=== PATIENT | male | born 1960 | race Caucasian/White ===

== ENCOUNTER 2018-05-22 07:32 | Day surgery (SDC) | payer OTHER ==
[2018-05-22] MEDS: NS 1,000 ML IV (06:00)
[2018-05-22] MEDS ORDERED: LIDOCAINE 2% INJ 100 MG/5 ML SDV (FOR ANES.) As Ordered (07:42)
[2018-05-22] MEDS ORDERED: PROPOFOL 200 MG/20 ML VIAL As Ordered ×2 (07:42)
== END 2018-05-22 09:22 | disposition home or self-care (01) ==
LOC: M OPP 07:32
DX: Z12.11 Encounter for screening for malignant neoplasm of colon (principal); Z86.010 Personal history of colon polyps; K64.0 First degree hemorrhoids; I48.91 Unspecified atrial fibrillation; I10 Essential (primary) hypertension; E78.5 Hyperlipidemia, unspecified; M10.9 Gout, unspecified; G47.30 Sleep apnea, unspecified; R06.83 Snoring; Z79.01 Long term (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 of anticoagulants; Z79.899 Other long term (current) drug therapy
CPT/HCPCS: 45378

== ENCOUNTER → 2019-03-27 | Outpatient (REF) | payer OTHER ==
[~2019-03-27] MED LIST: ATEN100T PO; DIGO0.25 PO; QUIN1TAB4 PO; ROSU10TA6 PO; WARF-18 PO; WARF-23 PO
[2019-03-28 11:06] LABS: LDL DIRECT 41 mg/dL (0-99)
== END ==
LOC: M LAB REF 12:40
PROVIDERS: ATTEND Internal Medicine
DX: E78.00 Pure hypercholesterolemia, unspecified (principal)

== ENCOUNTER → 2019-06-18 | Outpatient (CLI) | payer OTHER ==
--- NOTE | 2019-06-18 15:56 | REP ---
Two views right hip: 06/18/2019. Indication: Right hip pain. Comparison: None. Findings: There is no acute fracture, subluxation or dislocation. Narrowing of the hip joint is present with mild to moderate osteoarthritic changes. No erosive osseous abnormalities are present. Impression: No acute osseous injury of the right hip. Electronically Signed by Nathan Mccoy DO 06/18/2019 03:48 P
== END ==
LOC: M WUC 14:09
PROVIDERS: ATTEND Registered Nurse
DX: M25.559 Pain in unspecified hip (principal)

== ENCOUNTER → 2019-09-28 | Outpatient (REF) | payer OTHER ==
[~2019-09-28] MED LIST changes: -DIGO0.25 PO; +DIGO0.253 PO
== END ==
LOC: M LAB REF 16:26
PROVIDERS: ATTEND Internal Medicine
DX: I48.20 Chronic atrial fibrillation, unspecified (principal)

== ENCOUNTER → 2020-07-18 | Outpatient (REF) | payer OTHER ==
[2020-07-18 17:36] LABS: HEPATITIS A ANTIBODY IGM NEGATIVE (NEGATIVE); HEPATITIS B CORE ANTIBODY IGM NEGATIVE (NEGATIVE); HEPATITIS B SURFACE ANTIGEN NEGATIVE (NEGATIVE); HEPATITIS C VIRUS ABY INDEX 0.1 INDEX (<0.8)
== END ==
LOC: M LAB REF 16:19
PROVIDERS: ATTEND Internal Medicine
DX: R94.5 Abnormal results of liver function studies (principal)

== ENCOUNTER → 2020-07-24 | Outpatient (REF) | payer OTHER | LOC: M LAB REF 16:22 | PROVIDERS: ATTEND Internal Medicine | DX: C22.8 Malignant neoplasm of liver, primary, unspecified as to type (principal) ==

== ENCOUNTER → 2020-09-22 | Outpatient (REF) | payer OTHER ==
[~2020-09-22] MED LIST changes: +XARE20TA PO
== END ==
LOC: M LAB REF 16:12
PROVIDERS: ATTEND Internal Medicine
DX: I48.20 Chronic atrial fibrillation, unspecified (principal)

== ENCOUNTER 2020-09-23 10:36 | Inpatient (IN) | payer OTHER ==
[~2020-09-23] VITALS: Ht 190.5 cm; Wt 128.0 kg
[~2020-09-23 10:36] MED LIST changes: -XARE20TA PO
--- OUTSIDE RECORDS SUMMARY | 2020-09-23 10:44 | CCD | Continuity of Care Document ---
Author Author Real Koo MD Organization Unknown Address [address] [address] Phone [phone] Care Team Providers Care Therapeutic Recreation Assistant Name Role Phone Jeffy Koo JR, MD AUTM Unavailable Problems Active Problems Provider Date Anticoagulants Homeopathic Doctor (Current) Use O nset: 07/23/1997 Atrial fibrillation Jeffy Koo MD Onset: 07/23/1997 Metabolic syndrome X Jeffy Koo MD Onset: 04/17/2012 Pure hypercholesterolemia Jeffy Koo MD Onset: 04/17 Obstructive sleep apnea syndrome Jeffy Koo MD Onset : 04/17/2012 Pure hyperglyceridemia Jeffy Koo MD Onset: 04/17/20 12 Morbid obesity Jeffy Koo MD Onset: 04/17/2012 Essential hypertension Jeffy Koo MD Onset: 04/17/20 12 Anticoagulant agent Jeffy Koo MD Onset: 03/24/2015 Social History Type Date Description Comments Sex Unknown ETOH Use consumes 1-2 beers per week Tobacco Use Start: Unknown Patient has never smoked Allergies, Adverse Reactions, Alerts Description No Known Drug Allergies Medications Active Medications SIG Qnty Indications Ordering Provide r Date Oseltamivir Phosphate 75mg Capsule s 1 by mouth twice daily for 5 days. 10caps Jeffy Koo MD 09/15/2020 Xarelto 20mg Tablets take one tablet by mouth every day with dinner 90tabs Jason Allison 08/12/2020 Trulicity 1.5mg/0.5ML Solution Pen -Inject 1 injection weekly 6ml Jeffy Koo MD 020 Docusate Sodium 100mg Capsules take one capsule by mouth twice a day as needed hold for diarrhea 90caps K64 .9 Jeffy Koo MD 07/17/2019 Hydrocortisone 2.5% Cream apply to hemorrhoids three times daily as needed 30gm K64.9 Jeffy Koo MD 07/17/2019 Baclofen 10mg Tablets May Take 1 Tablet By Mouth Up To Twice Daily as Needed For Low Back/Hip Pain 45tabs M25. 551 Jeffy Koo MD 06/18/2019 Rosuvastatin Calcium 20mg Tablets Take One Tablet By Mouth Every Day 90tabs Jeffy Koo MD 03/28/2019 Metformin HCL ER 750mg Tablets ER 24HR Take Two Tablets By Mouth Every Day Before Supper 180tabs Jeffy Koo MD 09/02/2017 Aleve 220mg Tablets 2 po qd p rn RAJEEV Viera 03/10/2017 Cyclobenzaprine HCL 10mg Tablets take one tablet by mouth three times a day as needed 45tabs M54.31 RAJEEV Viera 03/10/2017 Digoxin 250mcg Tablets Take One Tablet By Mouth Every Day 90tabs Jeffy Koo MD 10/03/2014 Viagra 100mg Tablets as direc valerie 10tabs Jeffy Koo MD 09/23/2014 No OTC Meds Jeffy Koo MD C-Pap Mask And Supplies use as directed 1units G47.33 Jeffy Koo MD 09/11/2010 Quinapril HCL 40mg Tablets Take One Tablet By Mouth Daily 90tabs Jeffy Koo MD 08/13/2010 Atenolol 100mg Tablets Take One Tablet By Mouth Every Day 90tabs Jeffy Koo MD 11/18/1998 Medications Administered in Office Medication SIG Qnty Indications Ordering Provider Date Immunization Adminstration,1 Vaccine/Tox oid Injection Jeffy Koo MD 2019 Immunization Adminstration,1 Vaccine/Tox oid Injection Jeffy Koo MD 2018 Immunization Adminstration,1 Vaccine/Tox oid Injection Jeffy Koo MD 2017 Administration Of Flu Vaccine Inj ection RAJEEV Calero 06/16/2005 Administration Of Flu Vaccine Inj ection RAJEEV Calero 05/21/2003 Immunizations CPT Code Status Date Vaccine Lot # [id number] Given 05/26/2020 Influenza Vaccin e Quadrivalent Preser/Antibiotic Free Im Use [id number] Given 05/29/2019 Influenza Vaccin e Quadrivalent Preser/Antibiotic Free Im Use 117130 61957 Given 05/16/2018 Influenza Virus Vaccine, Quadrivalent (Cciiv4), Derived From 7 Given 05/30/2017 Influenza Vaccin e Quadrivalent Preser/Antibiotic Free Im Use [id number] Q2037 Given 05/13/2016 Fluvirin Virus Vaccine 18730 01 Q2037 Given 05/14/2014 Fluvirin Virus Vaccine Q2037 Given 06/21/2013 Fluvirin Virus Vaccine Q2037 Given 05/17/2012 Fluvirin Virus Vaccine Q2037 Given 05/26/2011 Fluvirin Virus Vaccine 22630 Given 05/06/2010 Influenza Virus Vaccine 82350 Given 05/07/2009 Influenza Virus Vaccine 34251 Given 05/21/2008 Influenza Virus Vaccine 07528 Given 05/23/2007 Influenza Virus Vaccine 45143 Given 07/26/2006 Influenza Virus Vaccine 66362 Given 06/16/2005 Influenza Virus Vaccine 79134 Given 05/21/2003 Influenza Virus Vaccine 29208 Given 06/12/2002 Influenza Virus Vaccine Vital Signs Date Vital Result Comment 09/22/2020 1:31pm BP Systolic 112 mmHg BP Diastolic 68 mmHg Heart Rate 70 /min Height 75 inches 6'3" Weight 280.00 lb BMI (Body Mass Index) 35.0 kg/m2 07/18/2020 12:57pm BP Systolic 110 mmHg BP Diastolic 74 mmHg Heart Rate 120 /min irregular Height 75 inches 6'3" Weight 325.00 lb BMI (Body Mass Index) 40.6 kg/m2 Results Test Acquired Date Facility Test Result H/L Range Note Pap Stain 08/15/2020 [place] [address] [phone] Specimen Description Received in form <SEE NOTE> 1 Specimen Description cores are four <SEE NOTE> 2 Specimen Description diameter. All pr <SEE NOTE> 3 Clinical History Liver mass. Microscopic Examination Slides reviewed. <SEE NOTE> 4 Preliminary Diagnosis ULTRASOUND GUIDE <SEE NOTE> 5 Preliminary Diagnosis - FEATURES ARE S <SEE NOTE> 6 Preliminary Diagnosis METAMORPHOSIS, F <SEE NOTE> 7 Preliminary Diagnosis - SEE COMMENT Preliminary Diagnosis AB <SEE NOTE> 8 Preliminary Diagnosis AB <SEE NOTE> 9 Preliminary Diagnosis ULTRASOUND GUIDE <SEE NOTE> 10 Preliminary Diagnosis - FEATURES ARE S <SEE NOTE> 11 Preliminary Diagnosis METAMORPHOSIS, F <SEE NOTE> 12 Preliminary Diagnosis - SEE COMMENT Preliminary Diagnosis AB <SEE NOTE> 13 Preliminary Diagnosis AB <SEE NOTE> 14 Preliminary Diagnosis <SEE NOTE> 15 Preliminary Diagnosis COMMENT: This ca <SEE NOTE> 16 Preliminary Diagnosis consultation by <SEE NOTE> 17 -31 REPORT SIGNED: K <SEE NOTE> 18 Pathologic Diagnosis This case was se <SEE NOTE> 19 Pathologic Diagnosis <SEE NOTE> 20 Pathologic Diagnosis LIVER, MASS, BIO <SEE NOTE> 21 Pathologic Diagnosis - MODERATELY-DIF <SEE NOTE> 22 Pathologic Diagnosis <SEE NOTE> 23 Pathologic Diagnosis <SEE NOTE> 24 Specimen Description Received in form <SEE NOTE> 25 Specimen Description cores are four <SEE NOTE> 26 Specimen Description diameter. All pr <SEE NOTE> 27 Clinical History Liver mass. Microscopic Examination Slides reviewed. <SEE NOTE> 28 Preliminary Diagnosis their report, th <SEE NOTE> 29 Preliminary Diagnosis Report faxed to <SEE NOTE> 30 Preliminary Diagnosis ULTRASOUND GUIDE <SEE NOTE> 31 Preliminary Diagnosis - FEATURES ARE S <SEE NOTE> 32 Preliminary Diagnosis METAMORPHOSIS, F <SEE NOTE> 33 Preliminary Diagnosis - SEE COMMENT -40 REPORT SIGNED: K <SEE NOTE> 34 Pathologic Diagnosis Sections show an <SEE NOTE> 35 Pathologic Diagnosis COMMENT: 36 Pathologic Diagnosis Sections show an <SEE NOTE> 37 Pathologic Diagnosis endothelial wrap <SEE NOTE> 38 Pathologic Diagnosis carcinoma. There <SEE NOTE> 39 Pathologic Diagnosis Arginase-1 and G <SEE NOTE> 40 Pathologic Diagnosis attempted to fur <SEE NOTE> 41 Pathologic Diagnosis remaining for ev <SEE NOTE> 42 Pathologic Diagnosis Spa Assistant Manager s <SEE NOTE> 43 Pathologic Diagnosis intradepartmenta <SEE NOTE> 44 Pathologic Diagnosis Amer K Abu Bebeto, <SEE NOTE> 45 Pathologic Diagnosis [address] <SEE NOTE> 46 Pathologic Diagnosis Electronically S <SEE NOTE> 47 Pathologic Diagnosis Patrick Damon, <SEE NOTE> 48 Pathologic Diagnosis [address] <SEE NOTE> 49 Specimen Description Received in form <SEE NOTE> 50 Specimen Description cores are four <SEE NOTE> 51 Specimen Description diameter. All pr <SEE NOTE> 52 Clinical History Liver mass. Microscopic Examination Slides reviewed. <SEE NOTE> 53 Preliminary Diagnosis AB <SEE NOTE> 54 Preliminary Diagnosis AB <SEE NOTE> 55 Preliminary Diagnosis ULTRASOUND GUIDE <SEE NOTE> 56 Preliminary Diagnosis - FEATURES ARE S <SEE NOTE> 57 Preliminary Diagnosis METAMORPHOSIS, F <SEE NOTE> 58 Preliminary Diagnosis - SEE COMMENT 59 Preliminary Diagnosis their report, th <SEE NOTE> 60 Preliminary Diagnosis AB <SEE NOTE> 61 Preliminary Diagnosis AB <SEE NOTE> 62 Preliminary Diagnosis Report faxed to <SEE NOTE> 63 Preliminary Diagnosis COMMENT: This ca <SEE NOTE> 64 Preliminary Diagnosis consultation by <SEE NOTE> 65 Preliminary Diagnosis their report, th <SEE NOTE> 66 Preliminary Diagnosis . -56 REPORT SIGNED: K <SEE NOTE> 67 Pathologic Diagnosis Cynthia, SHAREE 0 <SEE NOTE> 68 Pathologic Diagnosis CODE/S: Pathologic Diagnosis 69435 Pathologic Diagnosis <SEE NOTE> 69 Specimen Description Received in form <SEE NOTE> 70 Specimen Description cores are four <SEE NOTE> 71 Specimen Description diameter. All pr <SEE NOTE> 72 Clinical History Liver mass. Microscopic Examination Slides reviewed. <SEE NOTE> 73 Preliminary Diagnosis Report faxed to <SEE NOTE> 74 Preliminary Diagnosis <SEE NOTE> 75 Preliminary Diagnosis . -63 REPORT SIGNED: K <SEE NOTE> 76 -64 Macy Foster DO <SEE NOTE> 77 Complete Blood Count 08/15/2020 [facility] [place] [address] [phone] WBC 5.23 x10E3/uL Normal 4.0-10.5 RBC 3.59 x10E6/uL Low 4.70-6.00 Hemoglobin 9.7 g/dL Low 14.0-18.0 Hematocrit 30.3 % Low 42.0-52.0 MCV 84.4 fL Normal 81.0-99.0 MCH 27.0 pg Normal 27.0-31.0 MCHC 32.0 g/dL Low 32.7-35.6 RDW 18.0 % High 11.5-14.0 Platelet count 257 x10E3/uL Normal 150-450 MPV 9.9 fl High 6.9-9.5 Neutrophils 72.4 % High 34-64 Lymphocytes 10.9 % Low 25-45 Monocytes 13.2 % High 1.7-10.6 Eosinophils 2.3 % Normal 0.4-7.0 Basophils 0.6 % Normal 0.1-2.0 Imm. Gran. 0.6 % Normal 0.1-2.0 Abs. Neutro. 3.79 x10E3/uL Normal 1.2-7.6 Abs. Lymph. 0.57 x10E3/uL Low 1.0-3.5 Abs. [place]. 0.69 x10E3/uL Normal 0.1-1.0 Abs. Eosin. 0.12 x10E3/uL Normal 0.1-0.7 Abs. Baso. 0.03 x10E3/uL Normal 0.0-0.1 Abs. Imm. Gran. 0.03 x10E3/uL Normal 0.0-0.1 78 Anrbc% 0 % Normal 0 RBC Morphology 2+ ANISOCYTOSIS Normal RBC Morphology 1+ HYPOCHROMIC Normal RBC Morphology OCC STOMATOCYTES Normal 79 RBC Morphology OCC TARGET CELLS Normal 80 Laboratory test finding 08/12/2020 [place] [address] [phone] [id number] Not Detected Normal Not Detected 81 Laboratory test finding 07/28/2020 [facility] 1.3 Laboratory test finding 07/24/[address] [address] [phone] Carcinoembryonic Antigen 0.6 NG/ML Normal <2.5 82 Alpha Fetoprotein Tumor Quant 1000.0 NG/ML High <8.1 83 Laboratory test finding 07/24/2020 [facility] 3.3 Liver Function Profile 07/18/2020 [facility] Patient Liaison: [place] [address] [phone] Alk. Phosphatase 277 mg/dL High 46 - 116 Total Bilirubin 0.8 mg/dL 0.2 - 1.0 Ast (Sgot) 973 U/L High 15 - 37 84 Alt (SGPT) 215 U/L High 12 - 78 Albumin 3.8 g/dL 3.4 - 5.0 Total Protein 7.6 g/dL 6.4 - 8.2 Direct Bilirubin 0.3 mg/dL High 0.0 - 0.2 A/G Ratio 1.00 CALC 1.00 - 1.90 Laboratory test finding 07/18/2020 [facility] Patient Liaison: [place] [address] [phone] PSA 0.68 ng/mL <4.00 85 Hepatitis Profile 07/18/2020 [facility] [address] [place] [address] [phone] Hepatitis C Virus Winsome Index 0.1 INDEX Normal <0.8 86 Hepatitis B Surface Antigen NEGATIVE Normal Negative Hepatitis B Core Antibody Igm NEGATIVE Normal Negative Hepatitis A Antibody Igm NEGATIVE Normal Negative Complete Blood Count 07/10/2020 [facility] Patient Liaison: [place] [address] [phone] WBC 4.2 x10*3/UL 4.1 - 10.9 RBC 4.44 x10*6/UL 4.20 - 6.30 Hemoglobin 12.6 g/dL 12.0 - 18.0 Hematocrit 36.6 % Low 37.0 - 51.0 MCV 82.4 fL 80.0 - 97.0 MCH 28.4 pg 26.0 - 32.0 MCHC 34.5 g/dL 31.0 - 38.0 RDW 14.4 % High 11.6 - 13.7 PLT 233 x10*3/UL 140 - 440 MPV 8.1 FL 7.8 - 11.0 Lymph % 16.5 % 10.0 - 58.5 Mid % 4.9 % 1.7 - 9.3 Neut % 78.6 % 37.0 - 92.0 Lymph # 0.6 x10*3/UL 0.6 - 4.1 Mid # 0.3 x10*3/UL 0.1 - 0.6 Neut # 3.3 x10*3/UL 2.0 - 7.8 A1c 07/10/2020 [facility] , Patient Liaison: [place] [address] [phone] Hba1c 6.0 % High <5.7 87 Est Avg Glucose 125 mg/dL High 60 - 110 Comprehensive Chem Profile 07/10/2020 [facility], Patient Liaison: [place] [address] [phone] Glucose 88 mg/dL 74 - 99 88 BUN 21 mg/dL High 7 - 18 Creatinine 1.3 mg/dL 0.6 - 1.3 Sodium 137 mEq/L 136 - 145 Potassium 4.8 mEq/L 3.5 - 5.1 Chloride 99 mEq/L 98 - 107 Carbon Dioxide 30 mEq/L 21 - 32 Calcium 9.0 mg/dL 8.5 - 10.1 Alk. Phosphatase 181 mg/dL High 46 - 116 Total Bilirubin 0.6 mg/dL 0.2 - 1.0 Ast (Sgot) 712 U/L High 15 - 37 89 Alt (SGPT) 83 U/L High 12 - 78 Albumin 3.7 g/dL 3.4 - 5.0 Total Protein 7.3 g/dL 6.4 - 8.2 A/G Ratio 1.03 CALC 1.00 - 1.90 GFR 57 mL/min Low >60 GFR >= 60 mL/min >60 90 Lipid Profile 07/10/2020 [facility] , Patient Liaison: [place] [address] [phone] Cholesterol 114 mg/dL Low 131 - 200 Triglycerides 149 mg/dL 30 - 150 HDL Cholesterol 21 mg/dL Low 35 - 60 LDL (Calculated) 63 CALC 50 - 159 Laboratory test finding 06/10/2020 [facility] 2.1 Laboratory test finding 06/03/2020 [facility] 1.6 Laboratory test finding 05/26/2020 [facility] 1.5 Laboratory test finding 04/24/2020 [facility] 3.0 Laboratory test finding 03/24/2020 [facility] 2.6 1 Received in formalin, labele d with proper patient identification and liver mass biopsy x2 2 cores are four becker-white ti ssue cores ranging in length from 0.3-1.4 cm and 0.1 cm in 3 diameter. All processed in o ne cassette. 4 Slides reviewed. Diagnosis supported by microscopic examination. 5 ULTRASOUND GUIDED BIOPSY OF LIVER MASS: 6 - FEATURES ARE STRONGLY SUGG ESTIVE OF HEPATOCELLULAR CARCINOMA WITH FATTY 7 METAMORPHOSIS, FIBROSIS AND AREAS OF NECROSIS 8 ABNORMAL FINDI NGS 9 ABNORMAL FINDI NGS 10 ULTRASOUND GUIDED BIOPSY OF LIVER MASS: 11 - FEATURES ARE STRONGLY SUGG ESTIVE OF HEPATOCELLULAR CARCINOMA WITH FATTY 12 METAMORPHOSIS, FIBROSIS AND AREAS OF NECROSIS 13 ABNORMAL FINDI NGS 14 ABNORMAL FINDI NGS 15 16 COMMENT: This case is referr ed to the [facility], Department of Pathology for a 17 consultation by a GI patholo gist to evaluate for hepatocellular carcinoma. Upon receipt of 18 REPORT SIGNED: Macy Foster DO 08/18/20 (preliminary) 19 This case was sent to [facility] for consultation. The report for 20 is as foll ows. 21 LIVER, MASS, BIOPSY: 22 - MODERATELY-DIFFERENTIATED HEPATOCELLULAR CARCINOMA. SEE COMMENT. 23 MALIGNANCY 24 MALIGNANCY 25 Received in formalin, labele d with proper patient identification and liver mass biopsy x2 26 cores are four becker-white ti ssue cores ranging in length from 0.3-1.4 cm and 0.1 cm in 27 diameter. All processed in o ne cassette. 28 Slides reviewed. Diagnosis supported by microscopic examination. 29 their report, the final diag nosis will be posted. [address] Jeffy Koo's office on 08/18/2020. 31 ULTRASOUND GUIDED BIOPSY OF LIVER MASS: 32 - FEATURES ARE STRONGLY SUGG ESTIVE OF HEPATOCELLULAR CARCINOMA WITH FATTY 33 METAMORPHOSIS, FIBROSIS AND AREAS OF NECROSIS 34 REPORT SIGNED: Macy Foster DO 08/18/20 (preliminary) 35 Sections show an atypical he patocellular neoplasm with trabecular architecture, 36 endothelial wrapping, and in tracytoplasmic fat, compatible with hepatocellular 37 Sections show an atypical he patocellular neoplasm with trabecular architecture, 38 endothelial wrapping, and in tracytoplasmic fat, compatible with hepatocellular 39 carcinoma. There is no backg round liver parenchyma present in the biopsy. HepPar1, 40 Arginase-1 and GPC-3 immunoh istochemical stains, as well as a reticulin stain, were 41 attempted to further charact erize the lesion but there was insufficient tissue 42 remaining for evaluation. 43 Spa Assistant Manager slides of thi s case were reviewed at the gastrointestinal/liver 44 intradepartmental consultati on conference. (RW, NF, ) 45 Patrick Damon MD [address] 47 Electronically Signed By: 48 Patrick Damon MD [address] 50 Received in formalin, labele d with proper patient identification and liver mass biopsy x2 51 cores are four becker-white ti ssue cores ranging in length from 0.3-1.4 cm and 0.1 cm in 52 diameter. All processed in o ne cassette. 53 Slides reviewed. Diagnosis supported by microscopic examination. 54 ABNORMAL FINDI NGS 55 ABNORMAL FINDI NGS 56 ULTRASOUND GUIDED BIOPSY OF LIVER MASS: 57 - FEATURES ARE STRONGLY SUGG ESTIVE OF HEPATOCELLULAR CARCINOMA WITH FATTY 58 METAMORPHOSIS, FIBROSIS AND AREAS OF NECROSIS 59 consultation by a GI patholo gist to evaluate for hepatocellular carcinoma. Upon receipt of 60 their report, the final diag nosis will be posted. 61 ABNORMAL FINDI NGS 62 ABNORMAL FINDI NGS [address] Jeffy Koo's office on 08/18/2020. 64 COMMENT: This case is referr ed to the [facility], Department of Pathology for a 65 consultation by a GI patholo gist to evaluate for hepatocellular carcinoma. Upon receipt of 66 their report, the final diag nosis will be posted. 67 REPORT SIGNED: Macy Foster DO 08/18/20 (preliminary) [address] [place] [address] 69 70 Received in formalin, labelernie d with proper patient identification and liver mass biopsy x2 71 cores are four becker-white ti ssue cores ranging in length from 0.3-1.4 cm and 0.1 cm in 72 diameter. All processed in o ne cassette. 73 Slides reviewed. Diagnosis supported by microscopic examination. [address] Jeffy Koo's office on 08/18/2020. 75 76 REPORT SIGNED: Macy Foster DO 08/18/20 (preliminary) 77 Macy Foster DO 1 78 DIFFERENTIAL CONFIRMED BY SL KENNA REVIEW. 79 OCC STOMATOCYTES 80 OCC TARGET CELLS RBC MORPHOLOGY EXPECTED RESULTS: NORMAL = NORMOCHROMIC, NORMOCYTIC CELLS Any findings other than Normal will be reported and are considered Abnormal. The significance of Abnormal findings are to be clinically correlated by the provider. 81 This nucleic acid amplificat ion test was developed and its performance characteristics determined by [employer]. Nucleic acid amplification tests include PCR and TMA. This test has not been FDA cleared or approved. This test has been authorized by FDA under an Emergency Use Authorization (EUA). This test is only authorized for the duration of time the declaration that circumstances exist justifying the authorization of the emergency use of in vitro diagnostic tests for detection of SARS-CoV-2 virus and/or diagnosis of COVID-19 infection under section 564(b)(1) of the Act, 21 U.S.C. 360bbb-3 (b) (1), unless the authorization is terminated or revoked sooner. When diagnostic testing is negative, the possibility of a false negative result should be considered in the context of a patient's recent exposures and the presence of clinical signs and symptoms consistent with COVID-19. An individual without symptoms of COVID-19 and who is not shedding SARS-CoV-2 virus would expect to have a negative (not detected) result in this assay. Methodology: Nucleic Acid Amplification (BETTY) 82 THE CEA ASSAY IS PERFORMED O N THE [facility] BY CHEMILUMINESCENCE AND SHOULD NOT BE COMPARED INTERCHANGEABLY WITH OTHER METHODS. IT SHOULD NOT BE USED ALONE A SCREENING TEST OR DIAGNOSIS FOR THE PRESENCE OR ABSENCE OF MALIGNANT DISEASE. PREDICTIONS OF DISEASE RECURRENCE SHOULD NOT BE BASED SOLELY ON VALUES OBTAINED FROM SERIAL PATIENT SERUM VALUES. 83 THE AFP ASSAY IS PERFORMED O N THE [employer] [facility] BY CHEMILUMINESCENCE AND SHOULD NOT BE COMPARED INTERCHANGEABLY WITH OTHER METHODS. IT SHOULD NOT BE USED ALONE A SCREENING TEST OR DIAGNOSIS FOR THE PRESENCE OR ABSENCE OF MALIGNANT DISEASE. THESE RESULTS ARE NOT INTERPRETABLE IN FEMALES. PREDICTIONS OF DISEASE RECURRENCE SHOULD NOT BE BASED SOLELY ON VALUES OBTAINED FROM SERIAL PATIENT SERUM VALUES. 84 NOTE: RESULT VERIFIED. 85 This assay was performed on the Siemens Dimension EXL using the B- Galactosidase/CPRG methodology and should not be compared interchangeably with other methods. The PSA should not be used alone as a screening test for the presence or absence of malignant disease. 86 Negative Not infected with HCV, unless recent infection is suspected or other evidence exists to indicate HCV infection. 87 Lab Result Notes: Pre-Diabetes 5.7 - 6.4 % Diabetes = or > 6.5% 88 100-125 mg/dL PRE-DIABET ES/FASTING >126 mg/dL DIABETES/FASTING 89 NOTE: RESULT VERIFIED. 90 CHRONIC KIDNEY DISEASE STAGI NG PER NKF STAGE I & II GFR >= 60 NORMAL TO MILDLY DECREASED STAGE III GFR 30-59 MODERATELY DECREASED STAGE IV GFR 15-29 SEVERELY DECREASED STAGE V GFR <15 VERY LITTLE GFR LEFT ESRD GFR <15 ON FLOWER SHOP MANAGER Procedures Date Code Description Status 05/22/2018 [id number] Colonoscopy Completed 12/25/2013 [id number] Colonoscopy Completed Medical Devices Description No Information Available Encounters Type Date Location Provider Dx Diagnosis Office Visit 07/24/2020 10[facility]a [facility] D37.6 Neoplasm of uncertain behavior of liver, GB & bile duct R91.8 Other nonspecific abnormal f inding of lung field I48.20 Chronic atrial fibrillation, unspecified Z79.01 half-way (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 of a nticoagulants C22.8 Malignant neoplasm of liver, primary, unspecified as to type Office Visit 07/18/2020 1[facility] E11.21 Type 2 diabetes mellitus with diabetic n ephropathy E11.42 Type 2 diabetes mellitus wit h diabetic polyneuropathy G47.33 Obstructive sleep apnea (jazmyne lt) (pediatric) E78.00 Pure hypercholesterolemia, u nspecified I48.20 Chronic atrial fibrillation, unspecified Z79.01 termination clerk (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 of a nticoagulants I11.9 [facility] R74.8 Abnormal levels of other ser um enzymes Z12.5 Encounter for screening for malignant neoplasm of prostate E66.01 Morbid (severe) obesity due to excess calories Z68.41 Body mass index [BMI]40.0-44 .9, adult Assessments Date Code Description Provider 07/28/2020 Z51.81 Encounter for therapeutic drug l evel monitoring Melvi Canas, [facility] 07/28/2020 Z51.81 Encounter for therapeutic drug l evel monitoring Protime 07/28/2020 Z79.01 termination clerk (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 oagulants Melvi Canas, [facility] 07/28/2020 Z79.01 half-way (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 oagulants Protime 07/28/2020 I48.20 Chronic atrial fibrillation, uns pecified Melvi Canas, [facility] 07/28/2020 I48.20 Chronic atrial fibrillation, uns pecified Protime 07/24/2020 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, gallbladder and bile ducts Jeffy Koo MD 07/24/2020 R91.8 Other nonspecific abnormal findi ng of lung field Jeffy Koo MD 07/24/2020 I48.20 Chronic atrial fibrillation, uns pecified Jeffy Koo MD 07/24/2020 Z79.01 termination clerk (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 oagulants Jeffy Koo MD 07/24/2020 C22.8 Malignant neoplasm of liver, haylie otilio, unspecified as to type Jeffy Koo MD 07/18/2020 E11.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 Jeffy Koo MD 07/18/2020 E11.42 Type 2 diabetes mellitus with di abetic polyneuropathy Jeffy Koo MD 07/18/2020 G47.33 Obstructive sleep apnea (adult) (pediatric) Jeffy Koo MD 07/18/2020 E78.00 Pure hypercholesterolemia, unspe cified Jeffy Koo MD 07/18/2020 I48.20 Chronic atrial fibrillation, uns pecified Jeffy Koo MD 07/18/2020 Z79.01 half-way (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 oagulants Jeffy Koo MD 07/18/2020 I11.9 Hypertensive heart disease witho ut heart failure Jeffy Koo MD 07/18/2020 R74.8 Abnormal levels of other serum e nzymes Jeffy Koo MD 07/18/2020 Z12.5 Encounter for screening for aliza gnant neoplasm of prostate Jeffy Koo MD 07/18/2020 E66.01 Morbid (severe) obesity due to e xcess calories Jeffy Koo MD 07/18/2020 Z68.41 Body mass index [BMI]40.0-44.9, adult Jeffy Koo MD 07/10/2020 E11.65 Type 2 diabetes mellitus with hy perglycemia Jeffy Koo MD 07/10/2020 E11.65 Type 2 diabetes mellitus with hy perglycemia Lab Schedule 07/10/2020 E78.00 Pure hypercholesterolemia, unspe cified Jeffy Koo MD 07/10/2020 Z51.81 Encounter for therapeutic drug l evel monitoring Melvi Canas, [facility] 07/10/2020 I48.20 Chronic atrial fibrillation, uns pecified Jeffy Koo MD 07/10/2020 E78.00 Pure hypercholesterolemia, unspe cified Lab Schedule 07/10/2020 Z79.01 termination clerk (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 oagulants Jeffy Koo MD 07/10/2020 Z51.81 Encounter for therapeutic drug l evel monitoring Protime 07/10/2020 I48.20 Chronic atrial fibrillation, uns pecified Lab Schedule 07/10/2020 I48.20 Chronic atrial fibrillation, uns pecified Melvi Anne Marie Patel, [facility] 07/10/2020 Z79.01 half-way (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 oagulants Lab Schedule 07/10/2020 I48.20 Chronic atrial fibrillation, uns pecified Protime 07/10/2020 Z79.01 half-way (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 oagulants Melvi Canas, [facility] 07/10/2020 Z79.01 termination clerk (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 oagulants Protime 06/10/2020 Z51.81 Encounter for therapeutic drug l evel monitoring Melvi Le Mcleod, GRADUATE CIVIL ENGINEER 06/10/2020 Z51.81 Encounter for therapeutic drug l evel monitoring Protime 06/10/2020 I48.20 Chronic atrial fibrillation, uns pecified Melvi Anne Marie Patel, [facility] 06/10/2020 I48.20 Chronic atrial fibrillation, uns pecified Protime 06/10/2020 Z79.01 termination clerk (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 oagulants Melvi Anne Marie Patel, GRADUATE CIVIL ENGINEER 06/10/2020 Z79.01 termination clerk (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 oagulants Protime 06/03/2020 Z51.81 Encounter for therapeutic drug l evel monitoring Melvi Le Mcleod, GRADUATE CIVIL ENGINEER 06/03/2020 Z51.81 Encounter for therapeutic drug l evel monitoring Protime 06/03/2020 I48.20 Chronic atrial fibrillation, uns pecified Melvi Le Mcleod, GRADUATE CIVIL ENGINEER 06/03/2020 I48.20 Chronic atrial fibrillation, uns pecified Protime 06/03/2020 Z79.01 termination clerk (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 oagulants Melvi Le Mcleod, GRADUATE CIVIL ENGINEER 06/03/2020 Z79.01 half-way (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 oagulants Protime 05/26/2020 Z51.81 Encounter for therapeutic drug l evel monitoring Melvi Le Mcleod, GRADUATE CIVIL ENGINEER 05/26/2020 Z51.81 Encounter for therapeutic drug l evel monitoring Protime 05/26/2020 I48.20 Chronic atrial fibrillation, uns pecified Melvi Le Mcleod, [facility] 05/26/2020 I48.20 Chronic atrial fibrillation, uns pecified Protime 05/26/2020 Z79.01 termination clerk (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 oagulants Melvi Le Mcleod, [facility] 05/26/2020 Z79.01 termination clerk (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 oagulants Protime 05/26/2020 Z23 Encounter for immunization Colli lacey Koo MD 05/26/2020 Z23 Encounter for immunization Proti me 04/24/2020 Z79.01 half-way (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 oagulants Melvi Le Mcleod, [facility] 04/24/2020 Z79.01 termination clerk (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 oagulants Protime 04/24/2020 I48.20 Chronic atrial fibrillation, uns pecified Melvi Le Mcleod, GRADUATE CIVIL ENGINEER 04/24/2020 I48.20 Chronic atrial fibrillation, uns pecified Protime 04/24/2020 Z51.81 Encounter for therapeutic drug l evel monitoring Melvi Le Mcleod, [facility] 04/24/2020 Z51.81 Encounter for therapeutic drug l evel monitoring Protime 03/24/2020 Z79.01 termination clerk (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 oagulants Melvi Le Mcleod, GRADUATE CIVIL ENGINEER 03/24/2020 Z79.01 termination clerk (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 oagulants Protime 03/24/2020 I48.20 Chronic atrial fibrillation, uns pecified Melvi Le Mcleod, [facility] 03/24/2020 I48.20 Chronic atrial fibrillation, uns pecified Protime 03/24/2020 Z51.81 Encounter for therapeutic drug l evel monitoring RAJEEV Calero Plan of Treatment Future Appointment(s):* 01/20/2021 11:40 am - [facility] 10/01/2019 - Jeffy Koo MD* I48.20 Chronic atrial fibrillation, unspecified * Z79.01 half-way (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oagulants * Z51.81 Encounter for therapeutic drug level monitoring * E11.21 Type 2 diabetes mellitus with diabetic nephropathy* Comments:* ABC's meet goal.Diabetic foot and eye exams up to date. TLC discussed. Glycemic index discussed. * E11.42 Type 2 diabetes mellitus with diabetic polyneuropathy * E11.65 Type 2 diabetes mellitus with hyperglycemia* Comments:* ABC's meet goal.Diabetic foot and eye exams up to date. TLC discussed. Glycemic index discussed. * I11.9 Hypertensive heart disease without heart failure * G47.33 Obstructive sleep apnea (adult) (pediatric) * E78.00 Pure hypercholesterolemia, unspecified * E66.01 Morbid (severe) obesity due to excess calories * Z68.42 Body mass index (BMI) 45.0-49.9, adult Functional Status Description No Information Available Mental Status Description No Information Available Referrals Refer to Reason for Referral Status Appt Date [facility] [place] M[facility]AY CONSULT FOR LIVER CANCER Alyce ent Declined [address] [place] [address] [phone] [facility] STEREOTYPE MOLDER CONSULT FOR METASTATIC LI TIMOTEO CANCER, PT SCHEDULED FOR LIVER BIOPSY ON 08/15/20 Sent 08/28/[address] [address] [phone] [facility] URGENT CONSULT FOR LARGE ALTHEA ER MASSES AND MULTIPLE PULMONARY NODULES. PT SCHEDULED FOR CHEST CT AT [facility] ON 07/29/20 Closed 08/05/2020 [address] [place], [place] [id number] [phone] [facility] STEREOTYPE MOLDER CONSULT FOR LARGE ALTHEA ER MASSES AND MULTIPLE PULMONARY NODULES PT SCHEDULED FOR CHEST CT AT [facility] ON 07/29/20 [place] [address] [phone]
--- OUTSIDE RECORDS SUMMARY | 2020-09-23 10:45 | CCD | Continuity of Care Document ---
Author Author Real Koo MD Organization Unknown Address [address] [address] Phone [phone] Care Team Providers Care Prime Broker Name Role Phone Jeffy Koo JR, MD AUTM Unavailable Problems Active Problems Provider Date Anticoagulants Commercial Accountant (Current) Use O nset: 07/23/1997 Atrial fibrillation [...] three times daily as needed 30gm K64.9 Jfefy Koo MD 07/17/2019 Baclofen 10mg Tablets May [...] CPT Code Status Date Vaccine Lot # [id number] Given 05/26/2020 Influenza Vaccin e Quadrivalent Preser/Antibiotic Free Im Use [id number] 82711 Given 05/29/2019 Influenza Vaccin e Quadrivalent Preser/Antibiotic Free Im Use [id number] 42102 Given 05/16/2018 Influenza Virus Vaccine, Quadrivalent ([id number]), Derived From 5 Given 05/30/2017 Influenza Vaccin e Quadrivalent Preser/Antibiotic Free Im Use [id number] Q2037 Given 05/13/2016 Fluvirin Virus Vaccine [id number] 01 Q2037 Given 05/14/2014 Fluvirin Virus Vaccine Q2037 Given 06/21/2013 Fluvirin Virus Vaccine Q2037 Given 05/17/2012 Fluvirin Virus Vaccine Q2037 Given 05/26/2011 Fluvirin Virus Vaccine 60872 Given 05/06/2010 Influenza Virus Vaccine 01738 Given 05/07/2009 Influenza Virus Vaccine 18928 Given 05/21/2008 Influenza Virus Vaccine 65934 Given 05/23/2007 Influenza Virus Vaccine 89707 Given 07/26/2006 Influenza Virus Vaccine 13394 Given 06/16/2005 Influenza Virus Vaccine 60998 Given 05/21/2003 Influenza Virus Vaccine 68768 Given 06/12/2002 Influenza Virus Vaccine Vital Signs Date Vital Result Comment 07/18/2020 12:57pm BP Systolic 110 mmHg BP Diastolic 74 mmHg Heart Rate 120 /min irregular Height 75 inches 6'3" Weight 325.00 lb BMI (Body Mass Index) 40.6 kg/m2 06/10/2020 8:36am Weight 349.00 lb Results Test Acquired Date Facility Test Result H/L Range Note Pap Stain 08/15/2020 [facility] [place], [place] [id number] [phone] Specimen Description Received in form <SEE NOTE> [...] for ev <SEE NOTE> 42 Pathologic Diagnosis Staple Cutter s <SEE NOTE> 43 Pathologic Diagnosis intradepartmenta <SEE NOTE> 44 Pathologic Diagnosis Amer K Abu Bebeto, <SEE NOTE> 45 Pathologic Diagnosis [address] <SEE NOTE> 46 Pathologic Diagnosis Electronically S <SEE NOTE> 47 Pathologic Diagnosis Amer K Abu Bebeto, <SEE NOTE> 48 Pathologic Diagnosis [address] <SEE NOTE> 49 Specimen Description Received [...] SIGNED: K <SEE NOTE> 67 Pathologic Diagnosis [place], [place] 0 <SEE NOTE> 68 Pathologic Diagnosis CODE/S: Pathologic Diagnosis 08661 Pathologic Diagnosis <SEE NOTE> 69 Specimen Description [...] <SEE NOTE> 77 Complete Blood Count 08/15/2020 [facility] [place] [address] [phone] WBC 5.23 x10E3/uL Normal 4.0-10.5 RBC 3.59 [...] Abs. Lymph. 0.57 x10E3/uL Low 1.0-3.5 Abs. Hardin. 0.69 x10E3/uL Normal 0.1-1.0 Abs. Eosin. 0.12 x10E3/uL Normal 0.1-0.7 Abs. Baso. 0.03 x10E3/uL Normal 0.0-0.1 Abs. Imm. Gran. 0.03 x10E3/uL Normal 0.0-0.1 78 Anrbc% 0 % Normal 0 RBC Morphology 2+ ANISOCYTOSIS Normal RBC Morphology 1+ HYPOCHROMIC Normal RBC Morphology OCC STOMATOCYTES Normal 79 RBC Morphology OCC TARGET CELLS Normal 80 Laboratory test finding 08/12/2020 [place] [address] [phone] [id number] Not Detected Normal Not Detected 81 Laboratory test finding 07/28/2020 [facility] 1.3 Laboratory test finding 07/24/2020 [facility] [address] [place] [address] [phone] Carcinoembryonic Antigen 0.6 NG/ML Normal <2.5 82 Alpha Fetoprotein Tumor Quant 1000.0 NG/ML High <8.1 83 Laboratory test finding 07/24/2020 [facility] 3.3 Liver Function Profile 07/18/2020 [facility] Research Associate Molecular Biology: [place] [address] [phone] Alk. Phosphatase 277 mg/dL High 46 - [...] 1.00 - 1.90 Laboratory test finding 07/18/2020 [facility] [employer] [facility] Research Associate Molecular Biology: [place] [address] [phone] PSA 0.68 ng/mL <4.00 85 Hepatitis Profile 07/18/2020 [facility] [address] [place] [address] [phone] Hepatitis C Virus Winsome Index 0.1 INDEX Normal <0.8 86 Hepatitis B Surface Antigen NEGATIVE Normal Negative Hepatitis B Core Antibody Igm NEGATIVE Normal Negative Hepatitis A Antibody Igm NEGATIVE Normal Negative Complete Blood Count 07/10/2020 [facility] Research Associate Molecular Biology: [place] [address] [phone] WBC 4.2 x10*3/UL 4.1 - 10.9 RBC [...] 3.3 x10*3/UL 2.0 - 7.8 A1c 07/10/2020 [facility] , Research Associate Molecular Biology: [place] [address] [phone] Hba1c 6.0 % High <5.7 87 Est Avg Glucose 125 mg/dL High 60 - 110 Comprehensive Chem Profile 07/10/2020 [facility], Research Associate Molecular Biology: Dr [place] [address] [phone] Glucose 88 mg/dL 74 - 99 88 [...] 60 mL/min >60 90 Lipid Profile 07/10/2020 [facility] Research Associate Molecular Biology: [place] [address] [phone] Cholesterol 114 mg/dL Low 131 - 200 [...] This case is referr ed to the [facility], Department of Pathology for a 17 consultation by a OSMEL baca to evaluate for hepatocellular carcinoma. Upon receipt of 18 REPORT SIGNED: Macy Foster DO 08/18/20 (preliminary) 19 This case was sent to [facility] for consultation. The report for [...] insufficient tissue 42 remaining for evaluation. 43 Staple Cutter slides of thi s case were reviewed at the gastrointestinal/liver 44 intradepartmental consultati on conference. (RW, NF, ) 45 Patrick Damon MD [address] 47 Electronically Signed By: 48 Patrick Damon MD [address] 50 Received in formalin, labele d [...] This case is referr ed to the [facility], Department of Pathology for a 65 consultation by a GI patholo gist to evaluate for hepatocellular carcinoma. Upon receipt of 66 their report, the final diag nosis will be posted. 67 REPORT SIGNED: Macy Foster DO 08/18/20 (preliminary) [address] [place] [address] 69 70 Received in formalin, labele d with proper [...] developed and its performance characteristics determined by [employer]. Nucleic acid amplification tests include PCR and [...] ASSAY IS PERFORMED O N THE [facility] BY CHEMILUMINESCENCE AND SHOULD NOT BE [...] 85 This assay was performed on the [employer] EXL using the B- Galactosidase/CPRG methodology and [...] LITTLE GFR LEFT ESRD GFR <15 ON TACK WELDER Procedures Date Code Description Status 05/22/2018 [id number] Colonoscopy Completed 12/25/2013 [id number] Colonoscopy Completed Medical Devices Description No Information Available Encounters Type Date Location Provider Dx Diagnosis Office Visit 07/24/2020 10:00a [facility] MD D37.6 Neoplasm of uncertain behavior of liver, GB & bile duct R91.8 Other nonspecific abnormal f inding of lung field I48.20 Chronic atrial fibrillation, unspecified Z79.01 bed bug exterminator (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 of a nticoagulants C22.8 Malignant neoplasm of liver, primary, unspecified as to type Office Visit 07/18/2020 1:00p [facility] husain MD E11.21 Type 2 diabetes mellitus with diabetic n ephropathy E11.42 Type 2 diabetes mellitus wit h diabetic polyneuropathy G47.33 Obstructive sleep apnea (jazmyne lt) (pediatric) E78.00 Pure hypercholesterolemia, u nspecified I48.20 Chronic atrial fibrillation, unspecified Z79.01 bed bug exterminator (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 of a nticoagulants I11.9 Hypert[facility] R74.8 Abnormal levels of other ser um enzymes Z12.5 Encounter for screening for malignant neoplasm of prostate E66.01 Morbid (severe) obesity due to excess calories Z68.41 Body mass index [BMI]40.0-44 .9, adult Assessments Date Code Description Provider 07/28/2020 Z51.81 Encounter for therapeutic drug l evel monitoring RAJEEV Calero 07/28/2020 Z51.81 Encounter for therapeutic drug l evel monitoring Protime 07/28/2020 Z79.01 senior living (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 oagulants Melvi Canas, HOSTING ENGINEER 07/28/2020 Z79.01 senior living (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 oagulants Protime 07/28/2020 I48.20 Chronic atrial fibrillation, uns pecified Melvi Canas, HOSTING ENGINEER 07/28/2020 I48.20 Chronic atrial fibrillation, uns pecified Protime 07/24/2020 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, gallbladder and bile ducts Jeffy Koo MD 07/24/2020 R91.8 Other nonspecific abnormal findi ng of lung field Jeffy Koo MD 07/24/2020 I48.20 Chronic atrial fibrillation, uns pecified Jeffy Koo MD 07/24/2020 Z79.01 bed bug exterminator (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 oagulants Jeffy Koo [...] uns pecified Jeffy Koo MD 07/18/2020 Z79.01 senior living (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 oagulants Jeffy Koo [...] for therapeutic drug l evel monitoring Melvi Anne Marie Patel, [facility] 07/10/2020 I48.20 Chronic atrial fibrillation, uns pecified Jeffy Koo MD 07/10/2020 E78.00 Pure hypercholesterolemia, unspe cified Lab Schedule 07/10/2020 Z79.01 bed bug exterminator (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 oagulants Jeffy Koo MD 07/10/2020 Z51.81 Encounter for therapeutic drug l evel monitoring Protime 07/10/2020 I48.20 Chronic atrial fibrillation, uns pecified Lab Schedule 07/10/2020 I48.20 Chronic atrial fibrillation, uns pecified Melvi Anne Marie Patel, [facility] 07/10/2020 Z79.01 bed bug exterminator (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 oagulants Lab Schedule 07/10/2020 I48.20 Chronic atrial fibrillation, uns pecified Protime 07/10/2020 Z79.01 senior living (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 oagulants Melvi Le [place], [facility] 07/10/2020 Z79.01 senior living (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 oagulants Protime 06/10/2020 Z51.81 Encounter for therapeutic drug l evel monitoring Melvi Le [place], [facility] 06/10/2020 Z51.81 Encounter for therapeutic drug l evel monitoring Protime 06/10/2020 I48.20 Chronic atrial fibrillation, uns pecified Melvi Le [place], [facility] 06/10/2020 I48.20 Chronic atrial fibrillation, uns pecified Protime 06/10/2020 Z79.01 bed bug exterminator (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 oagulants Melvi Le [place], [facility] 06/10/2020 Z79.01 senior living (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 oagulants Protime 06/03/2020 Z51.81 Encounter for therapeutic drug l evel monitoring Melvi Le [place], [facility] 06/03/2020 Z51.81 Encounter for therapeutic drug l evel monitoring Protime 06/03/2020 I48.20 Chronic atrial fibrillation, uns pecified Melvi Le [place], HOSTING ENGINEER 06/03/2020 I48.20 Chronic atrial fibrillation, uns pecified Protime 06/03/2020 Z79.01 bed bug exterminator (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 oagulants Melvi Le [place], HOSTING ENGINEER 06/03/2020 Z79.01 senior living (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 oagulants Protime 05/26/2020 Z51.81 Encounter for therapeutic drug l evel monitoring Melvi Le [place], HOSTING ENGINEER 05/26/2020 Z51.81 Encounter for therapeutic drug l evel monitoring Protime 05/26/2020 I48.20 Chronic atrial fibrillation, uns pecified Melvi Le [place], HOSTING ENGINEER 05/26/2020 I48.20 Chronic atrial fibrillation, uns pecified Protime 05/26/2020 Z79.01 bed bug exterminator (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 oagulants Melvi Anne Marie [place], [facility] 05/26/2020 Z79.01 senior living (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 oagulants Protime 05/26/2020 Z23 Encounter for immunization Colli lacey Koo MD 05/26/2020 Z23 Encounter for immunization Proti me 04/24/2020 Z79.01 senior living (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 oagulants Melvi Le [place], [facility] 04/24/2020 Z79.01 senior living (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 oagulants Protime 04/24/2020 I48.20 Chronic atrial fibrillation, uns pecified Melvi Le [place], [facility] 04/24/2020 I48.20 Chronic atrial fibrillation, uns pecified Protime 04/24/2020 Z51.81 Encounter for therapeutic drug l evel monitoring Melvi Le [place], [facility] 04/24/2020 Z51.81 Encounter for therapeutic drug l evel monitoring Protime 03/24/2020 Z79.01 senior living (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 oagulants Melvi Le [place], [facility] 03/24/2020 Z79.01 bed bug exterminator (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 oagulants Protime 03/24/2020 I48.20 Chronic atrial fibrillation, uns pecified Melvi Le [place], HOSTING ENGINEER 03/24/2020 I48.20 Chronic atrial fibrillation, uns pecified Protime 03/24/2020 Z51.81 Encounter for therapeutic drug l evel monitoring Melvi Le [place], HOSTING ENGINEER Plan of Treatment Future Appointment(s):* 01/20/2021 11:40 am - [facility] 10/01/2019 - Jeffy Koo MD* I48.20 Chronic atrial fibrillation, unspecified * Z79.01 senior living (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oagulants * Z51.81 Encounter [...] Description No Information Available Referrals Refer to Dr Reason for Referral Status Appt Date [facility] [place] [facility] CONS[facility] FOR LIVER CANCER Alyce ent Declined [address] [place] [address] [phone] [facility] GENERAL MACHINE OPERATOR CONSULT FOR METASTATIC LI TIMOTEO CANCER, PT SCHEDULED FOR LIVER BIOPSY ON 08/15/20 Sent 08/28/[address] [address] [phone] [facility] URGENT CONSULT FOR LARGE ALTHEA ER MASSES AND MULTIPLE PULMONARY NODULES. PT SCHEDULED FOR CHEST CT AT [facility] ON 07/29/20 Closed 08/05/2020 [address] [place] [address] [phone] [facility] [place] GENERAL MACHINE OPERATOR CONSULT FOR LARGE ALTHEA ER MASSES AND MULTIPLE PULMONARY NODULES PT SCHEDULED FOR CHEST CT AT [facility] ON 07/29/20 Patient Declined [place], [place] [address] [phone]
--- OUTSIDE RECORDS SUMMARY | 2020-09-23 10:45 | CCD | Continuity of Care Document ---
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: 07/23/1997 Atrial fibrillation [...] CPT Code Status Date Vaccine Lot # [id number] Given 05/26/2020 Influenza Vaccin e Quadrivalent Preser/Antibiotic Free Im Use [id number] 55040 Given 05/29/2019 Influenza Vaccin e Quadrivalent Preser/Antibiotic Free Im Use [id number] 04935 Given 05/16/2018 Influenza Virus Vaccine, Quadrivalent ([id number]), Derived From 9 Given 05/30/2017 Influenza Vaccin e Quadrivalent Preser/Antibiotic Free Im Use [id number] Q2037 Given 05/13/2016 Fluvirin Virus Vaccine 24719 01 Q2037 Given 05/14/2014 Fluvirin Virus Vaccine Q2037 Given 06/21/2013 Fluvirin Virus Vaccine Q2037 Given 05/17/2012 Fluvirin Virus Vaccine Q2037 Given 05/26/2011 Fluvirin Virus Vaccine 48510 Given 05/06/2010 Influenza Virus Vaccine 53477 Given 05/07/2009 Influenza Virus Vaccine 67196 Given 05/21/2008 Influenza Virus Vaccine 55142 Given 05/23/2007 Influenza Virus Vaccine 62623 Given 07/26/2006 Influenza Virus Vaccine 67234 Given 06/16/2005 Influenza Virus Vaccine 29878 Given 05/21/2003 Influenza Virus Vaccine 72047 Given 06/12/2002 Influenza Virus Vaccine Vital Signs Date Vital Result Comment 07/18/2020 12:57pm BP Systolic 110 mmHg BP Diastolic 74 mmHg Heart Rate 120 /min irregular Height 75 inches 6'3" Weight 325.00 lb BMI (Body Mass Index) 40.6 kg/m2 06/10/2020 8:36am Weight 349.00 lb Results Test Acquired Date Facility Test Result H/L Range Note Pap Stain 08/15/2020 [facility] [place], [place] [id number] [phone] Specimen Description Received in form <SEE NOTE> [...] for ev <SEE NOTE> 42 Pathologic Diagnosis Breakdown Person s <SEE NOTE> 43 Pathologic Diagnosis intradepartmenta <SEE NOTE> 44 Pathologic Diagnosis Amer K Abu Bebeto, <SEE NOTE> 45 Pathologic Diagnosis [address] <SEE NOTE> 46 Pathologic Diagnosis Electronically S <SEE NOTE> 47 Pathologic Diagnosis Amer K Abu Beebto, <SEE NOTE> 48 Pathologic Diagnosis [address] <SEE NOTE> 49 Specimen Description Received [...] SIGNED: K <SEE NOTE> 67 Pathologic Diagnosis [place], [place] 0 <SEE NOTE> 68 Pathologic Diagnosis CODE/S: Pathologic Diagnosis 53906 Pathologic Diagnosis <SEE NOTE> 69 Specimen Description [...] 77 Complete Blood Count 08/15/2020 [facility] [place] [address] [phone] WBC 5.23 x10E3/uL Normal 4.0-10.5 RBC 3.59 [...] Abs. Lymph. 0.57 x10E3/uL Low 1.0-3.5 Abs. [place]. 0.69 x10E3/uL Normal 0.1-1.0 Abs. Eosin. 0.12 x10E3/uL Normal 0.1-0.7 Abs. Baso. 0.03 x10E3/uL Normal 0.0-0.1 Abs. Imm. Gran. 0.03 x10E3/uL Normal 0.0-0.1 78 Anrbc% 0 % Normal 0 RBC Morphology 2+ ANISOCYTOSIS Normal RBC Morphology 1+ HYPOCHROMIC Normal RBC Morphology OCC STOMATOCYTES Normal 79 RBC Morphology OCC TARGET CELLS Normal 80 Laboratory test finding 08/12/2020 [place] [address] [phone] [id number] Not Detected Normal Not Detected 81 Laboratory test finding 07/28/2020 [facility] 1.3 Laboratory test finding 07/24/2020 [facility] [address] [place] [address] [phone] Carcinoembryonic Antigen 0.6 NG/ML Normal <2.5 82 Alpha Fetoprotein Tumor Quant 1000.0 NG/ML High <8.1 83 Laboratory test finding 07/24/2020 [facility] 3.3 Liver Function Profile 07/18/2020 [facility] Linen Worker: [place] [address] [phone] Alk. Phosphatase 277 mg/dL High 46 - [...] 1.00 - 1.90 Laboratory test finding 07/18/2020 [facility] Linen Worker: [place] [address] [phone] PSA 0.68 ng/mL <4.00 85 Hepatitis Profile 07/18/2020 [facility] [address] [place] [address] [phone] Hepatitis C Virus Winsome Index 0.1 INDEX Normal <0.8 86 Hepatitis B Surface Antigen NEGATIVE Normal Negative Hepatitis B Core Antibody Igm NEGATIVE Normal Negative Hepatitis A Antibody Igm NEGATIVE Normal Negative Complete Blood Count 07/10/2020 [facility] [employer] [facility] Linen Worker: [place] [address] [phone] WBC 4.2 x10*3/UL 4.1 - 10.9 RBC [...] 3.3 x10*3/UL 2.0 - 7.8 A1c 07/10/2020 [facility] Linen Worker: [place] [address] [phone] Hba1c 6.0 % High <5.7 87 Est Avg Glucose 125 mg/dL High 60 - 110 Comprehensive Chem Profile 07/10/2020 [facility] Linen Worker: Dr [place] [address] [phone] Glucose 88 mg/dL 74 - 99 88 [...] 60 mL/min >60 90 Lipid Profile 07/10/2020 [facility]: Dr [place] [address] [phone] Cholesterol 114 mg/dL Low 131 - 200 [...] This case is referr ed to the [facility], Department of Pathology for a 17 consultation by a OSMEL baca to evaluate for hepatocellular carcinoma. Upon receipt of 18 REPORT SIGNED: Macy Foster DO 08/18/20 (preliminary) 19 This case was sent to [facility] for consultation. The report for [...] insufficient tissue 42 remaining for evaluation. 43 Breakdown Person slides of thi s case were reviewed at the gastrointestinal/liver 44 intradepartmental consultati on conference. (RW, NF, ) 45 Patrick Damon MD [address] 47 Electronically Signed By: 48 Patrick Damon MD [address] 50 Received in formalin, labele d [...] This case is referr ed to the [facility], Department of Pathology for a 65 consultation by a GI patholo gist to evaluate for hepatocellular carcinoma. Upon receipt of 66 their report, the final diag nosis will be posted. 67 REPORT SIGNED: Macy Foster DO 08/18/20 (preliminary) [address] [place] [address] 69 70 Received in formalin, labele d [...] developed and its performance characteristics determined by [employer]. Nucleic acid amplification tests include PCR and [...] 85 This assay was performed on the [employer] Pin[employer] EXL using the B- Galactosidase/CPRG methodology and [...] LITTLE GFR LEFT ESRD GFR <15 ON SEO COORDINATOR Procedures Date Code Description Status 05/22/2018 [id number] Colonoscopy Completed 12/25/2013 [id number] Colonoscopy Completed Medical Devices Description No Information Available Encounters Type Date Location Provider Dx Diagnosis Office Visit 07/24/2020 10:00a [facility] D37.6 Neoplasm of uncertain behavior of liver, GB & bile duct R91.8 Other nonspecific abnormal f inding of lung field I48.20 Chronic atrial fibrillation, unspecified 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 R74.8 Abnormal levels of other ser um enzymes Z12.5 Encounter for screening for malignant neoplasm of prostate E66.01 Morbid (severe) obesity due to excess calories Z68.41 Body mass index [BMI]40.0-44 .9, adult Assessments Date Code Description Provider 07/28/2020 Z51.81 Encounter for therapeutic drug l evel monitoring RAJEEV Calero 07/28/2020 Z51.81 Encounter for therapeutic drug l evel monitoring Protime 07/28/2020 Z79.01 assisted (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 oagulants Melvi Canas, HOSIERY LOOPER 07/28/2020 Z79.01 assisted (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 oagulants Protime 07/28/2020 I48.20 Chronic atrial fibrillation, uns pecified Melvi Canas, HOSIERY LOOPER 07/28/2020 I48.20 Chronic atrial fibrillation, uns pecified Protime 07/24/2020 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, gallbladder and bile ducts Jeffy Koo MD 07/24/2020 R91.8 Other nonspecific abnormal findi ng of lung field Jeffy Koo MD 07/24/2020 I48.20 Chronic atrial fibrillation, uns pecified Jeffy Koo MD 07/24/2020 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 Jeffy Koo [...] uns pecified Jeffy Koo MD 07/18/2020 Z79.01 assisted (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 oagulants Jeffy Koo [...] l evel monitoring Melvi Anne Marie Patel, [facility] 07/10/2020 I48.20 Chronic atrial fibrillation, uns pecified Jeffy Koo MD 07/10/2020 E78.00 Pure hypercholesterolemia, unspe cified Lab Schedule 07/10/2020 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 Jeffy Koo MD 07/10/2020 Z51.81 Encounter for therapeutic drug l evel monitoring Protime 07/10/2020 I48.20 Chronic atrial fibrillation, uns pecified Lab Schedule 07/10/2020 I48.20 Chronic atrial fibrillation, uns pecified Melvi Anne Marie Patel, [facility] 07/10/2020 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 Lab Schedule 07/10/2020 I48.20 Chronic atrial fibrillation, uns pecified Protime 07/10/2020 Z79.01 assisted (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 oagulants Melvi Le [place], [facility] 07/10/2020 Z79.01 assisted (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 oagulants Protime 06/10/2020 Z51.81 Encounter for therapeutic drug l evel monitoring Melvi Le [place], [facility] 06/10/2020 Z51.81 Encounter for therapeutic drug l evel monitoring Protime 06/10/2020 I48.20 Chronic atrial fibrillation, uns pecified Melvi Le [place], [facility] 06/10/2020 I48.20 Chronic atrial fibrillation, uns pecified Protime 06/10/2020 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 Melvi Le [place], [facility] 06/10/2020 Z79.01 assisted (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 oagulants Protime 06/03/2020 Z51.81 Encounter for therapeutic drug l evel monitoring Melvi Le [place], [facility] 06/03/2020 Z51.81 Encounter for therapeutic drug l evel monitoring Protime 06/03/2020 I48.20 Chronic atrial fibrillation, uns pecified Melvi Le Andover, HOSIERY LOOPER 06/03/2020 I48.20 Chronic atrial fibrillation, uns pecified Protime 06/03/2020 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 Melvi Le [place], HOSIERY LOOPER 06/03/2020 Z79.01 assisted (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 oagulants Protime 05/26/2020 Z51.81 Encounter for therapeutic drug l evel monitoring Melvi Le [place], HOSIERY LOOPER 05/26/2020 Z51.81 Encounter for therapeutic drug l evel monitoring Protime 05/26/2020 I48.20 Chronic atrial fibrillation, uns pecified Melvi Le [place], HOSIERY LOOPER 05/26/2020 I48.20 Chronic atrial fibrillation, uns pecified Protime 05/26/2020 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 Melvi Anne Marie Andover, [facility] 05/26/2020 Z79.01 assisted (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 oagulants Protime 05/26/2020 Z23 Encounter for immunization Colli lacey Koo MD 05/26/2020 Z23 Encounter for immunization Proti me 04/24/2020 Z79.01 assisted (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 oagulants Melvi Le [place], [facility] 04/24/2020 Z79.01 assisted (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 oagulants Protime 04/24/2020 I48.20 Chronic atrial fibrillation, uns pecified Melvi Le [place], [facility] 04/24/2020 I48.20 Chronic atrial fibrillation, uns pecified Protime 04/24/2020 Z51.81 Encounter for therapeutic drug l evel monitoring Melvi Le [place], [facility] 04/24/2020 Z51.81 Encounter for therapeutic drug l evel monitoring Protime 03/24/2020 Z79.01 assisted (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 oagulants Melvi Le [place], [facility] 03/24/2020 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 PT SCHEDULED FOR CHEST CT AT [facility] ON 07/29/20 Closed 08/05/2020 [address] [place] [address] [phone] [facility] Tony MARINE PIPEFITTER CONSULT FOR LARGE ALTHEA ER MASSES AND MULTIPLE PULMONARY NODULES PT SCHEDULED FOR CHEST CT AT [facility] ON 07/29/20 Patient Declined [place], [place] [id number] [phone]
--- OUTSIDE RECORDS SUMMARY | 2020-09-23 10:46 | CCD | Continuity of Care Document ---
Author Author [facility] Organization Unknown Address [address] [facility] [address] [place] [address] Phone [phone] Care Team Providers Care Medical Insurance Clerk Name Role Phone Jeffy Koo JR, MD AUTM Unavailable Problems Active Problems Provider Date Anticoagulants Manager Social Responsibility (Current) Use O nset: 07/23/1997 Atrial fibrillation [...] SIG Qnty Indications Ordering Provide r Date Trulicity 1.5mg/0.5ML Solution Pen -Inject 1 injection [...] Before Supper 180tabs Jeffy Koo MD 09/02/2017 Warfarin Sodium 10mg Tablets Take One Tablet By Mouth as Directed 90tabs Jason Allison 06/28/2017 Cyclobenzaprine HCL 10mg Tablets take one tablet by mouth three times a day as needed 45tabs M54.31 RAJEEV Viera 03/10/2017 Aleve 220mg Tablets 2 po qd p rn RAJEEV Viera 03/10/2017 Digoxin 250mcg Tablets Take One Tablet By Mouth Every Day 90tabs Jeffy Koo MD 10/03/2014 Viagra 100mg Tablets as direc valerie 10tabs Jeffy Koo MD 09/23/2014 Warfarin Sodium 10mg Tablets take one tablet by mouth as directed 90tabs Jason Allison 03/21/2012 Warfarin Sodium 5mg Tablets Take One Tablet By Mouth Five Times A Week as Directed 65tabs [facility] Koo MD 03/21/2012 No OTC Meds Jeffy Koo MD C-Pap [...] 2017 Administration Of Flu Vaccine Inj ection Melvi [facility], MEDICAL RECORDS SUPERVISOR 06/16/2005 Administration Of Flu Vaccine Inj ection Melvi Canas, MEDICAL RECORDS SUPERVISOR 05/21/2003 Immunizations CPT Code Status Date Vaccine Lot # [id number] Given 05/26/2020 Influenza Vaccin e Quadrivalent Preser/Antibiotic Free Im Use [id number] Given 05/29/2019 Influenza Vaccin e Quadrivalent Preser/Antibiotic Free Im Use [id number] 17577 Given 05/16/2018 Influenza Virus Vaccine, Quadrivalent ([id number]), Derived From 2 Given 05/30/2017 Influenza Vaccin e Quadrivalent Preser/Antibiotic Free Im Use [id number] Q2037 Given 05/13/2016 Fluvirin Virus Vaccine [id number] Q2037 Given 05/14/2014 Fluvirin Virus Vaccine Q2037 Given 06/21/2013 Fluvirin Virus Vaccine Q2037 Given 05/17/2012 Fluvirin Virus Vaccine Q2037 Given 05/26/2011 Fluvirin Virus Vaccine 86474 Given 05/06/2010 Influenza Virus Vaccine 65579 Given 05/07/2009 Influenza Virus Vaccine 21104 Given 05/21/2008 Influenza Virus Vaccine 14029 Given 05/23/2007 Influenza Virus Vaccine 49876 Given 07/26/2006 Influenza Virus Vaccine 00653 Given 06/16/2005 Influenza Virus Vaccine 24808 Given 05/21/2003 Influenza Virus Vaccine 84391 Given 06/12/2002 Influenza Virus Vaccine Vital Signs Date Vital Result Comment 07/18/2020 12:57pm BP Systolic 110 mmHg BP Diastolic 74 mmHg Heart Rate 120 /min irregular Height 75 inches 6'3" Weight 325.00 lb BMI (Body Mass Index) 40.6 kg/m2 06/10/2020 8:36am Weight 349.00 lb Results Test Acquired Date Facility Test Result H/L Range Note Laboratory test finding 07/28/2020 [facility] 1.3 Laboratory test finding 07/24/2020 [facility] [address] [place] [address] [phone] Carcinoembryonic Antigen 0.6 NG/ML Normal <2.5 1 Alpha Fetoprotein Tumor Quant 1000.0 NG/ML High <8.1 2 Laboratory test finding 07/24/2020 [facility] 3.3 Laboratory test finding 07/18/2020 [facility] [employer] Supervisor: [place] [address] [phone] PSA 0.68 ng/mL <4.00 3 Liver Function Profile 07/18/2020 [facility] [employer] Supervisor: Dr Jeffy Koo [place] [id number] [phone] Alk. Phosphatase 277 mg/dL High 46 - 116 Total Bilirubin 0.8 mg/dL 0.2 - 1.0 Ast (Sgot) 973 U/L High 15 - 37 4 Alt (SGPT) 215 U/L High 12 - 78 Albumin 3.8 g/dL 3.4 - 5.0 Total Protein 7.6 g/dL 6.4 - 8.2 Direct Bilirubin 0.3 mg/dL High 0.0 - 0.2 A/G Ratio 1.00 CALC 1.00 - 1.90 Hepatitis Profile 07/18/2020 [facility] nter [address] [place] [address] [phone] Hepatitis C Virus Winsome Index 0.1 INDEX Normal <0.8 5 Hepatitis B Surface Antigen NEGATIVE Normal Negative Hepatitis B Core Antibody Igm NEGATIVE Normal Negative Hepatitis A Antibody Igm NEGATIVE Normal Negative Complete Blood Count 07/10/2020 [facility] [employer] Supervisor: [place] [address] [phone] WBC 4.2 x10*3/UL 4.1 - 10.9 RBC [...] 3.3 x10*3/UL 2.0 - 7.8 A1c 07/10/2020 [facility] , [employer] Supervisor: Dr Jeffy Koo [place], [place] [id number] [phone] Hba1c 6.0 % High <5.7 6 Est Avg Glucose 125 mg/dL High 60 - 110 Comprehensive Chem Profile 07/10/2020 [facility] [employer] Supervisor: Dr Jeffy Koo [place], [place] [id number] [phone] Glucose 88 mg/dL 74 - 99 7 BUN 21 mg/dL High 7 - 18 [...] (Sgot) 712 U/L High 15 - 37 8 Alt (SGPT) 83 U/L High 12 - 78 Albumin 3.7 g/dL 3.4 - 5.0 Total Protein 7.3 g/dL 6.4 - 8.2 A/G Ratio 1.03 CALC 1.00 - 1.90 GFR 57 mL/min Low >60 GFR >= 60 mL/min >60 9 Lipid Profile 07/10/2020 [facility] [employer] Supervisor: Dr Jeffy Koo [place], [place] [id number] [phone] Cholesterol 114 mg/dL Low 131 - 200 Triglycerides 149 mg/dL 30 - 150 HDL Cholesterol 21 mg/dL Low 35 - 60 LDL (Calculated) 63 CALC 50 - 159 Laboratory test finding 06/10/2020 [facility] 2.1 Laboratory test finding 06/03/2020 [facility] 1.6 Laboratory test finding 05/26/2020 [facility] 1.5 Laboratory test finding 04/24/2020 [facility] 3.0 Laboratory test finding 03/24/2020 [facility] 2.6 Laboratory test finding 03/17/2020 [facility] 3.1 Laboratory test finding 02/13/2020 [facility] 2.7 1 THE CEA ASSAY IS PERFORMED O N THE [facility] BY CHEMILUMINESCENCE AND SHOULD NOT BE COMPARED INTERCHANGEABLY WITH OTHER METHODS. IT SHOULD NOT BE USED ALONE A SCREENING TEST OR DIAGNOSIS FOR THE PRESENCE OR ABSENCE OF MALIGNANT DISEASE. PREDICTIONS OF DISEASE RECURRENCE SHOULD NOT BE BASED SOLELY ON VALUES OBTAINED FROM SERIAL PATIENT SERUM VALUES. 2 THE AFP ASSAY IS PERFORMED O N [...] VALUES OBTAINED FROM SERIAL PATIENT SERUM VALUES. 3 This assay was performed on the Learn with Homer EXL using the B- Galactosidase/CPRG methodology and should not be compared interchangeably with other methods. The PSA should not be used alone as a screening test for the presence or absence of malignant disease. 4 NOTE: RESULT VERIFIED. 5 Negative Not infected with HCV, unless recent infection is suspected or other evidence exists to indicate HCV infection. 6 Lab Result Notes: Pre-Diabetes 5.7 - 6.4 % Diabetes = or > 6.5% 7 100-125 mg/dL PRE-DIABET ES/FASTING >126 mg/dL DIABETES/FASTING 8 NOTE: RESULT VERIFIED. 9 CHRONIC KIDNEY DISEASE STAGI NG PER NKF STAGE I & II GFR >= 60 NORMAL TO MILDLY DECREASED STAGE III GFR 30-59 MODERATELY DECREASED STAGE IV GFR 15-29 SEVERELY DECREASED STAGE V GFR <15 VERY LITTLE GFR LEFT ESRD GFR <15 ON MACHINE HOOP MAKER HELPER Procedures Date Code Description Status 05/22/2018 [id number] Colonoscopy Completed 12/25/2013 [id number] Colonoscopy Completed Medical Devices Description No Information Available Encounters Type Date Location Provider Dx Diagnosis [facility]2020 10[facility] D[facility]6 Neoplasm of uncertain behavior of liver, GB & bile duct R91.8 Other nonspecific abnormal f inding of lung field I48.20 Chronic atrial fibrillation, unspecified Z79.01 shelter (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 of a nticoagulants C22.8 Malignant neoplasm of liver, primary, unspecified as to type Office Visit 07/18/2020 1:00p [facility] 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 E11.42 Type 2 diabetes mellitus wit h diabetic polyneuropathy G47.33 Obstructive sleep apnea (jazmyne lt) (pediatric) E78.00 Pure hypercholesterolemia, u nspecified I48.20 Chronic atrial fibrillation, unspecified Z79.01 shelter (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 of a nticoagulants I11.9 Hypertensive heart disease w [facility] heart failure R74.8 Abnormal levels of other ser um enzymes Z12.5 Encounter for screening for malignant neoplasm of prostate E66.01 Morbid (severe) obesity due to excess calories Z68.41 Body mass index [BMI]40.0-44 .9, adult Assessments Date Code Description Provider 07/28/2020 Z51.81 Encounter for therapeutic drug l evel monitoring JULIANA CaleroP 07/28/2020 Z51.81 Encounter for therapeutic drug l evel monitoring Protime 07/28/2020 Z79.01 shelter (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 oagulants RAJEEV Calero 07/28/2020 Z79.01 shelter (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 oagulants Protime 07/28/2020 I48.20 Chronic atrial fibrillation, uns pecified RAJEEV Calero 07/28/2020 I48.20 Chronic atrial fibrillation, uns pecified Protime 07/24/2020 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, gallbladder and bile ducts Jeffy Koo MD 07/24/2020 R91.8 Other nonspecific abnormal findi ng of lung field Jeffy Koo MD 07/24/2020 I48.20 Chronic atrial fibrillation, uns pecified Jeffy Koo MD 07/24/2020 Z79.01 superintendent terminal (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 oagulants Jeffy [...] uns pecified Jeffy Koo MD 07/18/2020 Z79.01 shelter (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 oagulants Jeffy Koo [...] Encounter for therapeutic drug l evel monitoring JULIANA CaleroP 07/10/2020 I48.20 Chronic atrial fibrillation, uns pecdeb Koo MD 07/10/2020 E78.00 Pure hypercholesterolemia, unspe cified Lab Schedule 07/10/2020 Z79.01 superintendent terminal (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 oagulants Jeffy Koo MD 07/10/2020 Z51.81 Encounter for therapeutic drug l evel monitoring Protime 07/10/2020 I48.20 Chronic atrial fibrillation, uns pecified Lab Schedule 07/10/2020 I48.20 Chronic atrial fibrillation, uns pecified Melvi Canas, MEDICAL RECORDS SUPERVISOR 07/10/2020 Z79.01 superintendent terminal (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 oagulants Lab Schedule 07/10/2020 I48.20 Chronic atrial fibrillation, uns pecified Protime 07/10/2020 Z79.01 shelter (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 oagulants Melvi Le Hand, MEDICAL RECORDS SUPERVISOR 07/10/2020 Z79.01 superintendent terminal (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 oagulants Protime 06/10/2020 Z51.81 Encounter for therapeutic drug l evel monitoring Melvi Le Hand, MEDICAL RECORDS SUPERVISOR 06/10/2020 Z51.81 Encounter for therapeutic drug l evel monitoring Protime 06/10/2020 I48.20 Chronic atrial fibrillation, uns pecified Melvi Le Hand, [facility] 06/10/2020 I48.20 Chronic atrial fibrillation, uns pecified Protime 06/10/2020 Z79.01 superintendent terminal (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 oagulants Melvi Le Hand, [facility] 06/10/2020 Z79.01 shelter (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 oagulants Protime 06/03/2020 Z51.81 Encounter for therapeutic drug l evel monitoring Melvi Le Hand, [facility] 06/03/2020 Z51.81 Encounter for therapeutic drug l evel monitoring Protime 06/03/2020 I48.20 Chronic atrial fibrillation, uns pecified Melvi Le Hand, [facility] 06/03/2020 I48.20 Chronic atrial fibrillation, uns pecified Protime 06/03/2020 Z79.01 superintendent terminal (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 oagulants Melvi Le Hand, [facility] 06/03/2020 Z79.01 shelter (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 oagulants Protime 05/26/2020 Z51.81 Encounter for therapeutic drug l evel monitoring Melvi Le Hand, [facility] 05/26/2020 Z51.81 Encounter for therapeutic drug l evel monitoring Protime 05/26/2020 I48.20 Chronic atrial fibrillation, uns pecified Melvi Le Hand, [facility] 05/26/2020 I48.20 Chronic atrial fibrillation, uns pecified Protime 05/26/2020 Z79.01 superintendent terminal (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 oagulants Melvi Le Hand, [facility] 05/26/2020 Z79.01 superintendent terminal (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 oagulants Protime 05/26/2020 Z23 Encounter for immunization Colli lacey Koo MD 05/26/2020 Z23 Encounter for immunization Proti me 04/24/2020 Z79.01 superintendent terminal (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 oagulants Melvi Le Hand, MEDICAL RECORDS SUPERVISOR 04/24/2020 Z79.01 superintendent terminal (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 oagulants Protime 04/24/2020 I48.20 Chronic atrial fibrillation, uns pecified Melvi Le Hand, MEDICAL RECORDS SUPERVISOR 04/24/2020 I48.20 Chronic atrial fibrillation, uns pecified Protime 04/24/2020 Z51.81 Encounter for therapeutic drug l evel monitoring Melvi Le Hand, MEDICAL RECORDS SUPERVISOR 04/24/2020 Z51.81 Encounter for therapeutic drug l evel monitoring Protime 03/24/2020 Z79.01 superintendent terminal (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 oagulants Melvi Le Hand, MEDICAL RECORDS SUPERVISOR 03/24/2020 Z79.01 shelter (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 oagulants Protime 03/24/2020 I48.20 Chronic atrial fibrillation, uns pecified Melvi Le Hand, MEDICAL RECORDS SUPERVISOR 03/24/2020 I48.20 Chronic atrial fibrillation, uns pecified Protime 03/24/2020 Z51.81 Encounter for therapeutic drug l evel monitoring Melvi Kenney Hand, MEDICAL RECORDS SUPERVISOR 03/17/2020 Z79.01 shelter (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 oagulants Melvi Le Hand, MEDICAL RECORDS SUPERVISOR 03/17/2020 Z79.01 superintendent terminal (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 oagulants Protime 03/17/2020 I48.20 Chronic atrial fibrillation, uns pecified Melvi Le Hand, MEDICAL RECORDS SUPERVISOR 03/17/2020 I48.20 Chronic atrial fibrillation, uns pecified Protime 03/17/2020 Z51.81 Encounter for therapeutic drug l evel monitoring Melvi Anne Marie Hand, MEDICAL RECORDS SUPERVISOR 02/13/2020 Z79.01 shelter (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 oagulants Melvi Anne Marie Hand, MEDICAL RECORDS SUPERVISOR 02/13/2020 Z79.01 shelter (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 oagulants Protime 02/13/2020 I48.20 Chronic atrial fibrillation, uns pecified Melvi Le Hand, MEDICAL RECORDS SUPERVISOR 02/13/2020 I48.20 Chronic atrial fibrillation, uns pecified Protime 02/13/2020 Z51.81 Encounter for therapeutic drug l evel monitoring Melvi Canas, MEDICAL RECORDS SUPERVISOR Plan of Treatment Future Appointment(s):* 01/20/2021 11:40 am - Jeffy Koo MD at [facility] * 08/12/2020 8:00 am - Protime at [facility] 10/01/2019 - Jeffy Koo MD* I48.20 Chronic atrial fibrillation, unspecified * Z79.01 shelter (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oagulants * Z51.81 Encounter [...] Refer to Reason for Referral Status Appt [facility] URGENT CONSULT FOR LARGE ALTHEA ER MASSES AND MULTIPLE PULMONARY NODULES. PT SCHEDULED FOR CHEST CT AT [facility] ON 07/29/20 Sent [address] [place] [address] [phone] [facility] COMPUTER LANGUAGE CODER CONSULT FOR LARGE ALTHEA ER MASSES AND MULTIPLE PULMONARY NODULES PT SCHEDULED FOR CHEST CT AT [facility] ON 07/29/20 [place] [address] [phone]
--- OUTSIDE RECORDS SUMMARY | 2020-09-23 10:46 | CCD | Summary of Care ---
Author Author [facility] Organization [facility] Address Unknown Phone Unavailable Care Team Providers Care Bindery Production Manager Name Role Phone Jeffy Koo MD PCP Reason for Visit * Diagnostic Radiology (STAT) Referred By Contact Referred To Contact Status Reason Specialty Diagnoses / Procedures Robb Ervin MD [address] [place] [phone] Email: [email or web address] Authorized Radiology Diagnoses Liver mass P rocedures NM Bone Scan Imaging Whole Body Encounter Details Care Team Description Date Type Department Canceled (Patient/Other) 08/15/2020 [facility] Nuclear Medicine Encounter [address] [place] [address] Allergies No Known Allergiesdocumented as of this encounter (statuses as of 08/22/2020) Medications End Date Status Medication Sig Dispensed Refills Start Date Active metFORMIN HCl 500 MG Oral Take 750 mg 0 Tablet (GLUCOPHAGE) by mouth Two times daily with meals Active Atenolol 50 MG Oral Take 100 mg 0 Tablet (TENORMIN) by mouth daily Active Rosuvastatin Calcium 20 Take by mouth 0 MG Oral Capsule Sprinkle Active Quinapril HCl 20 MG Oral Take 40 mg by 0 Tablet (ACCUPRIL) mouth nightly Active Digoxin 0.05 MG/ML Oral Take 250 0 Solution (LANOXIN) mcg/kg by mouth Four times daily before meals and nightly Active Trulicity 1.5 MG/0.5ML Inject 1.5 mg 0 Subcutaneous Solution into the skin Pen-injector once a week (dulaglutide) Active Rivaroxaban 20 MG Oral Take 20 mg by 0 Tablet (Xarelto) mouth daily with dinner documented as of this encounter (statuses as of 08/22/2020) Active Problems Problem Noted Date Metastatic carcinoma 08/09/2020 documented as of this encounter (statuses as of 08/22/2020) Social History Date Tobacco Use Types Packs/Day Years Used Never Smoker Smokeless Tobacco: Never Used Sex Assigned at Date Recorded Not on file Date Recorded COVID-19 Exposure Response 08/05/2020 8:42 AM EST In the last month, have you been in contact with No / Unsure someone who was confirmed or suspected to have Coronavirus / COVID-19? documented as of this encounter Last Filed Vital Signs Not on filedocumented in this encounter Plan of Treatment Care Team Description Date Type Specialty Levar Samuel MD [address] [place] [id number] 08/23/2020 Clinical Infectious Diseases Support Levar Samuel MD [address] [place] [phone] 08/26/2020 Hospital Radiology Encounter Robb Ervin MD [address] [place] [id number] 09/02/2020 Office Visit Hematology and Onco logy Health Maintenance Due Date Last Done Comments Hepatitis C Screening (B. 1960 [id number]) MMR Vaccines (1 of - 1961 Standard series) Varicella Vaccines (1 of 1961 2 - 2-dose childhood series) Pneumococcal Vaccine: 1966 Pediatrics (0 to 5 Years) and At-Risk Patients (6 to 64 Years) (1 of 3 - PCV13) DTaP,Tdap,and Td Vaccines 1969 (1 - Tdap) HIV Screening 1975 Colon Cancer Screening 10 2012 yrs Influenza Vaccine 05/08/2020 Pneumococcal Vaccine: 65+ 2027 Years (1 of 1 - PPSV23) HIB Vaccines Aged Out No longer eligible based on patient's age to complete this topic Hepatitis A Vaccines Aged Out No longer eligibl e based on patient's age to complete this topic Hepatitis B Vaccines Aged Out No longer eligibl e based on patient's age to complete this topic IPV Vaccines Aged Out No longer eligible based on patient's age to complete this topic documented as of this encounter Results Not on filedocumented in this encounter
--- OUTSIDE RECORDS SUMMARY | 2020-09-23 10:46 | CCD | Summary of Care ---
Author Author [facility] Organization [facility] Address Unknown Phone Unavailable Care Team Providers Care Machining Manager Name Role Phone Jeffy Koo MD PCP Reason for Referral * Diagnostic Radiology (STAT) Referred By Contact Referred To Contact Status Reason Specialty Diagnoses / Procedures Robb Ervin MD [address] [place] [address] Email: [email or web address] Open Diagnoses Liver mass P rocedures IR Imaging Guided Needle, Drain Procedure Reason for Visit * Reason Comments Follow-up Encounter Details Care Team Description Date Type Department Robb Ervin MD [address] [place] [address] Liver mass (Primary Dx) 08/05/2020 Office Visit Hematology Oncology [address] [place] [address] Allergies No Known Allergiesdocumented as of this encounter (statuses as of 08/09/2020) Medications End Date Status Medication Sig Dispensed [...] as of this encounter (statuses as of 08/09/2020) Active Problems Problem Noted Date Metastatic carcinoma 08/09/2020 documented as of this encounter (statuses as of 08/09/2020) Social History Date Tobacco Use Types Packs/Day [...] of this encounter Last Filed Vital Signs Reading Time Taken Comments Vital Sign 122/85 08/05/2020 9:15 AM EST Blood Pressure 97 08/05/2020 9:15 AM EST Pulse 36.8 C (98.3 F) 08/05/2020 9:15 AM EST Temperature 16 08/05/2020 9:15 AM EST Respiratory Rate 97% 08/05/2020 9:15 AM EST ra Oxygen Saturation - - Inhaled Oxygen Concentration 141 kg (310 lb 12.8 oz) 08/05/2020 9:15 AM EST Weight - - Height - - Body Mass Index documented in this encounter Progress Notes * Robb Ervin MD - 08/05/2020 9:00 AM EST Hematology/ Oncology Consult PCP: Jeffy Koo Jr, MD Referring Physician: Dr. Michelle PIERCE Reason for referral: liver mass and lung nodules CC: cancer History of Present Illness: Real Garcia is a 60 y.o. male seen in hematolo gy clinic today in consultation for liver mass and lung nodules. He reports he s aw his PCP for routine f/u .Routine labs showed elevated LFTs. Subsequently blo od test were repeated and CT scan of abdomen and pelvis was done. CT showed mult iple large mass in liver as well as multiple nodules in b/l lung johnson visible in CT abdomen. He was then referred to hematology for further evaluation and miguel atment. In the interim he also had CT chest done at [facility] report of which i s not available to us. He has PMH of A afib takes xarelto, HTN, DM II. VALENTIN, obesity. He reports he is having loose stool once per day over 3-4 weeks, and abdominal bloating . He repo rts low appetite . No fever or chills, mild discomfort ibelly. Wt loss 40 lb Wt loss, No vomiting. Review of Systems - Details of ROS is documented above in HPI. Rest of complete ROS is -ve. Past Medical History: Diagnosis Date Diabetes mellitus Hypertension S.H: Social History Socioeconomic History Marital status: Spouse name: Not on file Number of children: Not on file Years of education: Not on file Highest education level: Not on file Occupational History Not on file Social Needs Financial resource strain: Not on file Food insecurity Worry: Not on file Inability: Not on file Transportation needs Medical: Not on file Non-medical: Not on file Tobacco Use Smoking status: Never Smoker Smokeless tobacco: Never Used Substance and Sexual Activity Alcohol use: Not on file Drug use: Not on file Sexual activity: Not on file Lifestyle Physical activity Days per week: Not on file Minutes per session: Not on file Stress: Not on file Relationships Social connections Talks on phone: Not on file Gets together: Not on file Attends pentecostal service: Not on file Active member of club or organization: Not on file Attends meetings of clubs or organizations: Not on file Relationship status: Not on file Intimate partner violence Fear of current or ex partner: Not on file Emotionally abused: Not on file Physically abused: Not on file Forced sexual activity: Not on file Other Topics Concern Not on file Social History Narrative Not on file Denies smoking or ETOH abuse. 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 F.H family history includes Cancer in his brother, brother, and mother; Diabetes in his father; Heart attack in his brother; Hypertension in his brother; Stroke in his brother. Mother : stomach cancer, brother lung ca. Past Surgical History: Procedure Laterality Date COLONOSCOPY TONSILLECTOMY He had polyps hence he had 3 colonoscopy in the past. Last was 2 yrs ago. Current Outpatient Medications Medication Sig Dispense Refill Atenolol 50 MG Oral Tablet (TENORMIN) Take 100 mg by mouth daily Digoxin 0.05 MG/ML Oral Solution (LANOXIN) Take 250 mcg/kg by mouth Four times daily before meals and nightly metFORMIN HCl 500 MG Oral Tablet (GLUCOPHAGE) Take 750 mg by mouth Two ti mes daily with meals Quinapril HCl 20 MG Oral Tablet (ACCUPRIL) Take 40 mg by mouth nightly Rivaroxaban 20 MG Oral Tablet (Xarelto) Take 20 mg by mouth daily with di nner Rosuvastatin Calcium 20 MG Oral Capsule Sprinkle Take by mouth Trulicity 1.5 MG/0.5ML Subcutaneous Solution Pen-injector (dulaglutide) I nject 1.5 mg into the skin once a week No current facility-administered medications for this visit. Vitals: 08/05/20 0915 BP: 122/85 BP Location: Right arm Patient Position: Sitting Cuff size: Adult Large Pulse: 97 Resp: 16 Temp: 36.8 C (98.3 F) TempSrc: Oral SpO2: 97% Weight: (!) 141 kg (310 lb 12.8 oz) General: awake, alert, oriented, in no acute distress, obese HEENT: no temporal wasting, EOMI, perrl, anicteric sclerae, mmm, no lesions Neck: no tenderness, no thyroid enlargement, no adenopathy CVS: S1, S2, RRR, no m/r/g, no edema Respiratory: clear to auscultation bilaterally, no added breath sounds. Abdomen: soft, mild tenderness at RUQ, hepatomegaly about 10 cm below costal mar gin. Extremities: no spinal tenderness, no bony deformities Neurology: Alert and oriented X3, No focal motor or sensory deficit Skin: no rash Labs: No results found for: WBC, HGB, HCT, MCV, PLT No results found for: ALT, AST, GGT, ALKPHOS, BILITOT, TBILI No results found for: CREATININE, BUN, NA, K, CL No results found for: INR, PROP, PTTP No results found for: IGG, IGA, IGM No results found for: LDH No results found for: PCTRETICAUTO, ABSRETIC, IRF No results found for: [id number], FOLATE, FERRITIN, IRON, TIBC, UIBC, FESA No images are attached to the encounter. Pathology: A/P Real Smith Radha 60 y.o. male seen at [facility] as a new patient. He/ She nuñez s h/o Afib, HTN, DL, VALENTIN, obesity and recently diagnosed multiple liver mass wit h b/l lung nodules. He also has h/l colon polyps for which he had undergone q 3 yrs colonoscopy. Metastatic carcinoma with multiple liver mass and lung nodules. Possibly HCC. We will get CT chest reports, which was just done about a week ago. We also get Ct CAP images and review with radiologist. CT AP was not done with liver protocol. We will discuss with radiologist an discuss biopsy options. We will get labs including CBC, CMP, CEA, CA 199, AFP. # Palliative measures: - pain: minimal - constipation: none - nausea: none - SOB- none - anxiety/ depression: yes - Referral given to psychiatry- not done - nutrition: good - code status and advance directive: Not discussed - nicotine abuse: none - immunization: Not discussed No orders of the defined types were placed in this encounter. Patient is advised to call 24 hr patent litigation associate service and return to clinic if he/she develops any problems or issues prior his/her next scheduled visit. We discussed diagnosis and treatment plan in length.Patient verbalized understanding and is agreeable with plan of care. Time spent > 60 mins in patient Care, > 50% spent face to face. RTC in 2weeks Robb Ervin MD health and human performance professormathematics education professor Division of Hematology-Oncology [address], [address] Pager: 08/05/2020 9:31 AM documented in this encounter Plan of Treatment Care Team Description Date Type Specialty Robb Ervin MD [address] [place] [address] 08/18/2020 Office Visit Hematology and Onco logy Order Schedule Name Type Priority Associated Diag noses 1 Occurrences starting 08/05/2020 until 02/05/2021 AFP tumor marker Lab Routine Liver mass Expected: 08/09/2020, Expires: 2 IR Imaging Guided Needle, Imaging STAT Live r mass Drain Procedure Health Maintenance Due Date Last Done Comments Hepatitis C Screening (B. 1960 [id number]) MMR Vaccines ( of - 1961 Standard series) Varicella Vaccines (1 of 1961 2 - 2-dose childhood series) DTaP,Tdap,and Td Vaccines 1969 (1 - Tdap) [...] on patient's age to complete this topic Pneumococcal Vaccine: Aged Out No longer eligib le based on patient's age to Pediatrics (0 to 5 Years) complete this topic and At-Risk Patients (6 to 64 Years) documented as of this encounter Procedures Comments Procedure Name Priority Date/Time Associated Diag nosis PARTIAL THROMBOPLASTIN STAT 08/05/2020 Liver m ass TIME (PTT) 10:33 AM EST CANCER ANTIGEN 19-9 Routine 08/05/2020 Liver mass 10:33 AM EST AFP TUMOR MARKER Routine 08/05/2020 10:33 AM EST PROTIME INR STAT 08/05/2020 Liver mass 10:33 AM EST CBC AND DIFFERENTIAL STAT 08/05/2020 Liver mas s 10:33 AM EST CEA Routine 08/05/2020 Liver mass 10:33 AM EST COMPREHENSIVE METABOLIC Routine 08/05/2020 Liver mass PANEL 10:33 AM EST documented in this encounter Results * AFP tumor marker (08/05/2020 10:33 AM EST) Alpha 1 34,969 (H)Comment: Confirmed <9 ng/mL S [facility] Fetoprotein CLINICAL PATHOLOGY Specimen Plasma Performing Organization Address City/State/Zipcode Ph one Number [facility] CLINICAL [address] [place], [place] [address] PATHOLOGY * Partial Thromboplastin Time (PTT) (08/05/2020 10:33 AM EST) PTT 35.4 (H) 24.0 - 33.0 s [facility] Clin Pathology Specimen Plasma Performing Organization Address [facility] one Number [facility] CLINICAL [address] [place], [place] [address] [address] Clin Pathology * Protime-INR (08/05/2020 10:33 AM EST) PT Patient 20.0 (H) 12.5 - 14.9 s [facility] Clin Pathology Int'l 1.67Comment: Routine intensity [facility] pstate Normalized oral anticoagulation INR is Med [facility] Clin Ratio typically 2.0-3.0. Target INR Patholo gy must be clinically individualized. Specimen Plasma Performing Organization Address [facility] one Number [facility] [address] [place], [place] [address] [address] Clin Pathology * CEA (08/05/2020 10:33 AM EST) CEA 1.7 <3.4 ng/ml [facility] Comment: CLINICAL Levels of CEA should not be PATHOLOGY interpreted as absoulute evidence of the presence or absence of disease. It should not be used as a screening test for Cancer. CEA values obtained using different methodologies cannot be used interchangeably. This method is manufactured by [employer] and is an electrochemiluminesence immunoassay. Specimen Plasma Performing Organization Address [facility] one Number [facility] CLINICAL [address] [place], [place] [address] PATHOLOGY * Cancer antigen 19-9 (08/05/2020 10:33 AM EST) CA 19-9 Serum <2 <35 U/mL [facility] Comment: CLINICAL This test uses [employer] CA 19-9 PATHOLOGY electrochemiluminescent immunoassay. Results obtained with different test methods or kits cannot be used interchangeably. CA 19-9 is useful in monitoring pancreatic, hepatobiliary, gastric, hepatocelllular, and colorectal cancer. CA 19-9 value regardless of level, should not be interpreted as absolute evidence of the presence or absence of malignant disease. Specimen Plasma Performing Organization Address City/[facility] Ph one Number [facility] CLINICAL [address] [place], [place] [address] PATHOLOGY * Comprehensive Metabolic Panel (08/05/2020 10:33 AM EST) Albumin 3.8 3.5 - 5.2 g/dL [facility] CLINICAL PATHOLOGY Bilirubin, 1.1 <1.2 mg/dL [facility] Total CLINICAL PATHOLOGY Calcium 9.5 8.6 - 10.0 mg/dL [facility] PATHOLOGY Chloride 96 (L) 98 - 107 mmol/L [facility] CLINICAL PATHOLOGY Creatinine 1.13 0.70 - 1.20 mg/dL [facility] CLINICAL PATHOLOGY Glucose 92 70 - 140 mg/dL [facility] PATHOLOGY Alkaline 347 (H) 40 - 129 U/L [facility] Phosphatase CLINICAL PATHOLOGY Potassium 5.0 3.4 - 5.1 mmol/L [facility] PATHOLOGY Total Protein 7.4 6.4 - 8.3 g/dL [facility] PATHOLOGY Sodium 132 (L) 136 - 145 mmol/L [facility] PATHOLOGY AST/SGO 443 (H) <40 U/L [facility] PATHOLOGY Blood Urea 21 (H) 6 - 20 mg/dL [facility] Nitrogen CLINICAL PATHOLOGY Osmolality, Jer 276 275 - 300 mosm/kg [facility] PATHOLOGY BUN/Cre Ratio 19 [facility] CLINICAL PATHOLOGY Bicarbonate 26 22 - 29 mmol/L [facility] PATHOLOGY ALT/SGP 93 (H) <41 U/L [facility] PATHOLOGY Anion Gap 10 8 - 15 mmol/L [facility] PATHOLOGY GFR Non 70 >60 mL/min/1.73m2 [facility] [place] 2009 CLINICAL CDK-EPI PATHOLOGY GFR 81 >60 mL/min/1.73m2 [facility] [place] 2009 CLINICAL CKD-EPI PATHOLOGY Specimen Plasma Performing Organization Address City/[facility] Ph one Number [facility] CLINICAL [address] [place], [place] [address] PATHOLOGY * CBC and Differential (08/05/2020 10:33 AM EST) White Blood 5.2 4 - 10 10*3/uL [facility] Cell Med Univ Clin Pathology Red Blood Cell 3.89 (L) 4.6 - 6.1 10*6/uL [facility] Clin Pathology Hemoglobin 10.6 (L) 13.5 - 18 g/dL [facility] Clin Pathology Hematocrit 32.7 (L) 41 - 53 % [facility] Clin Pathology Mean Cell 84.1 80 - 96 fL [facility] Volume [facility] Univ Clin Pathology Mean Cell 27.3 27 - 33 pg [facility] Hemoglobin [facility] Clin Pathology Mean Cell Hgb 32.4 32.0 - 36.0 g/dL [facility] Clin Pathology Red Cell Dist 17.3 (H) 11.5 - 14.5 % [facility] Width [facility] Clin Pathology Platelet Count 280 150 - 400 10*3/uL [facility] Clin Pathology Differential Automated Diff [facility] Type [facility] Clin Pathology Neutrophil 75 % [facility] Clin Pathology Lymphocyte 10 % [facility] Clin Pathology Monocyte 11 % [facility] Clin Pathology Eosinophil 3 % [facility] Clin Pathology Basophil 1 % [facility] Clin Pathology Abs Neutrophil 3.90 1.8 - 7.0 10*3/uL [facility] Clin Pathology Abs Lymphocyte 0.49 (L) 1.2 - 4.0 10*3/uL [facility] Clin Pathology Abs Monocyte 0.58 0 - 0.8 10*3/uL [facility] Clin Pathology Abs Eosinophil 0.16 0 - 0.5 10*3/uL [facility] Clin Pathology Abs Basophil 0.05 0 - 0.2 10*3/uL [facility] Clin Pathology Nucleated Red 0 0 - 0 /100{WBCs} [facility] Blood Cells [facility] Clin Pathology Specimen EDTA Whole Blood Performing Organization Address City/State/[facility] Ph one Number [facility] CLINICAL [address] [place], [place] [address] PATHOLOGY [facility] [address] [place], [place] [address] Clin Pathology documented in this encounter Visit Diagnoses Diagnosis Liver mass - Primary Unspecified disorder of liver documented in this encounter
--- OUTSIDE RECORDS SUMMARY | 2020-09-23 10:47 | CCD | Continuity of Care Document ---
Author Author Real Calero Organization Unknown Address [address] [facility] [address] [place] [address] Phone [phone] Care Team Providers Care Damper Fitter Name Role Phone Jeffy Koo JR, MD AUTM Unavailable Problems Active Problems Provider Date Anticoagulants Retirement (Current) Use O nset: 07/23/1997 Atrial fibrillation [...] Administration Of Flu Vaccine Inj ection Melvi Anne Marie Florissant, DRAPERY HEAD FORMER 06/16/2005 Administration Of Flu Vaccine Inj ection Melvi Canas, [facility] 05/21/2003 Immunizations CPT Code Status Date Vaccine Lot # [id number] Given 05/26/2020 Influenza Vaccin e Quadrivalent Preser/Antibiotic Free Im Use [id number] 47288 Given 05/29/2019 Influenza Vaccin e Quadrivalent Preser/Antibiotic Free Im Use 296702 83407 Given 05/16/2018 Influenza Virus Vaccine, Quadrivalent (Cciiv4), Derived From 6 Given 05/30/2017 Influenza Vaccin e Quadrivalent Preser/Antibiotic Free Im Use [id number] Q2037 Given 05/13/2016 Fluvirin Virus Vaccine [id number] 01 Q2037 Given 05/14/2014 Fluvirin Virus Vaccine Q2037 Given 06/21/2013 Fluvirin Virus Vaccine Q2037 Given 05/17/2012 Fluvirin Virus Vaccine Q2037 Given 05/26/2011 Fluvirin Virus Vaccine 25226 Given 05/06/2010 Influenza Virus Vaccine 59468 Given 05/07/2009 Influenza Virus Vaccine 43437 Given 05/21/2008 Influenza Virus Vaccine 78738 Given 05/23/2007 Influenza Virus Vaccine 67338 Given 07/26/2006 Influenza Virus Vaccine 73168 Given 06/16/2005 Influenza Virus Vaccine 91467 Given 05/21/2003 Influenza Virus Vaccine 84957 Given 06/12/2002 Influenza Virus Vaccine Vital Signs [...] Wi-Inr Inr 1.3 Laboratory test finding 07/24/2020 [facility] [address] [place] [address] [phone] Carcinoembryonic Antigen 0.6 NG/ML Normal <2.5 1 Alpha Fetoprotein Tumor Quant 1000.0 NG/ML High <8.1 2 Laboratory test finding 07/24/2020 Wi-Inr Inr 3.3 Laboratory test finding 07/18/2020 [facility] Corporate Legal Assistant: [place] [address] [phone] PSA 0.68 ng/mL <4.00 3 Liver Function Profile 07/18/2020 [facility] Corporate Legal Assistant: Dr Jeffy Koo [place] [id number] [phone] Alk. Phosphatase 277 mg/dL High 46 - 116 Total Bilirubin 0.8 mg/dL 0.2 - 1.0 Ast (Sgot) 973 U/L High 15 - 37 4 Alt (SGPT) 215 U/L High 12 - 78 Albumin 3.8 g/dL 3.4 - 5.0 Total Protein 7.6 g/dL 6.4 - 8.2 Direct Bilirubin 0.3 mg/dL High 0.0 - 0.2 A/G Ratio 1.00 CALC 1.00 - 1.90 Hepatitis Profile 07/18/2020 [facility] [address] [place] [address] [phone] Hepatitis C Virus Winsome Index 0.1 INDEX Normal <0.8 5 Hepatitis B Surface Antigen NEGATIVE Normal Negative Hepatitis B Core Antibody Igm NEGATIVE Normal Negative Hepatitis A Antibody Igm NEGATIVE Normal Negative Complete Blood Count 07/10/2020 [facility] Corporate Legal Assistant: [place] [address] [phone] WBC 4.2 x10*3/UL 4.1 - 10.9 RBC [...] 3.3 x10*3/UL 2.0 - 7.8 A1c 07/10/2020 [facility] , Corporate Legal Assistant: Dr Jeffy Koo [place], [place] [id number] [phone] Hba1c 6.0 % High <5.7 6 Est Avg Glucose 125 mg/dL High 60 - 110 Comprehensive Chem Profile 07/10/2020 [facility], Corporate Legal Assistant: [place] [address] [phone] Glucose 88 mg/dL 74 - 99 7 [...] 60 mL/min >60 9 Lipid Profile 07/10/2020 [facility] Corporate Legal Assistant: Dr Jeffy Koo [place], [place] [id number] [phone] Cholesterol 114 mg/dL Low 131 - 200 [...] 3 This assay was performed on the Siemens [...] LITTLE GFR LEFT ESRD GFR <15 ON DIDACTIC PROGRAM IN DIETETICS DIRECTOR Procedures Date Code Description Status 05/22/2018 [id number] Colonoscopy Completed 12/25/2013 [id number] Colonoscopy Completed Medical Devices Description No Information Available Encounters Type Date Location Provider Dx Diagnosis Office Visit 07/24/2020 10[facility] D37.6 Neoplasm of uncertain behavior of liver, GB & bile duct R91.8 Other nonspecific abnormal f inding of lung field I48.20 Chronic atrial fibrillation, unspecified 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 E11.42 Type 2 diabetes mellitus wit h diabetic polyneuropathy G47.33 Obstructive sleep apnea (jazmyne lt) (pediatric) E78.00 Pure hypercholesterolemia, u nspecified I48.20 Chronic atrial fibrillation, unspecified Z79.01 residential (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 of a nticoagulants I11.9 Hypertensive heart disease w [facility] heart failure R74.8 Abnormal levels of other ser um enzymes Z12.5 Encounter for screening for malignant neoplasm of prostate E66.01 Morbid (severe) obesity due to excess calories Z68.41 Body mass index [BMI]40.0-44 .9, adult Assessments Date Code Description Provider 07/28/2020 I48.20 Chronic atrial fibrillation, uns pecified Protime 07/28/2020 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 Protime 07/24/2020 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, gallbladder and bile ducts Jeffy Koo MD 07/24/2020 R91.8 Other nonspecific abnormal findi ng of lung field Jeffy Koo MD 07/24/2020 I48.20 Chronic atrial fibrillation, uns pecified Jeffy Koo MD 07/24/2020 Z79.01 residential (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 oagulants Jeffy Koo [...] uns pecified Jeffy Koo MD 07/18/2020 Z79.01 residential (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 oagulants Jeffy Koo [...] therapeutic drug l evel monitoring RAJEEV Calero 07/10/2020 I48.20 Chronic atrial fibrillation, uns pecified Jeffy Koo MD 07/10/2020 E78.00 Pure hypercholesterolemia, unspe cified Lab Schedule 07/10/2020 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 Jeffy Koo MD 07/10/2020 Z51.81 Encounter for therapeutic drug l evel monitoring Protime 07/10/2020 I48.20 Chronic atrial fibrillation, uns pecified Lab Schedule 07/10/2020 I48.20 Chronic atrial fibrillation, uns pecified JULIANA CaleroP 07/10/2020 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 Lab Schedule 07/10/2020 I48.20 Chronic atrial fibrillation, uns pecified Protime 07/10/2020 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 RAJEEV Calero 07/10/2020 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 Protime 06/10/2020 Z51.81 Encounter for therapeutic drug l evel monitoring RAJEEV Calero 06/10/2020 Z51.81 Encounter for therapeutic drug l evel monitoring Protime 06/10/2020 I48.20 Chronic atrial fibrillation, uns pecified Melvi Le Florissant, [employer]AP[employer] HEAD FORMER 06/10/2020 I48.20 Chronic atrial fibrillation, uns pecified Protime 06/10/2020 Z79.01 residential (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 oagulants Melvi Le Florissant, [employer]APERY HEAD FORMER 06/10/2020 Z79.01 residential (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 oagulants Protime 06/03/2020 Z51.81 Encounter for therapeutic drug l evel monitoring Melvi Le Florissant, [employer]AP[employer] HEAD FORMER 06/03/2020 Z51.81 Encounter for therapeutic drug l evel monitoring Protime 06/03/2020 I48.20 Chronic atrial fibrillation, uns pecified Melvi Le Florissant, [facility] 06/03/2020 I48.20 Chronic atrial fibrillation, uns pecified Protime 06/03/2020 Z79.01 residential (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 oagulants Melvi Le Florissant, [facility] 06/03/2020 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 Protime 05/26/2020 Z51.81 Encounter for therapeutic drug l evel monitoring Melvi Le Florissant, [facility] 05/26/2020 Z51.81 Encounter for therapeutic drug l evel monitoring Protime 05/26/2020 I48.20 Chronic atrial fibrillation, uns pecified Melvi Le Florissant, [facility] 05/26/2020 I48.20 Chronic atrial fibrillation, uns pecified Protime 05/26/2020 Z79.01 residential (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 oagulants Melvi Le Florissant, [facility] 05/26/2020 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 Protime 05/26/2020 Z23 Encounter for immunization Colli lacey Koo MD 05/26/2020 Z23 Encounter for immunization Proti me 04/24/2020 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 Melvi Le Florissant, [facility] 04/24/2020 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 Protime 04/24/2020 I48.20 Chronic atrial fibrillation, uns pecified Melvi Anne Marie Florissant, [facility] 04/24/2020 I48.20 Chronic atrial fibrillation, uns pecified Protime 04/24/2020 Z51.81 Encounter for therapeutic drug l evel monitoring Mlevi Le Florissant, [facility] 04/24/2020 Z51.81 Encounter for therapeutic drug l evel monitoring Protime 03/24/2020 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 Melvi Canas, [employer] FORMER 03/24/2020 Z79.01 residential (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 oagulants Protime 03/24/2020 I48.20 Chronic atrial fibrillation, uns pecified Melvi Kenney Florissant, [employer]APERY HEAD FORMER 03/24/2020 I48.20 Chronic atrial fibrillation, uns pecified Protime 03/24/2020 Z51.81 Encounter for therapeutic drug l evel monitoring Melvi Canas, [employer] FORMER 03/17/2020 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 Melvi Canas, [employer] FORMER 03/17/2020 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 Protime 03/17/2020 I48.20 Chronic atrial fibrillation, uns pecified Melvi Canas, [employer] FORMER 03/17/2020 I48.20 Chronic atrial fibrillation, uns pecified Protime 03/17/2020 Z51.81 Encounter for therapeutic drug l evel monitoring Melvi Canas, [employer] FORMER 02/13/2020 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 * 08/12/2020 8:00 am - Lefty at [facility] 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 PT SCHEDULED FOR CHEST CT AT [facility] ON 07/29/20 Sent [address] [place] [address] [phone] [facility] HOT MAN CONSULT FOR LARGE ALTHEA ER MASSES AND MULTIPLE PULMONARY NODULES PT SCHEDULED FOR CHEST CT AT [facility] ON 07/29/20 Patient Declined [place], [place] [id number] [phone]
--- OUTSIDE RECORDS SUMMARY | 2020-09-23 10:47 | CCD | Continuity of Care Document ---
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 Atrial fibrillation [...] Administration Of Flu Vaccine Inj ection Melvi [facility], COURIER DELIVERY DRIVER 06/16/2005 Administration Of Flu Vaccine Inj ection Melvi Canas, COURIER DELIVERY DRIVER 05/21/2003 Immunizations CPT Code Status Date Vaccine Lot # [id number] Given 05/26/2020 Influenza Vaccin e Quadrivalent Preser/Antibiotic Free Im Use [id number] 49982 Given 05/29/2019 Influenza Vaccin e Quadrivalent Preser/Antibiotic Free Im Use [id number] 32439 Given 05/16/2018 Influenza Virus Vaccine, Quadrivalent (Cciiv4), Derived From 4 Given 05/30/2017 Influenza Vaccin e Quadrivalent Preser/Antibiotic Free Im Use [id number] Q2037 Given 05/13/2016 Fluvirin Virus Vaccine 71361 01 Q2037 Given 05/14/2014 Fluvirin Virus Vaccine Q2037 Given 06/21/2013 Fluvirin Virus Vaccine Q2037 Given 05/17/2012 Fluvirin Virus Vaccine Q2037 Given 05/26/2011 Fluvirin Virus Vaccine 58808 Given 05/06/2010 Influenza Virus Vaccine 73184 Given 05/07/2009 Influenza Virus Vaccine 01620 Given 05/21/2008 Influenza Virus Vaccine 09459 Given 05/23/2007 Influenza Virus Vaccine 22335 Given 07/26/2006 Influenza Virus Vaccine 63241 Given 06/16/2005 Influenza Virus Vaccine 05409 Given 05/21/2003 Influenza Virus Vaccine 77806 Given 06/12/2002 Influenza Virus Vaccine Vital Signs [...] Wi-Inr Inr 1.3 Laboratory test finding 07/24/2020 [facility] [address] [place] [address] [phone] Carcinoembryonic Antigen 0.6 NG/ML Normal <2.5 1 Alpha Fetoprotein Tumor Quant 1000.0 NG/ML High <8.1 2 Laboratory test finding 07/24/2020 Wi-Inr Inr 3.3 Laboratory test finding 07/18/2020 [facility] Integrity Consultant: [place] [address] [phone] PSA 0.68 ng/mL <4.00 3 Liver Function Profile 07/18/2020 [facility] Integrity Consultant: Dr Jeffy Koo [place] [id number] [phone] Alk. Phosphatase 277 mg/dL High 46 - 116 Total Bilirubin 0.8 mg/dL 0.2 - 1.0 Ast (Sgot) 973 U/L High 15 - 37 4 Alt (SGPT) 215 U/L High 12 - 78 Albumin 3.8 g/dL 3.4 - 5.0 Total Protein 7.6 g/dL 6.4 - 8.2 Direct Bilirubin 0.3 mg/dL High 0.0 - 0.2 A/G Ratio 1.00 CALC 1.00 - 1.90 Hepatitis Profile 07/18/2020 [facility] n[facility] [address] [place] [address] [phone] Hepatitis C Virus Winsome Index 0.1 INDEX Normal <0.8 5 Hepatitis B Surface Antigen NEGATIVE Normal Negative Hepatitis B Core Antibody Igm NEGATIVE Normal Negative Hepatitis A Antibody Igm NEGATIVE Normal Negative Complete Blood Count 07/10/2020 [facility] Integrity Consultant: [place] [address] [phone] WBC 4.2 x10*3/UL 4.1 - 10.9 RBC [...] 3.3 x10*3/UL 2.0 - 7.8 A1c 07/10/2020 [facility] , Integrity Consultant: Dr Jeffy Koo [place], [place] [id number] [phone] Hba1c 6.0 % High <5.7 6 Est Avg Glucose 125 mg/dL High 60 - 110 Comprehensive Chem Profile 07/10/2020 [facility], Integrity Consultant: Dr Jeffy Koo [place], [place] [id number] [phone] Glucose 88 mg/dL 74 - 99 7 [...] 60 mL/min >60 9 Lipid Profile 07/10/2020 [facility] Integrity Consultant: Dr Jeffy Koo [place], [place] [id number] [phone] Cholesterol 114 mg/dL Low 131 - 200 [...] 3 This assay was performed on the [employer] EXL using the B- Galactosidase/CPRG methodology and [...] LITTLE GFR LEFT ESRD GFR <15 ON CLERK TELEGRAPH SERVICE Procedures Date Code Description Status 05/22/2018 [id number] Colonoscopy Completed 12/25/2013 [id number] Colonoscopy Completed Medical Devices Description No Information Available Encounters Type Date Location Provider Dx Diagnosis Office Visit 07/24/2020 10[facility]a [facility] D37.6 Neoplasm of uncertain behavior of liver, GB & bile duct R91.8 Other nonspecific abnormal f inding of lung field I48.20 Chronic atrial fibrillation, unspecified Z79.01 care home (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 of a nticoagulants C22.8 Malignant neoplasm of liver, primary, unspecified as to type Office Visit 07/18/2020 1:00p [facility] 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 E11.42 Type 2 diabetes mellitus wit h diabetic polyneuropathy G47.33 Obstructive sleep apnea (jazmyne lt) (pediatric) E78.00 Pure hypercholesterolemia, u nspecified I48.20 Chronic atrial fibrillation, unspecified Z79.01 care home (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 of a nticoagulants I11.9 Hypertensive heart disease w [facility] heart failure R74.8 Abnormal levels of other ser um enzymes Z12.5 Encounter for screening for malignant neoplasm of prostate E66.01 Morbid (severe) obesity due to excess calories Z68.41 Body mass index [BMI]40.0-44 .9, adult Assessments Date Code Description Provider 07/24/2020 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, gallbladder and bile ducts Jeffy Koo MD 07/24/2020 R91.8 Other nonspecific abnormal findi ng of lung field Jeffy Koo MD 07/24/2020 I48.20 Chronic atrial fibrillation, uns pecified Jeffy Koo MD 07/24/2020 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 Jeffy Koo [...] uns pecified Jeffy Koo MD 07/18/2020 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 Jeffy Koo MD 07/18/2020 I11.9 Hypertensive heart disease witho id heart failure Jeffy Koo MD 07/18/2020 R74.8 [...] therapeutic drug l evel monitoring Melvi Canas, [facility] 07/10/2020 I48.20 Chronic atrial fibrillation, uns pecified Jeffy Koo MD 07/10/2020 E78.00 Pure hypercholesterolemia, unspe cified Lab Schedule 07/10/2020 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 Jeffy Koo MD 07/10/2020 Z51.81 Encounter for therapeutic drug l evel monitoring Protime 07/10/2020 I48.20 Chronic atrial fibrillation, uns pecified Lab Schedule 07/10/2020 I48.20 Chronic atrial fibrillation, uns pecified Melvi Canas, [facility] 07/10/2020 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 Lab Schedule 07/10/2020 I48.20 Chronic atrial fibrillation, uns pecified Protime 07/10/2020 Z79.01 care home (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 oagulants Melvi Canas, [facility] 07/10/2020 Z79.01 care home (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 oagulants Protime 06/10/2020 Z51.81 Encounter for therapeutic drug l evel monitoring Melvi Canas, [facility] 06/10/2020 Z51.81 Encounter for therapeutic drug l evel monitoring Protime 06/10/2020 I48.20 Chronic atrial fibrillation, uns pecified Melvi Canas [facility] 06/10/2020 I48.20 Chronic atrial fibrillation, uns pecified Protime 06/10/2020 Z79.01 care home (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 oagulants Melvi Le Callahan, COURIER DELIVERY DRIVER 06/10/2020 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 Protime 06/03/2020 Z51.81 Encounter for therapeutic drug l evel monitoring Melvi Le Callahan, COURIER DELIVERY DRIVER 06/03/2020 Z51.81 Encounter for therapeutic drug l evel monitoring Protime 06/03/2020 I48.20 Chronic atrial fibrillation, uns pecified Melvi Le Callahan, COURIER DELIVERY DRIVER 06/03/2020 I48.20 Chronic atrial fibrillation, uns pecified Protime 06/03/2020 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 Melvi Le Callahan, COURIER DELIVERY DRIVER 06/03/2020 Z79.01 care home (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 oagulants Protime 05/26/2020 Z51.81 Encounter for therapeutic drug l evel monitoring Melvi Le Callahan, COURIER DELIVERY DRIVER 05/26/2020 Z51.81 Encounter for therapeutic drug l evel monitoring Protime 05/26/2020 I48.20 Chronic atrial fibrillation, uns pecified Melvi Le Callahan, [facility] 05/26/2020 I48.20 Chronic atrial fibrillation, uns pecified Protime 05/26/2020 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 Melvi Le Callahan, [facility] 05/26/2020 Z79.01 care home (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 oagulants Protime 05/26/2020 Z23 Encounter for immunization Colli lacey Koo MD 05/26/2020 Z23 Encounter for immunization Proti me 04/24/2020 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 Melvi Le Callahan, COURIER DELIVERY DRIVER 04/24/2020 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 Protime 04/24/2020 I48.20 Chronic atrial fibrillation, uns pecified Melvi Le Callahan, COURIER DELIVERY DRIVER 04/24/2020 I48.20 Chronic atrial fibrillation, uns pecified Protime 04/24/2020 Z51.81 Encounter for therapeutic drug l evel monitoring Melvi Le Callahan, COURIER DELIVERY DRIVER 04/24/2020 Z51.81 Encounter for therapeutic drug l evel monitoring Protime 03/24/2020 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 Melvi Le Callahan, COURIER DELIVERY DRIVER 03/24/2020 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 Protime 03/24/2020 I48.20 Chronic atrial fibrillation, uns pecified Melvi Anne Marie Callahan, COURIER DELIVERY DRIVER 03/24/2020 I48.20 Chronic atrial fibrillation, uns pecified Protime 03/24/2020 Z51.81 Encounter for therapeutic drug l evel monitoring Melvi Canas, COURIER DELIVERY DRIVER 03/17/2020 Z79.01 care home (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 oagulants Melvi Anne Marie Callahan, COURIER DELIVERY DRIVER 03/17/2020 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 Protime 03/17/2020 I48.20 Chronic atrial fibrillation, uns pecified Melvi Anne Marie Callahan, COURIER DELIVERY DRIVER 03/17/2020 I48.20 Chronic atrial fibrillation, uns pecified Protime 03/17/2020 Z51.81 Encounter for therapeutic drug l evel monitoring Melvi Anne Marie Patel, COURIER DELIVERY DRIVER 02/13/2020 Z79.01 care home (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 oagulants Melvi Anne Marie Patel, COURIER DELIVERY DRIVER 02/13/2020 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 * 08/12/2020 8:00 am - Protime at [facility] 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
--- OUTSIDE RECORDS SUMMARY | 2020-09-23 10:48 | CCD | Continuity of Care Document ---
Author Author Real Koo MD Organization Unknown Address [address] [address] Phone [phone] Care Team Providers Care Maintenance Job Titles Name Role Phone Jeffy Koo JR, MD AUTM Unavailable Problems Active Problems Provider Date Anticoagulants [place] Upholsterer (Current) Use O nset: 07/23/1997 Atrial fibrillation [...] Administration Of Flu Vaccine Inj ection Melvi Le [place], SOURCING ASSISTANT 06/16/2005 Administration Of Flu Vaccine Inj ection Melvi Canas, SOURCING ASSISTANT 05/21/2003 Immunizations CPT Code Status Date Vaccine Lot # 13227 Given 05/26/2020 Influenza Vaccin e Quadrivalent Preser/Antibiotic Free Im Use [id number] 26320 Given 05/29/2019 Influenza Vaccin e Quadrivalent Preser/Antibiotic Free Im Use [id number] 75799 Given 05/16/2018 Influenza Virus Vaccine, Quadrivalent (Cciiv4), Derived From 3 Given 05/30/2017 Influenza Vaccin e Quadrivalent Preser/Antibiotic Free Im Use 495192 Q2037 Given 05/13/2016 Fluvirin Virus Vaccine 75064 01 Q2037 Given 05/14/2014 Fluvirin Virus Vaccine Q2037 Given 06/21/2013 Fluvirin Virus Vaccine Q2037 Given 05/17/2012 Fluvirin Virus Vaccine Q2037 Given 05/26/2011 Fluvirin Virus Vaccine 41958 Given 05/06/2010 Influenza Virus Vaccine 14371 Given 05/07/2009 Influenza Virus Vaccine 00820 Given 05/21/2008 Influenza Virus Vaccine 15233 Given 05/23/2007 Influenza Virus Vaccine 55200 Given 07/26/2006 Influenza Virus Vaccine 51641 Given 06/16/2005 Influenza Virus Vaccine 19239 Given 05/21/2003 Influenza Virus Vaccine 25598 Given 06/12/2002 Influenza Virus Vaccine Vital Signs Date Vital Result Comment 07/18/2020 12:57pm BP Systolic 110 mmHg BP Diastolic 74 mmHg Heart Rate 120 /min irregular Height 75 inches 6'3" Weight 325.00 lb BMI (Body Mass Index) 40.6 kg/m2 06/10/2020 8:36am Weight 349.00 lb Results Test Acquired Date Facility Test Result H/L Range Note Laboratory test finding 07/24/2020 [facility] [address] [place] [address] [phone] Carcinoembryonic Antigen 0.6 NG/ML Normal <2.5 1 Alpha Fetoprotein Tumor Quant 1000.0 NG/ML High <8.1 2 Laboratory test finding 07/24/2020 [facility] 3.3 Laboratory test finding 07/18/2020 [facility] bogdan husain Field Support Engineer: [place] [address] [phone] PSA 0.68 ng/mL <4.00 3 Liver Function Profile 07/18/2020 [facility] Field Support Engineer: Dr Jeffy Koo [place] [id number] [phone] Alk. Phosphatase 277 mg/dL High 46 - 116 Total Bilirubin 0.8 mg/dL 0.2 - 1.0 Ast (Sgot) 973 U/L High 15 - 37 4 Alt (SGPT) 215 U/L High 12 - 78 Albumin 3.8 g/dL 3.4 - 5.0 Total Protein 7.6 g/dL 6.4 - 8.2 Direct Bilirubin 0.3 mg/dL High 0.0 - 0.2 A/G Ratio 1.00 CALC 1.00 - 1.90 Hepatitis Profile 07/18/2020 [facility] nter [address] [place] [address] [phone] Hepatitis C Virus Winsome Index 0.1 INDEX Normal <0.8 5 Hepatitis B Surface Antigen NEGATIVE Normal Negative Hepatitis B Core Antibody Igm NEGATIVE Normal Negative Hepatitis A Antibody Igm NEGATIVE Normal Negative Complete Blood Count 07/10/2020 [facility] Field Support Engineer: [place] [address] [phone] WBC 4.2 x10*3/UL 4.1 - 10.9 RBC [...] 3.3 x10*3/UL 2.0 - 7.8 A1c 07/10/2020 [facility] , Field Support Engineer: [place] [address] [phone] Hba1c 6.0 % High <5.7 6 Est Avg Glucose 125 mg/dL High 60 - 110 Comprehensive Chem Profile 07/10/2020 [facility], Field Support Engineer: [place] [address] [phone] Glucose 88 mg/dL 74 - 99 7 [...] 60 mL/min >60 9 Lipid Profile 07/10/2020 [facility] Field Support Engineer: Dr Jeffy [place]oo [place] [id number] [phone] Cholesterol 114 mg/dL Low 131 - 200 [...] This assay was performed on the Siemens Fundamo (Proprietary) EXL using the B- Galactosidase/CPRG methodology and [...] LITTLE GFR LEFT ESRD GFR <15 ON [employer] Procedures Date Code Description Status 05/22/2018 [id number] Colonoscopy Completed 12/25/2013 [id number] Colonoscopy Completed Medical Devices Description No Information Available Encounters Type Date Location Provider Dx Diagnosis Office Visit 07/24/2020 10:00a Candace Estrada MD D37.6 Neoplasm of uncertain behavior of liver, GB & bile duct R91.8 Other nonspecific abnormal f inding of lung field I48.20 Chronic atrial fibrillation, unspecified 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 E11.42 Type 2 diabetes mellitus wit h diabetic polyneuropathy G47.33 Obstructive sleep apnea (jazmyne lt) (pediatric) E78.00 Pure hypercholesterolemia, u nspecified I48.20 Chronic atrial fibrillation, unspecified Z79.01 prison (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 of a nticoagulants I11.9 [facility] R74.8 Abnormal levels of [...] uns pecified Jeffy Koo MD 07/24/2020 Z79.01 prison (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 oagulants Jeffy Koo [...] uns pecified Jeffy Koo MD 07/18/2020 Z79.01 prison (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 oagulants Jeffy Koo [...] therapeutic drug l evel monitoring Melvi Canas, [facility] 07/10/2020 I48.20 Chronic atrial fibrillation, uns pecified Jeffy Koo MD 07/10/2020 E78.00 Pure hypercholesterolemia, unspe cified Lab Schedule 07/10/2020 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 Jeffy Koo MD 07/10/2020 Z51.81 Encounter for therapeutic drug l evel monitoring Protime 07/10/2020 I48.20 Chronic atrial fibrillation, uns pecified Lab Schedule 07/10/2020 I48.20 Chronic atrial fibrillation, uns pecified Melvi Canas, [facility] 07/10/2020 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 Lab Schedule 07/10/2020 I48.20 Chronic atrial fibrillation, uns pecified Protime 07/10/2020 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 Melvi Canas, [facility] 07/10/2020 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 Protime 06/10/2020 Z51.81 Encounter for therapeutic drug l evel monitoring Melvi Canas, [facility] 06/10/2020 Z51.81 Encounter for therapeutic drug l evel monitoring Protime 06/10/2020 I48.20 Chronic atrial fibrillation, uns pecified Melvi Canas, [facility] 06/10/2020 I48.20 Chronic atrial fibrillation, uns pecified Protime 06/10/2020 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 Melvi [place], SOURCING ASSISTANT 06/10/2020 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 Protime 06/03/2020 Z51.81 Encounter for therapeutic drug l evel monitoring Melvi [place], SOURCING ASSISTANT 06/03/2020 Z51.81 Encounter for therapeutic drug l evel monitoring Protime 06/03/2020 I48.20 Chronic atrial fibrillation, uns pecified Melvi [place], [facility] 06/03/2020 I48.20 Chronic atrial fibrillation, uns pecified Protime 06/03/2020 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 Melvi [place], [facility] 06/03/2020 Z79.01 prison (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 oagulants Protime 05/26/2020 Z51.81 Encounter for therapeutic drug l evel monitoring Melvi [place], [facility] 05/26/2020 Z51.81 Encounter for therapeutic drug l evel monitoring Protime 05/26/2020 I48.20 Chronic atrial fibrillation, uns pecified Melvi [place], [facility] 05/26/2020 I48.20 Chronic atrial fibrillation, uns pecified Protime 05/26/2020 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 Melvi [place], [facility] 05/26/2020 Z79.01 prison (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 oagulants Protime 05/26/2020 Z23 Encounter for immunization Colli lacey Koo MD 05/26/2020 Z23 Encounter for immunization Proti me 04/24/2020 Z79.01 prison (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 oagulants Melvi [place], [facility] 04/24/2020 Z79.01 prison (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 oagulants Protime 04/24/2020 I48.20 Chronic atrial fibrillation, uns pecified Melvi [place], [facility] 04/24/2020 I48.20 Chronic atrial fibrillation, uns pecified Protime 04/24/2020 Z51.81 Encounter for therapeutic drug l evel monitoring Melvi [place], [facility] 04/24/2020 Z51.81 Encounter for therapeutic drug l evel monitoring Protime 03/24/2020 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 Melvi [place], [facility] 03/24/2020 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 Protime 03/24/2020 I48.20 Chronic atrial fibrillation, uns pecified Melvi Canas, SOURCING ASSISTANT 03/24/2020 I48.20 Chronic atrial fibrillation, uns pecified Protime 03/24/2020 Z51.81 Encounter for therapeutic drug l evel monitoring Melvi Canas, SOURCING ASSISTANT 03/17/2020 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 Melvi Canas, SOURCING ASSISTANT 03/17/2020 Z79.01 prison (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 oagulants Protime 03/17/2020 I48.20 Chronic atrial fibrillation, uns pecified Melvi Canas, SOURCING ASSISTANT 03/17/2020 I48.20 Chronic atrial fibrillation, uns pecified Protime 03/17/2020 Z51.81 Encounter for therapeutic drug l evel monitoring Melvi Canas, SOURCING ASSISTANT 02/13/2020 Z79.01 prison (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 oagulants Melvi Anne Marie Patel, SOURCING ASSISTANT 02/13/2020 Z79.01 prison (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 oagulants Protime 02/13/2020 I48.20 Chronic atrial fibrillation, uns pecified Melvi Canas, SOURCING ASSISTANT 02/13/2020 I48.20 Chronic atrial fibrillation, uns pecified Protime 02/13/2020 Z51.81 Encounter for therapeutic drug l evel monitoring RAJEEV Calero Plan of Treatment Future Appointment(s):* 07/28/2020 8:00 am - Protime at [facility] * 01/20/2021 11:40 am - Jeffy Koo MD at [facility] * 08/12/2020 8:00 am - [facility]time at [facility] 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
--- OUTSIDE RECORDS SUMMARY | 2020-09-23 10:49 | CCD | Continuity of Care Document ---
Author Author Real Calero Organization Unknown Address [address] [facility] [address] [place] [address] Phone [phone] Care Team Providers Care Housekeeping Director Name Role Phone Jeffy Koo JR, MD AUTM Unavailable Problems Active Problems Provider Date Anticoagulants [facility] (Current) Use O nset: 07/23/1997 Atrial fibrillation [...] Flu Vaccine Inj ection Melvi Anne Marie [place], PRODUCTION SUPPORT MANAGER 06/16/2005 Administration Of Flu Vaccine Inj ection Melvi Canas, PRODUCTION SUPPORT MANAGER 05/21/2003 Immunizations CPT Code Status Date Vaccine Lot # 92117 Given 05/26/2020 Influenza Vaccin e Quadrivalent Preser/Antibiotic Free Im Use [id number] 05617 Given 05/29/2019 Influenza Vaccin e Quadrivalent Preser/Antibiotic Free Im Use 114728 54733 Given 05/16/2018 Influenza Virus Vaccine, Quadrivalent (Cciiv4), Derived From 9 Given 05/30/2017 Influenza Vaccin e Quadrivalent Preser/Antibiotic Free Im Use [id number] Q2037 Given 05/13/2016 Fluvirin Virus Vaccine 26112 01 Q2037 Given 05/14/2014 Fluvirin Virus Vaccine Q2037 Given 06/21/2013 Fluvirin Virus Vaccine Q2037 Given 05/17/2012 Fluvirin Virus Vaccine Q2037 Given 05/26/2011 Fluvirin Virus Vaccine 73017 Given 05/06/2010 Influenza Virus Vaccine 17362 Given 05/07/2009 Influenza Virus Vaccine 33792 Given 05/21/2008 Influenza Virus Vaccine 33380 Given 05/23/2007 Influenza Virus Vaccine 98344 Given 07/26/2006 Influenza Virus Vaccine 75704 Given 06/16/2005 Influenza Virus Vaccine 51872 Given 05/21/2003 Influenza Virus Vaccine 10748 Given 06/12/2002 Influenza Virus Vaccine Vital Signs Date Vital Result Comment 07/18/2020 12:57pm BP Systolic 110 mmHg BP Diastolic 74 mmHg Heart Rate 120 /min irregular Height 75 inches 6'3" Weight 325.00 lb BMI (Body Mass Index) 40.6 kg/m2 06/10/2020 8:36am Weight 349.00 lb Results Test Acquired Date Facility Test Result H/L Range Note Laboratory test finding 07/24/2020 [facility] [address] [place] [address] [phone] Carcinoembryonic Antigen <pending> Alpha Fetoprotein Tumor Quant <pending> Laboratory test finding 07/24/2020 [facility] In[facility] 3.3 Laboratory test finding 07/18/2020 [facility] bogdan husain Direct Mail Coordinator: Dr Jeffy Koo [place], [place] [id number] [phone] PSA 0.68 ng/mL <4.00 1 Liver Function Profile 07/18/2020 [facility] Direct Mail Coordinator: Dr Jeffy Koo [place], [place] [address] [phone] Alk. Phosphatase 277 mg/dL High 46 - 116 Total Bilirubin 0.8 mg/dL 0.2 - 1.0 Ast (Sgot) 973 U/L High 15 - 37 2 Alt (SGPT) 215 U/L High 12 - 78 Albumin 3.8 g/dL 3.4 - 5.0 Total Protein 7.6 g/dL 6.4 - 8.2 Direct Bilirubin 0.3 mg/dL High 0.0 - 0.2 A/G Ratio 1.00 CALC 1.00 - 1.90 Hepatitis Profile 07/18/2020 [facility] nter [address] [place], [place] [address] [phone] Hepatitis C Virus Winsome Index 0.1 INDEX Normal <0.8 3 Hepatitis B Surface Antigen NEGATIVE Normal Negative Hepatitis B Core Antibody Igm NEGATIVE Normal Negative Hepatitis A Antibody Igm NEGATIVE Normal Negative Complete Blood Count 07/10/2020 [facility] Direct Mail Coordinator: [place] [address] [phone] WBC 4.2 x10*3/UL 4.1 - 10.9 RBC [...] 3.3 x10*3/UL 2.0 - 7.8 A1c 07/10/2020 [facility] , Direct Mail Coordinator: Dr Jeffy Koo [place], [place] [id number] [phone] Hba1c 6.0 % High <5.7 4 Est Avg Glucose 125 mg/dL High 60 - 110 Comprehensive Chem Profile 07/10/2020 [facility], Direct Mail Coordinator: Dr Jeffy Koo [place], [place] [address] [phone] Glucose 88 mg/dL 74 - 99 5 BUN 21 mg/dL High 7 - 18 [...] (Sgot) 712 U/L High 15 - 37 6 Alt (SGPT) 83 U/L High 12 - 78 Albumin 3.7 g/dL 3.4 - 5.0 Total Protein 7.3 g/dL 6.4 - 8.2 A/G Ratio 1.03 CALC 1.00 - 1.90 GFR 57 mL/min Low >60 GFR >= 60 mL/min >60 7 Lipid Profile 07/10/2020 [facility] , Direct Mail Coordinator: [place] [address] [phone] Cholesterol 114 mg/dL Low 131 - 200 [...] test finding 02/13/2020 [facility] Inr 2.7 1 This assay was performed on the Siemens Dimension EXL using the B- Galactosidase/CPRG methodology and should not be compared interchangeably with other methods. The PSA should not be used alone as a screening test for the presence or absence of malignant disease. 2 NOTE: RESULT VERIFIED. 3 Negative Not infected with HCV, unless recent infection is suspected or other evidence exists to indicate HCV infection. 4 Lab Result Notes: Pre-Diabetes 5.7 - 6.4 % Diabetes = or > 6.5% 5 100-125 mg/dL PRE-DIABET ES/FASTING >126 mg/dL DIABETES/FASTING 6 NOTE: RESULT VERIFIED. 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 I11.9 [facility] R74.8 Abnormal levels of other [...] uns pecified Jeffy Koo MD 07/24/2020 Z79.01 group home (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 oagulants Jeffy Koo MD 07/24/2020 C22.8 Malignant neoplasm of liver, haylie yañez, unspecified as to type Jeffy Koo MD [...] uns pecified Jeffy Koo MD 07/18/2020 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 jackigulantate Koo MD 07/18/2020 I11.9 Hypertensive heart disease [...] MD 07/10/2020 Z51.81 Encounter for therapeutic drug RAJEEV Peña 07/10/2020 I48.20 Chronic atrial fibrillation, uns pecdeb Koo MD 07/10/2020 E78.00 Pure hypercholesterolemia, unspe cified Lab Schedule 07/10/2020 Z79.01 group home (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 jackigulantate Koo MD 07/10/2020 Z51.81 Encounter for therapeutic drug l evel monitoring Protime 07/10/2020 I48.20 Chronic atrial fibrillation, uns pecified Lab Schedule 07/10/2020 I48.20 Chronic atrial fibrillation, uns pecified Melvi Le [place], [facility] 07/10/2020 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 Lab Schedule 07/10/2020 I48.20 Chronic atrial fibrillation, uns pecified Protime 07/10/2020 Z79.01 group home (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 oagulants Melvi [place], [facility] 07/10/2020 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 Protime 06/10/2020 Z51.81 Encounter for therapeutic drug l evel monitoring Melvi Le [place], [facility] 06/10/2020 Z51.81 Encounter for therapeutic drug l evel monitoring Protime 06/10/2020 I48.20 Chronic atrial fibrillation, uns pecified Melvi [place], [facility] 06/10/2020 I48.20 Chronic atrial fibrillation, uns pecified Protime 06/10/2020 Z79.01 group home (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 oagulants Melvi [place], [facility] 06/10/2020 Z79.01 group home (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 oagulants Protime 06/03/2020 Z51.81 Encounter for therapeutic drug l evel monitoring Melvi Le [place], [facility] 06/03/2020 Z51.81 Encounter for therapeutic drug l evel monitoring Protime 06/03/2020 I48.20 Chronic atrial fibrillation, uns pecified Melvi Le [place], [facility] 06/03/2020 I48.20 Chronic atrial fibrillation, uns pecified Protime 06/03/2020 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 Melvi Le [place], [facility] 06/03/2020 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 Protime 05/26/2020 Z51.81 Encounter for therapeutic drug l evel monitoring Melvi Le [place], [facility] 05/26/2020 Z51.81 Encounter for therapeutic drug l evel monitoring Protime 05/26/2020 I48.20 Chronic atrial fibrillation, uns pecified Melvi Le [place], [facility] 05/26/2020 I48.20 Chronic atrial fibrillation, uns pecified Protime 05/26/2020 Z79.01 group home (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 oagulants Melvi Le [place], PRODUCTION SUPPORT MANAGER 05/26/2020 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 Protime 05/26/2020 Z23 Encounter for immunization Colli lacey Koo MD 05/26/2020 Z23 Encounter for immunization Proti me 04/24/2020 Z79.01 group home (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 oagulants Melvi Le [place], PRODUCTION SUPPORT MANAGER 04/24/2020 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 Protime 04/24/2020 I48.20 Chronic atrial fibrillation, uns pecified Melvi Le [place], PRODUCTION SUPPORT MANAGER 04/24/2020 I48.20 Chronic atrial fibrillation, uns pecified Protime 04/24/2020 Z51.81 Encounter for therapeutic drug l evel monitoring Melvi Le [place], PRODUCTION SUPPORT MANAGER 04/24/2020 Z51.81 Encounter for therapeutic drug l evel monitoring Protime 03/24/2020 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 Melvi Le [place], PRODUCTION SUPPORT MANAGER 03/24/2020 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 Protime 03/24/2020 I48.20 Chronic atrial fibrillation, uns pecified Melvi Le [place], PRODUCTION SUPPORT MANAGER 03/24/2020 I48.20 Chronic atrial fibrillation, uns pecified Protime 03/24/2020 Z51.81 Encounter for therapeutic drug l evel monitoring Melvi [place], PRODUCTION SUPPORT MANAGER 03/17/2020 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 Melvi Le [place], PRODUCTION SUPPORT MANAGER 03/17/2020 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 Protime 03/17/2020 I48.20 Chronic atrial fibrillation, uns pecified Melvi Le [place], PRODUCTION SUPPORT MANAGER 03/17/2020 I48.20 Chronic atrial fibrillation, uns pecified Protime 03/17/2020 Z51.81 Encounter for therapeutic drug l evel monitoring Melvi Le [place], PRODUCTION SUPPORT MANAGER 02/13/2020 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 * 01/20/2021 11:40 am - Jeffy Koo MD at [facility] * 08/12/2020 8:00 am - [facility]time at [facility] 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
--- OUTSIDE RECORDS SUMMARY | 2020-09-23 10:50 | CCD | Continuity of Care Document ---
Author Author Real Koo MD Organization Unknown Address [address] [address] Phone [phone] Care Team Providers Care Gas Welder Name Role Phone Jeffy Koo JR, MD AUTM Unavailable Problems Active Problems Provider Date Anticoagulants Communications Officer (Current) Use O nset: 07/23/1997 Atrial fibrillation [...] Of Flu Vaccine Inj ection Melvi [place], EXPLOSIVE OPERATOR SUPERVISOR 06/16/2005 Administration Of Flu Vaccine Inj ection Melvi Canas, EXPLOSIVE OPERATOR SUPERVISOR 05/21/2003 Immunizations CPT Code Status Date Vaccine Lot # [id number] Given 05/26/2020 Influenza Vaccin e Quadrivalent Preser/Antibiotic Free Im Use [id number] 39865 Given 05/29/2019 Influenza Vaccin e Quadrivalent Preser/Antibiotic Free Im Use [id number] 29402 Given 05/16/2018 Influenza Virus Vaccine, Quadrivalent ([id number]), Derived From 1 Given 05/30/2017 Influenza Vaccin e Quadrivalent Preser/Antibiotic Free Im Use [id number] Q2037 Given 05/13/2016 Fluvirin Virus Vaccine [id number] 01 Q2037 Given 05/14/2014 Fluvirin Virus Vaccine Q2037 Given 06/21/2013 Fluvirin Virus Vaccine Q2037 Given 05/17/2012 Fluvirin Virus Vaccine Q2037 Given 05/26/2011 Fluvirin Virus Vaccine 22298 Given 05/06/2010 Influenza Virus Vaccine 85622 Given 05/07/2009 Influenza Virus Vaccine 55775 Given 05/21/2008 Influenza Virus Vaccine 88025 Given 05/23/2007 Influenza Virus Vaccine 39575 Given 07/26/2006 Influenza Virus Vaccine 88610 Given 06/16/2005 Influenza Virus Vaccine 44678 Given 05/21/2003 Influenza Virus Vaccine 70642 Given 06/12/2002 Influenza Virus Vaccine Vital Signs Date Vital Result Comment 07/18/2020 12:57pm BP Systolic 110 mmHg BP Diastolic 74 mmHg Heart Rate 120 /min irregular Height 75 inches 6'3" Weight 325.00 lb BMI (Body Mass Index) 40.6 kg/m2 06/10/2020 8:36am Weight 349.00 lb Results Test Acquired Date Facility Test Result H/L Range Note Hepatitis Profile 07/18/2020 [facility] [address] [place] [address] [phone] Hepatitis C Virus Winsome Index 0.1 INDEX Normal <0.8 1 Hepatitis B Surface Antigen NEGATIVE Normal Negative Hepatitis B Core Antibody Igm NEGATIVE Normal Negative Hepatitis A Antibody Igm NEGATIVE Normal Negative Laboratory test finding 07/18/2020 [facility] [employer] Consultant: [place] [address] [phone] PSA 0.68 ng/mL <4.00 2 Liver Function Profile 07/18/2020 [facility] [employer] Consultant: Dr Jeffy Koo [place] [id number] [phone] Alk. Phosphatase 277 mg/dL High 46 - 116 Total Bilirubin 0.8 mg/dL 0.2 - 1.0 Ast (Sgot) 973 U/L High 15 - 37 3 Alt (SGPT) 215 U/L High 12 - 78 Albumin 3.8 g/dL 3.4 - 5.0 Total Protein 7.6 g/dL 6.4 - 8.2 Direct Bilirubin 0.3 mg/dL High 0.0 - 0.2 A/G Ratio 1.00 CALC 1.00 - 1.90 Complete Blood Count 07/10/2020 [facility] [employer] Consultant: [place] [address] [phone] WBC 4.2 x10*3/UL 4.1 - 10.9 RBC [...] 3.3 x10*3/UL 2.0 - 7.8 A1c 07/10/2020 [facility] [employer] Consultant: [place] [address] [phone] Hba1c 6.0 % High <5.7 4 Est Avg Glucose 125 mg/dL High 60 - 110 Comprehensive Chem Profile 07/10/2020 [facility] [employer] Consultant: Dr Jeffy [place] [id number] [phone] Glucose 88 mg/dL 74 - 99 5 [...] 60 mL/min >60 7 Lipid Profile 07/10/2020 [facility] [employer] Consultant: [place] [address] [phone] Cholesterol 114 mg/dL Low 131 - 200 [...] test finding 02/13/2020 [facility] 2.7 1 Negative Not infected with HCV, unless recent infection is suspected or other evidence exists to indicate HCV infection. 2 This assay was performed on the Siemens Dimension EXL using the B- Galactosidase/CPRG methodology and should not be compared interchangeably with other methods. The PSA should not be used alone as a screening test for the presence or absence of malignant disease. 3 NOTE: RESULT VERIFIED. 4 Lab Result Notes: Pre-Diabetes 5.7 - [...] LITTLE GFR LEFT ESRD GFR <15 ON LIGHT ADJUSTER Procedures Date Code Description Status 05/22/2018 [id number] Colonoscopy Completed 12/25/2013 [id number] Colonoscopy Completed Medical Devices Description No Information Available Encounters Type Date Location Provider Dx Diagnosis Office Visit 07/18/2020 1:00p [facility] 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 E11.42 Type 2 diabetes mellitus wit h diabetic polyneuropathy G47.33 Obstructive sleep apnea (jazmyne lt) (pediatric) E78.00 Pure hypercholesterolemia, u nspecified I48.20 Chronic atrial fibrillation, unspecified Z79.01 FPC (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 of a nticoagulants I11.9 Hypertensive heart disease w [facility] heart failure R74.8 Abnormal levels of other ser um enzymes Z12.5 Encounter for screening for malignant neoplasm of prostate E66.01 Morbid (severe) obesity due to excess calories Z68.41 Body mass index [BMI]40.0-44 .9, adult Assessments Date Code Description Provider 07/18/2020 E11.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 Jeffy Koo MD 07/18/2020 E11.42 Type 2 diabetes mellitus with di abetic polyneuropathy Jeffy Koo MD 07/18/2020 G47.33 Obstructive sleep apnea (adult) (pediatric) Jeffy Koo MD 07/18/2020 E78.00 Pure hypercholesterolemia, unspe cified Jeffy Koo MD 07/18/2020 I48.20 Chronic atrial fibrillation, uns pecified Jeffy Koo MD 07/18/2020 Z79.01 rn long term care (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 oagulants Jeffy Koo [...] hypercholesterolemia, unspe cified Lab Schedule 07/10/2020 Z79.01 rn long term care (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 oagulants Jeffy Koo MD 07/10/2020 Z51.81 Encounter for therapeutic drug l evel monitoring Protime 07/10/2020 I48.20 Chronic atrial fibrillation, uns pecified Lab Schedule 07/10/2020 I48.20 Chronic atrial fibrillation, uns pecified RAJEEV Calero 07/10/2020 Z79.01 rn long term care (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 oagulants Lab Schedule 07/10/2020 I48.20 Chronic atrial fibrillation, uns pecified Protime 07/10/2020 Z79.01 FPC (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 oagulants RAJEEV Calero 07/10/2020 Z79.01 rn long term care (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 oagulants Protime 06/10/2020 Z51.81 Encounter for therapeutic drug l evel monitoring RAJEEV Calero 06/10/2020 Z51.81 Encounter for therapeutic drug l evel monitoring Protime 06/10/2020 I48.20 Chronic atrial fibrillation, uns pecified RAJEEV Calero 06/10/2020 I48.20 Chronic atrial fibrillation, uns pecified Protime 06/10/2020 Z79.01 rn long term care (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 oagulants Melvi [place], EXPLOSIVE OPERATOR SUPERVISOR 06/10/2020 Z79.01 FPC (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 oagulants Protime 06/03/2020 Z51.81 Encounter for therapeutic drug l evel monitoring Melvi [place], EXPLOSIVE OPERATOR SUPERVISOR 06/03/2020 Z51.81 Encounter for therapeutic drug l evel monitoring Protime 06/03/2020 I48.20 Chronic atrial fibrillation, uns pecified Melvi [place], [facility] 06/03/2020 I48.20 Chronic atrial fibrillation, uns pecified Protime 06/03/2020 Z79.01 FPC (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 oagulants Melvi [place], [facility] 06/03/2020 Z79.01 rn long term care (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 oagulants Protime 05/26/2020 Z51.81 Encounter for therapeutic drug l evel monitoring Melvi [place], [facility] 05/26/2020 Z51.81 Encounter for therapeutic drug l evel monitoring Protime 05/26/2020 I48.20 Chronic atrial fibrillation, uns pecified Melvi [place], [facility] 05/26/2020 I48.20 Chronic atrial fibrillation, uns pecified Protime 05/26/2020 Z79.01 FPC (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 oagulants Melvi [place], [facility] 05/26/2020 Z79.01 FPC (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 oagulants Protime 05/26/2020 Z23 Encounter for immunization Colli lacey Koo MD 05/26/2020 Z23 Encounter for immunization Proti me 04/24/2020 Z79.01 rn long term care (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 oagulants Melvi [place], [facility] 04/24/2020 Z79.01 FPC (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 oagulants Protime 04/24/2020 I48.20 Chronic atrial fibrillation, uns pecified Melvi [place], [facility] 04/24/2020 I48.20 Chronic atrial fibrillation, uns pecified Protime 04/24/2020 Z51.81 Encounter for therapeutic drug l evel monitoring Melvi [place], EXPLOSIVE OPERATOR SUPERVISOR 04/24/2020 Z51.81 Encounter for therapeutic drug l evel monitoring Protime 03/24/2020 Z79.01 rn long term care (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 oagulants Melvi Anne Marie [place], EXPLOSIVE OPERATOR SUPERVISOR 03/24/2020 Z79.01 rn long term care (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 oagulants Protime 03/24/2020 I48.20 Chronic atrial fibrillation, uns pecified Melvi Anne [place], EXPLOSIVE OPERATOR SUPERVISOR 03/24/2020 I48.20 Chronic atrial fibrillation, uns pecified Protime 03/24/2020 Z51.81 Encounter for therapeutic drug l evel monitoring Melvi Kenney [place], EXPLOSIVE OPERATOR SUPERVISOR 03/17/2020 Z79.01 rn long term care (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 oagulants Melvi [place], EXPLOSIVE OPERATOR SUPERVISOR 03/17/2020 Z79.01 rn long term care (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 oagulants Protime 03/17/2020 I48.20 Chronic atrial fibrillation, uns pecified Melvi Anne Marie [place], EXPLOSIVE OPERATOR SUPERVISOR 03/17/2020 I48.20 Chronic atrial fibrillation, uns pecified Protime 03/17/2020 Z51.81 Encounter for therapeutic drug l evel monitoring Melvi Canas, EXPLOSIVE OPERATOR SUPERVISOR 02/13/2020 Z79.01 FPC (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 oagulants Melvi Anne Marie [place], EXPLOSIVE OPERATOR SUPERVISOR 02/13/2020 Z79.01 FPC (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 oagulants Protime 02/13/2020 I48.20 Chronic atrial fibrillation, uns pecified Melvi Anne [place], EXPLOSIVE OPERATOR SUPERVISOR 02/13/2020 I48.20 Chronic atrial fibrillation, uns pecified Protime 02/13/2020 Z51.81 Encounter for therapeutic drug l evel monitoring RAJEEV Calero Plan of Treatment Future Appointment(s):* 01/20/2021 11:40 am - Jeffy Koo MD at [facility] * 08/12/2020 8:00 am - Protime at [facility] 07/18/2020 - Jeffy Koo MD* E11.21 Type 2 diabetes mellitus with diabetic nephropathy* Comments:* ABC's meet goal.Diabetic foot and eye exams up to date. TLC discussed. Glycemic index discussed. * E11.42 Type 2 diabetes mellitus with diabetic polyneuropathy * G47.33 Obstructive sleep apnea (adult) (pediatric) * E78.00 Pure hypercholesterolemia, unspecified * I48.20 Chronic atrial fibrillation, unspecified * Z79.01 rn long term care (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oagulants * I11.9 Hypertensive heart disease without heart failure * R74.8 Abnormal levels of other serum enzymes * Z12.5 Encounter for screening for malignant neoplasm of prostate * E66.01 Morbid (severe) obesity due to excess calories * Z68.41 Body mass index [BMI]40.0-44.9, adult Functional Status Description No Information Available Mental Status Description No Information Available Referrals Description No Information Available
--- OUTSIDE RECORDS SUMMARY | 2020-09-23 10:50 | CCD | Continuity of Care Document ---
Author Author Real Koo MD Organization Unknown Address [address] [address] Phone [phone] Care Team Providers Care Supervisor Webbing Name Role Phone Jeffy Koo JR, MD AUTM Unavailable Problems Active Problems Provider Date Anticoagulants Travelift Operator (Current) Use O nset: 07/23/1997 Atrial fibrillation Jeffy Koo MD Onset: 07/23/1997 Metabolic syndrome X Jeffy Koo MD Onset: 04/17/2012 Pure hypercholesterolemia Jeffy Koo MD Onset: 04/17 Obstructive sleep apnea syndrome Jefyf Koo MD Onset : 04/17/2012 Pure hyperglyceridemia [...] By Mouth Every Day Before Supper 180tabs Jefyf Koo MD 09/02/2017 Warfarin Sodium 10mg Tablets [...] Of Flu Vaccine Inj ection Melvi Le [place], CONFIDENTIAL SECRETARY 06/16/2005 Administration Of Flu Vaccine Inj ection Melvi Canas, CONFIDENTIAL SECRETARY 05/21/2003 Immunizations CPT Code Status Date Vaccine Lot # [id number] Given 05/26/2020 Influenza Vaccin e Quadrivalent Preser/Antibiotic Free Im Use [id number] 17890 Given 05/29/2019 Influenza Vaccin e Quadrivalent Preser/Antibiotic Free Im Use [id number] 34670 Given 05/16/2018 Influenza Virus Vaccine, Quadrivalent (Cciiv4), Derived From 2 Given 05/30/2017 Influenza Vaccin e Quadrivalent Preser/Antibiotic Free Im Use [id number] Q2037 Given 05/13/2016 Fluvirin Virus Vaccine [id number] 01 Q2037 Given 05/14/2014 Fluvirin Virus Vaccine Q2037 Given 06/21/2013 Fluvirin Virus Vaccine Q2037 Given 05/17/2012 Fluvirin Virus Vaccine Q2037 Given 05/26/2011 Fluvirin Virus Vaccine 46417 Given 05/06/2010 Influenza Virus Vaccine 52653 Given 05/07/2009 Influenza Virus Vaccine 86043 Given 05/21/2008 Influenza Virus Vaccine 97554 Given 05/23/2007 Influenza Virus Vaccine 40474 Given 07/26/2006 Influenza Virus Vaccine 31015 Given 06/16/2005 Influenza Virus Vaccine 01264 Given 05/21/2003 Influenza Virus Vaccine 78793 Given 06/12/2002 Influenza Virus Vaccine Vital Signs Date Vital Result Comment 07/18/2020 12:57pm BP Systolic 110 mmHg BP Diastolic 74 mmHg Heart Rate 120 /min irregular Height 75 inches 6'3" Weight 325.00 lb BMI (Body Mass Index) 40.6 kg/m2 06/10/2020 8:36am Weight 349.00 lb Results Test Acquired Date Facility Test Result H/L Range Note Hepatitis Profile 07/18/2020 [facility] nter [address] [place] [address] [phone] Hepatitis C Virus Winsome Index 0.1 INDEX Normal <0.8 1 Hepatitis B Surface Antigen NEGATIVE Normal Negative Hepatitis B Core Antibody Igm NEGATIVE Normal Negative Hepatitis A Antibody Igm NEGATIVE Normal Negative Laboratory test finding 07/18/2020 [facility] Edge Blacker: [place] [address] [phone] PSA 0.68 ng/mL <4.00 2 Liver Function Profile 07/18/2020 [facility] Edge Blacker: Dr Jeffy Koo [place] [id number] [phone] Alk. Phosphatase 277 mg/dL High 46 - [...] 1.00 - 1.90 Complete Blood Count 07/10/2020 [facility] Edge Blacker: [place] [address] [phone] WBC 4.2 x10*3/UL 4.1 - 10.9 RBC [...] 3.3 x10*3/UL 2.0 - 7.8 A1c 07/10/2020 [facility] Edge Blacker: [place] [address] [phone] Hba1c 6.0 % High <5.7 4 Est Avg Glucose 125 mg/dL High 60 - 110 Comprehensive Chem Profile 07/10/2020 [facility] Edge Blacker: Dr Jeffy Koo [place], [place] [id number] [phone] Glucose 88 mg/dL 74 - 99 5 [...] 60 mL/min >60 7 Lipid Profile 07/10/2020 [facility] Edge Blacker: [place] [address] [phone] Cholesterol 114 mg/dL Low 131 - 200 [...] LITTLE GFR LEFT ESRD GFR <15 ON RACE AND SPORTS BOOK WRITER Procedures Date Code Description Status 05/22/2018 [id number] Colonoscopy Completed 12/25/2013 [id number] Colonoscopy Completed Medical Devices Description No Information Available Encounters Type Date Location Provider Dx Diagnosis Office Visit 07/18/2020 1:00p [facility] 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 E11.42 Type 2 diabetes mellitus wit h diabetic polyneuropathy G47.33 Obstructive sleep apnea (jazmyne lt) (pediatric) E78.00 Pure hypercholesterolemia, u nspecified I48.20 Chronic atrial fibrillation, unspecified Z79.01 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 (current) use of a nticoagulants I11.9 Hypertensive heart disease w [facility] heart failure R74.8 Abnormal levels of [...] diabetes mellitus with di abetic polyneuropathy Jeffy oKo MD 07/18/2020 G47.33 Obstructive sleep apnea (adult) (pediatric) Jeffy Koo MD 07/18/2020 E78.00 Pure hypercholesterolemia, unspe cified Jeffy Koo MD 07/18/2020 I48.20 Chronic atrial fibrillation, uns pecified Jeffy Koo MD 07/18/2020 Z79.01 bed bug exterminator (current) use of [...] fibrillation, uns pecified RAJEEV Calero 07/10/2020 Z79.01 bed bug exterminator (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 oagulants Lab Schedule 07/10/2020 I48.20 Chronic atrial fibrillation, uns pecified Protime 07/10/2020 Z79.01 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 (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 oagulants RAJEEV Calero 07/10/2020 Z79.01 bed bug exterminator (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 oagulants Protime 06/10/2020 Z51.81 Encounter for therapeutic drug l evel monitoring RAJEEV Calero 06/10/2020 Z51.81 Encounter for therapeutic drug l evel monitoring Protime 06/10/2020 I48.20 Chronic atrial fibrillation, uns pecified RAJEEV Calero 06/10/2020 I48.20 Chronic atrial fibrillation, uns pecified Protime 06/10/2020 Z79.01 bed bug exterminator (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 oagulants Melvi Le Duval, CONFIDENTIAL SECRETARY 06/10/2020 Z79.01 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 (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 oagulants Protime 06/03/2020 Z51.81 Encounter for therapeutic drug l evel monitoring Melvi Le [place], CONFIDENTIAL SECRETARY 06/03/2020 Z51.81 Encounter for therapeutic drug l evel monitoring Protime 06/03/2020 I48.20 Chronic atrial fibrillation, uns pecified Melvi Le Duval, [facility] 06/03/2020 I48.20 Chronic atrial fibrillation, uns pecified Protime 06/03/2020 Z79.01 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 (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 oagulants Melvi Le Duval, [facility] 06/03/2020 Z79.01 bed bug exterminator (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 oagulants Protime 05/26/2020 Z51.81 Encounter for therapeutic drug l evel monitoring Melvi Le Duval, [facility] 05/26/2020 Z51.81 Encounter for therapeutic drug l evel monitoring Protime 05/26/2020 I48.20 Chronic atrial fibrillation, uns pecified Melvi Le Duval, [facility] 05/26/2020 I48.20 Chronic atrial fibrillation, uns pecified Protime 05/26/2020 Z79.01 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 (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 oagulants Melvi Le Duval, [facility] 05/26/2020 Z79.01 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 (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 oagulants Protime 05/26/2020 Z23 Encounter for immunization Colli lacey Koo MD 05/26/2020 Z23 Encounter for immunization Proti me 04/24/2020 Z79.01 bed bug exterminator (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 oagulants Melvi Le Duval, [facility] 04/24/2020 Z79.01 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 (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 oagulants Protime 04/24/2020 I48.20 Chronic atrial fibrillation, uns pecified Melvi Le Duval, [facility] 04/24/2020 I48.20 Chronic atrial fibrillation, uns pecified Protime 04/24/2020 Z51.81 Encounter for therapeutic drug l evel monitoring Melvi Le Duval, CONFIDENTIAL SECRETARY 04/24/2020 Z51.81 Encounter for therapeutic drug l evel monitoring Protime 03/24/2020 Z79.01 bed bug exterminator (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 oagulants Melvi Anne Marie Duval, CONFIDENTIAL SECRETARY 03/24/2020 Z79.01 bed bug exterminator (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 oagulants Protime 03/24/2020 I48.20 Chronic atrial fibrillation, uns pecified Melvi Anne Marie Duval, CONFIDENTIAL SECRETARY 03/24/2020 I48.20 Chronic atrial fibrillation, uns pecified Protime 03/24/2020 Z51.81 Encounter for therapeutic drug l evel monitoring Melvi Kenney Duval, CONFIDENTIAL SECRETARY 03/17/2020 Z79.01 bed bug exterminator (current) use of antic oagulants Melvi Le Duval, CONFIDENTIAL SECRETARY 03/17/2020 Z79.01 bed bug exterminator (current) use of antic oagulants Protime 03/17/2020 I48.20 Chronic atrial fibrillation, uns pecified Melvi Anne Marie Duval, CONFIDENTIAL SECRETARY 03/17/2020 I48.20 Chronic atrial fibrillation, uns pecified Protime 03/17/2020 Z51.81 Encounter for therapeutic drug l evel monitoring Melvi Canas, CONFIDENTIAL SECRETARY 02/13/2020 Z79.01 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 (current) use of antic oagulants Melvi Anne Marie Duval, CONFIDENTIAL SECRETARY 02/13/2020 Z79.01 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 (current) use of antic oagulants Protime 02/13/2020 I48.20 Chronic atrial fibrillation, uns pecified Melvi Anne Marie Duval, CONFIDENTIAL SECRETARY 02/13/2020 I48.20 Chronic atrial fibrillation, uns pecified Protime 02/13/2020 Z51.81 Encounter for therapeutic drug l evel monitoring RAJEEV Calero Plan of Treatment Future Appointment(s):* 01/20/2021 11:40 am - Jeffy Koo MD at [facility] * 08/12/2020 8:00 am - Protime at [facility] 07/18/2020 - Jeffy Koo MD* E11.21 Type 2 diabetes mellitus with diabetic nephropathy* Comments:* ABC's meet goal.Diabetic foot and eye exams up to date. TLC discussed. Glycemic index discussed. 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
--- OUTSIDE RECORDS SUMMARY | 2020-09-23 10:51 | CCD | Continuity of Care Document ---
Author Author Real Koo MD Organization Unknown Address [address] [address] Phone [phone] Care Team Providers Care Telesales Specialist Name Role Phone Jeffy Koo JR, MD AUTM Unavailable Problems Active Problems Provider Date Anticoagulants Office Coordinator (Current) Use O nset: 07/23/1997 Atrial fibrillation [...] Of Flu Vaccine Inj ection Melvi Le Perquimans, [employer] 06/16/2005 Administration Of Flu Vaccine Inj ection Melvi Canas, [employer] 05/21/2003 Immunizations CPT Code Status Date Vaccine Lot # [id number] Given 05/26/2020 Influenza Vaccin e Quadrivalent Preser/Antibiotic Free Im Use [id number] 57838 Given 05/29/2019 Influenza Vaccin e Quadrivalent Preser/Antibiotic Free Im Use [id number] 06236 Given 05/16/2018 Influenza Virus Vaccine, Quadrivalent (Cciiv4), Derived From 1 Given 05/30/2017 Influenza Vaccin e Quadrivalent Preser/Antibiotic Free Im Use [id number] Q2037 Given 05/13/2016 Fluvirin Virus Vaccine [id number] 01 Q2037 Given 05/14/2014 Fluvirin Virus Vaccine Q2037 Given 06/21/2013 Fluvirin Virus Vaccine Q2037 Given 05/17/2012 Fluvirin Virus Vaccine Q2037 Given 05/26/2011 Fluvirin Virus Vaccine 27252 Given 05/06/2010 Influenza Virus Vaccine 50020 Given 05/07/2009 Influenza Virus Vaccine 21937 Given 05/21/2008 Influenza Virus Vaccine 33987 Given 05/23/2007 Influenza Virus Vaccine 94089 Given 07/26/2006 Influenza Virus Vaccine 92876 Given 06/16/2005 Influenza Virus Vaccine 04363 Given 05/21/2003 Influenza Virus Vaccine 38895 Given 06/12/2002 Influenza Virus Vaccine Vital Signs Date Vital Result Comment 07/18/2020 12:57pm BP Systolic 110 mmHg BP Diastolic 74 mmHg Heart Rate 120 /min irregular Height 75 inches 6'3" Weight 325.00 lb BMI (Body Mass Index) 40.6 kg/m2 06/10/2020 8:36am Weight 349.00 lb Results Test Acquired Date Facility Test Result H/L Range Note Hepatitis Profile 07/18/2020 [facility] [address] [place] [address] [phone] Hepatitis C Virus Winsome Index 0.1 INDEX Normal <0.8 1 Hepatitis B Surface Antigen NEGATIVE Normal Negative Hepatitis B Core Antibody Igm NEGATIVE Normal Negative Hepatitis A Antibody Igm NEGATIVE Normal Negative Laboratory test finding 07/18/2020 [facility] Washer Engineer: [place] [address] [phone] PSA 0.68 ng/mL <4.00 2 Liver Function Profile 07/18/2020 [facility] Washer Engineer: Dr Jeffy Koo [place] [id number] [phone] Alk. Phosphatase 277 mg/dL High 46 - [...] 1.00 - 1.90 Complete Blood Count 07/10/2020 [facility] Washer Engineer: [place] [address] [phone] WBC 4.2 x10*3/UL 4.1 - 10.9 RBC [...] 3.3 x10*3/UL 2.0 - 7.8 A1c 07/10/2020 [facility] Washer Engineer: [place] [address] [phone] Hba1c 6.0 % High <5.7 4 Est Avg Glucose 125 mg/dL High 60 - 110 Comprehensive Chem Profile 07/10/2020 [facility] Washer Engineer: [place] [id number] [phone] Glucose 88 mg/dL 74 - 99 5 [...] 60 mL/min >60 7 Lipid Profile 07/10/2020 [facility] Washer Engineer: [place] [address] [phone] Cholesterol 114 mg/dL Low 131 - 200 [...] LITTLE GFR LEFT ESRD GFR <15 ON PARTNERSHIP MANAGER Procedures Date Code Description Status 05/22/2018 [id number] Colonoscopy Completed 12/25/2013 [id number] Colonoscopy Completed Medical Devices Description No Information Available Encounters Type Date Location Provider Dx Diagnosis Office Visit 07/18/2020 1:00p [facility] 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 E11.42 Type 2 diabetes mellitus wit h diabetic polyneuropathy G47.33 Obstructive sleep apnea (jazmyne lt) (pediatric) E78.00 Pure hypercholesterolemia, u nspecified I48.20 Chronic atrial fibrillation, unspecified Z79.01 correction (current) use of a nticoagulants I11.9 Hypertensive heart disease w [facility] heart failure R74.8 Abnormal levels of [...] uns pecified Jeffy Koo MD 07/18/2020 Z79.01 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 designer (current) use of antic oagulants Jeffy Koo [...] hypercholesterolemia, unspe cified Lab Schedule 07/10/2020 Z79.01 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 designer (current) use of antic oagulants Jeffy Koo MD 07/10/2020 Z51.81 Encounter for therapeutic drug l evel monitoring Protime 07/10/2020 I48.20 Chronic atrial fibrillation, uns pecified Lab Schedule 07/10/2020 I48.20 Chronic atrial fibrillation, uns pecified RAJEEV Calero 07/10/2020 Z79.01 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 designer (current) use of antic oagulants Lab Schedule 07/10/2020 I48.20 Chronic atrial fibrillation, uns pecified [facility]time 07/10/2020 Z79.01 correction (current) use of antic oagulants RAJEEV Calero 07/10/2020 Z79.01 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 designer (current) use of antic oagulants [facility] 06/10/2020 Z51.81 Encounter for therapeutic drug l evel monitoring RAJEEV Calero 06/10/2020 Z51.81 Encounter for therapeutic drug l evel monitoring Protime 06/10/2020 I48.20 Chronic atrial fibrillation, uns pecified RAJEEV Calero 06/10/2020 I48.20 Chronic atrial fibrillation, uns pecified [facility] 06/10/2020 Z79.01 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 designer (current) use of antic oagulants Melvi Le Perquimans, [employer] 06/10/2020 Z79.01 correction (current) use of antic oagulants [facility] 06/03/2020 Z51.81 Encounter for therapeutic drug l evel monitoring Melvi Le [place], [employer] 06/03/2020 Z51.81 Encounter for therapeutic drug l evel monitoring Protime 06/03/2020 I48.20 Chronic atrial fibrillation, uns pecified Melvi Le Per[place], [facility] 06/03/2020 I48.20 Chronic atrial fibrillation, uns pecified [facility] 06/03/2020 Z79.01 correction (current) use of antic oagulants Melvi Le Per[place], [facility] 06/03/2020 Z79.01 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 designer (current) use of antic oagulants Pro[facility] 05/26/2020 Z51.81 Encounter for therapeutic drug l evel monitoring Melvi Le [place], [facility] 05/26/2020 Z51.81 Encounter for therapeutic drug l evel monitoring Protime 05/26/2020 I48.20 Chronic atrial fibrillation, uns pecified Melvi Le Per[place], [facility] 05/26/2020 I48.20 Chronic atrial fibrillation, uns pecified Protime 05/26/2020 Z79.01 correction (current) use of antic oagulants Melvi Le Per[place], [facility] 05/26/2020 Z79.01 correction (current) use of antic oagulants Protime 05/26/2020 Z23 Encounter for immunization Colli lacey Koo MD 05/26/2020 Z23 Encounter for immunization Proti me 04/24/2020 Z79.01 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 designer (current) use of antic oagulants Melvi Le [place], [facility] 04/24/2020 Z79.01 correction (current) use of antic oagulants Protime 04/24/2020 I48.20 Chronic atrial fibrillation, uns pecified Melvi Le Per[place], [facility] 04/24/2020 I48.20 Chronic atrial fibrillation, uns pecified Protime 04/24/2020 Z51.81 Encounter for therapeutic drug l evel monitoring Melvi Le [place], [employer] 04/24/2020 Z51.81 Encounter for therapeutic drug l evel monitoring Protime 03/24/2020 Z79.01 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 designer (current) use of antic oagulants Melvi Anne Marie [place]qu[place], [employer] [place] 03/24/2020 Z79.01 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 designer (current) use of antic oagulants Protime 03/24/2020 I48.20 Chronic atrial fibrillation, uns pecified Melvi Anne Marie [place], [employer] [place] 03/24/2020 I48.20 Chronic atrial fibrillation, uns pecified [facility] 03/24/2020 Z51.81 Encounter for therapeutic drug l evel monitoring Melvi Kenney Perqu[place], [employer] 03/17/2020 Z79.01 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 designer (current) use of antic oagulants Melvi Le Per[place], [employer] [place] 03/17/2020 Z79.01 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 designer (current) use of antic oagulants Protime 03/17/2020 I48.20 Chronic atrial fibrillation, uns pecified Melvi Anne Marie Perqu[place], [employer] 03/17/2020 I48.20 Chronic atrial fibrillation, uns pecified [facility]time 03/17/2020 Z51.81 Encounter for therapeutic drug l evel monitoring Melvi Canas, [employer] 02/13/2020 Z79.01 correction (current) use of antic oagulants Melvi Anne Marie [place], [employer] [place] 02/13/2020 Z79.01 correction (current) use of antic oagulants Protime 02/13/2020 I48.20 Chronic atrial fibrillation, uns pecified Melvi Anne Marie [place], [employer] 02/13/2020 I48.20 Chronic atrial fibrillation, uns pecified [facility]time 02/13/2020 Z51.81 Encounter for therapeutic drug l evel monitoring RAJEEV Calero Plan of Treatment Future Appointment(s):* 01/20/2021 11:40 am - Jeffy Koo MD at [facility] * 08/12/2020 8:00 am - [facility] at [facility] 07/18/2020 - Jeffy Koo MD* E11.21 Type 2 diabetes mellitus with diabetic nephropathy* Comments:* ABC's meet goal.Diabetic foot and eye exams up to date. TLC discussed. Glycemic index discussed. * E11.42 Type 2 diabetes mellitus with diabetic polyneuropathy * G47.33 Obstructive sleep apnea (adult) (pediatric) * E78.00 Pure hypercholesterolemia, unspecified * I48.20 Chronic atrial fibrillation, unspecified * Z79.01 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 designer (current) use of anticoagulants * I11.9 Hypertensive [...]
--- OUTSIDE RECORDS SUMMARY | 2020-09-23 10:52 | CCD | Continuity of Care Document ---
Author Author Lab Schedule, Real Smith Organization Unknown Address [address] [place] [phone] Phone Unavailable Care Team Providers Care Pharmacy Care Coordinator Name Role Phone Jeffy Koo JR, MD AUTM Unavailable Problems Active Problems Provider Date Anticoagulants Rn Social Services (Current) Use O nset: 07/23/1997 Atrial fibrillation [...] MD 2017 Administration Of Flu Vaccine Inj irasema Canas [employer] 06/16/2005 Administration Of Flu Vaccine Inj irasema Canas, [employer] 05/21/2003 Immunizations CPT Code Status Date Vaccine Lot # [id number] Given 05/26/2020 Influenza Vaccin e Quadrivalent Preser/Antibiotic Free Im Use 396389 06924 Given 05/29/2019 Influenza Vaccin e Quadrivalent Preser/Antibiotic Free Im Use [id number] 90807 Given 05/16/2018 Influenza Virus Vaccine, Quadrivalent (Cciiv4), Derived From 9 Given 05/30/2017 Influenza Vaccin e Quadrivalent Preser/Antibiotic Free Im Use [id number] Q2037 Given 05/13/2016 Fluvirin Virus Vaccine 33416 01 Q2037 Given 05/14/2014 Fluvirin Virus Vaccine Q2037 Given 06/21/2013 Fluvirin Virus Vaccine Q2037 Given 05/17/2012 Fluvirin Virus Vaccine Q2037 Given 05/26/2011 Fluvirin Virus Vaccine 23105 Given 05/06/2010 Influenza Virus Vaccine 28845 Given 05/07/2009 Influenza Virus Vaccine 96453 Given 05/21/2008 Influenza Virus Vaccine 30613 Given 05/23/2007 Influenza Virus Vaccine 33840 Given 07/26/2006 Influenza Virus Vaccine 17770 Given 06/16/2005 Influenza Virus Vaccine 66901 Given 05/21/2003 Influenza Virus Vaccine 11247 Given 06/12/2002 Influenza Virus Vaccine Vital Signs Date Vital Result Comment 07/18/2020 12:57pm BP Systolic 110 mmHg BP Diastolic 74 mmHg Heart Rate 120 /min irregular Height 75 inches 6'3" Weight 325.00 lb BMI (Body Mass Index) 40.6 kg/m2 06/10/2020 8:36am Weight 349.00 lb Results Test Acquired Date Facility Test Result H/L Range Note Complete Blood Count 07/10/2020 [facility] Yeast Stacker: [place] [address] [phone] WBC 4.2 x10*3/UL 4.1 - 10.9 RBC [...] 3.3 x10*3/UL 2.0 - 7.8 A1c 07/10/2020 [facility] Yeast Stacker: [place] [address] [phone] Hba1c 6.0 % High <5.7 1 Est Avg Glucose 125 mg/dL High 60 - 110 Comprehensive Chem Profile 07/10/2020 [facility], Yeast Stacker: [place] [address] [phone] Glucose 88 mg/dL 74 - 99 2 BUN 21 mg/dL High 7 - 18 [...] (Sgot) 712 U/L High 15 - 37 3 Alt (SGPT) 83 U/L High 12 - 78 Albumin 3.7 g/dL 3.4 - 5.0 Total Protein 7.3 g/dL 6.4 - 8.2 A/G Ratio 1.03 CALC 1.00 - 1.90 GFR 57 mL/min Low >60 GFR >= 60 mL/min >60 4 Lipid Profile 07/10/2020 [facility] , Yeast Stacker: [place] [address] [phone] Cholesterol 114 mg/dL Low 131 - 200 [...] test finding 02/13/2020 Wi-Inr Inr 2.7 1 Lab Result Notes: Pre-Diabetes 5.7 - 6.4 % Diabetes = or > 6.5% 2 100-125 mg/dL PRE-DIABET ES/FASTING >126 mg/dL DIABETES/FASTING 3 NOTE: RESULT VERIFIED. 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 Procedures Date Code Description Status 05/22/2018 [id number] Colonoscopy Completed 12/25/2013 [id number] Colonoscopy Completed Medical Devices Description No Information Available Encounters Description No Information Available Assessments Date Code Description Provider 07/10/2020 E11.65 Type 2 diabetes mellitus with hy perglycemia Jeffy Koo MD 07/10/2020 E11.65 Type 2 diabetes mellitus with hy perglycemia Lab Schedule 07/10/2020 E78.00 Pure hypercholesterolemia, unspe cified Jeffy Koo MD 07/10/2020 Z51.81 Encounter for therapeutic drug l evel monitoring RAJEEV Calero 07/10/2020 I48.20 Chronic atrial fibrillation, uns pecified Jeffy Koo MD 07/10/2020 E78.00 Pure hypercholesterolemia, unspe cified Lab Schedule 07/10/2020 Z79.01 snf (current) use of antic oagulants Jeffy Koo MD 07/10/2020 Z51.81 Encounter for therapeutic drug l evel monitoring Protime 07/10/2020 I48.20 Chronic atrial fibrillation, uns pecified Lab Schedule 07/10/2020 I48.20 Chronic atrial fibrillation, uns pecified JULIANA CaleroP 07/10/2020 Z79.01 snf (current) use of antic oagulants Lab Schedule 07/10/2020 I48.20 Chronic atrial fibrillation, uns pecified Protime 07/10/2020 Z79.01 oil heaterman (current) use of antic oagulants Melvi Anne Marie [place], [facility] 07/10/2020 Z79.01 oil heaterman (current) use of antic oagulants Protime 06/10/2020 Z51.81 Encounter for therapeutic drug l evel monitoring Melvi Le [place], [facility] 06/10/2020 Z51.81 Encounter for therapeutic drug l evel monitoring Protime 06/10/2020 I48.20 Chronic atrial fibrillation, uns pecified Melvi Le [place], [facility] 06/10/2020 I48.20 Chronic atrial fibrillation, uns pecified Protime 06/10/2020 Z79.01 snf (current) use of antic oagulants Melvi Le [place], [facility] 06/10/2020 Z79.01 snf (current) use of antic oagulants Protime 06/03/2020 Z51.81 Encounter for therapeutic drug l evel monitoring Melvi Le [place], [facility] 06/03/2020 Z51.81 Encounter for therapeutic drug l evel monitoring Protime 06/03/2020 I48.20 Chronic atrial fibrillation, uns pecified Melvi Le [place], [facility] 06/03/2020 I48.20 Chronic atrial fibrillation, uns pecified Protime 06/03/2020 Z79.01 oil heaterman (current) use of antic oagulants Melvi Le [place], [facility] 06/03/2020 Z79.01 oil heaterman (current) use of antic oagulants Protime 05/26/2020 Z51.81 Encounter for therapeutic drug l evel monitoring Melvi Le [place], [facility] 05/26/2020 Z51.81 Encounter for therapeutic drug l evel monitoring Protime 05/26/2020 I48.20 Chronic atrial fibrillation, uns pecified Melvi Le [place], [facility] 05/26/2020 I48.20 Chronic atrial fibrillation, uns pecified Protime 05/26/2020 Z79.01 snf (current) use of antic oagulants Melvi Le [place], [facility] 05/26/2020 Z79.01 oil heaterman (current) use of antic oagulants Protime 05/26/2020 Z23 Encounter for immunization Colli lacey Koo MD 05/26/2020 Z23 Encounter for immunization Proti me 04/24/2020 Z79.01 oil heaterman (current) use of antic oagulants Melvi Le [place], [employer] 04/24/2020 Z79.01 oil heaterman (current) use of antic oagulants Protime 04/24/2020 I48.20 Chronic atrial fibrillation, uns pecified Melvi Le [place], [employer] 04/24/2020 I48.20 Chronic atrial fibrillation, uns pecified Protime 04/24/2020 Z51.81 Encounter for therapeutic drug l evel monitoring Melvi Le [place], [employer] 04/24/2020 Z51.81 Encounter for therapeutic drug l evel monitoring Protime 03/24/2020 Z79.01 oil heaterman (current) use of antic oagulants Melvi Le [place], [employer] 03/24/2020 Z79.01 snf (current) use of antic oagulants Protime 03/24/2020 I48.20 Chronic atrial fibrillation, uns pecified Melvi Le [place], [employer] 03/24/2020 I48.20 Chronic atrial fibrillation, uns pecified Protime 03/24/2020 Z51.81 Encounter for therapeutic drug l evel monitoring Melvi Anne Marie [place], [employer] 03/17/2020 Z79.01 oil heaterman (current) use of antic oagulants Melvi Le [place], [employer] 03/17/2020 Z79.01 oil heaterman (current) use of antic oagulants Protime 03/17/2020 I48.20 Chronic atrial fibrillation, uns pecified Melvi Le [place], [employer] 03/17/2020 I48.20 Chronic atrial fibrillation, uns pecified Protime 03/17/2020 Z51.81 Encounter for therapeutic drug l evel monitoring Melvi Anne Marie [place], [employer] 02/13/2020 Z79.01 oil heaterman (current) use of antic oagulants Melvi Le [place], [employer] 02/13/2020 Z79.01 oil heaterman (current) use of antic oagulants Protime 02/13/2020 I48.20 Chronic atrial fibrillation, uns pecified Melvi Anne Marie [place], [employer] 02/13/2020 I48.20 Chronic atrial fibrillation, uns pecified Protime 02/13/2020 Z51.81 Encounter for therapeutic drug l evel monitoring Melvi Le [place], [employer] Plan of Treatment Future Appointment(s):* 08/12/2020 8:00 am - [facility] at [facility] Functional Status Description No Information Available Mental Status Description No Information Available Referrals Description No Information Available
--- OUTSIDE RECORDS SUMMARY | 2020-09-23 10:53 | CCD | Continuity of Care Document ---
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 nset: 07/23/1997 Atrial fibrillation [...] Administration Of Flu Vaccine Inj irasema Canas DJANGO DEVELOPER 06/16/2005 Administration Of Flu Vaccine Inj irasema Canas, DJANGO DEVELOPER 05/21/2003 Immunizations CPT Code Status Date Vaccine Lot # [id number] Given 05/26/2020 Influenza Vaccin e Quadrivalent Preser/Antibiotic Free Im Use [id number] 24291 Given 05/29/2019 Influenza Vaccin e Quadrivalent Preser/Antibiotic Free Im Use 279441 83117 Given 05/16/2018 Influenza Virus Vaccine, Quadrivalent (Cciiv4), Derived From 1 Given 05/30/2017 Influenza Vaccin e Quadrivalent Preser/Antibiotic Free Im Use [id number] Q2037 Given 05/13/2016 Fluvirin Virus Vaccine 39060 01 Q2037 Given 05/14/2014 Fluvirin Virus Vaccine Q2037 Given 06/21/2013 Fluvirin Virus Vaccine Q2037 Given 05/17/2012 Fluvirin Virus Vaccine Q2037 Given 05/26/2011 Fluvirin Virus Vaccine 93788 Given 05/06/2010 Influenza Virus Vaccine 44297 Given 05/07/2009 Influenza Virus Vaccine 01137 Given 05/21/2008 Influenza Virus Vaccine 18512 Given 05/23/2007 Influenza Virus Vaccine 62055 Given 07/26/2006 Influenza Virus Vaccine 01952 Given 06/16/2005 Influenza Virus Vaccine 81431 Given 05/21/2003 Influenza Virus Vaccine 86401 Given 06/12/2002 Influenza Virus Vaccine Vital Signs Date Vital Result Comment 06/10/2020 8:36am Weight 349.00 lb 06/03/2020 8:12am Weight 351.00 lb Results Test Acquired Date Facility Test Result H/L Range Note Complete Blood Count 07/10/2020 [facility] Salesperson Furs: Dr Jeffy Koo [place] [id number] [phone] WBC 4.2 x10*3/UL 4.1 - 10.9 RBC [...] 3.3 x10*3/UL 2.0 - 7.8 A1c 07/10/2020 [facility] , Salesperson Furs: [place] [address] [phone] Hba1c 6.0 % High <5.7 1 Est Avg Glucose 125 mg/dL High 60 - 110 Comprehensive Chem Profile 07/10/2020 [facility], Salesperson Furs: [place] [address] [phone] Glucose 88 mg/dL 74 - 99 2 [...] 60 mL/min >60 4 Lipid Profile 07/10/2020 [facility] , Salesperson Furs: [place] [address] [phone] Cholesterol 114 mg/dL Low 131 - 200 [...] LITTLE GFR LEFT ESRD GFR <15 ON LINE SERVICE PERSON Procedures Date Code Description Status 05/22/2018 [id number] Colonoscopy Completed 12/25/2013 [id number] Colonoscopy Completed Medical Devices Description No Information [...] hypercholesterolemia, unspe cified Lab Schedule 07/10/2020 Z79.01 care home (current) use of antic oagulants Jeffy Koo MD 07/10/2020 Z51.81 Encounter for therapeutic drug l evel monitoring Protime 07/10/2020 I48.20 Chronic atrial fibrillation, uns pecified Lab Schedule 07/10/2020 I48.20 Chronic atrial fibrillation, uns pecified RAJEEV Calero 07/10/2020 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.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 of antic oagulants Lab Schedule 07/10/2020 I48.20 Chronic atrial fibrillation, uns pecified Protime 07/10/2020 Z79.01 care home (current) use of antic oagulants Melvi Le [place], DJANGO DEVELOPER 07/10/2020 Z79.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 of antic oagulants Protime 06/10/2020 Z51.81 Encounter for therapeutic drug l evel monitoring Melvi Le [place], DJANGO DEVELOPER 06/10/2020 Z51.81 Encounter for therapeutic drug l evel monitoring Protime 06/10/2020 I48.20 Chronic atrial fibrillation, uns pecified Melvi Le [place], [facility] 06/10/2020 I48.20 Chronic atrial fibrillation, uns pecified Protime 06/10/2020 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.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 of antic oagulants Melvi Le [place], [facility] 06/10/2020 Z79.01 care home (current) use of antic oagulants Protime 06/03/2020 Z51.81 Encounter for therapeutic drug l evel monitoring Melvi Le [place], DJANGO DEVELOPER 06/03/2020 Z51.81 Encounter for therapeutic drug l evel monitoring Protime 06/03/2020 I48.20 Chronic atrial fibrillation, uns pecified Melvi Le [place], [facility] 06/03/2020 I48.20 Chronic atrial fibrillation, uns pecified Protime 06/03/2020 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.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 of antic oagulants Melvi Le [place], [facility] 06/03/2020 Z79.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 of antic oagulants Protime 05/26/2020 Z51.81 Encounter for therapeutic drug l evel monitoring Melvi Le [place], DJANGO DEVELOPER 05/26/2020 Z51.81 Encounter for therapeutic drug l evel monitoring Protime 05/26/2020 I48.20 Chronic atrial fibrillation, uns pecified Melvi Le [place], [facility] 05/26/2020 I48.20 Chronic atrial fibrillation, uns pecified Protime 05/26/2020 Z79.01 care home (current) use of antic oagulants Melvi Le [place], [facility] 05/26/2020 Z79.01 care home (current) use of antic oagulants Protime 05/26/2020 Z23 Encounter for immunization Colli lacey Koo MD 05/26/2020 Z23 Encounter for immunization Proti me 04/24/2020 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.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 of antic oagulants Melvi Le [place], DJANGO DEVELOPER 04/24/2020 Z79.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 of antic oagulants Protime 04/24/2020 I48.20 Chronic atrial fibrillation, uns pecified Melvi Le [place], DJANGO DEVELOPER 04/24/2020 I48.20 Chronic atrial fibrillation, uns pecified Protime 04/24/2020 Z51.81 Encounter for therapeutic drug l evel monitoring Melvi Le [place], DJANGO DEVELOPER 04/24/2020 Z51.81 Encounter for therapeutic drug l evel monitoring Protime 03/24/2020 Z79.01 care home (current) use of antic oagulants Melvi Le [place], DJANGO DEVELOPER 03/24/2020 Z79.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 of antic oagulants Protime 03/24/2020 I48.20 Chronic atrial fibrillation, uns pecified Melvi Le [place], DJANGO DEVELOPER 03/24/2020 I48.20 Chronic atrial fibrillation, uns pecified Protime 03/24/2020 Z51.81 Encounter for therapeutic drug l evel monitoring Melvi Anne Marie [place], DJANGO DEVELOPER 03/17/2020 Z79.01 care home (current) use of antic oagulants Melvi Le [place], DJANGO DEVELOPER 03/17/2020 Z79.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 of antic oagulants Protime 03/17/2020 I48.20 Chronic atrial fibrillation, uns pecified Melvi Le [place], DJANGO DEVELOPER 03/17/2020 I48.20 Chronic atrial fibrillation, uns pecified Protime 03/17/2020 Z51.81 Encounter for therapeutic drug l evel monitoring Melvi Anne Marie [place], DJANGO DEVELOPER 02/13/2020 Z79.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 of antic oagulants Melvi Le [place], DJANGO DEVELOPER 02/13/2020 Z79.01 care home (current) use of antic oagulants Protime 02/13/2020 I48.20 Chronic atrial fibrillation, uns pecified Melvi Le [place], DJANGO DEVELOPER 02/13/2020 I48.20 Chronic atrial fibrillation, uns pecified Protime 02/13/2020 Z51.81 Encounter for therapeutic drug l evel monitoring Melvi Canas, DJANGO DEVELOPER Plan of Treatment Future Appointment(s):* 07/18/2020 1:00 pm - Jeffy Koo MD at [facility] * 08/12/2020 8:00 am - Protime at [facility] 10/01/2019 - Jeffy Koo MD* I48.20 Chronic atrial fibrillation, unspecified * Z79.01 care home (current) use of anticoagulants * Z51.81 Encounter [...]
--- OUTSIDE RECORDS SUMMARY | 2020-09-23 10:53 | CCD | Continuity of Care Document ---
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) Use O nset: 07/23/1997 Atrial fibrillation [...] Of Flu Vaccine Inj ection Melvi Le [place], MEMBERSHIP COORDINATOR 06/16/2005 Administration Of Flu Vaccine Inj ection Melvi Canas, MEMBERSHIP COORDINATOR 05/21/2003 Immunizations CPT Code Status Date Vaccine Lot # [id number] Given 05/26/2020 Influenza Vaccin e Quadrivalent Preser/Antibiotic Free Im Use [id number] 17622 Given 05/29/2019 Influenza Vaccin e Quadrivalent Preser/Antibiotic Free Im Use 119373 08576 Given 05/16/2018 Influenza Virus Vaccine, Quadrivalent (Cciiv4), Derived From 2 Given 05/30/2017 Influenza Vaccin e Quadrivalent Preser/Antibiotic Free Im Use 168408 Q2037 Given 05/13/2016 Fluvirin Virus Vaccine 64496 01 Q2037 Given 05/14/2014 Fluvirin Virus Vaccine Q2037 Given 06/21/2013 Fluvirin Virus Vaccine Q2037 Given 05/17/2012 Fluvirin Virus Vaccine Q2037 Given 05/26/2011 Fluvirin Virus Vaccine 34154 Given 05/06/2010 Influenza Virus Vaccine 68738 Given 05/07/2009 Influenza Virus Vaccine 69326 Given 05/21/2008 Influenza Virus Vaccine 88827 Given 05/23/2007 Influenza Virus Vaccine 23519 Given 07/26/2006 Influenza Virus Vaccine 80113 Given 06/16/2005 Influenza Virus Vaccine 87345 Given 05/21/2003 Influenza Virus Vaccine 39163 Given 06/12/2002 Influenza Virus Vaccine Vital Signs Date Vital Result Comment 07/18/2020 12:57pm BP Systolic 110 mmHg BP Diastolic 74 mmHg Heart Rate 120 /min irregular Height 75 inches 6'3" Weight 325.00 lb BMI (Body Mass Index) 40.6 kg/m2 06/10/2020 8:36am Weight 349.00 lb Results Test Acquired Date Facility Test Result H/L Range Note Complete Blood Count 07/10/2020 [facility] Bridal Gown Fitter: [place] [address] [phone] WBC 4.2 x10*3/UL 4.1 - 10.9 RBC [...] 3.3 x10*3/UL 2.0 - 7.8 A1c 07/10/2020 [facility] , Bridal Gown Fitter: Dr Jeffy Koo [place], [place] [address] [phone] Hba1c 6.0 % High <5.7 1 Est Avg Glucose 125 mg/dL High 60 - 110 Comprehensive Chem Profile 07/10/2020 [facility] Bridal Gown Fitter: Dr Jeffy Koo [place], [place] [id number] [phone] Glucose 88 mg/dL 74 - 99 2 [...] 60 mL/min >60 4 Lipid Profile 07/10/2020 [facility] Bridal Gown Fitter: [place] [address] [phone] Cholesterol 114 mg/dL Low 131 - 200 [...] LITTLE GFR LEFT ESRD GFR <15 ON RELATIONS MGR Procedures Date Code Description Status 05/22/2018 [id number] Colonoscopy Completed 12/25/2013 [id number] Colonoscopy Completed Medical Devices Description No Information Available Encounters Description No Information Available Assessments Date Code Description Provider 07/10/2020 E11.65 Type 2 diabetes mellitus with hy perglycemia Jeffy Koo MD 07/10/2020 E11.65 Type 2 diabetes mellitus with hy perglycemia Lab Schedule 07/10/2020 E78.00 Pure hypercholesterolemia, unspe cified Jeffy Koo MD 07/10/2020 Z51.81 Encounter for therapeutic drug l evel monitoring Melvi Canas, RAJEEV 07/10/2020 I48.20 Chronic atrial fibrillation, uns pecified Jeffy Koo MD 07/10/2020 E78.00 Pure hypercholesterolemia, unspe cified Lab Schedule 07/10/2020 Z79.01 half-way (current) use of antic oagulants Jeffy Koo MD 07/10/2020 Z51.81 Encounter for therapeutic drug l evel monitoring Protime 07/10/2020 I48.20 Chronic atrial fibrillation, uns pecified Lab Schedule 07/10/2020 I48.20 Chronic atrial fibrillation, uns pecified Melvi Le [place], [facility] 07/10/2020 Z79.01 half-way (current) use of antic oagulants Lab Schedule 07/10/2020 I48.20 Chronic atrial fibrillation, uns pecified Protime 07/10/2020 Z79.01 half-way (current) use of antic oagulants Melvi Le [place], [facility] 07/10/2020 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.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 of antic oagulants Protime 06/10/2020 Z51.81 Encounter for therapeutic drug l evel monitoring Melvi Le [place], [facility] 06/10/2020 Z51.81 Encounter for therapeutic drug l evel monitoring Protime 06/10/2020 I48.20 Chronic atrial fibrillation, uns pecified Melvi Le [place], [facility] 06/10/2020 I48.20 Chronic atrial fibrillation, uns pecified Protime 06/10/2020 Z79.01 half-way (current) use of antic oagulants Melvi Le [place], [facility] 06/10/2020 Z79.01 half-way (current) use of antic oagulants Protime 06/03/2020 Z51.81 Encounter for therapeutic drug l evel monitoring Melvi Le [place], [facility] 06/03/2020 Z51.81 Encounter for therapeutic drug l evel monitoring Protime 06/03/2020 I48.20 Chronic atrial fibrillation, uns pecified Melvi Le [place], [facility] 06/03/2020 I48.20 Chronic atrial fibrillation, uns pecified Protime 06/03/2020 Z79.01 half-way (current) use of antic oagulants Melvi Le [place], [facility] 06/03/2020 Z79.01 half-way (current) use of antic oagulants Protime 05/26/2020 Z51.81 Encounter for therapeutic drug l evel monitoring Melvi Le [place], [facility] 05/26/2020 Z51.81 Encounter for therapeutic drug l evel monitoring Protime 05/26/2020 I48.20 Chronic atrial fibrillation, uns pecified Melvi Le [place], [facility] 05/26/2020 I48.20 Chronic atrial fibrillation, uns pecified Protime 05/26/2020 Z79.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 of antic oagulants Melvi Le [place], [facility] 05/26/2020 Z79.01 half-way (current) use of antic oagulants Protime 05/26/2020 Z23 Encounter for immunization Colli lacey oKo MD 05/26/2020 Z23 Encounter for immunization Proti me 04/24/2020 Z79.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 of antic oagulants Melvi Le [place], MEMBERSHIP COORDINATOR 04/24/2020 Z79.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 of antic oagulants Protime 04/24/2020 I48.20 Chronic atrial fibrillation, uns pecified Melvi [place], MEMBERSHIP COORDINATOR 04/24/2020 I48.20 Chronic atrial fibrillation, uns pecified Protime 04/24/2020 Z51.81 Encounter for therapeutic drug l evel monitoring Melvi [place], MEMBERSHIP COORDINATOR 04/24/2020 Z51.81 Encounter for therapeutic drug l evel monitoring Protime 03/24/2020 Z79.01 half-way (current) use of antic oagulants Melvi Le [place], MEMBERSHIP COORDINATOR 03/24/2020 Z79.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 of antic oagulants Protime 03/24/2020 I48.20 Chronic atrial fibrillation, uns pecified Melvi [place], MEMBERSHIP COORDINATOR 03/24/2020 I48.20 Chronic atrial fibrillation, uns pecified Protime 03/24/2020 Z51.81 Encounter for therapeutic drug l evel monitoring Melvi [place], MEMBERSHIP COORDINATOR 03/17/2020 Z79.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 of antic oagulants Melvi [place], MEMBERSHIP COORDINATOR 03/17/2020 Z79.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 of antic oagulants Protime 03/17/2020 I48.20 Chronic atrial fibrillation, uns pecified Melvi [place], MEMBERSHIP COORDINATOR 03/17/2020 I48.20 Chronic atrial fibrillation, uns pecified Protime 03/17/2020 Z51.81 Encounter for therapeutic drug l evel monitoring Melvi [place], MEMBERSHIP COORDINATOR 02/13/2020 Z79.01 half-way (current) use of antic oagulants Melvi [place], MEMBERSHIP COORDINATOR 02/13/2020 Z79.01 half-way (current) use of antic oagulants Protime 02/13/2020 I48.20 Chronic atrial fibrillation, uns pecified Melvi [place], MEMBERSHIP COORDINATOR 02/13/2020 I48.20 Chronic atrial fibrillation, uns pecified Protime 02/13/2020 Z51.81 Encounter for therapeutic drug l evel monitoring RAJEEV Calero Plan of Treatment Future Appointment(s):* 08/12/2020 8:00 am - Protime at [facility] Functional Status Description No Information Available Mental Status Description No Information Available Referrals Description No Information Available
--- OUTSIDE RECORDS SUMMARY | 2020-09-23 10:54 | CCD | Continuity of Care Document ---
Author Author Real Olea Organization Unknown Address [address] [facility] [address] [place] [address] Phone [phone] Care Team Providers Care Tafe Teacher Name Role Phone Jeffy Koo JR, MD AUTM Unavailable Problems Active Problems Provider Date Anticoagulants Plasticator (Current) Use O nset: 07/23/1997 Atrial fibrillation [...] Administration Of Flu Vaccine Inj ection Melvi [facility], ASSOCIATE MERCHANT 06/16/2005 Administration Of Flu Vaccine Inj ection Melvi Canas, ASSOCIATE MERCHANT 05/21/2003 Immunizations CPT Code Status Date Vaccine Lot # 78782 Given 05/26/2020 Influenza Vaccin e Quadrivalent Preser/Antibiotic Free Im Use [id number] 08062 Given 05/29/2019 Influenza Vaccin e Quadrivalent Preser/Antibiotic Free Im Use [id number] 88858 Given 05/16/2018 Influenza Virus Vaccine, Quadrivalent (Cciiv4), Derived From 6 Given 05/30/2017 Influenza Vaccin e Quadrivalent Preser/Antibiotic Free Im Use [id number] Q2037 Given 05/13/2016 Fluvirin Virus Vaccine 12767 01 Q2037 Given 05/14/2014 Fluvirin Virus Vaccine Q2037 Given 06/21/2013 Fluvirin Virus Vaccine Q2037 Given 05/17/2012 Fluvirin Virus Vaccine Q2037 Given 05/26/2011 Fluvirin Virus Vaccine 11421 Given 05/06/2010 Influenza Virus Vaccine 90576 Given 05/07/2009 Influenza Virus Vaccine 12623 Given 05/21/2008 Influenza Virus Vaccine 83114 Given 05/23/2007 Influenza Virus Vaccine 73830 Given 07/26/2006 Influenza Virus Vaccine 92105 Given 06/16/2005 Influenza Virus Vaccine 96723 Given 05/21/2003 Influenza Virus Vaccine 23084 Given 06/12/2002 Influenza Virus Vaccine Vital Signs Date Vital Result Comment 06/10/2020 8:36am Weight 349.00 lb 06/03/2020 8:12am Weight 351.00 lb Results Test Acquired Date Facility Test Result H/L Range Note Complete Blood Count 07/10/2020 [facility] Hospital Wellness Coordinator: [place] [address] [phone] WBC 4.2 x10*3/UL 4.1 - 10.9 RBC [...] 3.3 x10*3/UL 2.0 - 7.8 A1c 07/10/2020 [facility] , Hospital Wellness Coordinator: [place] [address] [phone] Hba1c 6.0 % High <5.7 1 Est Avg Glucose 125 mg/dL High 60 - 110 Comprehensive Chem Profile 07/10/2020 [facility], Hospital Wellness Coordinator: [place] [address] [phone] Glucose 88 mg/dL 74 - 99 2 [...] 60 mL/min >60 4 Lipid Profile 07/10/2020 [facility] , Hospital Wellness Coordinator: [place] [address] [phone] Cholesterol 114 mg/dL Low 131 - 200 [...] LITTLE GFR LEFT ESRD GFR <15 ON RETAIL PRODUCT DEMO SPECIALIST Procedures Date Code Description Status 05/22/2018 [id number] Colonoscopy Completed 12/25/2013 [id number] Colonoscopy Completed Medical Devices Description No Information Available Encounters Description No Information Available Assessments Date Code Description Provider 07/10/2020 Z51.81 Encounter for therapeutic drug l evel monitoring Melvi Canas [facility] 07/10/2020 Z51.81 Encounter for therapeutic drug l evel monitoring Protime 07/10/2020 I48.20 Chronic atrial fibrillation, uns pecified Melvi Canas [facility] 07/10/2020 I48.20 Chronic atrial fibrillation, uns pecified Protime 07/10/2020 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01 [facility] (current) use of antic oagulants Protime 06/03/2020 Z51.81 Encounter for therapeutic drug l evel monitoring Melvi Le [place], [facility] 06/03/2020 Z51.81 Encounter for therapeutic drug l evel monitoring Protime 06/03/2020 I48.20 Chronic atrial fibrillation, uns pecified Melvi Le [place], [facility] 06/03/2020 I48.20 Chronic atrial fibrillation, uns pecified Protime 06/03/2020 Z79.01 [facility] (current) use of antic oagulants Melvi Le [place], [facility] 06/03/2020 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 Protime 05/26/2020 Z51.81 Encounter for therapeutic drug l evel monitoring Melvi Anne Marie [place], [facility] 05/26/2020 Z51.81 Encounter for therapeutic drug l evel monitoring Protime 05/26/2020 I48.20 Chronic atrial fibrillation, uns pecified Melvi Anne Marie Coffee, [facility] 05/26/2020 I48.20 Chronic atrial fibrillation, uns pecified Protime 05/26/2020 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 Melvi Anne Marie Coffee, [facility] 05/26/2020 Z79.01 [facility] (current) use of antic oagulants Protime 05/26/2020 Z23 Encounter for immunization Colli lacey Koo MD 05/26/2020 Z23 Encounter for immunization Proti me 04/24/2020 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 Melvi Anne Marie [place], [facility] 04/24/2020 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 Protime 04/24/2020 I48.20 Chronic atrial fibrillation, uns pecified Melvi Anne Marie Coffee, [facility] 04/24/2020 I48.20 Chronic atrial fibrillation, uns pecified Protime 04/24/2020 Z51.81 Encounter for therapeutic drug l evel monitoring Melvi Le [place], [facility] 04/24/2020 Z51.81 Encounter for therapeutic drug l evel monitoring Protime 03/24/2020 Z79.01 [facility] (current) use of antic oagulants Melvi Anne Marie Coffee, [facility] 03/24/2020 Z79.01 [facility] (current) use of antic oagulants Protime 03/24/2020 I48.20 Chronic atrial fibrillation, uns pecified Melvi Anne Marie Coffee, ASSOCIATE MERCHANT 03/24/2020 I48.20 Chronic atrial fibrillation, uns pecified Protime 03/24/2020 Z51.81 Encounter for therapeutic drug l evel monitoring Melvi Canas, ASSOCIATE MERCHANT 03/17/2020 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 Melvi Canas, ASSOCIATE MERCHANT 03/17/2020 Z79.01 [facility] (current) use of antic oagulants Protime 03/17/2020 I48.20 Chronic atrial fibrillation, uns pecified Melvi Canas, ASSOCIATE MERCHANT 03/17/2020 I48.20 Chronic atrial fibrillation, uns pecified Protime 03/17/2020 Z51.81 Encounter for therapeutic drug l evel monitoring Melvi Canas, ASSOCIATE MERCHANT 02/13/2020 Z79.01 [facility] (current) use of antic oagulants Melvi Canas, ASSOCIATE MERCHANT 02/13/2020 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 * 08/12/2020 8:00 am - [place] at [facility] 10/01/2019 - Jeffy Koo MD* [...]
--- OUTSIDE RECORDS SUMMARY | 2020-09-23 10:55 | CCD | Continuity of Care Document ---
Author Author Lab Schedule, Real Smith Organization Unknown Address [address] [place] [phone] Phone Unavailable Care Team Providers Care Human Resources Clerk Name Role Phone Jeffy Koo JR, MD AUTM Unavailable Problems Active Problems Provider Date Anticoagulants Bottle Gauger (Current) Use O nset: 07/23/1997 Atrial fibrillation [...] Administration Of Flu Vaccine Inj irasema Canas [employer]EDE CLE[employer]ER 06/16/2005 Administration Of Flu Vaccine Inj irasema Canas, [employer]EDE CLE[employer]ER 05/21/2003 Immunizations CPT Code Status Date Vaccine Lot # 13848 Given 05/26/2020 Influenza Vaccin e Quadrivalent Preser/Antibiotic Free Im Use [id number] Given 05/29/2019 Influenza Vaccin e Quadrivalent Preser/Antibiotic Free Im Use [id number] 32781 Given 05/16/2018 Influenza Virus Vaccine, Quadrivalent (Cciiv4), Derived From 3 Given 05/30/2017 Influenza Vaccin e Quadrivalent Preser/Antibiotic Free Im Use [id number] Q2037 Given 05/13/2016 Fluvirin Virus Vaccine 33310 01 Q2037 Given 05/14/2014 Fluvirin Virus Vaccine Q2037 Given 06/21/2013 Fluvirin Virus Vaccine Q2037 Given 05/17/2012 Fluvirin Virus Vaccine Q2037 Given 05/26/2011 Fluvirin Virus Vaccine 42742 Given 05/06/2010 Influenza Virus Vaccine 55555 Given 05/07/2009 Influenza Virus Vaccine 21203 Given 05/21/2008 Influenza Virus Vaccine 33322 Given 05/23/2007 Influenza Virus Vaccine 29068 Given 07/26/2006 Influenza Virus Vaccine 14166 Given 06/16/2005 Influenza Virus Vaccine 10747 Given 05/21/2003 Influenza Virus Vaccine 95132 Given 06/12/2002 Influenza Virus Vaccine Vital Signs Date Vital Result Comment 06/10/2020 8:36am Weight 349.00 lb 06/03/2020 8:12am Weight 351.00 lb Results Test Acquired Date Facility Test Result H/L Range Note Laboratory test finding 06/10/2020 [facility] 2.1 Laboratory test finding 06/03/2020 [facility] 1.6 Laboratory test finding 05/26/2020 [facility] 1.5 Laboratory test finding 04/24/2020 [facility] 3.0 Laboratory test finding 03/24/2020 [facility] 2.6 Laboratory test finding 03/17/2020 [facility] 3.1 Laboratory test finding 02/13/2020 [facility] 2.7 Laboratory test finding 01/14/2020 [facility] 2.7 Procedures Date Code Description Status 05/22/2018 [id number] Colonoscopy Completed 12/25/2013 [id number] Colonoscopy Completed Medical Devices Description No Information Available Encounters Description No Information Available Assessments Date Code Description Provider 06/10/2020 Z51.81 Encounter for therapeutic drug l evel monitoring Melvi Le Gaston, [employer] 06/10/2020 Z51.81 Encounter for therapeutic drug l evel monitoring Protime 06/10/2020 I48.20 Chronic atrial fibrillation, uns pecified Melvi Le Gaston, [facility] 06/10/2020 I48.20 Chronic atrial fibrillation, uns pecified Protime 06/10/2020 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 Melvi Le Gaston, [facility] 06/10/2020 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81 Encounter for therapeutic drug l evel monitoring Melvi Le Gaston, [facility] 05/26/2020 Z51.81 Encounter for therapeutic drug l evel monitoring Protime 05/26/2020 I48.20 Chronic atrial fibrillation, uns pecified Melvi Le Gaston, [facility] 05/26/2020 I48.20 Chronic atrial fibrillation, uns pecified Protime 05/26/2020 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 Melvi Le Gaston, [facility] 05/26/2020 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 Protime 05/26/2020 Z23 Encounter for immunization Colli lacey Koo MD 05/26/2020 Z23 Encounter for immunization Proti me 04/24/2020 Z79.01 USP (current) use of antic oagulants Melvi Le Gaston, [facility] 04/24/2020 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 Protime 04/24/2020 I48.20 Chronic atrial fibrillation, uns pecified Melvi Le Gaston, [facility] 04/24/2020 I48.20 Chronic atrial fibrillation, uns pecified Protime 04/24/2020 Z51.81 Encounter for therapeutic drug l evel monitoring Melvi Le Gaston, [employer] 04/24/2020 Z51.81 Encounter for therapeutic drug l evel monitoring Protime 03/24/2020 Z79.01 USP (current) use of antic oagulants Melvi Le Gaston, [employer] 03/24/2020 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 Protime 03/24/2020 I48.20 Chronic atrial fibrillation, uns pecified Melvi Le Gaston, [employer] 03/24/2020 I48.20 Chronic atrial fibrillation, uns pecified Protime 03/24/2020 Z51.81 Encounter for therapeutic drug l evel monitoring Melvi Le Gaston, [employer] 03/17/2020 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 Melvi Le Gaston, [employer] 03/17/2020 Z79.01 USP (current) use of antic oagulants Protime 03/17/2020 I48.20 Chronic atrial fibrillation, uns pecified Melvi Le Gaston, [employer] 03/17/2020 I48.20 Chronic atrial fibrillation, uns pecified Protime 03/17/2020 Z51.81 Encounter for therapeutic drug l evel monitoring Melvi Le Gaston, [employer] 02/13/2020 Z79.01 USP (current) use of antic oagulants Melvi Le Gaston, [employer] 02/13/2020 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 Protime 02/13/2020 I48.20 Chronic atrial fibrillation, uns pecified Melvi Le Gaston, [employer] 02/13/2020 I48.20 Chronic atrial fibrillation, uns pecified Protime 02/13/2020 Z51.81 Encounter for therapeutic drug l evel monitoring Melvi Le Gaston, [employer] 01/14/2020 I48.20 Chronic atrial fibrillation, uns pecified Melvi Le Gaston, [employer] 01/14/2020 I48.20 Chronic atrial fibrillation, uns pecified Protime 01/14/2020 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 10/01/2019 - Jeffy Koo MD* I48.20 Chronic atrial fibrillation, unspecified * Z79.01 USP (current) use of anticoagulants * Z51.81 Encounter [...]
--- OUTSIDE RECORDS SUMMARY | 2020-09-23 10:55 | CCD | Continuity of Care Document ---
Author Author Real Olea Organization Unknown Address [address] 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 O nset: 07/23/1997 Atrial fibrillation [...] Administration Of Flu Vaccine Inj ection Melvi [facility], CONTRACT TECHNICAL WRITER 06/16/2005 Administration Of Flu Vaccine Inj ection Melvi Canas, CONTRACT TECHNICAL WRITER 05/21/2003 Immunizations CPT Code Status Date Vaccine Lot # [id number] Given 05/26/2020 Influenza Vaccin e Quadrivalent Preser/Antibiotic Free Im Use [id number] 09511 Given 05/29/2019 Influenza Vaccin e Quadrivalent Preser/Antibiotic Free Im Use [id number] 13678 Given 05/16/2018 Influenza Virus Vaccine, Quadrivalent (Cciiv4), Derived From 2 Given 05/30/2017 Influenza Vaccin e Quadrivalent Preser/Antibiotic Free Im Use [id number] Q2037 Given 05/13/2016 Fluvirin Virus Vaccine 00378 01 Q2037 Given 05/14/2014 Fluvirin Virus Vaccine Q2037 Given 06/21/2013 Fluvirin Virus Vaccine Q2037 Given 05/17/2012 Fluvirin Virus Vaccine Q2037 Given 05/26/2011 Fluvirin Virus Vaccine 38602 Given 05/06/2010 Influenza Virus Vaccine 25085 Given 05/07/2009 Influenza Virus Vaccine 76881 Given 05/21/2008 Influenza Virus Vaccine 63653 Given 05/23/2007 Influenza Virus Vaccine 14490 Given 07/26/2006 Influenza Virus Vaccine 03165 Given 06/16/2005 Influenza Virus Vaccine 62947 Given 05/21/2003 Influenza Virus Vaccine 45351 Given 06/12/2002 Influenza Virus Vaccine Vital Signs Date Vital Result Comment 06/10/2020 8:36am Weight 349.00 lb 06/03/2020 8:12am Weight 351.00 lb Results Test Acquired Date Facility Test Result H/L Range Note Laboratory test finding 07/10/2020 [facility] Supervisor: Dr Jeffy Koo [place] [id number] [phone] A1c <pending> Laboratory test finding 06/10/2020 [facility] In[facility] 2.1 Laboratory test finding 06/03/2020 [facility] In[facility] 1.6 Laboratory test finding 05/26/2020 [facility] Inr 1.5 Laboratory test finding 04/24/2020 [facility] In[facility] 3.0 Laboratory test finding 03/24/2020 [facility] In[facility] 2.6 Laboratory test finding 03/17/2020 [facility] Inr 3.1 Laboratory test finding 02/13/2020 [facility] Inr 2.7 Laboratory test finding 01/14/2020 [facility] Inr 2.7 Procedures Date Code Description Status 05/22/2018 [id number] Colonoscopy Completed 12/25/2013 [id number] Colonoscopy Completed Medical Devices Description No Information Available Encounters Description No Information Available Assessments Date Code Description Provider 07/10/2020 Z51.81 Encounter for therapeutic drug l evel monitoring Protime 07/10/2020 I48.20 Chronic atrial fibrillation, uns pecified Protime 06/10/2020 Z51.81 Encounter for therapeutic drug l evel monitoring Melvi Anne Marie Andrews, [facility] 06/10/2020 Z51.81 Encounter for therapeutic drug l evel monitoring Protime 06/10/2020 I48.20 Chronic atrial fibrillation, uns pecified Melvi Le Andrews, [facility] 06/10/2020 I48.20 Chronic atrial fibrillation, uns pecified Protime 06/10/2020 Z79.01 meterman (current) use of antic oagulants Melvi Anne Marie Patel, [facility] 06/10/2020 Z79.01 skilled nursing (current) use of antic oagulants Protime 06/03/2020 Z51.81 Encounter for therapeutic drug l evel monitoring Melvi Le Andrews, [facility] 06/03/2020 Z51.81 Encounter for therapeutic drug l evel monitoring Protime 06/03/2020 I48.20 Chronic atrial fibrillation, uns pecified Melvi Le Andrews, [facility] 06/03/2020 I48.20 Chronic atrial fibrillation, uns pecified Protime 06/03/2020 Z79.01 skilled nursing (current) use of antic oagulants Melvi Anne Marie Andrews, [facility] 06/03/2020 Z79.01 meterman (current) use of antic oagulants Protime 05/26/2020 Z51.81 Encounter for therapeutic drug l evel monitoring Melvi Le Andrews, [facility] 05/26/2020 Z51.81 Encounter for therapeutic drug l evel monitoring Protime 05/26/2020 I48.20 Chronic atrial fibrillation, uns pecified Melvi Le Andrews, [facility] 05/26/2020 I48.20 Chronic atrial fibrillation, uns pecified Protime 05/26/2020 Z79.01 skilled nursing (current) use of antic oagulants Melvi Anne Marie Patel, [facility] 05/26/2020 Z79.01 skilled nursing (current) use of antic oagulants Protime 05/26/2020 Z23 Encounter for immunization Colli lacey Koo MD 05/26/2020 Z23 Encounter for immunization Proti me 04/24/2020 Z79.01 meterman (current) use of antic oagulants Melvi Le Andrews, CONTRACT TECHNICAL WRITER 04/24/2020 Z79.01 skilled nursing (current) use of antic oagulants Protime 04/24/2020 I48.20 Chronic atrial fibrillation, uns pecified Emlvi Le Andrews, CONTRACT TECHNICAL WRITER 04/24/2020 I48.20 Chronic atrial fibrillation, uns pecified Protime 04/24/2020 Z51.81 Encounter for therapeutic drug l evel monitoring Melvi Le Andrews, CONTRACT TECHNICAL WRITER 04/24/2020 Z51.81 Encounter for therapeutic drug l evel monitoring Protime 03/24/2020 Z79.01 meterman (current) use of antic oagulants Melvi Le Andrews, CONTRACT TECHNICAL WRITER 03/24/2020 Z79.01 meterman (current) use of antic oagulants Protime 03/24/2020 I48.20 Chronic atrial fibrillation, uns pecified Melvi Le Andrews, CONTRACT TECHNICAL WRITER 03/24/2020 I48.20 Chronic atrial fibrillation, uns pecified Protime 03/24/2020 Z51.81 Encounter for therapeutic drug l evel monitoring Melvi Le Andrews, CONTRACT TECHNICAL WRITER 03/17/2020 Z79.01 meterman (current) use of antic oagulants Melvi Le Andrews, CONTRACT TECHNICAL WRITER 03/17/2020 Z79.01 meterman (current) use of antic oagulants Protime 03/17/2020 I48.20 Chronic atrial fibrillation, uns pecified Melvi Le Andrews, CONTRACT TECHNICAL WRITER 03/17/2020 I48.20 Chronic atrial fibrillation, uns pecified Protime 03/17/2020 Z51.81 Encounter for therapeutic drug l evel monitoring Melvi Le Andrews, CONTRACT TECHNICAL WRITER 02/13/2020 Z79.01 skilled nursing (current) use of antic oagulants Melvi Le Andrews, CONTRACT TECHNICAL WRITER 02/13/2020 Z79.01 meterman (current) use of antic oagulants Protime 02/13/2020 I48.20 Chronic atrial fibrillation, uns pecified Melvi Le Andrews, CONTRACT TECHNICAL WRITER 02/13/2020 I48.20 Chronic atrial fibrillation, uns pecified Protime 02/13/2020 Z51.81 Encounter for therapeutic drug l evel monitoring Melvi Le Andrews, CONTRACT TECHNICAL WRITER 01/14/2020 I48.20 Chronic atrial fibrillation, uns pecified Melvi Kenney Jorge [facility] 01/14/2020 I48.20 Chronic atrial fibrillation, uns pecified Protime 01/14/2020 Z79.01 meterman (current) use of antic oagulants Melvi Kenney Jorge [facility] 01/14/2020 Z79.01 skilled nursing (current) use of antic oagulants Protime 01/14/2020 Z51.81 Encounter for therapeutic drug l evel monitoring RAJEEV Calero Plan of Treatment Future Appointment(s):* 08/12/2020 8:00 am - [facility] at [facility] * 07/11/2020 1:00 pm - Jeffy Koo MD at [facility] 10/01/2019 - Jeffy Koo MD* I48.20 Chronic atrial fibrillation, unspecified * Z79.01 meterman (current) use of anticoagulants * Z51.81 Encounter [...]
[2020-09-23] MEDS ORDERED: XARE20TA PO (10:56)
--- OUTSIDE RECORDS SUMMARY | 2020-09-23 10:57 | CCD ---
Author Author [facility] Organization [facility] Address Unknown Phone Unavailable Care Team Providers Care Mold Polisher Name Role Phone JENSEN BENAVIDES MD Unavailable Unavailable JENSEN BENAVIDES MD Unavailable Unavailable JENSEN BENAVIDES MD Unavailable Unavailable JENSEN BENAVIDES MD Unavailable Unavailable JENSEN BENAVIDES MD Unavailable Unavailable JENSEN BENAVIDES MD Unavailable Unavailable Bob Koo MD Unavailable Unavailable Bob Koo MD Unavailable Unavailable Bob Koo MD Unavailable Unavailable Bob Koo MD Unavailable Unavailable Bob Koo MD Unavailable Unavailable Bob Koo MD Unavailable Unavailable Bob Koo MD Unavailable Unavailable Bob Koo MD Unavailable Unavailable Bob Koo MD Unavailable Unavailable Bob Koo MD Unavailable Unavailable Bob Koo MD Unavailable Unavailable Bob Koo MD Unavailable Unavailable Bob Koo MD Unavailable Unavailable Bob Koo MD Unavailable Unavailable Bob Koo MD Unavailable Unavailable Bob Koo MD Unavailable Unavailable Bob Koo MD Unavailable Unavailable Bob Koo MD Unavailable Unavailable Bob Koo MD Unavailable Unavailable Bob Koo MD Unavailable Unavailable Bob Koo MD Unavailable Unavailable Bob Koo MD Unavailable Unavailable Bob Koo MD Unavailable Unavailable Bob Koo MD Unavailable Unavailable HananeBob MD Unavailable Unavailable MadisonBob MD Unavailable Unavailable MadisonBob MD Unavailable Unavailable HananeBob MD Unavailable Unavailable HananeBob MD Unavailable Unavailable HananeBob MD Unavailable Unavailable MadisonBob MD Unavailable Unavailable MadisonBob MD Unavailable Unavailable HananeBob MD Unavailable Unavailable MadisonBob MD Unavailable Unavailable MadisonBob MD Unavailable Unavailable MadisonBob MD Unavailable Unavailable MadisonBob MD Unavailable Unavailable MadisonBob MD Unavailable Unavailable MadisonBob MD Unavailable Unavailable MadisonBob MD Unavailable Unavailable MadisonBob MD Unavailable Unavailable MadisonBob MD Unavailable Unavailable MadisonBob MD Unavailable Unavailable HananeBob MD Unavailable Unavailable MadisonBob MD Unavailable Unavailable MadisonBob MD Unavailable Unavailable HananeBob MD Unavailable Unavailable HananeBob MD Unavailable Unavailable MadisonBob MD Unavailable Unavailable MadisonBob MD Unavailable Unavailable HananeBob MD Unavailable Unavailable MadisonBob MD Unavailable Unavailable MadisonBob MD Unavailable Unavailable HananeBob MD Unavailable Unavailable HananeBob MD Unavailable Unavailable HananeBob MD Unavailable Unavailable HananeBob MD Unavailable Unavailable HananeBob MD Unavailable Unavailable MadisonBob MD Unavailable Unavailable HananeBob bateman MD Unavailable Unavailable MadisonBob MD Unavailable Unavailable HananeBob MD Unavailable Unavailable HananeBob MD Unavailable Unavailable HananeBob MD Unavailable Unavailable MadisonBob MD Unavailable Unavailable HananeBob MD Unavailable Unavailable HananeBob MD Unavailable Unavailable HananeBob MD Unavailable Unavailable MadisonBob MD Unavailable Unavailable HananeBob MD Unavailable Unavailable MadisonBob MD Unavailable Unavailable HananeBob MD Unavailable Unavailable HananeBob MD Unavailable Unavailable HananeBob MD Unavailable Unavailable HananeBob MD Unavailable Unavailable MadisonBob MD Unavailable Unavailable HananeBob MD Unavailable Unavailable HananeBob MD Unavailable Unavailable HananeBob MD Unavailable Unavailable MadisonBob MD Unavailable Unavailable MadisonBob MD Unavailable Unavailable Madison, Bob Bardales MD Unavailable Unavailable Hanane, Bob Bardales MD Unavailable Unavailable Madison, Bob Bardales MD Unavailable Unavailable Madison, Bob Bardales MD Unavailable Unavailable Hanane, Bob Bardales MD Unavailable Unavailable Jason GUEVARAEST Unavailable Unavailable Arcadio, B Robb MD Unavailable Unavailable Arcadio, B Robb MD Unavailable Unavailable Arcadio, B Robb MD Unavailable Unavailable Arcadio, B Robb MD Unavailable Unavailable Arcadio, B Robb MD Unavailable Unavailable Arcadio, B Robb MD Unavailable Unavailable Arcadio, B Robb MD Unavailable Unavailable Arcadio, B Robb MD Unavailable Unavailable Arcadio, B Robb MD Unavailable Unavailable Arcadio, B Robb MD Unavailable Unavailable Arcadio, B Robb MD Unavailable Unavailable Arcadio, B Robb MD Unavailable Unavailable Arcadio, B Robb MD Unavailable Unavailable Arcadio, B Robb MD Unavailable Unavailable Arcadio, B Robb MD Unavailable Unavailable Arcadio, B Robb MD Unavailable Unavailable Arcadio, B Robb MD Unavailable Unavailable Arcadio, B Robb MD Unavailable Unavailable Arcadio, B Robb MD Unavailable Unavailable Arcadio, B Robb MD Unavailable Unavailable Arcadio, B Robb MD Unavailable Unavailable Arcadio, B Robb MD Unavailable Unavailable Arcadio, B Robb MD Unavailable Unavailable Arcadio, B Robb MD Unavailable Unavailable Arcadio, B Robb MD Unavailable Unavailable Arcadio, B Robb MD Unavailable Unavailable Arcadio, B Robb MD Unavailable Unavailable Arcadio, B Robb MD Unavailable Unavailable BRYDEN, A ODIN DO Unavailable Unavailable BRYDEN, A ODIN DO Unavailable Unavailable BRYDEN, A ODIN DO Unavailable Unavailable BRYDEN, A ODIN DO Unavailable Unavailable BRYDEN, A ODIN DO Unavailable Unavailable BRYDEN, A ODIN DO Unavailable Unavailable BRYDEN, A ODIN DO Unavailable Unavailable BRYDEN, A ODIN DO Unavailable Unavailable BRYDEN, A ODIN DO Unavailable Unavailable BRYDEN, A ODIN DO Unavailable Unavailable BRYDEN, A ODIN DO Unavailable Unavailable BRYDEN, A ODIN DO Unavailable Unavailable BRYDEN, A ODIN DO Unavailable Unavailable BRYDEN, A ODIN DO Unavailable Unavailable BRYDEN, A ODIN DO Unavailable Unavailable BRYDEN, A ODIN DO Unavailable Unavailable BRYDEN, A ODIN DO Unavailable Unavailable BRYDEN, A DOIN DO Unavailable Unavailable BRYDEN, A ODIN DO Unavailable Unavailable BRYDEN, A ODIN DO Unavailable Unavailable BRYDEN, A ODIN DO Unavailable Unavailable BRYDEN, A ODIN DO Unavailable Unavailable BRYDEN, A ODIN DO Unavailable Unavailable BRYDEN, A ODIN DO Unavailable Unavailable BRYDEN, A ODIN DO Unavailable Unavailable BRYDEN, A ODIN DO Unavailable Unavailable BRYDEN, A ODIN DO Unavailable Unavailable BRYDEN, A ODIN DO Unavailable Unavailable Iglesia, Mady FIBER DESIGNER Unavailable Unavailable Iglesia, Mady FIBER DESIGNER Unavailable Unavailable Iglesia, Mady FIBER DESIGNER Unavailable Unavailable Iglesia, Mady FIBER DESIGNER Unavailable Unavailable Iglesia, Mady FIBER DESIGNER Unavailable Unavailable Iglesia, Mady FIBER DESIGNER Unavailable Unavailable Iglesia, Mady FIBER DESIGNER Unavailable Unavailable Iglesia, Mady FIBER DESIGNER Unavailable Unavailable Iglesia, Mady FIBER DESIGNER Unavailable Unavailable Iglesia, Mady FIBER DESIGNER Unavailable Unavailable Iglesia, Mady FIBER DESIGNER Unavailable Unavailable Iglesia, Mady FIBER DESIGNER Unavailable Unavailable Iglesia, Mady FIBER DESIGNER Unavailable Unavailable Iglesia, Mady FIBER DESIGNER Unavailable Unavailable Iglesia, Mady FIBER DESIGNER Unavailable Unavailable Iglesia, Mady FIBER DESIGNER Unavailable Unavailable Iglesia, Mady FIBER DESIGNER Unavailable Unavailable Iglesia, Mady FIBER DESIGNER Unavailable Unavailable Iglesia, Mady FIBER DESIGNER Unavailable Unavailable Iglesia, Mady FIBER DESIGNER Unavailable Unavailable Iglesia, Mady FIBER DESIGNER Unavailable Unavailable Iglesia, Mady FIBER DESIGNER Unavailable Unavailable Iglesia, Mady FIBER DESIGNER Unavailable Unavailable Iglesia, Mady FIBER DESIGNER Unavailable Unavailable Iglesia, Mady FIBER DESIGNER Unavailable Unavailable Iglesia, Mady FIBER DESIGNER Unavailable Unavailable Iglesai, Mady FIBER DESIGNER Unavailable Unavailable Iglesia, Mady FIBER DESIGNER Unavailable Unavailable Iglesia, Mady FIBER DESIGNER Unavailable Unavailable Iglesia, Mady FIBER DESIGNER Unavailable Unavailable Iglesia, Mady FIBER DESIGNER Unavailable Unavailable Iglesia, Mady FIBER DESIGNER Unavailable Unavailable Iglesia, Mady FIBER DESIGNER Unavailable Unavailable Iglesia, Mady FIBER DESIGNER Unavailable Unavailable Iglesia, Mady FIBER DESIGNER Unavailable Unavailable Iglesia, Mady FIBER DESIGNER Unavailable Unavailable Iglesia, Mady FIBER DESIGNER Unavailable Unavailable Iglesia, Mady FIBER DESIGNER Unavailable Unavailable Iglesia, Mady FIBER DESIGNER Unavailable Unavailable Iglesia, Mady FIBER DESIGNER Unavailable Unavailable Iglesia, Mady FIBER DESIGNER Unavailable Unavailable Iglesia, Mady FIBER DESIGNER Unavailable Unavailable Iglesia, Mady FIBER DESIGNER Unavailable Unavailable Iglesia, Mady FIBER DESIGNER Unavailable Unavailable Iglesia, Mady FIBER DESIGNER Unavailable Unavailable Iglesia, Mady FIBER DESIGNER Unavailable Unavailable Iglesia, Mady FIBER DESIGNER Unavailable Unavailable Iglesia, Mady FIBER DESIGNER Unavailable Unavailable Iglesia, Mady FIBER DESIGNER Unavailable Unavailable Iglesia, Mady FIBER DESIGNER Unavailable Unavailable Iglesia, Mady FIBER DESIGNER Unavailable Unavailable Iglesia, Mady FIBER DESIGNER Unavailable Unavailable Iglesia, Mady FIBER DESIGNER Unavailable Unavailable Re-disclosure Warning The records that you are about to access may contain information from federally-assisted alcohol or drug abuse programs. If such information is present, then the following federally mandated warning applies: This information has been disclosed to you from records protected by federal confidentiality rules (42 CFR part 2). The federal rules prohibit you from making any further disclosure of this information unless further disclosure is expressly permitted by the written consent of the person to whom it pertains or as otherwise permitted by 42 CFR part 2. A general authorization for the release of medical or other information is NOT sufficient for this purpose. The Federal rules restrict any use of the information to criminally investigate or prosecute any alcohol or drug abuse patient.The records that you are about to access may contain highly sensitive health information, the redisclosure of which is protected by Article 27-F of the [facility] Public Health law. If you continue you may have access to information: Regarding HIV / AIDS; Provided by facilities licensed or operated by the [facility] Office of Mental Health; or Provided by the [facility] Office for People With Developmental Disabilities. If such information is present, then the following [facility] mandated warning applies: This information has been disclosed to you from confidential records which are protected by state law. State law prohibits you from making any further disclosure of this information without the specific written consent of the person to whom it pertains, or as otherwise permitted by law. Any unauthorized further disclosure in violation of state law may result in a fine or fdc sentence or both. A general authorization for the release of medical or other information is NOT sufficient authorization for further disc losure. Allergies and Adverse Reactions Type Description Substance Reaction Status Data Source(s ) Drug Class NO KNOWN ALLERGIES NO KNOWN ALLERGIES [facility] Drug allergy No Known Drug Allergies No Known Drug Allergies [facility] Drug allergy No Known Allergies No Known Allergies [facility] Family History Family Member Name Family Member Gender Family Member Status Date o f Status Description Data Source(s) Unknown Male Problem [facility] ([facility]) Encounters Encounter Providers Location Date Indications Data Source(s ) Outpatient Attender: Robb Ervin MD 09/02/2020 12:00:0 0 AM [facility] Outpatient Attender: ADEEL Nievesferrer: Robb zepeda MD 08/26/2020 12:00:00 AM [facility] Outpatient 08/23/2020 12:00:00 AM [facility] Outpatient Attender: JENSEN BENAVIDES MDAttender: JENSEN CORRIGAN MD ER-ASUR 08/18/2020 09:00:00 AM [facility] Admission cancelled. Disregard status an d admitted date. Outpatient Attender: Robb Ervin MD 08/18/2020 12:00:0 0 AM [facility] Outpatient Referrer: Robb Ervin MD 08/15/2020 12:00:0 0 AM [facility] Outpatient Referrer: Robb Ervin MD 08/15/2020 12:00:0 0 AM [facility] Outpatient Attender: JENSEN BENAVIDES MDAttender: JENSEN CORRIGAN MD ER-LAB 08/12/2020 06:20:00 AM [facility] Outpatient Attender: Robb Ervin MD [id number] 12:00:00 AM EST - 08/05/2020 10:26:14 AM EST Hepatomegaly, not elsewhere classified [facility] Hepatomegaly, not elsewhere classified Office Visit Attender: Jeffy Eubanks 1 09/24/2019 09:00:00 AM EST [facility] ([facility] ) Office Visit Attender: Jeffy Eubanks 1 09/18/2019 12:00:00 PM EST [facility] ([facility] ) Outpatient Attender: Jeffy Eubanks 0 01/07/2020 01:30:00 PM EDT [facility] ([facility] ) Outpatient Attender: Mady Eubanks 0 12/18/2019 02:00:00 PM EDT [facility] ([facility] ) Outpatient Admitter: ODIN Gómezerrer: ODIN Lewis DO 10/03/2019 12:00:00 AM EST - 10/03/2019 11:59:00 PM EST Malignant neoplasm of retroperitoneum [facility] Malignant neoplasm of retroperitoneum Outpatient Attender: Jeffy Eubanks 0 10/01/2019 08:00:00 AM EST [facility] ([facility] ) [facility] 08/07/2019 12:00:00 AM EST eCW1 ([facility] ) Immunizations Vaccine Date Status Description Data Source(s) Influenza, injectable, MDCK, preservative free, nara valent 05/26/2020 08:23:00 AM EDT completed [facility]) Medications Medication Brand Name Start Date Product Form Dose Route Admi nistrative Instructions Pharmacy Instructions Status Indications Reaction Description Data Source(s) Oseltamivir 75 MG Oral Capsule Oseltamivir Phosphate 09/15/2020 12:00:00 AM EST ORAL completed [facility] ([facility]) rivaroxaban 20 MG Oral Tablet [Xarelto] Xarelto 08/12/2020 12:00:0 0 AM EST ORAL active [facility] ([facility]) Immunization Adminstration,1 Vaccine/Toxoid 05/26/2020 12:00 :00 AM EDT completed [facility] ([facility]) Medication administered onsite 0.5 ML dulaglutide 3 MG/ML Auto-Injector [Trulicity] Trulici ty 01/07/2020 12:00:00 AM EDT active M EDENT ([facility]) 0.5 ML dulaglutide 1.5 MG/ML Auto-Injector [Trulicity] [facility] 12/18/2019 12:00:00 AM EDT completed [facility] ([facility]) Insurance Providers Payer name Policy type / Coverage type Policy ID Covered alliance party ID Covered alliance party's relationship to juares Policy Juares Plan Information UMR [facility] [id number] WI2 [id number] UMR [id number] WIF [id number] UMR O [id number] P [id number] UMR U [id number] Spouse [id number] UMR F [id number] SPOUSE [id number] UMR F [id number] SPOUSE [id number] [place] (Old) Medigap Part B [id number] Family Dependent [id number] Umr (New [place]) Medigap Part B [id number] Family Dependent [id number] [facility] [id number] Family Dependent [id number] [employer] (Old) Medigap Part B [id number] Family Dependent [id number] POM[employer] [id number] WI2 [id number] Umr Commercial [id number] Self [id number] [employer] (Old) Medigap Part B [id number] Family Dependent [id number] [place] Ppo Medigap Part B [id number] Family Dependent [id number] [place] Ppo Medigap Part B [id number] Family Dependent [id number] [place] Ppo Medigap Part B 335 Family Dependent 335 [employer] Ppo Family Dependent Ppo POMCO [id number] WIF [id number] I FEDERAL [id number] SP [id number] 0 [id number] Problems, Conditions, and Diagnoses Code Display Name Description Problem Type Effective Dates Data Source(s) L60.0 [id number] Ingrown toenail Problem 08/07/2019 12:00:00 AM EST eCW1 ([facility]) Z79.899 Other fci (current) drug therapy O THER LEVELMAN (CURRENT) DRUG THERAPY Diagnosis 08/15/2020 09:00:00 AM EST [facility] Z79.84 LEVELMAN (CURRENT) USE OF ORAL HYPOGLYC EMIC DRUGS ALF (CURRENT) USE OF ORAL HYPOGLYCEMIC DRUGS Diagnosis 08/15/2020 09:00:00 AM EST [facility] Z79.01 terminal manager (current) use of anticoagulant s LEVELMAN (CURRENT) USE OF ANTICOAGULANTS Diagnosis 08/15/2020 09:00:00 AM [facility] tisha G47.33 Obstructive sleep apnea (adult) (pediatr ic) OBSTRUCTIVE SLEEP APNEA (ADULT) (PEDIATRIC) Diagnosis 08/15/2020 09:00:00 AM [facility] tisha I48.20 CHRONIC ATRIAL FIBRILLATION, UNSPECIFIED CHRONIC ATRIAL FIBRILLATION, UNSPECIFIED Diagnosis 08/15/2020 09:00:00 AM EST [facility] tisha E78.00 PURE HYPERCHOLESTEROLEMIA, UNSPECIFIED P URE HYPERCHOLESTEROLEMIA, UNSPECIFIED Diagnosis 08/15/2020 09:00:00 AM [facility] tisha E11.9 Type 2 diabetes mellitus without complic ations TYPE 2 DIABETES MELLITUS WITHOUT COMPLICATIONS Diagnosis 08/15/2020 09:00:00 AM [facility] pital I10 Essential (primary) hypertension ESSENTIAL (PRIMARY) H YPERTENSION Diagnosis 08/15/2020 09:00:00 AM [facility] C22.0 Liver cell carcinoma LIVER CELL CARCINOMA Diagnosis 08/15/2020 09:00:00 AM [facility] Z20.822 CONTACT WITH AND SUSPECTED EXPOSURE TO C OVID-19 CONTACT WITH AND SUSPECTED EXPOSURE TO COVID-19 Diagnosis 08/12/2020 06:20:00 AM [facility] Z01.812 Encounter for preprocedural laboratory e xamination ENCOUNTER FOR PREPROCEDURAL LABORATORY EXAMINATION Diagnosis 08/12/2020 06:20:00 AM [facility] R16.0 Hepatomegaly, not elsewhere classified H epatomegaly, not elsewhere classified Diagnosis 08/05/2020 08:48:54 AM [facility] 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 Ma lignant neoplasm of retroperitoneum Diagnosis 10/03/2019 09:10:00 AM [facility] Surgeries/Procedures Procedure Description Date Indications Data Source(s) THROMBOPLASTIN TIME PARTIAL PLASMA/WHOLE BLOOD PARTIA L THROMBOPLASTIN TIME (PTT) STAT 08/05/2020 10:33 AM EST Liver mass 08/05/2020 10:33:00 AM EST Liver mass [facility] Liver mass IMMUNOASSAY TUMOR ANTIGEN QUANTITATIVE CA 19-9 CANCER ANTIGEN 1 9-9 Routine 08/05/2020 10:33 AM EST Liver mass 08/05/2020 10:33:00 AM EST Liver mass [facility] Liver mass ALPHA-FETOPROTEIN SERUM AFP TUMOR MARKER Routine 08/05/2020 10:33 A M EST 08/05/2020 10:33:00 AM EST [facility] PROTHROMBIN TIME PROTIME INR STAT 08/05/2020 10:33 AM EST Liver mass 08/05/2020 10:33:00 AM EST Liver mass [facility] Liver mass BLOOD COUNT COMPLETE AUTO&AUTO DIFRNTL WBC COUNT CBC AND DIFFER ENTIAL STAT 08/05/2020 10:33 AM EST Liver mass 08/05/2020 10:33:00 AM EST Liver mass [facility] Liver mass CARCINOEMBRYONIC ANTIGEN CEA CEA Routine 08/05/2020 10:33 AM EST Liver mass 08/05/2020 10:33:00 AM EST Liver mass [facility] Liver mass COMPREHENSIVE METABOLIC PANEL COMPREHENSIVE METABOLIC PANEL Rou lito 08/05/2020 10:33 AM EST Liver mass 08/05/2020 10:33:00 AM EST Liver mass [facility] Liver mass SURGICAL PATHOLOGY CONSULT SURGICAL PATHOLOGY CONSULT Routine 10/03/2019 12:00 AM EST 10/03/2019 05:00:00 AM EST [facility] AVULSION NAIL PLATE PARTIAL/COMPLETE SIMPLE 1 08/07/20 19 12:00:00 AM EST eCW1 ([facility]) Results ID Date Data Source [id number] 09/22/2020 02:02:00 PM EST [facility] ([facility]) Name Value Range Interpretation Code Description Data Maisha rce(s) Supporting Document(s) Digoxin [Mass/volume] in Serum or Plasma 2.1 ng/mL 0.5-2.0 [facility] ([facility]) ID Date Data Source [id number] 09/22/2020 02:01:00 PM EST [facility] ([facility]) Name Value Range Interpretation Code Description Data Maisha rce(s) Supporting Document(s) Glucose [Mass/volume] in Serum or Plasma 72 mg/dL 74-99 [facility] ([facility]) 100-125 mg/dL PRE-DIABETES/FASTING >126 mg/dL DIABETES/FASTING Urea nitrogen [Mass/volume] in Serum or Plasma 71 mg/dL 7-18 [facility] ([facility]) Creatinine 2.8 mg/dL 0.6-1.3 [facility] Sodium [Moles/volume] in Serum or Plasma 130 meq/L 136-145 [facility] ([facility]) Potassium [Moles/volume] in Serum or Plasma 5.9 meq/L 3.5-5.1 [facility] ([facility]) NOTE: RESULT VERIFIED. NO VISIBLE HEMOLYSIS. Chloride [Moles/volume] in Serum or Plasma 95 meq/L 98-107 [facility] ([facility]) Calcium [Mass/volume] in Serum or Plasma 8.5 mg/dL 8.5-10.1 [facility] ([facility]) Carbon dioxide, total [Moles/volume] in Serum or Plasma 26 meq/L 21 -32 [facility] ([facility]) Total Bilirubin 3.8 mg/dL 0.2-1.0 [facility] ([facility]) NOTE: RESULT VERIFIED. Alkaline phosphatase isoenzyme [Units/volume] in Serum or Pl asma 1249 mg/dL 46-116 [facility] ([facility]) Alanine aminotransferase [Enzymatic activity/volume] in Seru m or Plasma 749 U/L 12-78 [facility] ([facility]) NOTE: RESULT VERIFIED. Aspartate aminotransferase [Enzymatic activity/volume] in Serum or Plasma 4651 U/L 15-37 [facility] ([facility] ) NOTE: RESULT VERIFIED. Albumin [Mass/volume] in Serum or Plasma 2.5 g/dL 3.4-5.0 [facility] ([facility]) Proteinase 3 Ab [Units/volume] in Serum 6.5 g/dL 6.4-8.2 [facility] ([facility]) A/G Ratio 0.63 CALC 1.00-1.90 [facility]) Glomerular filtration rate/1.73 sq M pre dicted among blacks [Volume Rate/Area] in Serum or Plasma by Creatinine-based formula (MDRD) 28 mL/min [facility] <content>CHRONIC KIDNEY DISEASE STAGING PER NKF</content>
<content></content>
<content>STAGE I & II GFR >= 60 NORMAL TO MILDLY DECREASED</content>
<content>STAGE III GFR 30-59 MODERATELY DECREASED</content>
<content>STAGE IV GFR 15-29 SEVERELY DECREASED</content>
<content>STAGE V GFR <15 VERY LITTLE GFR LEFT</content>
<content>ESRD GFR <15 ON METAL BED ASSEMBLER</content>
<content></content> Glomerular filtration rate/1.73 sq M pre dicted among non-blacks [Volume Rate/Area] in Serum or Plasma by Creatinine-based formula (MDRD) 23 mL/min [facility] ID Date Data Source [id number] 09/22/2020 02:01:00 PM EST [facility] ([facility]) Name Value Range Interpretation Code Description Data Maisha rce(s) Supporting Document(s) Leukocytes [#/volume] in Blood by Automated count 4.7 x10*3/UL 4.1-10 .9 [facility] ([facility]) Erythrocytes [#/volume] in Blood by Automated count 3.15 x10*6/UL 4.2 0-6.30 [facility] Hemoglobin [Mass/volume] in Blood 8.8 g/dL 12.0-18.0 [facility] ([facility]) NOTE: RESULT VERIFIED. Hematocrit [Volume Fraction] of Blood by Automated count 25.8 % 3 7.0-51.0 [facility] MCV 81.9 fL 80.0-97.0 [facility] ([facility]) MCH 28.1 pg 26.0-32.0 [facility] ([facility]) MCHC 34.3 g/dL 31.0-38.0 [facility] ([facility]) Erythrocyte distribution width [Ratio] by Automated count 15.5 % 11.6-13.7 [facility] MPV 9.0 FL 7.8-11.0 [facility] ([facility]) Platelets [#/volume] in Blood by Automated count 424 x10*3/UL 140-440 [facility] ([facility]) Mid % 4.6 % 1.7-9.3 [facility] Lymph % 14.8 % 10.0-58.5 [facility] Neut % 80.6 % 37.0-92.0 [facility] Lymph # 0.7 x10*3/UL 0.6-4.1 [facility] ([facility]) Mid # 0.2 x10*3/UL 0.1-0.6 [facility] ([facility]) Neut # 3.8 x10*3/UL 2.0-7.8 [facility] ([facility]) ID Date Data Source [id number] 08/15/2020 12:27:00 PM EST Hanna giles Exam Number: [id number] OF EXAMINATIO N: 08/15/2020 9:49 ESTU/S GUIDED LIVER BIOPSYHISTORY: Liver massReal-time ultrasound imaging was performed utilizing B- mode/beyer scaleand color Doppler imaging where applicable.Preliminary ultrasound reveals liver mass, we therefore proceeded withthe procedure.Under local anesthesia, aseptic technique and sonographic guidance, 2core biopsies were taken throughout the bare area of the liver. Thepatient tolerated the procedure well and no complications developed.IMPRESSION:Successful ultrasound-guided liver biopsy.Electronically signed in PS360 by: Jensen Benavides M.D. 110:09 EST Reported By: Erik BENAVIDES M.D. Signed By: Milagros BENAVIDES M.D. Name Value Range Interpretation Code Description Data Maisha rce(s) Supporting Document(s) ID Date Data Source [id number] 08/15/2020 10:04:00 AM EST [facility] ([facility]) Name Value Range Interpretation Code Description Data Maisha rce(s) Supporting Document(s) Laboratory test finding (navigational concept) Laboratory test result [facility] ([facility]) Received in formalin, labeled with prope r patient identification and liver mass biopsy x2 Laboratory test finding (navigational concept) Laboratory test result [facility] ([facility]) diameter. All processed in one cassette. Laboratory test finding (navigational concept) Laboratory test result [facility] ([facility]) cores are four becker-white tissue cores r anging in length from 0.3-1.4 cm and 0.1 cm in Microscopic Examination Laboratory test result [facility] ([facility]) Slides reviewed. Diagnosis supported by microscopic examination. Laboratory test finding (navigational concept) Laboratory test result [facility] ([facility]) ULTRASOUND GUIDED BIOPSY OF LIVER MASS: Laboratory test finding (navigational concept) Laboratory test result [facility] Laboratory test finding (navigational concept) Laboratory test result [facility] ([facility]) METAMORPHOSIS, FIBROSIS AND AREAS OF NEC ROSIS Laboratory test finding (navigational concept) Laboratory test result [facility] ([facility]) - FEATURES ARE STRONGLY SUGGESTIVE OF HE PATOCELLULAR CARCINOMA WITH FATTY Laboratory test finding (navigational concept) Laboratory test result [facility] ([facility]) Laboratory test finding (navigational concept) Laboratory test result [facility] ([facility]) ABNORMAL FINDINGS Laboratory test finding (navigational concept) Laboratory test result [facility] ([facility]) ABNORMAL FINDINGS Laboratory test finding (navigational concept) Laboratory test result [facility] ([facility]) METAMORPHOSIS, FIBROSIS AND AREAS OF NEC ROSIS Laboratory test finding (navigational concept) Laboratory test result [facility] ([facility]) - FEATURES ARE STRONGLY SUGGESTIVE OF HE PATOCELLULAR CARCINOMA WITH FATTY Laboratory test finding (navigational concept) Laboratory test result [facility] ([facility]) ULTRASOUND GUIDED BIOPSY OF LIVER MASS: Laboratory test finding (navigational concept) Laboratory test result [facility] ([facility]) Laboratory test finding (navigational concept) Laboratory test result [facility] ([facility]) ABNORMAL FINDINGS Laboratory test finding (navigational concept) Laboratory test result [facility] ([facility]) ABNORMAL FINDINGS Laboratory test finding (navigational concept) Laboratory test result [facility] ([facility]) COMMENT: This case is referred to the [facility], Department of Pathology for a Laboratory test finding (navigational concept) Laboratory test result [facility] ([facility]) Laboratory test finding (navigational concept) Laboratory test result [facility] ([facility]) REPORT SIGNED: Macy Foster DO 08/08 08/28 (preliminary) Laboratory test finding (navigational concept) Laboratory test result [facility] ([facility]) consultation by a GI pathologist to [facility] for hepatocellular carcinoma. Upon receipt of Laboratory test finding (navigational concept) Laboratory test result [facility] ([facility]) This case was sent to [facility] for consultation. The report for Laboratory test finding (navigational concept) Laboratory test result [facility] ([facility]) is as follows. Laboratory test finding (navigational concept) Laboratory test result [facility] ([facility]) LIVER, MASS, BIOPSY: Laboratory test finding (navigational concept) Laboratory test result [facility] ([facility]) MALIGNANCY Laboratory test finding (navigational concept) Laboratory test result [facility] ([facility]) - MODERATELY-DIFFERENTIATED HEPATOCELLUL AR CARCINOMA. SEE COMMENT. Laboratory test finding (navigational concept) Laboratory test result [facility] ([facility]) MALIGNANCY Laboratory test finding (navigational concept) Laboratory test result [facility] ([facility]) cores are four becker-white tissue cores r anging in length from 0.3-1.4 cm and 0.1 cm in Laboratory test finding (navigational concept) Laboratory test result [facility] Received in formalin, labeled with prope r patient identification and liver mass biopsy x2 Laboratory test finding (navigational concept) Laboratory test result [facility] Microscopic Examination Laboratory test result [facility] ([facility]) Slides reviewed. Diagnosis supported by microscopic examination. Laboratory test finding (navigational concept) Laboratory test result [facility] diameter. All processed in one cassette. Laboratory test finding (navigational concept) Laboratory test result [facility] Report faxed to Dr. Jeffy Koo's [facility] on 08/18/2020. Laboratory test finding (navigational concept) Laboratory test result [facility] their report, the final diagnosis will b e posted. Laboratory test finding (navigational concept) Laboratory test result [facility] ULTRASOUND GUIDED BIOPSY OF LIVER MASS: Laboratory test finding (navigational concept) Laboratory test result [facility] METAMORPHOSIS, FIBROSIS AND AREAS OF NEC ROSIS Laboratory test finding (navigational concept) Laboratory test result [facility] - FEATURES ARE STRONGLY SUGGESTIVE OF HE PATOCELLULAR CARCINOMA WITH FATTY Laboratory test finding (navigational concept) Laboratory test result [facility] 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, Laboratory test finding (navigational concept) [facility] Laboratory test finding (navigational concept) Laboratory test result [facility] REPORT SIGNED: Macy Foster DO 08/08 08/28 (preliminary) Laboratory test finding (navigational concept) Laboratory test result [facility] 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, Laboratory test finding (navigational concept) Laboratory test result [facility] endothelial wrapping, and intracytoplasm ic fat, compatible with hepatocellular Laboratory test finding (navigational concept) Laboratory test result [facility] endothelial wrapping, and intracytoplasm ic fat, compatible with hepatocellular Laboratory test finding (navigational concept) Laboratory test result [facility] carcinoma. There is no background liver parenchyma present in the biopsy. HepPar1, Laboratory test finding (navigational concept) Laboratory test result [facility] Arginase-1 and GPC-3 immunohistochemical stains, as well as a reticulin stain, were Laboratory test finding (navigational concept) Laboratory test result [facility] ([facility]) remaining for evaluation. Laboratory test finding (navigational concept) Laboratory test result [facility] ([facility]) attempted to further characterize the le bismark but there was insufficient tissue Laboratory test finding (navigational concept) Laboratory test result [facility] ([facility]) intradepartmental consultation conferenc e. (RW, NF, ) Laboratory test finding (navigational concept) Laboratory test result [facility] [employer] slides of this case were reviewed at the gastrointestinal/liver Laboratory test finding (navigational concept) Laboratory test result [facility] Patrick Damon MD Laboratory test finding (navigational concept) Laboratory test result [facility] ([facility]) [address] Laboratory test finding (navigational concept) Laboratory test result [facility] Electronically Signed By: Laboratory test finding (navigational concept) Laboratory test result [facility] ([facility]) Patrick Damon MD Laboratory test finding (navigational concept) Laboratory test result [facility] Received in formalin, labeled with prope r patient identification and liver mass biopsy x2 Laboratory test finding (navigational concept) Laboratory test result [facility] ([facility]) [address] Laboratory test finding (navigational concept) Laboratory test result [facility] cores are four becker-white tissue cores r anging in length from 0.3-1.4 cm and 0.1 cm in Laboratory test finding (navigational concept) Laboratory test result [facility] diameter. All processed in one cassette. Laboratory test finding (navigational concept) Laboratory test result [facility] ([facility]) Microscopic Examination Laboratory test result [facility] Slides reviewed. Diagnosis supported by microscopic examination. Laboratory test finding (navigational concept) Laboratory test result [facility] ([facility]) ABNORMAL FINDINGS Laboratory test finding (navigational concept) Laboratory test result [facility] ([facility]) ULTRASOUND GUIDED BIOPSY OF LIVER MASS: Laboratory test finding (navigational concept) Laboratory test result [facility] ([facility]) ABNORMAL FINDINGS Laboratory test finding (navigational concept) Laboratory test result [facility] ([facility]) - FEATURES ARE STRONGLY SUGGESTIVE OF HE PATOCELLULAR CARCINOMA WITH FATTY Laboratory test finding (navigational concept) Laboratory test result [facility] ([facility]) METAMORPHOSIS, FIBROSIS AND AREAS OF NEC ROSIS Laboratory test finding (navigational concept) Laboratory test result [facility] ([facility]) consultation by a GI pathologist to eval uate for hepatocellular carcinoma. Upon receipt of Laboratory test finding (navigational concept) Laboratory test result [facility] ([facility]) ABNORMAL FINDINGS Laboratory test finding (navigational concept) Laboratory test result [facility] ([facility]) their report, the final diagnosis will b e posted. Laboratory test finding (navigational concept) Laboratory test result [facility] ([facility]) Report faxed to Dr. Jeffy Koo[facility] on 08/18/2020. Laboratory test finding (navigational concept) Laboratory test result [facility] ([facility]) ABNORMAL FINDINGS Laboratory test finding (navigational concept) Laboratory test result [facility] ([facility]) COMMENT: This case is referred to the [facility], Department of Pathology for a Laboratory test finding (navigational concept) Laboratory test result [facility] ([facility]) consultation by a GI pathologist to eval uate for hepatocellular carcinoma. Upon receipt of Laboratory test finding (navigational concept) Laboratory test result [facility] ([facility]) REPORT SIGNED: Macy Foster DO 08/08 08/28 (preliminary) Laboratory test finding (navigational concept) Laboratory test result [facility] ([facility]) Laboratory test finding (navigational concept) Laboratory test result [facility] ([facility]) their report, the final diagnosis will b e posted. Laboratory test finding (navigational concept) Laboratory test result [facility] ([facility]) Laboratory test finding (navigational concept) Laboratory test result [facility] ([facility]) [place] [address] Laboratory test finding (navigational concept) [id number] [facility] ([facility]) Laboratory test finding (navigational concept) Laboratory test result [facility] ([facility]) Received in formalin, labeled with prope r patient identification and liver mass biopsy x2 Laboratory test finding (navigational concept) Laboratory test result [facility] ([facility]) Laboratory test finding (navigational concept) Laboratory test result [facility] ([facility]) Laboratory test finding (navigational concept) Laboratory test result [facility] ([facility]) diameter. All processed in one cassette. Laboratory test finding (navigational concept) Laboratory test result [facility] ([facility]) cores are four becker-white tissue cores r anging in length from 0.3-1.4 cm and 0.1 cm in Laboratory test finding (navigational concept) Laboratory test result [facility] ([facility]) Laboratory test finding (navigational concept) Laboratory test result [facility] ([facility]) Report faxed to Dr. Jeffy Koo[facility] on 08/18/2020. Microscopic Examination Laboratory test result [facility] ([facility]) Slides reviewed. Diagnosis supported by microscopic examination. Laboratory test finding (navigational concept) Laboratory test result [facility] ([facility]) REPORT SIGNED: Macy Foster DO 08/08 08/28 (preliminary) Laboratory test finding (navigational concept) Laboratory test result [facility] ([facility]) Macy Foster DO 08/26/20 Laboratory test finding (navigational concept) Laboratory test result [facility] ([facility]) ID Date Data Source [id number] 08/26/2020 02:16:00 PM EST Hanna Cornejoi tisha No cc. written on requisition form. ( AB) This case was sent to [facility] for consultation. The report forAccession #[id number] is as follows. LIVER, MASS, BIOPSY:- MODERATELY-DIFFERENTIATED HEPATOCELLULAR CARCINOMA. SEE COMMENT. MALIGNANCY MALIGNANCY COMMENT: 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,endothelial wrapping, and intracytoplasmic fat, compatible with hepatocellularcarcinoma. There is no background liver parenchyma present in the biopsy. HepPar1,Arginase-1 and GPC-3 immunohistochemical stains, as well as a reticulin stain, wereattempted to further characterize the lesion but there was insufficient tissueremaining for evaluation. [employer] slides of this case were reviewed at the gastrointestinal/liverintradepartmental consultation conference. (RW, NF, ) Electronically Signed By: Patrick Damon MD[address] [place] [id number] CODE/[id number] Received in formalin, labeled with proper patient identification and "liver mass biopsy [id number]" are four becker-white tissue cores ranging in length from 0.3-1.4 cm and 0.1 cm indiameter. All processed in one cassette. Liver mass. Slides reviewed. Diagnosis supported by microscopic examination. ULTRASOUND GUIDED BIOPSY OF LI TIMOTEO MASS: - FEATURES ARE STRONGLY SUGGESTIVE OF HEPATOCELLULAR CARCINOMA WITH FATTYMETAMORPHOSIS, FIBROSIS AND AREAS OF NECROSIS - SEE COMMENT ABNORMAL FINDINGS ABNORMAL FINDINGS COMMENT: This case is referred to the [facility], Department of Pathology for aconsultation by a GI pathologist to evaluate for hepatocellular carcinoma. Upon receipt oftheir report, the final diagnosis will be posted. Report faxed to Dr. Jeffy Koo's office on 08/18/2020. . REPORT SIGNED: Macy Foster DO 08/18/20 (preliminary) Macy Foster DO 08/26/20 Name Value Range Interpretation Code Description Data Maisha rce(s) Supporting Document(s) ID Date Data Source [id number] 08/15/2020 08:58:00 AM EST [facility] ([facility]) Name Value Range Interpretation Code Description Data Maisha rce(s) Supporting Document(s) Erythrocytes [#/volume] in Blood by Automated count 3.59 x10E6/uL 4.7 0-6.00 [facility] ([facility]) Leukocytes [#/volume] in Blood by Automated count 5.23 x10E3/uL 4.0-1 0.5 [facility] ([facility]) Hemoglobin [Mass/volume] in Blood 9.7 g/dL 14.0-18.0 [facility] ([facility]) MCV 84.4 fL 81.0-99.0 [facility] Hematocrit [Volume Fraction] of Blood by Automated count 30.3 % 4 2.0-52.0 [facility] ([facility]) MCH 27.0 pg 27.0-31.0 [facility] RDW 18.0 % 11.5-14.0 [facility] MCHC 32.0 g/dL 32.7-35.6 [facility] Platelets [#/volume] in Blood by Automated count 257 x10E3/uL 150-450 [facility] ([facility]) MPV 9.9 fl 6.9-9.5 [facility] Monocytes 13.2 % 1.7-10.6 [facility] Neutrophils 72.4 % 34-64 [facility] ([facility]) Lymphocytes 10.9 % 25-45 [facility] ([facility]) Eosinophils 2.3 % 0.4-7.0 [facility] ([facility]) Imm. Gran. 0.6 % 0.1-2.0 [facility] Basophils 0.6 % 0.1-2.0 [facility] Abs. Richardson. 0.69 x10E3/uL 0.1-1.0 [facility] ([facility]) Abs. Lymph. 0.57 x10E3/uL 1.0-3.5 [facility] ([facility]) Abs. Neutro. 3.79 x10E3/uL 1.2-7.6 [facility] ([facility]) Abs. Baso. 0.03 x10E3/uL 0.0-0.1 [facility] ([facility]) Abs. Imm. Gran. 0.03 x10E3/uL 0.0-0.1 [facility] ([facility]) DIFFERENTIAL CONFIRMED BY SLIDE REVIEW. Abs. Eosin. 0.12 x10E3/uL 0.1-0.7 [facility] ([facility]) Laboratory test finding (navigational concept) 0 % [facility] ([facility]) RBC Morphology Laboratory test result [facility] ([facility]) RBC Morphology Laboratory test result [facility] ([facility]) RBC Morphology Laboratory test result [facility] ([facility]) OCC STOMATOCYTES RBC Morphology Laboratory test result [facility] ([facility]) OCC TARGET CELLS RBC MORPHOLOGY EXPECTED RESULTS: NORMAL = NORMOCHROMIC, NORMOCYTIC CELLS Any findings other than Normal will be reported and are considered Abnormal. The significance of Abnormal findings are to be clinically correlated by the provider. ID Date Data Source [id number] 08/15/2020 10:08:00 AM EST [facility] Name Value Range Interpretation Code Description Data Maisha rce(s) Supporting Document(s) WBC 5.23 x10E3/uL 4.0-10.5 [facility] RBC 3.59 x10E6/uL 4.70-6.00 L [facility] Hemoglobin 9.7 g/dL 14.0-18.0 L [facility] Hematocrit 30.3 % 42.0-52.0 L [facility] MCV 84.4 fL 81.0-99.0 [facility] MCH 27.0 pg 27.0-31.0 [facility] MCHC 32.0 g/dL 32.7-35.6 L [facility] RDW 18.0 % 11.5-14.0 H [facility] Platelet count 257 x10E3/uL 150-450 N [facility] ital MPV 9.9 fl 6.9-9.5 H [facility] Neutrophils 72.4 % 34-64 H [facility] Lymphocytes 10.9 % 25-45 L [facility] Monocytes 13.2 % 1.7-10.6 H [facility] Eosinophils 2.3 % 0.4-7.0 [facility] Basophils 0.6 % 0.1-2.0 N [facility] Imm. Gran. 0.6 % 0.1-2.0 N [facility] Abs. Neutro. 3.79 x10E3/uL 1.2-7.6 [facility] Abs. Lymph. 0.57 x10E3/uL 1.0-3.5 [facility] Abs. Richardson. 0.69 x10E3/uL 0.1-1.0 [facility] Abs. Eosin. 0.12 x10E3/uL 0.1-0.7 [facility] Abs. Baso. 0.03 x10E3/uL 0.0-0.1 [facility] Abs. Imm. Gran. 0.03 x10E3/uL 0.0-0.1 [facility] DIFFERENTIAL CONFIRMED BY SLIDE REVIEW. ANRBC% 0 % 0 N [facility] 2+ ANISOCYTOSIS1+ HYPOCHROMICOCC STOMATO CYTESOCC TARGET CELLSRBC MORPHOLOGY EXPECTED RESULTS: NORMAL = NORMOCHROMIC, NORMOCYTIC CELLSAny findings other than Normal will be reported and areconsidered Abnormal. The significance of Abnormalfindings are to be clinically correlated by the provider. ID Date Data Source [id number] 08/12/2020 07:00:00 AM EST [facility] ([facility]) Name Value Range Interpretation Code Description Data Maisha rce(s) Supporting Document(s) [id number] Laboratory test result [facility] ([facility]) This nucleic acid amplification test was developed and its performance characteristics determined by [employer]. Nucleic acid amplification tests include PCR and [...] this assay. Methodology: Nucleic Acid Amplification (BETTY) ID Date Data Source [id number] 08/12/2020 07:00:00 AM EST [facility] Name Value Range Interpretation Code Description Data Maisha rce(s) Supporting Document(s) SARS coronavirus 2 RNA Not Detected [facility] [place] This lab was ordered by [facility] and reported by [facility]. ID Date Data Source [id number] 08/13/2020 03:09:00 PM EST [facility] tisha Performed at: [id number], [place], [place] [id number] Director: Amaya Ray PhD, Phone: [phone] Name Value Range Interpretation Code Description Data Maisha rce(s) Supporting Document(s) SARS-CoV-2, BETTY Not Detected Not Detected [facility] This nucleic acid amplification test was developed and itsperformance characteristics determined by [facility]. Nucleic acid amplification tests include PCRand TMA. This test has not been FDA cleared or approved.This test has been authorized by FDA under an Emergency UseAuthorization (EUA). This test is only authorized forthe duration of time the declaration that circumstancesexist justifying the authorization of the emergency use ofin vitro diagnostic tests for detection of SARS-CoV-2 virusand/or diagnosis of COVID-19 infection under njipnta496(b)(1) of the Act, 21 U.S.C. 360bbb-3(b) (1), unless theauthorization is terminated or revoked sooner.When diagnostic testing is negative, the possibility of afalse negative result should be considered in the contextof a patient's recent exposures and the presence ofclinical signs and symptoms consistent with COVID-19. Anindividual without symptoms of COVID-19 and who is notshedding SARS-CoV-2 virus would expect to have a negative(not detected) result in this assay.Methodology: Nucleic Acid Amplification (BETTY) ID Date Data Source [id number] 08/09/2020 06:16:25 PM [facility] [facility] Name Value Range Interpretation Code Description Data Miasha rce(s) Supporting Document(s) Progress Note [facility] [id number] lbm [file] [id number] ID Date Data Source [id number] 08/05/2020 10:58:[address] [facility] Name Value Range Interpretation Code Description Data Maisha rce(s) Supporting Document(s) Leukocytes [#/volume] in Blood by Automated count 5.2 10*3/uL 4-10 [facility] Erythrocytes [#/volume] in Blood by Automated count 3.89 10*6/uL 4.6- 6.1 L [facility] Hemoglobin [Mass/volume] in Blood 10.6 g/dL 13.5-18 L [facility] Hematocrit [Volume Fraction] of Blood by Automated count 32.7 % 4 1-53 L [facility] Erythrocyte mean corpuscular volume [Entitic volume] by Auto mated count 84.1 fL 80-96 [facility] Erythrocyte mean corpuscular hemoglobin [Entitic mass] by Automated count 27.3 pg 27-33 [facility] Erythrocyte mean corpuscular hemoglobin concentration [Mass/volume] by Automated count 32.4 g/dL 32.0-36.[facility] distribution width [Ratio] by Automated count 17.3 % 11.5-14.5 H [facility] Platelets [#/volume] in Blood by Automated count 280 10*3/uL 150-400 [facility] Differential cell count method - Blood [facility] Neutrophils/100 leukocytes in Blood by Automated count 75 % [facility] Lymphocytes/100 leukocytes in Blood by Automated count 10 % [facility] Monocytes/100 leukocytes in Blood by Automated count 11 % [facility] Eosinophils/100 leukocytes in Blood by Automated count 3 % [facility] Basophils/100 leukocytes in Blood by Automated count 1 % [facility] Neutrophils [#/volume] in Blood by Automated count 3.90 10*3/uL 1.8-7 .0 [facility] Lymphocytes [#/volume] in Blood by Automated count 0.49 10*3/uL 1.2-4 .0 L [facility] Monocytes [#/volume] in Blood by Automated count 0.58 10*3/uL 0-0.8 [facility] Eosinophils [#/volume] in Blood by Automated count 0.16 10*3/uL 0-0.5 [facility] Basophils [#/volume] in Blood by Automated count 0.05 10*3/uL 0-0.2 [facility] Nucleated erythrocytes/100 leukocytes [Ratio] in Blood by Automated count 0 /100{WBCs} 0-0 [facility] ID Date Data Source [id number] 08/05/2020 11:28:32 AM [facility] Name Value Range Interpretation Code Description Data Maisha rce(s) Supporting Document(s) Prothrombin time (PT) 20.0 s 12.5-14.9 H [facility] INR in Platelet poor plasma by Coagulation assay 1.67 [facility] Routine intensity oral anticoagulation I NR is typically 2.0-3.0. Target INR must be clinically individualized. ID Date Data Source [id number] 08/05/2020 11:28:32 AM [facility] Value Range Interpretation Code Description Data Maisha rce(s) Supporting Document(s) aPTT in Platelet poor plasma by Coagulation assay 35.4 s 24.0-33. 0 H [facility] ID Date Data Source [id number] 08/05/2020 11:34:03 AM [facility] Value Range Interpretation Code Description Data Maisha rce(s) Supporting Document(s) Cancer Ag 19-9 [Units/volume] in Serum or Plasma <35 [facility] This test uses [employer] CA 19-9 electrochem iluminescent immunoassay. Results obtained with different test methods or kits cannot be used interchangeably. CA 19-9 is useful in monitoring pancreatic, hepatobiliary, gastric, hepatocelllular, and colorectal cancer. CA 19-9 value regardless of level, should not be interpreted as absolute evidence of the presence or absence of malignant disease. ID Date Data Source [id number] 08/05/2020 11:34:03 AM [facility] Value Range Interpretation Code Description Data Maisha rce(s) Supporting Document(s) Carcinoembryonic Ag [Mass/volume] in Serum or Plasma 1.7 ng/ml <3.4 [facility] Levels of CEA should not be interpreted as absoulute evidence of the presence or absence of disease. It should not be used as a screening test for Cancer. CEA values obtained using different methodologies cannot be used interchangeably. This method is manufactured by [employer] and is an electrochemiluminesence immunoassay. ID Date Data Source [id number] 08/05/2020 11:34:03 AM [facility] Value Range Interpretation Code Description Data Maisha rce(s) Supporting Document(s) Albumin [Mass/volume] in Serum or Plasma by Bromocresol green (BCG) dye binding method 3.8 g/dL 3.5-5.2 [facility] Bilirubin.total [Mass/volume] in Serum or Plasma 1.1 mg/dL <1.2 [facility] Calcium [Mass/volume] in Serum or Plasma 9.5 mg/dL 8.6-10.0 [facility] Chloride [Moles/volume] in Serum or Plasma 96 mmol/L 98-107 L [facility] Creatinine [Mass/volume] in Serum or Plasma 1.13 mg/dL 0.70-1.20 [facility] Glucose [Mass/volume] in Serum or Plasma 92 mg/dL 70-140 [facility] Alkaline phosphatase [Enzymatic activity/volume] in Serum or Plasma 347 U/L 40-129 H [facility] Potassium [Moles/volume] in Serum or Plasma 5.0 mmol/L 3.4-5.1 [facility] Protein [Mass/volume] in Serum or Plasma 7.4 g/dL 6.4-8.3 [facility] Sodium [Moles/volume] in Serum or Plasma 132 mmol/L 136-145 L [facility] Aspartate aminotransferase [Enzymatic activity/volume] in Serum or Plasma 443 U/L <40 H [facility] Urea nitrogen [Mass/volume] in Serum or Plasma 21 mg/dL 6-20 H [facility] Osmolality of Serum or Plasma by calculation 276 mosm/kg 275-300 [facility] Creatinine/Urea nitrogen [Mass Ratio] in Serum or Plasma 19 [facility] Bicarbonate [Moles/volume] in Serum 26 mmol/L 22-29 [facility] Alanine aminotransferase [Enzymatic activity/volume] in Seru m or Plasma 93 U/L <41 H [facility] Anion gap 3 in Serum or Plasma 10 mmol/L 8-15 [facility] Glomerular filtration rate/1.73 sq M pre dicted among non-blacks [Volume Rate/Area] in Serum or Plasma by Creatinine-based formula (MDRD) 70 mL/min/1.73m2 >60 [facility] Glomerular filtration rate/1.73 sq M pre dicted among blacks [Volume Rate/Area] in Serum or Plasma by Creatinine-based formula (MDRD) 81 mL/min/1.73m2 >60 [facility] ID Date Data Source [id number] 08/05/2020 03:57:[address] [facility] Name Value Range Interpretation Code Description Data Maisha rce(s) Supporting Document(s) [id number] [Mass/volume] in Serum or Plasma 62587 ng/mL <9 H [facility] Confirmed ID Date Data Source [id number] 07/29/2020 12:00:00 AM EST [facility] o[facility]y Imaging Jeffy Koo Jr, MD Patient Name: KELLY SCOTT[age] [facility] Date of : 1960[place] [address] Date of Exam: 07/29/2020#: Fax: [phone] EXAM: CT THORAX WITHOUT&WITH CONTRASTCLINICAL INFORMATION: Followup lung base nodules seen prior abdominal andpelvic CT of 07/22/2020.Low dose [address] scanning of the chest was obtained using 3 mmincrements before and after the administration of intravenous contrast andreconstructed in both coronal and sagittal scan planes. 75 cc of Tjbapgs174 was administered intravenously.The mediastinum and pulmonary harriet are within normal limits. There are nopleural or pericardial effusions. The imaged upper abdomen is unchangedagain showing extensive hepatic masses. Please see abdominal and pelvic CTreport 07/22/2020 for further description. The imaged osseous structuresare within normal limits for the patient's age.Evaluation of the lung johnson shows numerable pulmonary nodules scatteredthroughout all segments of both lungs. These are too numerous to count orindividually assess. These nodules vary in size from subcentimeter to justover a centimeter. Some of these larger nodules show definitive contrastenhancement.IMPRESSION:Numerable pulmonary nodules as described above suspicious for metastaticdisease. According to the revised Fleischner Society criteria, CT PETwith image guided sampling is in order.Other findings as described above.Accredited by the [employer] in [place].ANA MARÍA Lino/Juanis you for referring KELLY SCOTT to our office. Electronically Signed - KAHLIL GARCIA DO 08/04/20 16:40 Name Value Range Interpretation Code Description Data Maisha rce(s) Supporting Document(s) ID Date Data Source [id number] 07/28/2020 08:23:00 AM EST [facility] ([facility]) Name Value Range Interpretation Code Description Data Maisha rce(s) Supporting Document(s) INR in Platelet poor plasma by Coagulation assay 1.3 [facility] ID Date Data Source [id number] 07/24/2020 11:21:00 AM EST [facility] ([facility]) Name Value Range Interpretation Code Description Data Maisha rce(s) Supporting Document(s) [id number] [Mass/volume] in Serum or Plasma 1000.0 ng/mL [facility] ([facility]) THE AFP ASSAY IS PERFORMED ON THE [employer] BY CHEMILUMINESCENCE AND SHOULD NOT BE COMPARED INTERCHANGEABLY WITH OTHER METHODS. IT SHOULD NOT BE USED ALONE A SCREENING TEST OR DIAGNOSIS FOR THE PRESENCE OR ABSENCE OF MALIGNANT DISEASE. THESE RESULTS ARE NOT INTERPRETABLE IN FEMALES. PREDICTIONS OF DISEASE RECURRENCE SHOULD NOT BE BASED SOLELY ON VALUES OBTAINED FROM SERIAL PATIENT SERUM VALUES. Carcinoembryonic Ag [Mass/volume] in Serum or Plasma 0.6 ng/mL [facility] ([facility]) THE CEA ASSAY IS PERFORMED ON THE [employer] BY CHEMILUMINESCENCE AND SHOULD NOT BE COMPARED INTERCHANGEABLY WITH OTHER METHODS. IT SHOULD NOT BE USED ALONE A SCREENING TEST OR DIAGNOSIS FOR THE PRESENCE OR ABSENCE OF MALIGNANT DISEASE. PREDICTIONS OF DISEASE RECURRENCE SHOULD NOT BE BASED SOLELY ON VALUES OBTAINED FROM SERIAL PATIENT SERUM VALUES. ID Date Data Source [id number] 07/24/2020 11:15:00 AM EST [facility] ([facility]) Name Value Range Interpretation Code Description Data Maisha rce(s) Supporting Document(s) INR in Platelet poor plasma by Coagulation assay 3.3 [facility] ([facility]) ID Date Data Source [id number] 07/22/2020 12:00:00 AM [facility] Imaging Jeffy Koo Jr, MD Patient Name: KELLY SCOTT[age] [facility] Date [facility] : 1960[facility] [address] Date of Exam: 07/22/2020#: Fax: [phone] EXAM: CT ABDOMEN & PELVIS WITHOUT&WITH CONTRASTCLINICAL INFORMATION: Elevated LFT's. Bloating and abdominal discomfort.No comparison studies.Low dose [address] scanning of the abdomen and pelvis wasobtained with oral contrast and before and after the administration ofintravenous contrast using 3 mm increments and reconstructed in bothsagittal and coronal scan planes. Immediate and delayed post contrastenhanced imaging was obtained through the abdomen. 100 cc of Optiray 350was administered intravenously.There are multiple innumerable nodules in the visualized lung basesbilaterally. They are all subcentimeter in size except for one in theposterior right lower lobe which measures 1 cm in maximum diameter.In the anterior right lobe of the liver, a dominant heterogeneous mass isvisualized measuring approximately 11.7 x 10.1 cm. Margins are ill-definedposteriorly and inferiorly as well as laterally. It abuts the fissure forthe ligamentum teres. Posteromedial to this mass, there is another mass inthe right lobe measuring approximately 8.3 x 8.9 cm. Just posterior tothat, there are two adjacent ill-defined masses approximately 7.4 cm indiameter and 5.8 cm in diameter. Heterogeneous density in the inferiorright lobe of the liver diffusely is likely due to perfusion abnormalitiescaused by the extensive tumor infiltration. In the inferior left lobe ofthe liver, there appears to be a small mass measuring 2 cm in diameter. Isuspect a subcapsular mass at the dome of the liver anteriorlyapproximately 3.6 cm in diameter. The middle hepatic vein appears to bethrombosed in its mid-aspect just above the confluent tumors. The liver isenlarged by the extensive tumor involvement with a length of gwsfztfwgayhv89 cm. The spleen is mildly enlarged with a length of 14 cm. No mass isseen in the spleen. The adrenal glands are normal. No pancreatic mass isseen. I see no renal stone or mass. There is no hydronephrosis. Nosignificantly enlarged lymph nodes are seen. There is moderateatherosclerotic calcification of the abdominal aorta without aneurysm ordissection. No bowel well thickening is seen. Scattered diverticulosis ofthe colon is noted without evidence of acute diverticulitis. The appendixis nay l. No pelvic mass is seen. Urinary bladder is mildly distendedand appears unremarkable. There is no free air or free fluid. There aredegenerative changes of the spine and hips. No vertebral compressionfracture is seen. There is mild anterior listhesis of L5 on S1.IMPRESSION:Multiple innumerable subcentimeter nodules throughout the visualized lungfields. Findings are compatible with metastatic disease. Recommend CT ofthe chest to evaluate the upper chest for lung nodules and adenopathy.Extensive tumors are seen in the liver. These predominately are in theright lobe and are somewhat ill-defined and confluent, adjacent to oneanother. At the superior margin of the bulk of the tumor, there isthrombosis of a portion of the mid-aspect of the middle hepatic vein. Theextensive tumor involvement causes hepatomegaly. Heterogeneous densitymore peripherally in the right lobe of the liver most likely is due toperfusion abnormalities caused by the extensive tumor.Mild splenomegaly with no definite internal mass. No adenopathy. Nodefinite bowel abnormality.Accredited by the [employer] in [place].Odin Beyer, AMY/Juanis you for referring KELLY SCOTT to our office. Electronically Signed - ODIN BEYER MD 07/22/20 16:07 Name Value Range Interpretation Code Description Data Maisha rce(s) Supporting Document(s) ID Date Data Source [id number] 07/18/2020 01:29:00 PM EST [facility] ([facility]) Name Value Range Interpretation Code Description Data Maisha rce(s) Supporting Document(s) Hepatitis C Virus Winsome Index 0.1 [facility] ([facility]) Negative Not infected with HCV, unless recent infection is suspected or other evidence exists to indicate HCV infection. Hepatitis B Surface Antigen Laboratory test result [facility] Hepatitis B Core Antibody Igm Laboratory test result [facility] ([facility]) Hepatitis A Antibody Igm Laboratory test result [facility] ([facility]) ID Date Data Source [id number] 07/18/2020 01:28:00 PM EST [facility] ([facility]) Name Value Range Interpretation Code Description Data Maisha rce(s) Supporting Document(s) Prostate specific Ag [Mass/volume] in Serum or Plasma 0.68 ng/mL [facility] ([facility]) This assay was performed on the Siemens Dimension EXL using the B- Galactosidase/CPRG methodology and should not be compared interchangeably with other methods. The PSA should not be used alone as a screening test for the presence or absence of malignant disease. ID Date Data Source [id number] 07/18/2020 01:28:00 PM EST [facility] ([facility]) Name Value Range Interpretation Code Description Data Maisha rce(s) Supporting Document(s) Alkaline phosphatase isoenzyme [Units/volume] in Serum or Pl asma 277 mg/dL 46-116 [facility] Total Bilirubin 0.8 mg/dL 0.2-1.0 [facility] Alanine aminotransferase [Enzymatic activity/volume] in Seru m or Plasma 215 U/L 12-78 [facility] ([facility]) Aspartate aminotransferase [Enzymatic activity/volume] in Serum or Plasma 973 U/L 15-37 [facility] ([facility] ) NOTE: RESULT VERIFIED. Albumin [Mass/volume] in Serum or Plasma 3.8 g/dL 3.4-5.0 [facility] ([facility]) Proteinase 3 Ab [Units/volume] in Serum 7.6 g/dL 6.4-8.2 [facility] ([facility]) Direct Bilirubin 0.3 mg/dL 0.0-0.2 [facility] ([facility]) A/G Ratio 1.00 CALC 1.00-1.90 [facility] ([facility]) ID Date Data Source [id number] 07/10/2020 08:10:00 AM EST [facility] ([facility]) Name Value Range Interpretation Code Description Data Maisha rce(s) Supporting Document(s) Erythrocytes [#/volume] in Blood by Automated count 4.44 x10*6/UL 4.2 0-6.30 [facility] Leukocytes [#/volume] in Blood by Automated count 4.2 x10*3/UL 4.1-10 .9 [facility] Hematocrit [Volume Fraction] of Blood by Automated count 36.6 % 3 7.0-51.0 [facility] Hemoglobin [Mass/volume] in Blood 12.6 g/dL 12.0-18.0 [facility] ([facility]) MCV 82.4 fL 80.0-97.0 [facility] ([facility]) MCH 28.4 pg 26.0-32.0 [facility] ([facility]) Erythrocyte distribution width [Ratio] by Automated count 14.4 % 11.6-13.7 [facility] ([facility] MCHC 34.5 g/dL 31.0-38.0 [facility] ([facility]) Platelets [#/volume] in Blood by Automated count 233 x10*3/UL 140-440 [facility] ([facility]) Lymph % 16.5 % 10.0-58.5 [facility] ([facility]) MPV 8.1 FL 7.8-11.0 [facility] ([facility]) Neut % 78.6 % 37.0-92.0 [facility] ([facility]) Lymph # 0.6 x10*3/UL 0.6-4.1 [facility] ([facility]) Mid % 4.9 % 1.7-9.3 [facility]) Neut # 3.3 x10*3/UL 2.0-7.8 [facility] ([facility]) Mid # 0.3 x10*3/UL 0.1-0.6 [facility] ([facility]) ID Date Data Source [id number] 07/10/2020 08:10:00 AM EST [facility] ([facility]) Name Value Range Interpretation Code Description Data Maisha rce(s) Supporting Document(s) Cholesterol [Mass/volume] in Serum or Plasma 114 mg/dL 131-200 [facility] ([facility]) Cholesterol in HDL [Mass/volume] in Serum or Plasma 21 mg/dL 35-60 [facility] ([facility]) Cholesterol in LDL [Mass/volume] in Serum or Plasma by calcu lation 63 CALC 50-159 [facility] ([facility]) Triglyceride [Mass/volume] in Serum or Plasma 149 mg/dL 30-150 [facility] ([facility]) ID Date Data Source [id number] 07/10/2020 08:10:00 AM EST [facility] ([facility]) Name Value Range Interpretation Code Description Data Maisha rce(s) Supporting Document(s) Urea nitrogen [Mass/volume] in Serum or Plasma 21 mg/dL 7-18 [facility] ([facility]) Glucose [Mass/volume] in Serum or Plasma 88 mg/dL 74-99 [facility] ([facility]) 100-125 mg/dL PRE-DIABETES/FASTING >126 mg/dL DIABETES/FASTING Creatinine 1.3 mg/dL 0.6-1.3 [facility]) Sodium [Moles/volume] in Serum or Plasma 137 meq/L 136-145 [facility] ([facility]) Potassium [Moles/volume] in Serum or Plasma 4.8 meq/L 3.5-5.1 [facility] ([facility]) Carbon dioxide, total [Moles/volume] in Serum or Plasma 30 meq/L 21 -32 [facility] ([facility]) Chloride [Moles/volume] in Serum or Plasma 99 meq/L 98-107 [facility] ([facility]) Calcium [Mass/volume] in Serum or Plasma 9.0 mg/dL 8.5-10.1 [facility] ([facility]) Total Bilirubin 0.6 mg/dL 0.2-1.0 [facility] ([facility]) Alkaline phosphatase isoenzyme [Units/volume] in Serum or Pl asma 181 mg/dL 46-116 [facility] ([facility]) Aspartate aminotransferase [Enzymatic activity/volume] in Serum or Plasma 712 U/L 15-37 [facility] ([facility] ) NOTE: RESULT VERIFIED. Albumin [Mass/volume] in Serum or Plasma 3.7 g/dL 3.4-5.0 [facility] ([facility]) Alanine aminotransferase [Enzymatic activity/volume] in Seru m or Plasma 83 U/L 12-78 [facility] ([facility]) A/G Ratio 1.03 CALC 1.00-1.90 [facility]) Proteinase 3 Ab [Units/volume] in Serum 7.3 g/dL 6.4-8.2 [facility] ([facility]) Glomerular filtration rate/1.73 sq M pre dicted among blacks [Volume Rate/Area] in Serum or Plasma by Creatinine-based formula (MDRD) Laboratory test result [facility] <content>CHRONIC KIDNEY DISEASE STAGING PER NKF</content>
<content></content>
<content>STAGE I & II GFR >= 60 NORMAL TO MILDLY DECREASED</content>
<content>STAGE III GFR 30-59 MODERATELY DECREASED</content>
<content>STAGE IV GFR 15-29 SEVERELY DECREASED</content>
<content>STAGE V GFR <15 VERY LITTLE GFR LEFT</content>
<content>ESRD GFR <15 ON METAL BED ASSEMBLER</content>
<content></content> Glomerular filtration rate/1.73 sq M pre dicted among non-blacks [Volume Rate/Area] in Serum or Plasma by Creatinine-based formula (MDRD) 57 mL/min [facility] ([facility]) ID Date Data Source [id number] 07/10/2020 08:10:00 AM EST [facility] ([facility]) Name Value Range Interpretation Code Description Data Maisha rce(s) Supporting Document(s) Hemoglobin A1c/Hemoglobin.total in Blood 6.0 % [facility] Lab Result Notes: Pre-Diabetes 5.7 - 6.4 % Diabetes = or > 6.5% Glucose mean value [Mass/volume] in Blood Estimated fr om glycated hemoglobin 125 mg/dL 60-110 [facility] ID Date Data Source [id number] 07/10/2020 08:10:00 AM EST [facility] ([facility]) Name Value Range Interpretation Code Description Data Maisha rce(s) Supporting Document(s) Hemoglobin A1c/Hemoglobin.total in Blood Laboratory test result [facility] ID Date Data Source [id number] 06/10/2020 08:36:00 AM EST [facility] ([facility]) Name Value Range Interpretation Code Description Data Maisha rce(s) Supporting Document(s) INR in Platelet poor plasma by Coagulation assay 2.1 [facility] ([facility]) ID Date Data Source [id number] 06/03/2020 08:13:00 AM EDT [facility] ([facility]) Name Value Range Interpretation Code Description Data Maisha rce(s) Supporting Document(s) INR in Platelet poor plasma by Coagulation assay 1.6 [facility] ([facility]) ID Date Data Source [id number] 05/26/2020 08:21:00 AM EDT [facility] ([facility]) Name Value Range Interpretation Code Description Data Maisha rce(s) Supporting Document(s) INR in Platelet poor plasma by Coagulation assay 1.5 [facility] ([facility]) ID Date Data Source [id number] 04/24/2020 08:02:00 AM EDT [facility] ([facility]) Name Value Range Interpretation Code Description Data Maisha rce(s) Supporting Document(s) INR in Platelet poor plasma by Coagulation assay 3.0 [facility] ([facility]) ID Date Data Source [id number] 03/24/2020 08:04:00 AM EDT [facility] ([facility]) Name Value Range Interpretation Code Description Data Maisha rce(s) Supporting Document(s) INR in Platelet poor plasma by Coagulation assay 2.6 [facility] ([facility]) ID Date Data Source [id number] 03/17/2020 08:14:00 AM EDT [facility] ([facility]) Name Value Range Interpretation Code Description Data Maisha rce(s) Supporting Document(s) INR in Platelet poor plasma by Coagulation assay 3.1 [facility] ([facility]) ID Date Data Source [id number] 02/13/2020 08:22:00 AM EDT [facility] ([facility]) Name Value Range Interpretation Code Description Data Maisha rce(s) Supporting Document(s) INR in Platelet poor plasma by Coagulation assay 2.7 [facility] ([facility]) ID Date Data Source [id number] 01/14/2020 08:50:00 AM EDT [facility] ([facility]) Name Value Range Interpretation Code Description Data Maisha rce(s) Supporting Document(s) INR in Platelet poor plasma by Coagulation assay 2.7 [facility] ([facility]) ID Date Data Source [id number] 01/04/2020 08:06:00 AM EDT [facility] ([facility]) Name Value Range Interpretation Code Description Data Maisha rce(s) Supporting Document(s) Cholesterol [Mass/volume] in Serum or Plasma 104 mg/dL 131-200 [facility] ([facility]) Triglyceride [Mass/volume] in Serum or Plasma 298 mg/dL 30-150 [facility] ([facility]) Cholesterol in LDL [Mass/volume] in Serum or Plasma by calcu lation 20 CALC 50-159 [facility] ([facility]) Cholesterol in HDL [Mass/volume] in Serum or Plasma 24 mg/dL 35-60 [facility] ([facility]) ID Date Data Source [id number] 01/04/2020 08:06:00 AM EDT [facility] ([facility]) Name Value Range Interpretation Code Description Data Maisha rce(s) Supporting Document(s) Glucose [Mass/volume] in Serum or Plasma 120 mg/dL 74-99 [facility] ([facility]) 100-125 mg/dL PRE-DIABETES/FASTING >126 mg/dL DIABETES/FASTING Sodium [Moles/volume] in Serum or Plasma 140 meq/L 136-145 [facility] ([facility]) Urea nitrogen [Mass/volume] in Serum or Plasma 18 mg/dL 7-18 [facility] ([facility]) Creatinine 1.1 mg/dL 0.6-1.3 [facility] ([facility]) Potassium [Moles/volume] in Serum or Plasma 4.3 meq/L 3.5-5.1 [facility] ([facility]) Chloride [Moles/volume] in Serum or Plasma 104 meq/L 98-107 [facility] ([facility]) Carbon dioxide, total [Moles/volume] in Serum or Plasma 29 meq/L 21 -32 [facility] ([facility]) Calcium [Mass/volume] in Serum or Plasma 9.0 mg/dL 8.5-10.1 [facility] ([facility]) Alkaline phosphatase isoenzyme [Units/volume] in Serum or Pl asma 68 mg/dL 46-116 [facility] ([facility]) Total Bilirubin 0.4 mg/dL 0.2-1.0 [facility] ([facility]) Aspartate aminotransferase [Enzymatic activity/volume] in Serum or Plasma 32 U/L 15-37 [facility] ([facility] ) Alanine aminotransferase [Enzymatic activity/volume] in Seru m or Plasma 32 U/L 12-78 [facility] ([facility]) Albumin [Mass/volume] in Serum or Plasma 3.6 g/dL 3.4-5.0 [facility] ([facility]) A/G Ratio 1.06 CALC 1.00-1.90 [facility] ([facility]) Proteinase 3 Ab [Units/volume] in Serum 7.0 g/dL 6.4-8.2 [facility] ([facility]) Glomerular filtration rate/1.73 sq M pre dicted among non-blacks [Volume Rate/Area] in Serum or Plasma by Creatinine-based formula (MDRD) Laboratory test result [facility] Glomerular filtration rate/1.73 sq M pre dicted among blacks [Volume Rate/Area] in Serum or Plasma by Creatinine-based formula (MDRD) Laboratory test result [facility] ([facility]) <content>CHRONIC KIDNEY DISEASE STAGING PER NKF</content>
<content></content>
<content>STAGE I & II GFR >= 60 NORMAL TO MILDLY DECREASED</content>
<content>STAGE III GFR 30-59 MODERATELY DECREASED</content>
<content>STAGE IV GFR 15-29 SEVERELY DECREASED</content>
<content>STAGE V GFR <15 VERY LITTLE GFR LEFT</content>
<content>ESRD GFR <15 ON METAL BED ASSEMBLER</content>
<content></content> ID Date Data Source [id number] 01/04/2020 08:06:00 AM EDT [facility] ([facility]) Name Value Range Interpretation Code Description Data Maisha rce(s) Supporting Document(s) Hemoglobin A1c/Hemoglobin.total in Blood 6.5 g/dL 4.8-5.6 [facility] Lab Result Notes: Pre-Diabetes 5.7 - 6.4 % Diabetes = or > 6.5% Glucose mean value [Mass/volume] in Blood Estimated fr om glycated hemoglobin 140 mg/dL 60-110 [facility] ID Date Data Source [id number] 01/04/2020 08:06:00 AM EDT [facility] Name Value Range Interpretation Code Description Data Maisha rce(s) Supporting Document(s) Leukocytes [#/volume] in Blood by Automated count 6.2 x10*3/UL 4.1-10 .9 [facility] ([facility]) Hemoglobin [Mass/volume] in Blood 13.2 g/dL 12.0-18.0 [facility] ([facility]) Erythrocytes [#/volume] in Blood by Automated count 4.59 x10*6/UL 4.2 0-6.30 [facility] ([facility]) Hematocrit [Volume Fraction] of Blood by Automated count 38.3 % 3 7.0-51.0 [facility] ([facility]) MCH 28.7 pg 26.0-32.0 [facility]) MCV 83.5 fL 80.0-97.0 [facility] MCHC 34.4 g/dL 31.0-38.0 [facility] ([facility]) Erythrocyte distribution width [Ratio] by Automated count 13.8 % 11.6-13.7 [facility] ([facility]) MPV 8.8 FL 7.8-11.0 [facility] ([facility]) Platelets [#/volume] in Blood by Automated count 187 x10*3/UL 140-440 [facility] ([facility]) Lymph % 16.8 % 10.0-58.5 [facility] Neut % 77.9 % 37.0-92.0 [facility] ([facility]) Mid % 5.3 % 1.7-9.3 [facility] ([facility]) Mid # 0.4 x10*3/UL 0.1-0.6 [facility] ([facility]) Lymph # 1.0 x10*3/UL 0.6-4.1 [facility] ([facility]) Neut # 4.8 x10*3/UL 2.0-7.8 [facility] ([facility]) ID Date Data Source [id number] 12/13/2019 08:42:00 AM EDT [facility] ([facility]) Name Value Range Interpretation Code Description Data Maisha rce(s) Supporting Document(s) INR in Platelet poor plasma by Coagulation assay 2.3 [facility] ID Date Data Source [id number] 11/13/2019 08:10:00 AM EDT [facility] ([facility]) Name Value Range Interpretation Code Description Data Maisha rce(s) Supporting Document(s) INR in Platelet poor plasma by Coagulation assay 2.4 [facility] ([facility]) ID Date Data Source [id number] 11/05/2019 08:12:00 AM EDT [facility] ([facility]) Name Value Range Interpretation Code Description Data Maisha rce(s) Supporting Document(s) INR in Platelet poor plasma by Coagulation assay 1.6 [facility] ([facility] ID Date Data Source [id number] 10/29/2019 08:43:00 AM EDT [facility] ([facility]) Name Value Range Interpretation Code Description Data Maisha rce(s) Supporting Document(s) INR in Platelet poor plasma by Coagulation assay 1.8 [facility] ([facility]) ID Date Data Source [id number] 10/15/2019 08:25:00 AM EDT [facility] ([facility]) Name Value Range Interpretation Code Description Data Maisha rce(s) Supporting Document(s) INR in Platelet poor plasma by Coagulation assay 1.9 [facility] ([facility]) ID Date Data Source [id number] 11/13/2019 04:03:[address] [facility] Surgical Pathology Report* Amended *Name : KELLY SCOTT KMRN: [id number] Number: [id number] Date: 10/03/2019 00:00Received Date: 10/03/2019 09:12Physician(s): ODIN ANDERSON,MELINDA HANNAH,MDSpecimen(s) ReceivedA: SPECIMEN ACCESSIONED IN ERRORClinical HistoryDiagnosisSPECIMEN ACCESSIONED IN ERROR NO SPECIMEN RECEIVED FOR THIS PATIENT. Electronically Signed By Yvette Garcia, Attending Pathologist11/13/2019 16:03:45 Unless 'gross-only' is specified, the final diagnosis is based on amicroscopic examination of outside medical sales representative sections of tissue.AmendmentsAmended: 10/04/2019 by Angle Nunn: Accession Error Per [facility] incorrect patient demographics sent. Nospecimen was received for this patient.Previous Signout Date: 10/03/2019This report may include one or more immunohistochemical stain results thatuse analyte specific reagents. All positive and negative controls havebeen reviewed by the attending pathologist and are satisfactory. The testswere developed and their performance characteristics determined by [facility] Pathology department. They have not been cleared or approved by the USFood and Drug Administration. The FDA has determined that such clearanceor approval is not necessary. Name Value Range Interpretation Code Description Data Maisha rce(s) Supporting Document(s) ID Date Data Source [id number] 10/01/2019 09:07:00 AM EST [facility] ([facility]) Name Value Range Interpretation Code Description Data Maisha rce(s) Supporting Document(s) INR in Platelet poor plasma by Coagulation assay 1.9 [facility] ([facility]) ID Date Data Source [id number] 09/28/2019 10:47:00 AM EST [facility] ([facility]) Name Value Range Interpretation Code Description Data Maisha rce(s) Supporting Document(s) Digoxin [Mass/volume] in Serum or Plasma 0.6 ng/mL 0.5-2.0 [facility] ([facility]) ID Date Data Source [id number] 09/28/2019 10:46:00 AM EST [facility] ([facility]) Name Value Range Interpretation Code Description Data Maisha rce(s) Supporting Document(s) Microalbumin Urine 1877.8 mg/L 1.3-20.0 [facility] ([facility]) NOTE: RESULT VERIFIED. Microalb/Creat Ratio 847.4 ug/mg 0.0-30.0 [facility] ([facility]) Urine Creatinine 221.6 mg/dL 30.0-125.0 [facility] ([facility]) ID Date Data Source [id number] 09/28/2019 10:46:00 AM EST [facility] ([facility]) Name Value Range Interpretation Code Description Data Maisha rce(s) Supporting Document(s) Cholesterol in HDL [Mass/volume] in Serum or Plasma 26 mg/dL 35-60 [facility] ([facility]) Cholesterol [Mass/volume] in Serum or Plasma 131 mg/dL 131-200 [facility] ([facility]) Triglyceride [Mass/volume] in Serum or Plasma 365 mg/dL 30-150 [facility] ([facility]) Cholesterol in LDL [Mass/volume] in Serum or Plasma by calcu lation 32 CALC 50-159 [facility] ([facility]) ID Date Data Source [id number] 09/28/2019 10:46:00 AM EST [facility] ([facility]) Name Value Range Interpretation Code Description Data Maisha rce(s) Supporting Document(s) Glucose [Mass/volume] in Serum or Plasma 178 mg/dL 74-99 [facility] ([facility]) 100-125 mg/dL PRE-DIABETES/FASTING >126 mg/dL DIABETES/FASTING Sodium [Moles/volume] in Serum or Plasma 139 meq/L 136-145 [facility] ([facility]) Creatinine 1.0 mg/dL 0.6-1.3 [facility] ([facility]) Urea nitrogen [Mass/volume] in Serum or Plasma 19 mg/dL 7-18 [facility] ([facility]) Potassium [Moles/volume] in Serum or Plasma 4.5 meq/L 3.5-5.1 [facility] ([facility]) Carbon dioxide, total [Moles/volume] in Serum or Plasma 30 meq/L 21 -32 [facility] ([facility]) Chloride [Moles/volume] in Serum or Plasma 102 meq/L 98-107 [facility] ([facility]) Calcium [Mass/volume] in Serum or Plasma 9.0 mg/dL 8.5-10.1 [facility] ([facility]) Total Bilirubin 0.4 mg/dL 0.2-1.0 [facility] ([facility]) Aspartate aminotransferase [Enzymatic activity/volume] in Serum or Plasma 40 U/L 15-37 [facility] ([facility] ) Alanine aminotransferase [Enzymatic activity/volume] in Seru m or Plasma 44 U/L 12-78 [facility] ([facility]) Alkaline phosphatase isoenzyme [Units/volume] in Serum or Pl asma 66 mg/dL 46-116 [facility] ([facility]) A/G Ratio 1.09 CALC 1.00-1.90 [facility] ([facility]) Proteinase 3 Ab [Units/volume] in Serum 7.3 g/dL 6.4-8.2 [facility] ([facility]) Albumin [Mass/volume] in Serum or Plasma 3.8 g/dL 3.4-5.0 [facility] ([facility]) Glomerular filtration rate/1.73 sq M pre dicted among blacks [Volume Rate/Area] in Serum or Plasma by Creatinine-based formula (MDRD) Laboratory test result [facility] ([facility]) <content>CHRONIC KIDNEY DISEASE STAGING PER NKF</content>
<content></content>
<content>STAGE I & II GFR >= 60 NORMAL TO MILDLY DECREASED</content>
<content>STAGE III GFR 30-59 MODERATELY DECREASED</content>
<content>STAGE IV GFR 15-29 SEVERELY DECREASED</content>
<content>STAGE V GFR <15 VERY LITTLE GFR LEFT</content>
<content>ESRD GFR <15 ON METAL BED ASSEMBLER</content>
<content></content> Glomerular filtration rate/1.73 sq M pre dicted among non-blacks [Volume Rate/Area] in Serum or Plasma by Creatinine-based formula (MDRD) Laboratory test result [facility] ([facility] ) ID Date Data Source [id number] 09/28/2019 10:46:00 AM EST [facility] Name Value Range Interpretation Code Description Data Maisha rce(s) Supporting Document(s) Hemoglobin A1c/Hemoglobin.total in Blood 8.8 g/dL 4.8-5.6 [facility] Lab Result Notes: Pre-Diabetes 5.7 - 6.4 % Diabetes = or > 6.5% Glucose mean value [Mass/volume] in Blood Estimated fr om glycated hemoglobin 206 mg/dL 60-110 [facility] ID Date Data Source [id number] 09/28/2019 10:46:00 AM EST [facility] Name Value Range Interpretation Code Description Data Maisha rce(s) Supporting Document(s) Hemoglobin [Mass/volume] in Blood 14.3 g/dL 12.0-18.0 [facility] ([facility]) Leukocytes [#/volume] in Blood by Automated count 5.7 x10*3/UL 4.1-10 .9 [facility] ([facility]) Hematocrit [Volume Fraction] of Blood by Automated count 41.3 % 3 7.0-51.0 [facility] Erythrocytes [#/volume] in Blood by Automated count 4.92 x10*6/UL 4.2 0-6.30 [facility] ([facility]) MCV 83.8 fL 80.0-97.0 [facility]) MCH 29.2 pg 26.0-32.0 [facility] ([facility]) MCHC 34.8 g/dL 31.0-38.0 [facility] ([facility]) Lymph % 18.6 % 10.0-58.5 [facility] ([facility]) Platelets [#/volume] in Blood by Automated count 199 x10*3/UL 140-440 [facility] ([facility]) MPV 8.6 FL 7.8-11.0 [facility] ([facility]) Erythrocyte distribution width [Ratio] by Automated count 13.6 % 11.6-13.7 [facility] ([facility]) Mid # 0.4 x10*3/UL 0.1-0.6 [facility] ([facility]) Mid % 5.8 % 1.7-9.3 [facility] Neut % 75.6 % 37.0-92.0 [facility] ([facility]) Lymph # 1.0 x10*3/UL 0.6-4.1 [facility] ([facility]) Neut # 4.3 x10*3/UL 2.0-7.8 [facility] ([facility]) ID Date Data Source [id number] 08/22/2019 08:21:00 AM EST [facility] ([facility]) Name Value Range Interpretation Code Description Data Maisha rce(s) Supporting Document(s) INR in Platelet poor plasma by Coagulation assay 2.3 [facility] ([facility] Procedure Social History Code Duration Value Status Description Data Source(s ) Tobacco use and exposure 08/05/2020 12:00:00 AM EST Never used co mpleted Never used [facility] Smoking 08/05/2020 12:00:00 AM EST Never smoker completed Never s [facility] Vital Signs ID Date Data Source [id number] Name Value Range Interpretation Code Description Data Source(s) Body height 75 [in_i] 75 [in_i] [facility] ([facility]) 6'3" Heart rate 70 /min 70 /min [facility] ([facility]) Diastolic blood pressure 68 mm[Hg] 68 mm[Hg] [facility] ([facility]) Systolic blood pressure 112 mm[Hg] 112 mm[Hg] [facility] ([facility]) Body mass index (BMI) [Ratio] 35.0 kg/m2 35.0 k g/m2 [facility] ([facility]) Body weight 280.00 [lb_av] 280.00 [lb_av] [facility] ([facility]) Body mass index (BMI) [Ratio] 40.6 kg/m2 40.6 k g/m2 [facility]) Body weight 325.00 [lb_av] 325.00 [lb_av] [facility] ([facility]) Body height 75 [in_i] 75 [in_i] [facility] ([facility]) 6'3" Heart rate 120 /min 120 /min [facility] ([facility]) irregular Diastolic blood pressure 74 mm[Hg] 74 mm[Hg] [facility] ([facility]) Systolic blood pressure 110 mm[Hg] 110 mm[Hg] [facility] ([facility]) Body weight 349.00 [lb_av] 349.00 [lb_av] [facility] ([facility]) Body weight 351.00 [lb_av] 351.00 [lb_av] [facility] ([facility]) Body weight 352.00 [lb_av] 352.00 [lb_av] [facility] ([facility]) Body weight 358.00 [lb_av] 358.00 [lb_av] [facility] ([facility]) Body weight 358.00 [lb_av] 358.00 [lb_av] [facility] ([facility]) Body weight 353.00 [lb_av] 353.00 [lb_av] [facility] ([facility]) Body weight 355.00 [lb_av] 355.00 [lb_av] [facility] ([facility]) Body weight 357.00 [lb_av] 357.00 [lb_av] [facility] ([facility]) Body mass index (BMI) [Ratio] 45.7 kg/m2 45.7 k g/m2 [facility] ([facility]) Body weight 366.00 [lb_av] 366.00 [lb_av] [facility] ([facility]) Body height 75 [in_i] 75 [in_i] [facility] ([facility]) 6'3" Heart rate 76 /min 76 /min [facility] ([facility]) Diastolic blood pressure 82 mm[Hg] 82 mm[Hg] [facility] ([facility]) Systolic blood pressure 134 mm[Hg] 134 mm[Hg] [facility] ([facility]) Body mass index (BMI) [Ratio] 45.5 kg/m2 45.5 k g/m2 [facility] ([facility]) Body weight 364.00 [lb_av] 364.00 [lb_av] [facility] ([facility]) Body height 75 [in_i] 75 [in_i] [facility] ([facility]) 6'3" Heart rate 81 /min 81 /min [facility] ([facility]) Diastolic blood pressure 84 mm[Hg] 84 mm[Hg] [facility] ([facility]) Systolic blood pressure 140 mm[Hg] 140 mm[Hg] [facility] ([facility]) Body weight 364.00 [lb_av] 364.00 [lb_av] [facility] ([facility]) Body weight 357.00 [lb_av] 357.00 [lb_av] [facility] ([facility]) Body weight 357.00 [lb_av] 357.00 [lb_av] [facility] ([facility]) Body weight 364.00 [lb_av] 364.00 [lb_av] [facility] ([facility]) Heart rate 78 /min 78 /min [facility] ([facility]) Diastolic blood pressure 80 mm[Hg] 80 mm[Hg] [facility] ([facility]) Systolic blood pressure 132 mm[Hg] 132 mm[Hg] [facility] ([facility]) Body weight 369.00 [lb_av] 369.00 [lb_av] [facility] ([facility]) Body weight 268.00 [lb_av] 268.00 [lb_av] [facility] ([facility]) Body height 73 [in_us] 73 [in_us] [facility]CW[facility] ([facility] Body mass index (BMI) [Ratio] 47.49 kg/m2 47.49 kg/m2 [facility]CW1 ([facility]) Body weight Measured 360 [lb_av] 360 [lb_av] eC W1 ([facility]) ID Date Data Source [id number] 08/14/2020 10:42:58 AM [facility] Name Value Range Interpretation Code Description Data Source(s) WEIGHT RECORDED 310.8 lb 310.8 lb [facility]
--- OUTSIDE RECORDS SUMMARY | 2020-09-23 11:36 | CCD ---
Author Author [facility] Organization [facility] Address Unknown Phone Unavailable Care Team Providers Care [employer] Worker Name Role Phone JENSEN BENAVIDES MD Unavailable [...] MD Unavailable Unavailable HananeBob MD Unavailable Unavailable MiltonBob MD Unavailable Unavailable MiltonBob MD Unavailable Unavailable HananeBob MD Unavailable Unavailable HananeBob MD Unavailable Unavailable HananeBob MD Unavailable Unavailable MiltonBob MD Unavailable Unavailable MiltonBob MD Unavailable Unavailable HananeBob MD Unavailable Unavailable MiltonBob MD Unavailable Unavailable MiltonBob MD Unavailable Unavailable MiltonBob MD Unavailable Unavailable MiltonBob MD Unavailable Unavailable MiltonBob MD Unavailable Unavailable MiltonBob MD Unavailable Unavailable MiltonBob MD Unavailable Unavailable MiltonBob MD Unavailable Unavailable MiltonBob MD Unavailable Unavailable MiltonBob MD Unavailable Unavailable HananeBob MD Unavailable Unavailable MiltonBob MD Unavailable Unavailable MiltonBob MD Unavailable Unavailable HananeBob MD Unavailable Unavailable HananeBob MD Unavailable Unavailable MiltonBob MD Unavailable Unavailable MiltonBob MD Unavailable Unavailable HananeBob MD Unavailable Unavailable MiltonBob MD Unavailable Unavailable MiltonBob MD Unavailable Unavailable HananeBob MD Unavailable Unavailable HananeBob MD Unavailable Unavailable HananeBob MD Unavailable Unavailable HananeBob MD Unavailable Unavailable HananeBob MD Unavailable Unavailable MiltonBob MD Unavailable Unavailable HananeBob bateman MD Unavailable Unavailable MiltonBob MD Unavailable Unavailable HananeBob MD Unavailable Unavailable HananeBob MD Unavailable Unavailable HananeBob MD Unavailable Unavailable MiltonBob MD Unavailable Unavailable HananeBob MD Unavailable Unavailable HananeBob MD Unavailable Unavailable HananeBob MD Unavailable Unavailable MiltonBob MD Unavailable Unavailable HananeBob MD Unavailable Unavailable MiltonBob MD Unavailable Unavailable HananeBob MD Unavailable Unavailable HananeBob MD Unavailable Unavailable HananeBob MD Unavailable Unavailable HananeBob MD Unavailable Unavailable MiltonBob MD Unavailable Unavailable HananeBob MD Unavailable Unavailable HananeBob MD Unavailable Unavailable HananeBob MD Unavailable Unavailable MiltonBob MD Unavailable Unavailable MiltonBob MD Unavailable Unavailable Milton, Bob Bardales MD Unavailable Unavailable Hanane, Bob Bardales MD Unavailable Unavailable Milton, Bob Bardales MD Unavailable Unavailable Milton, Bob Bardales MD Unavailable Unavailable Hanane, Bob Bardales MD Unavailable Unavailable Jason GUEVARAEST Unavailable Unavailable Arcadio, B Robb MD Unavailable Unavailable Arcadio, B Robb MD Unavailable Unavailable Arcdaio, B Robb MD Unavailable Unavailable Arcadoi, B Robb MD Unavailable Unavailable Arcadio, B [...] A ODIN DO Unavailable Unavailable Iglesia, Mady ACTIVITY AID Unavailable Unavailable Iglesia, Mady ACTIVITY AID Unavailable Unavailable Iglesia, Mady ACTIVITY AID Unavailable Unavailable Iglesia, Mady ACTIVITY AID Unavailable Unavailable Iglesia, Mady ACTIVITY AID Unavailable Unavailable Iglesia, Mady ACTIVITY AID Unavailable Unavailable Iglesia, Mady ACTIVITY AID Unavailable Unavailable Iglesia, Mady ACTIVITY AID Unavailable Unavailable Iglesia, Mady ACTIVITY AID Unavailable Unavailable Iglesia, Mady ACTIVITY AID Unavailable Unavailable Iglesia, Mady ACTIVITY AID Unavailable Unavailable Iglesia, Mady ACTIVITY AID Unavailable Unavailable Iglesia, Mady ACTIVITY AID Unavailable Unavailable Iglesia, Mady ACTIVITY AID Unavailable Unavailable Iglesia, Mady ACTIVITY AID Unavailable Unavailable Iglesia, Mady ACTIVITY AID Unavailable Unavailable Iglesia, Mady ACTIVITY AID Unavailable Unavailable Iglesia, Mady ACTIVITY AID Unavailable Unavailable Iglesia, Mady ACTIVITY AID Unavailable Unavailable Iglesia, Mady ACTIVITY AID Unavailable Unavailable Iglesia, Mady ACTIVITY AID Unavailable Unavailable Iglesia, Mady ACTIVITY AID Unavailable Unavailable Iglesia, Mady ACTIVITY AID Unavailable Unavailable Iglesia, Mady ACTIVITY AID Unavailable Unavailable Iglesia, Mady ACTIVITY AID Unavailable Unavailable Iglesia, Mady ACTIVITY AID Unavailable Unavailable Iglesia, Mady ACTIVITY AID Unavailable Unavailable Iglesia, Mady ACTIVITY AID Unavailable Unavailable Iglesia, Mady ACTIVITY AID Unavailable Unavailable Iglesia, Mady ACTIVITY AID Unavailable Unavailable Iglesia, Mady ACTIVITY AID Unavailable Unavailable Iglesia, Mady ACTIVITY AID Unavailable Unavailable Iglesia, Mady ACTIVITY AID Unavailable Unavailable Iglesia, Mady ACTIVITY AID Unavailable Unavailable Iglesia, Mady ACTIVITY AID Unavailable Unavailable Iglesia, Mady ACTIVITY AID Unavailable Unavailable Iglesia, Mady ACTIVITY AID Unavailable Unavailable Iglesia, Mady ACTIVITY AID Unavailable Unavailable Iglesia, Mady ACTIVITY AID Unavailable Unavailable Iglesia, Mady ACTIVITY AID Unavailable Unavailable Iglesia, Mady ACTIVITY AID Unavailable Unavailable Iglesia, Mady ACTIVITY AID Unavailable Unavailable Iglesia, Mady ACTIVITY AID Unavailable Unavailable Iglesia, Mady ACTIVITY AID Unavailable Unavailable Iglesia, Mady ACTIVITY AID Unavailable Unavailable Iglesia, Mady ACTIVITY AID Unavailable Unavailable Iglesia, Mady ACTIVITY AID Unavailable Unavailable Iglesia, Mady ACTIVITY AID Unavailable Unavailable Iglesia, Mady ACTIVITY AID Unavailable Unavailable Iglesia, Mady ACTIVITY AID Unavailable Unavailable Iglesia, Mady ACTIVITY AID Unavailable Unavailable Iglesia, Mady ACTIVITY AID Unavailable Unavailable Iglesia, Mady ACT[facility]ITY A[facility] Unavailable Unavailable Re-disclosure Warning The records that [...] is protected by Article 27-F of the [facility] Public Health law. If you continue you may have access to information: Regarding HIV / AIDS; Provided by facilities licensed or operated by the [facility] Office of Mental Health; or Provided by the [facility] Office for People With Developmental Disabilities. If such information is present, then the following [facility] mandated warning applies: This information has [...] law may result in a fine or senior care sentence or both. A general authorization for the release of medical or other information is NOT sufficient authorization for further disc losure. Allergies and Adverse Reactions Type Description Substance Reaction Status Data Source(s ) Drug Class NO KNOWN ALLERGIES NO KNOWN ALLERGIES [facility] Drug allergy No Known Drug Allergies No Known Drug Allergies [facility] Drug allergy No Known Allergies No Known Allergies [facility] Family History Family Member Name Family Member Gender Family Member Status Date o f Status Description Data Source(s) Unknown Male Problem [facility] ([facility]) Encounters Encounter Providers Location Date Indications Data Source(s ) Outpatient Attender: Robb Ervin MD 09/02/2020 12:00:0 0 AM [facility] Outpatient Attender: ADEEL Nievesferrer: Robb zepeda MD 08/26/2020 12:00:00 AM [facility] Outpatient 08/23/2020 12:00:00 AM [facility] Outpatient Attender: JENSEN BENAVIDES MDAttender: JENSEN CORRIGAN MD ER-ASUR 08/18/2020 09:00:00 AM [facility] Admission cancelled. Disregard status an d admitted date. Outpatient Attender: Robb Ervin MD 08/18/2020 12:00:0 0 AM [facility] Outpatient Referrer: Robb Ervin MD 08/15/2020 12:00:0 0 AM [facility] Outpatient Referrer: Robb Ervin MD 08/15/2020 12:00:0 0 AM [facility] Outpatient Attender: JENSEN BENAVIDES MDAttender: JENSEN CORRIGAN MD ER-LAB 08/12/2020 06:20:00 AM [facility] Outpatient Attender: Robb Ervin MD [id number] 12:00:00 AM EST - 08/05/2020 10:26:14 AM EST Hepatomegaly, not elsewhere classified [facility] Hepatomegaly, not elsewhere classified Office Visit Attender: Jeffy Eubanks 1 09/24/2019 09:00:00 AM EST [facility] ([facility] ) Office Visit Attender: Jeffy Eubanks 1 09/18/2019 12:00:00 PM EST [facility] ([facility] ) Outpatient Attender: Jeffy Eubanks 0 01/07/2020 01:30:00 PM EDT [facility] ([facility] ) Outpatient Attender: Mady Eubanks 0 12/18/2019 02:00:00 PM EDT [facility] ([facility] ) Outpatient Admitter: ODIN Gómezerrer: ODIN Lewis DO 10/03/2019 12:00:00 AM EST - 10/03/2019 11:59:00 PM EST Malignant neoplasm of retroperitoneum [facility] Malignant neoplasm of retroperitoneum Outpatient Attender: Jeffy Eubanks 0 10/01/2019 08:00:00 AM EST [facility] ([facility] ) [facility] 08/07/2019 12:00:00 AM EST eCW1 ([facility] ) Immunizations Vaccine Date Status Description Data Source(s) Influenza, injectable, MDCK, preservative free, nara valent 05/26/2020 08:23:00 AM EDT completed [facility] Medications Medication Brand Name Start Date Product Form Dose Route Admi nistrative Instructions Pharmacy Instructions Status Indications Reaction Description Data Source(s) Oseltamivir 75 MG Oral Capsule Oseltamivir Phosphate 09/15/2020 12:00:00 AM EST ORAL completed [facility] ([facility]) rivaroxaban 20 MG Oral Tablet [Xarelto] Xarelto 08/12/2020 12:00:0 0 AM EST ORAL active [facility] ([facility]) Immunization Adminstration,1 Vaccine/Toxoid 05/26/2020 12:00 :00 AM EDT completed [facility] ([facility]) Medication administered onsite 0.5 ML dulaglutide 3 MG/ML Auto-Injector [Trulicity] Trulici ty 01/07/2020 12:00:00 AM EDT active M [facility]ENT ([facility]) 0.5 ML dulaglutide 1.5 MG/ML Auto-Injector [Trulicity] [facility] 12/18/2019 12:00:00 AM EDT completed [facility] ([facility]) Insurance Providers Payer name Policy type / Coverage type Policy ID Covered democrat ID Covered democrat's relationship to juares Policy Juares Plan Information UMR [facility] [id number] WI2 [id number] UMR [id number] WIF [id number] UMR O [id number] P [id number] UMR U [id number] Spouse [id number] UMR F [id number] SPOUSE [id number] UMR F [id number] SPOUSE [id number] [employer]Um[employer] (Old) Medigap Part B [id number] Family Dependent [id number] Umr (New [place]) Medigap Part B [id number] Family Dependent [id number] [employer] [id number] Family Dependent [id number] [employer] (Old) Medigap Part B [id number] Family Dependent [id number] P[employer] [id number] WI2 [id number] Umr Commercial [id number] Self [id number] [employer] (Old) Medigap Part B [id number] Family Dependent [id number] [place] Ppo Medigap Part B [id number] Family Dependent [id number] [place] Ppo Medigap Part B [id number] Family Dependent [id number] [place] Ppo Medigap Part B 335 Family Dependent 335 [employer] Ppo Family Dependent Ppo POMCO [id number] WIF [id number] I FEDERAL [id number] SP [id number] 0 [id number] Problems, Conditions, and Diagnoses Code Display Name Description Problem Type Effective Dates Data Source(s) L60.0 [id number] Ingrown toenail Problem 08/07/2019 12:00:00 AM EST eCW1 ([facility]) Z79.899 Other chcf (current) drug therapy O THER 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 tisha G47.33 Obstructive sleep apnea (adult) (pediatr ic) OBSTRUCTIVE SLEEP APNEA (ADULT) (PEDIATRIC) Diagnosis 08/15/2020 09:00:[address] [facility] tisha I48.20 CHRONIC ATRIAL FIBRILLATION, UNSPECIFIED CHRONIC ATRIAL FIBRILLATION, UNSPECIFIED Diagnosis 08/15/2020 09:00:00 AM EST [facility] tisha E78.00 PURE HYPERCHOLESTEROLEMIA, UNSPECIFIED P URE HYPERCHOLESTEROLEMIA, UNSPECIFIED Diagnosis 08/15/2020 09:00:[address] [facility] tisha E11.9 Type 2 diabetes mellitus without complic ations TYPE 2 DIABETES MELLITUS WITHOUT COMPLICATIONS Diagnosis 08/15/2020 09:00:00 AM [facility] pital I10 Essential (primary) hypertension ESSENTIAL (PRIMARY) H YPERTENSION Diagnosis 08/15/2020 09:00:00 AM [facility] C22.0 Liver cell carcinoma LIVER CELL CARCINOMA Diagnosis 08/15/2020 09:00:00 AM [facility] Z20.822 CONTACT WITH AND SUSPECTED EXPOSURE TO C OVID-19 CONTACT WITH AND SUSPECTED EXPOSURE TO COVID-19 Diagnosis 08/12/2020 06:20:00 AM [facility] Z01.812 Encounter for preprocedural laboratory e xamination ENCOUNTER FOR PREPROCEDURAL LABORATORY EXAMINATION Diagnosis 08/12/2020 06:20:00 AM [facility] R16.0 Hepatomegaly, not elsewhere classified H epatomegaly, not elsewhere classified Diagnosis 08/05/2020 08:48:54 AM [facility] 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 Ma lignant neoplasm of retroperitoneum Diagnosis 10/03/2019 09:10:00 AM [facility] Surgeries/Procedures Procedure Description Date Indications Data Source(s) THROMBOPLASTIN TIME PARTIAL PLASMA/WHOLE BLOOD PARTIA L THROMBOPLASTIN TIME (PTT) STAT 08/05/2020 10:33 AM EST Liver mass 08/05/2020 10:33:00 AM EST Liver mass [facility] Liver mass IMMUNOASSAY TUMOR ANTIGEN QUANTITATIVE CA 19-9 CANCER ANTIGEN 1 9-9 Routine 08/05/2020 10:33 AM EST Liver mass 08/05/2020 10:33:00 AM EST Liver mass [facility] Liver mass ALPHA-FETOPROTEIN SERUM AFP TUMOR MARKER Routine 08/05/2020 10:33 A M EST 08/05/2020 10:33:00 AM EST [facility] PROTHROMBIN TIME PROTIME INR STAT 08/05/2020 10:33 AM EST Liver mass 08/05/2020 10:33:00 AM EST Liver mass [facility] Liver mass BLOOD COUNT COMPLETE AUTO&AUTO DIFRNTL WBC COUNT CBC AND DIFFER ENTIAL STAT 08/05/2020 10:33 AM EST Liver mass 08/05/2020 10:33:00 AM EST Liver mass [facility] Liver mass CARCINOEMBRYONIC ANTIGEN CEA CEA Routine 08/05/2020 10:33 AM EST Liver mass 08/05/2020 10:33:00 AM EST Liver mass [facility] Liver mass COMPREHENSIVE METABOLIC PANEL COMPREHENSIVE METABOLIC PANEL Rou lito 08/05/2020 10:33 AM EST Liver mass 08/05/2020 10:33:00 AM EST Liver mass [facility] Liver mass SURGICAL PATHOLOGY CONSULT SURGICAL PATHOLOGY CONSULT Routine 10/03/2019 12:00 AM EST 10/03/2019 05:00:00 AM EST [facility] AVULSION NAIL PLATE PARTIAL/COMPLETE SIMPLE 1 08/07/20 19 12:00:00 AM EST eCW1 ([facility]) Results ID Date Data Source [id number] 09/22/2020 02:02:00 PM EST [facility] ([facility]) Name Value Range Interpretation Code Description Data Maisha rce(s) Supporting Document(s) Digoxin [Mass/volume] in Serum or Plasma 2.1 ng/mL 0.5-2.0 [facility] ([facility]) ID Date Data Source [id number] 09/22/2020 02:01:00 PM EST [facility] ([facility]) Name Value Range Interpretation Code Description Data Maisha rce(s) Supporting Document(s) Glucose [Mass/volume] in Serum or Plasma 72 mg/dL 74-99 [facility] ([facility]) 100-125 mg/dL PRE-DIABETES/FASTING >126 mg/dL DIABETES/FASTING Urea nitrogen [Mass/volume] in Serum or Plasma 71 mg/dL 7-18 [facility] ([facility]) Creatinine 2.8 mg/dL 0.6-1.3 [facility] ([facility] Sodium [Moles/volume] in Serum or Plasma 130 meq/L 136-145 [facility] ([facility]) Potassium [Moles/volume] in Serum or Plasma 5.9 meq/L 3.5-5.1 [facility] ([facility]) NOTE: RESULT VERIFIED. NO VISIBLE HEMOLYSIS. Chloride [Moles/volume] in Serum or Plasma 95 meq/L 98-107 [facility] ([facility]) Calcium [Mass/volume] in Serum or Plasma 8.5 mg/dL 8.5-10.1 [facility] ([facility]) Carbon dioxide, total [Moles/volume] in Serum or Plasma 26 meq/L 21 -32 [facility] ([facility]) Total Bilirubin 3.8 mg/dL 0.2-1.0 [facility] ([facility]) NOTE: RESULT VERIFIED. Alkaline phosphatase isoenzyme [Units/volume] in Serum or Pl asma 1249 mg/dL 46-116 [facility] ([facility]) Alanine aminotransferase [Enzymatic activity/volume] in Seru m or Plasma 749 U/L 12-78 [facility] ([facility]) NOTE: RESULT VERIFIED. Aspartate aminotransferase [Enzymatic activity/volume] in Serum or Plasma 4651 U/L 15-37 [facility] ([facility] ) NOTE: RESULT VERIFIED. Albumin [Mass/volume] in Serum or Plasma 2.5 g/dL 3.4-5.0 [facility] ([facility]) Proteinase 3 Ab [Units/volume] in Serum 6.5 g/dL 6.4-8.2 [facility] ([facility]) A/G Ratio 0.63 CALC 1.00-1.90 [facility]) Glomerular filtration rate/1.73 sq M pre dicted among blacks [Volume Rate/Area] in Serum or Plasma by Creatinine-based formula (MDRD) 28 mL/min [facility] <content>CHRONIC KIDNEY DISEASE STAGING PER NKF</content>
<content></content>
<content>STAGE I & II GFR >= 60 NORMAL TO MILDLY DECREASED</content>
<content>STAGE III GFR 30-59 MODERATELY DECREASED</content>
<content>STAGE IV GFR 15-29 SEVERELY DECREASED</content>
<content>STAGE V GFR <15 VERY LITTLE GFR LEFT</content>
<content>ESRD GFR <15 ON PSYCHIATRIC ATTENDANT</content>
<content></content> Glomerular filtration rate/1.73 sq M pre dicted among non-blacks [Volume Rate/Area] in Serum or Plasma by Creatinine-based formula (MDRD) 23 mL/min [facility] ID Date Data Source [id number] 09/22/2020 02:01:00 PM EST [facility] ([facility]) Name Value Range Interpretation Code Description Data Maisha rce(s) Supporting Document(s) Leukocytes [#/volume] in Blood by Automated count 4.7 x10*3/UL 4.1-10 .9 [facility] ([facility]) Erythrocytes [#/volume] in Blood by Automated count 3.15 x10*6/UL 4.2 0-6.30 [facility] Hemoglobin [Mass/volume] in Blood 8.8 g/dL 12.0-18.0 [facility] ([facility]) NOTE: RESULT VERIFIED. Hematocrit [Volume Fraction] of Blood by Automated count 25.8 % 3 7.0-51.0 [facility] MCV 81.9 fL 80.0-97.0 [facility] ([facility]) MCH 28.1 pg 26.0-32.0 [facility] ([facility]) MCHC 34.3 g/dL 31.0-38.0 [facility] ([facility]) Erythrocyte distribution width [Ratio] by Automated count 15.5 % 11.6-13.7 [facility] MPV 9.0 FL 7.8-11.0 [facility] ([facility]) Platelets [#/volume] in Blood by Automated count 424 x10*3/UL 140-440 [facility] ([facility]) Mid % 4.6 % 1.7-9.3 [facility] Lymph % 14.8 % 10.0-58.5 [facility] Neut % 80.6 % 37.0-92.0 [facility] Lymph # 0.7 x10*3/UL 0.6-4.1 [facility] ([facility]) Mid # 0.2 x10*3/UL 0.1-0.6 [facility] ([facility]) Neut # 3.8 x10*3/UL 2.0-7.8 [facility] ([facility]) ID Date Data Source [id number] 08/15/2020 12:27:00 PM EST Hanna giles Exam Number: [id number] OF EXAMINATIO N: 08/15/2020 9:49 ESTU/S GUIDED [...] Reported By: Erik BENAVIDES M.D. Signed By: Milargos BENAVIDES M.D. Name Value Range Interpretation Code Description Data Maisha rce(s) Supporting Document(s) ID Date Data Source [id number] 08/15/2020 10:04:00 AM EST [facility] ([facility]) Name Value Range Interpretation Code Description Data Maisha rce(s) Supporting Document(s) Laboratory test finding (navigational concept) Laboratory test result [facility] ([facility]) Received in formalin, labeled with prope r patient identification and liver mass biopsy x2 Laboratory test finding (navigational concept) Laboratory test result [facility] ([facility]) diameter. All processed in one cassette. Laboratory test finding (navigational concept) Laboratory test result [facility] ([facility]) cores are four becker-white tissue cores r anging in length from 0.3-1.4 cm and 0.1 cm in Microscopic Examination Laboratory test result [facility] Slides reviewed. Diagnosis supported by microscopic examination. Laboratory test finding (navigational concept) Laboratory test result [facility] ULTRASOUND GUIDED BIOPSY OF LIVER MASS: Laboratory test finding (navigational concept) Laboratory test result [facility] Laboratory test finding (navigational concept) Laboratory test result [facility]) METAMORPHOSIS, FIBROSIS AND AREAS OF NEC ROSIS Laboratory test finding (navigational concept) Laboratory test result [facility] - FEATURES ARE STRONGLY SUGGESTIVE OF HE PATOCELLULAR CARCINOMA WITH FATTY Laboratory test finding (navigational concept) Laboratory test result [facility] Laboratory test finding (navigational concept) Laboratory test result [facility] ABNORMAL FINDINGS Laboratory test finding (navigational concept) Laboratory test result [facility] ABNORMAL FINDINGS Laboratory test finding (navigational concept) Laboratory test result [facility] METAMORPHOSIS, FIBROSIS AND AREAS OF NEC ROSIS Laboratory test finding (navigational concept) Laboratory test result [facility] - FEATURES ARE STRONGLY SUGGESTIVE OF HE PATOCELLULAR CARCINOMA WITH FATTY Laboratory test finding (navigational concept) Laboratory test result [facility] ULTRASOUND GUIDED BIOPSY OF LIVER MASS: Laboratory test finding (navigational concept) Laboratory test result [facility] Laboratory test finding (navigational concept) Laboratory test result [facility] ABNORMAL FINDINGS Laboratory test finding (navigational concept) Laboratory test result [facility] ABNORMAL FINDINGS Laboratory test finding (navigational concept) Laboratory test result [facility] ([facility]) COMMENT: This case is referred to the [facility], Department of Pathology for a Laboratory test finding (navigational concept) Laboratory test result [facility] ([facility]) Laboratory test finding (navigational concept) Laboratory test result [facility] ([facility]) REPORT SIGNED: Macy Foster DO 08/08 08/28 (preliminary) Laboratory test finding (navigational concept) Laboratory test result [facility] ([facility]) consultation by a GI pathologist to [facility] for hepatocellular carcinoma. Upon receipt of Laboratory test finding (navigational concept) Laboratory test result [facility] ([facility]) This case was sent to [facility] for consultation. The report for Laboratory test finding (navigational concept) Laboratory test result [facility] ([facility]) is as follows. Laboratory test finding (navigational concept) Laboratory test result [facility] ([facility]) LIVER, MASS, BIOPSY: Laboratory test finding (navigational concept) Laboratory test result [facility] ([facility]) MALIGNANCY Laboratory test finding (navigational concept) Laboratory test result [facility] ([facility]) - MODERATELY-DIFFERENTIATED HEPATOCELLUL AR CARCINOMA. SEE COMMENT. Laboratory test finding (navigational concept) Laboratory test result [facility] ([facility]) MALIGNANCY Laboratory test finding (navigational concept) Laboratory test result [facility] ([facility]) cores are four becker-white tissue cores r anging in length from 0.3-1.4 cm and 0.1 cm in Laboratory test finding (navigational concept) Laboratory test result [facility] Received in formalin, labeled with prope r patient identification and liver mass biopsy x2 Laboratory test finding (navigational concept) Laboratory test result [facility] ([facility]) Microscopic Examination Laboratory test result [facility] Slides reviewed. Diagnosis supported by microscopic examination. Laboratory test finding (navigational concept) Laboratory test result [facility] ([facility]) diameter. All processed in one cassette. Laboratory test finding (navigational concept) Laboratory test result [facility] ([facility]) Report faxed to Dr. Jeffy Koo's [facility] on 08/18/2020. Laboratory test finding (navigational concept) Laboratory test result [facility] ([facility]) their report, the final diagnosis will b e posted. Laboratory test finding (navigational concept) Laboratory test result [facility] ([facility]) ULTRASOUND GUIDED BIOPSY OF LIVER MASS: Laboratory test finding (navigational concept) Laboratory test result [facility] ([facility]) METAMORPHOSIS, FIBROSIS AND AREAS OF NEC ROSIS Laboratory test finding (navigational concept) Laboratory test result [facility] ([facility]) - FEATURES ARE STRONGLY SUGGESTIVE OF HE PATOCELLULAR CARCINOMA WITH FATTY Laboratory test finding (navigational concept) Laboratory test result [facility] ([facility]) 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, Laboratory test finding (navigational concept) Laboratory test result [facility] ([facility]) Laboratory test finding (navigational concept) Laboratory test result [facility] ([facility]) REPORT SIGNED: Macy Foster DO 08/08 08/28 (preliminary) Laboratory test finding (navigational concept) Laboratory test result [facility] ([facility]) 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 There is no background liver parenchyma present in the biopsy. HepPar1, Laboratory test finding (navigational concept) Laboratory test result [facility] ([facility]) Arginase-1 and GPC-3 immunohistochemical stains, as well as a reticulin stain, were Laboratory test finding (navigational concept) Laboratory test result [facility] ([facility]) remaining for evaluation. Laboratory test finding (navigational concept) Laboratory test result [facility] ([facility]) attempted to further characterize the le bismark but there was insufficient tissue Laboratory test finding (navigational concept) Laboratory test result [facility] ([facility]) intradepartmental consultation conferenc e. (RW, NF, ) Laboratory test finding (navigational concept) Laboratory test result [facility] ([facility]) [employer] slides of this case were reviewed at the gastrointestinal/liver Laboratory test finding (navigational concept) Laboratory test result [facility] ([facility]) Patrick Damon MD Laboratory test finding (navigational concept) Laboratory test result [facility] ([facility]) [address] Laboratory test finding (navigational concept) Laboratory test result [facility] ([facility]) Electronically Signed By: Laboratory test finding (navigational concept) Laboratory test result [facility] ([facility]) Patrick Damon MD Laboratory test finding (navigational concept) Laboratory test result [facility] ([facility]) Received in formalin, labeled with prope r patient identification and liver mass biopsy x2 Laboratory test finding (navigational concept) Laboratory test result [facility] ([facility]) [address] Laboratory test finding (navigational concept) Laboratory test result [facility] ([facility]) cores are four becker-white tissue cores r anging in length from 0.3-1.4 cm and 0.1 cm in Laboratory test finding (navigational concept) Laboratory test result [facility] ([facility]) diameter. All processed in one cassette. Laboratory test finding (navigational concept) Laboratory test result [facility] ([facility]) Microscopic Examination [facility] Slides reviewed. Diagnosis supported by microscopic examination. Laboratory test finding (navigational concept) Laboratory test result [facility] ([facility]) ABNORMAL FINDINGS Laboratory test finding (navigational concept) Laboratory test result [facility] ([facility]) ULTRASOUND GUIDED BIOPSY OF LIVER MASS: Laboratory test finding (navigational concept) Laboratory test result [facility] ([facility]) ABNORMAL FINDINGS Laboratory test finding (navigational concept) Laboratory test result [facility] ([facility]) - FEATURES ARE STRONGLY SUGGESTIVE OF HE PATOCELLULAR CARCINOMA WITH FATTY Laboratory test finding (navigational concept) Laboratory test result [facility] ([facility]) METAMORPHOSIS, FIBROSIS AND AREAS OF NEC ROSIS Laboratory test finding (navigational concept) Laboratory test result [facility] ([facility]) consultation by a GI pathologist to eval uate for hepatocellular carcinoma. Upon receipt of Laboratory test finding (navigational concept) Laboratory test result [facility] ([facility]) ABNORMAL FINDINGS Laboratory test finding (navigational concept) Laboratory test result [facility] ([facility]) their report, the final diagnosis will b e posted. Laboratory test finding (navigational concept) Laboratory test result [facility] ([facility]) Report faxed to Dr. Jeffy Koo's [facility] on 08/18/2020. Laboratory test finding (navigational concept) Laboratory test result [facility] ([facility]) ABNORMAL FINDINGS Laboratory test finding (navigational concept) Laboratory test result [facility] ([facility]) COMMENT: This case is referred to the [facility], Department of Pathology for a Laboratory test finding (navigational concept) Laboratory test result [facility] ([facility]) consultation by a GI pathologist to eval uate for hepatocellular carcinoma. Upon receipt of Laboratory test finding (navigational concept) Laboratory test result [facility] ([facility]) REPORT SIGNED: Macy Foster DO 08/08 08/28 (preliminary) Laboratory test finding (navigational concept) Laboratory test result [facility] ([facility]) Laboratory test finding (navigational concept) Laboratory test result [facility] ([facility]) their report, the final diagnosis will b e posted. Laboratory test finding (navigational concept) Laboratory test result [facility] ([facility]) Laboratory test finding (navigational concept) Laboratory test result [facility] ([facility] [place] [address] Laboratory test finding (navigational concept) [id number] [facility] ([facility]) Laboratory test finding (navigational concept) Laboratory test result [facility] ([facility]) Received in formalin, labeled with prope r patient identification and liver mass biopsy x2 Laboratory test finding (navigational concept) Laboratory test result [facility] ([facility]) Laboratory test finding (navigational concept) Laboratory test result [facility] ([facility]) Laboratory test finding (navigational concept) Laboratory test result [facility] ([facility]) diameter. All processed in one cassette. Laboratory test finding (navigational concept) Laboratory test result [facility] ([facility]) cores are four becker-white tissue cores r anging in length from 0.3-1.4 cm and 0.1 cm in Laboratory test finding (navigational concept) Laboratory test result [facility] ([facility]) Laboratory test finding (navigational concept) Laboratory test result [facility] ([facility]) Report faxed to Dr. Jeffy Koo's [facility] on 08/18/2020. Microscopic Examination Laboratory test result [facility] ([facility]) Slides reviewed. Diagnosis supported by microscopic examination. Laboratory test finding (navigational concept) Laboratory test result [facility] ([facility]) REPORT SIGNED: Macy Foster DO 08/08 08/28 (preliminary) Laboratory test finding (navigational concept) Laboratory test result [facility] ([facility]) Macy Foster DO 08/26/20 Laboratory test finding (navigational concept) Laboratory test result [facility] ([facility]) ID Date Data Source [id number] 08/26/2020 02:16:00 PM EST [facility] t[facility] No cc. written on requisition form. ( AB) This case was sent to [facility] for consultation. The report forAccession #[id number] [...] but there was insufficient tissueremaining for evaluation. [employer] slides of this case were reviewed at the gastrointestinal/liverintradepartmental consultation conference. (RW, NF, ) Electronically Signed By: Patrick Damon MD[address] [place] [id number] CODE/S:[id number] Received in formalin, labeled with proper patient identification and "liver mass biopsy k3cheow" are four becker-white tissue cores ranging in [...] rce(s) Supporting Document(s) ID Date Data Source [id number] 08/15/2020 08:58:00 AM EST [facility] ([facility]) Name Value Range Interpretation Code Description Data Maisha rce(s) Supporting Document(s) Erythrocytes [#/volume] in Blood by Automated count 3.59 x10E6/uL 4.7 0-6.00 [facility] ([facility]) Leukocytes [#/volume] in Blood by Automated count 5.23 x10E3/uL 4.0-1 0.5 [facility] ([facility]) Hemoglobin [Mass/volume] in Blood 9.7 g/dL 14.0-18.0 [facility] ([facility]) MCV 84.4 fL 81.0-99.0 [facility] ([facility] Hematocrit [Volume Fraction] of Blood by Automated count 30.3 % 4 2.0-52.0 [facility] ([facility]) MCH 27.0 pg 27.0-31.0 [facility] ([facility]) RDW 18.0 % 11.5-14.0 [facility] ([facility]) MCHC 32.0 g/dL 32.7-35.6 [facility] ([facility]) Platelets [#/volume] in Blood by Automated count 257 x10E3/uL 150-450 [facility] ([facility]) MPV 9.9 fl 6.9-9.5 [facility] ([facility]) Monocytes 13.2 % 1.7-10.6 [facility] ([facility]) Neutrophils 72.4 % 34-64 [facility] ([facility]) Lymphocytes 10.9 % 25-45 [facility] ([facility]) Eosinophils 2.3 % 0.4-7.0 [facility] ([facility]) Imm. Gran. 0.6 % 0.1-2.0 [facility] Basophils 0.6 % 0.1-2.0 [facility] ([facility]) Abs. [place]. 0.69 x10E3/uL 0.1-1.0 [facility] ([facility]) Abs. Lymph. 0.57 x10E3/uL 1.0-3.5 [facility] ([facility]) Abs. Neutro. 3.79 x10E3/uL 1.2-7.6 [facility] ([facility]) Abs. Baso. 0.03 x10E3/uL 0.0-0.1 [facility] ([facility]) Abs. Imm. Gran. 0.03 x10E3/uL 0.0-0.1 [facility] ([facility]) DIFFERENTIAL CONFIRMED BY SLIDE REVIEW. Abs. Eosin. 0.12 x10E3/uL 0.1-0.7 [facility] ([facility]) Laboratory test finding (navigational concept) 0 % [facility] ([facility]) RBC Morphology Laboratory test result [facility] ([facility]) RBC Morphology Laboratory test result [facility] ([facility]) RBC Morphology Laboratory test result [facility] ([facility]) OCC STOMATOCYTES RBC Morphology Laboratory test result [facility] ([facility]) OCC TARGET CELLS RBC MORPHOLOGY EXPECTED RESULTS: NORMAL = NORMOCHROMIC, NORMOCYTIC CELLS Any findings other than Normal will be reported and are considered Abnormal. The significance of Abnormal findings are to be clinically correlated by the provider. ID Date Data Source [id number] 08/15/2020 10:08:00 AM EST [facility] Name Value Range Interpretation Code Description Data Maisha rce(s) Supporting Document(s) WBC 5.23 x10E3/uL 4.0-10.5 [facility] RBC 3.59 x10E6/uL 4.70-6.00 [facility] Hemoglobin 9.7 g/dL 14.0-18.0 [facility] Hematocrit 30.3 % 42.0-52.0 [facility] MCV 84.4 fL 81.0-99.0 [facility] MCH 27.0 pg 27.0-31.0 [facility] MCHC 32.0 g/dL 32.7-35.6 [facility] RDW 18.0 % 11.5-14.0 [facility] Platelet count 257 x10E3/uL 150-450 [facility] ital MPV 9.9 fl 6.9-9.5 [facility] Neutrophils 72.4 % 34-64 [facility] Lymphocytes 10.9 % 25-45 [facility] Monocytes 13.2 % 1.7-10.6 [facility] Eosinophils 2.3 % 0.4-7.0 [facility] Basophils 0.6 % 0.1-2.0 [facility] Imm. Gran. 0.6 % 0.1-2.0 [facility] Abs. Neutro. 3.79 x10E3/uL 1.2-7.6 [facility] Abs. Lymph. 0.57 x10E3/uL 1.0-3.5 [facility] Abs. [place]. 0.69 x10E3/uL 0.1-1.0 [facility] Abs. Eosin. 0.12 x10E3/uL 0.1-0.7 [facility] Abs. Baso. 0.03 x10E3/uL 0.0-0.1 [facility] Abs. Imm. Gran. 0.03 x10E3/uL 0.0-0.1 [facility] DIFFERENTIAL CONFIRMED BY SLIDE REVIEW. ANRBC% 0 % 0 [facility] 2+ ANISOCYTOSIS1+ HYPOCHROMICOCC STOMATO CYTESOCC TARGET CELLSRBC MORPHOLOGY EXPECTED RESULTS: NORMAL = NORMOCHROMIC, NORMOCYTIC CELLSAny findings other than Normal will be reported and areconsidered Abnormal. The significance of Abnormalfindings are to be clinically correlated by the provider. ID Date Data Source [id number] 08/12/2020 07:00:00 AM EST [facility] ([facility]) Name Value Range Interpretation Code Description Data Maisha rce(s) Supporting Document(s) [id number] Laboratory test result [facility] ([facility]) This nucleic acid amplification test was developed and its performance characteristics determined by [facility]. Nucleic acid amplification tests include PCR and [...] Acid Amplification (BETTY) ID Date Data Source [id number] 08/12/2020 07:00:00 AM EST [facility] Name Value Range Interpretation Code Description Data Maisha rce(s) Supporting Document(s) SARS coronavirus 2 RNA Not Detected [facility] [place] This lab was ordered by [facility] and reported by [facility]. ID Date Data Source [id number] 08/13/2020 03:09:00 PM EST [facility] tisha Performed at: [employer], [place], [place] [id number] Director: Amaya Ray PhD, Phone: [phone] Name Value Range Interpretation Code Description Data Maisha rce(s) Supporting Document(s) SARS-CoV-2, BETTY Not Detected Not Detected [facility] This nucleic acid amplification test was [...] SARS-CoV-2 virusand/or diagnosis of COVID-19 infection under yrznmob660(b)(1) of the Act, 21 U.S.C. 360bbb-3(b) (1), [...] Acid Amplification (BETTY) ID Date Data Source [id number] 08/09/2020 06:16:25 PM [facility] Name Value Range Interpretation Code Description Data Maisha rce(s) Supporting Document(s) Progress Note [facility] XXBGNi3oVoQNRqYd03/LAYnmPUUwk0WnTXbaFRd9VUekNVClN0SrXSV1nU9rPIN1XBtHSnQwCrQeQMBg lbm [file] ICAgICAgICAgICAgICAgICAgICAgICAgICAgICAgICAgICAgICAgICAgICAgICAgICAgICAgICAgICAg ICAgICAgICAgICANCiAgICAgICAgICAgICAgICAgIC AgICAgICAgICAgICAgICAgICAgICAgICAgICAgICAgICAgICAgICAgICAgICAgICAgICAgICAgICAgIC AgICAgICAgICAgICAgICAgICAgICANCiAgICAgICAgICAgICAgICAgICAgICAgICAgICAgICAgICAgIC AgICAgICAgICAgICAgICAgICAgICAgICAgICAgICAg ICAgICAgICAgICAgICAgICAgICAgICAgICAgICAgICANCiAgICAgICAgICAgICAgICAgICAgICAgICAg ICAgICAgICAgICAgICAgICAgICAgICAgICAgICAgICAgICAgICAgICAgICAgICAgICAgICAgICAgICAg ICAgICAgICAgICAgICANCiAgICAgICAgICAgICAgIC AgICAgICAgICAgICAgICAgICAgICAgICAgICAgICAgICAgICAgICAgICAgICAgICAgICAgICAgICAgIC AgICAgICAgICAgICAgICAgICAgICAgICANCiAgICAgICAgICAgICAgICAgICAgICAgICAgICAgICAgIC AgICAgICAgICAgICAgICAgICAgICAgICAgICAgICAg ICAgICAgICAgICAgICAgICAgICAgICAgICAgICAgICAgICANCiAgICAgICAgICAgICAgICAgICAgICAg ICAgICAgICAgICAgICAgICAgICAgICAgICAgICAgICAgICAgICAgICAgICAgICAgICAgICAgICAgICAg ICAgICAgICAgICAgICAgICANCiAgICAgICAgICAgIC AgICAgICAgICAgICAgICAgICAgICAgICAgICAgICAgICAgICAgICAgICAgICAgICAgICAgICAgICAgIC AgICAgICAgICAgICAgICAgICAgICAgICAgICANCiAgICAgICAgICAgICAgICAgICAgICAgICAgICAgIC AgICAgICAgICAgICAgICAgICAgICAgICAgICAgICAg ICAgICAgICAgICAgICAgICAgICAgICAgICAgICAgICAgICAgICANCiAgICAgICAgICAgICAgICAgICAg ICAgICAgICAgICAgICAgICAgICAgICAgICAgICAgICAgICAgICAgICAgICAgICAgICAgICAgICAgICAg ICAgICAgICAgICAgICAgICAgICANCjw/pXDlQ3nfoY WyggV7J7qyPz2FCa0AOU8ur7VgSASdKPvdxyWvYouMWjOdSPPqRacPXba1XPdoQV9EwPBrV8MfA0OuZJ jhQJ6VMQQaUVJgaVPkNNYmLLCrSzQ6ABVxQVpgCX2HzGKzSTxpTHMsAZLfCuCdTHKbAUJbONEuTNUvVF HTLXFfLYOiUuXwROlwNN7Pz0BfjQQ8EXo+Ti5UCA5g v9YuWPglAcSqDY5xqq3JRUoSLvPsQ8VzwnN9FRM0VWHzWv3EGQQeKRZnbEPqSWOyMZMNViJuP7IjzC45 IDENCj4+NIdtshOzLxvPPkE7SPTin6XtUCz3UL2VAENrBJo6vOMqVPPsX1Hux1BbQq37CEVfOarnI1Bb g5agYJKIBDcduS1xqdPbLP9JMLH8MIShXnR0YsDrWr YcEZo7VHAnWI2aSXyfHW6YARX5GJwoQLRyQABkN6rFGdSbFIBmRaDjkQguEN5MPeEcH4AajmJtaMYhPo AwIFINCj4+RDymnoHjNyiUSlB0YFGzk7AmTHw7QY1OECWnTCxpBS6HUXCbzK6ySUfnGA8RQmEfJGKdYE CFZyAgI43arSOwRGp9U5QkKkNfQWFwOnfeVQKjBCzs TmFtZXMgWyBdDQogID4+ID4+EHpxAR4SBVtzyoOrTCMxDg5MPWOtDHKoWG5nKWMgYBMoW9B7nVvkBVOC YgSkG5nwlmcgWA7wDTLgQ593sKblsrUnDWU3RAYqVl3PLYMfLVG3OBBvwPFtVfIzPCNOBOzzKV7GfTPn AHZ4wX7fIKpwGPCuNCUvP2rPYiCfbEabWU70xRnnxg VsbCBdDQo+Hz5JKT3np4CaMMa5jcQtAMenRVJsPTgmSLEfQLDvPVBfIZI3AEI0MUZYLuPpSVWmHEKeRE lpPHJnOVVild0LKKXiJAFzFZT2KoPwKLUoWKMkDDfyBSZpUZLaBVkhIYAwXGEuVU0AFtKaBMCjTDWdFS pfTMMpJGLndt7HCEFxRISbXiQoXZZhYYToVFIbSZhc ONJbPBYjUxL7DZFiKRCfSO2EHtIeOSAbCNR2JGJmANAnLRQxoc7MXYQzNHXkAfG0TWLbPDDvIGXmBKpd UVHhSEP1GQa2EIVoTDJeIN0WAsIbYCYgIJtaAPTjASSwNHGzzn5HKWVoDJKcGNi5RHDlWOBuAHGbFLza NHIwKJFlAVG8IWSgRPXeSR0QDlXcJQBfAYQdFUQzPV JhVPPsny7QATQcBBWuApH1VJLzGPPyGUWiUTfyTMTaGHA8XaKnWPNrMMMxGM3TUxKgFNJmZAT9IItvNN QfUATpfu9KUWDkTFYrPHwlMJWwLSAkAWBuCWtxICSkODK5FebsEDNzBEXsOV8AUuGdLBOxPKD5UPMrOU EuFSMzno9KFNTrPHIaQxP6ROHwWLMoMLCjTUooITPp IPO2FXJpOFUzASYxFK7WLxYfGCGrJxq9JlKmIIWsHRNtun7CBXWfKLShYTK6TKMuUOHdMFKpPQhwAZTd OFP7Zak7DIDbSYFzXZ4MCdNfXFJpTiz6RQTtRUHqYEWxyi4GNAMaHGLiHJd2VTSgBKFiPVJfDUtiQJBv PVHtOqS0CAVgUHZvMR7OYpZeALTeWcDwMvXuAJJgJZ Zjgt5YEZTkNYFqAKIbBXClKYKgKWYwBYj4mpMhaRAlGQk1EP9SD2CilhZwSzQKPz2Gj773HMN1LBRiTb 7AL3ikCo5wLAGpJRWBXi5WLXq6HIDrDBGkYJBsWkN3WFR9VYHbWXSlANM9JECqCtXkLLh+ZPleHsD8O3 KdRWItYGLdRwNmVCL5FdW6KCU4U2FmVjK6YT2tOY ANCj4+PUjmkDWquAsxUAQNPeYoTcfhFVfyBTDGAx1L ID Date Data Source [id number] 08/05/2020 10:58:54 AM EST [facility] Name Value Range Interpretation Code Description Data Maisha rce(s) Supporting Document(s) Leukocytes [#/volume] in Blood by Automated count 5.2 10*3/uL 4-10 [facility] Erythrocytes [#/volume] in Blood by Automated count 3.89 10*6/uL 4.6- 6.1 L [facility] Hemoglobin [Mass/volume] in Blood 10.6 g/dL 13.5-18 L [facility] Hematocrit [Volume Fraction] of Blood by Automated count 32.7 % 4 1-53 L [facility] Erythrocyte mean corpuscular volume [Entitic volume] by Auto mated count 84.1 fL 80-96 [facility] Erythrocyte mean corpuscular hemoglobin [Entitic mass] by Automated count 27.3 pg 27-33 [facility] Erythrocyte mean corpuscular hemoglobin concentration [Mass/volume] by Automated count 32.4 g/dL [facility].0[facility] width [Ratio] by Automated count 17.3 % 11.5-14.5 H [facility] Platelets [#/volume] in Blood by Automated count 280 10*3/uL 150-400 [facility] Differential cell count method - Blood [facility] Neutrophils/100 leukocytes in Blood by Automated count 75 % [facility] Lymphocytes/100 leukocytes in Blood by Automated count 10 % [facility] Monocytes/100 leukocytes in Blood by Automated count 11 % [facility] Eosinophils/100 leukocytes in Blood by Automated count 3 % [facility] Basophils/100 leukocytes in Blood by Automated count 1 % [facility] Neutrophils [#/volume] in Blood by Automated count 3.90 10*3/uL 1.8-7 .0 [facility] Lymphocytes [#/volume] in Blood by Automated count 0.49 10*3/uL 1.2-4 .0 L [facility] Monocytes [#/volume] in Blood by Automated count 0.58 10*3/uL 0-0.8 [facility] Eosinophils [#/volume] in Blood by Automated count 0.16 10*3/uL 0-0.5 [facility] Basophils [#/volume] in Blood by Automated count 0.05 10*3/uL 0-0.2 [facility] Nucleated erythrocytes/100 leukocytes [Ratio] in Blood by Automated count 0 /100{WBCs} 0-0 [facility] ID Date Data Source [id number] 08/05/2020 11:28:32 AM [facility] Name Value Range Interpretation Code Description Data Maisha rce(s) Supporting Document(s) Prothrombin time (PT) 20.0 s 12.5-14.9 H [facility] INR in Platelet poor plasma by Coagulation assay 1.67 [facility] Routine intensity oral anticoagulation I NR is typically 2.0-3.0. Target INR must be clinically individualized. ID Date Data Source [id number] 08/05/2020 11:28:32 AM [facility] Value Range Interpretation Code Description Data Maisha rce(s) Supporting Document(s) aPTT in Platelet poor plasma by Coagulation assay 35.4 s 24.0-33. 0 H [facility] ID Date Data Source [id number] 08/05/2020 11:34:03 AM [facility] Value Range Interpretation Code Description Data Maisha rce(s) Supporting Document(s) Cancer Ag 19-9 [Units/volume] in Serum or Plasma <35 [facility] This test uses [employer] CA 19-9 electrochem iluminescent immunoassay. Results obtained with different test methods or kits cannot be used interchangeably. CA 19-9 is useful in monitoring pancreatic, hepatobiliary, gastric, hepatocelllular, and colorectal cancer. CA 19-9 value regardless of level, should not be interpreted as absolute evidence of the presence or absence of malignant disease. ID Date Data Source [id number] 08/05/2020 11:34:03 AM [facility] Value Range Interpretation Code Description Data Maisha rce(s) Supporting Document(s) Carcinoembryonic Ag [Mass/volume] in Serum or Plasma 1.7 ng/ml <3.4 [facility] Levels of CEA should not be interpreted as absoulute evidence of the presence or absence of disease. It should not be used as a screening test for Cancer. CEA values obtained using different methodologies cannot be used interchangeably. This method is manufactured by [employer] and is an electrochemiluminesence immunoassay. ID Date Data Source [id number] 08/05/2020 11:34:03 AM [facility] [facility] Value Range Interpretation Code Description Data Maisha rce(s) Supporting Document(s) Albumin [Mass/volume] in Serum or Plasma by Bromocresol green (BCG) dye binding method 3.8 g/dL [facility].5[facility]2 [facility] Bil[facility].total [Mass/volume] in Serum or Plasma 1.1 mg/dL <1.2 [facility] Calcium [Mass/volume] in Serum or Plasma 9.5 mg/dL 8.6-10.0 [facility] Chloride [Moles/volume] in Serum or Plasma 96 mmol/L 98-107 L [facility] Creatinine [Mass/volume] in Serum or Plasma 1.13 mg/dL 0.70-1.20 [facility] Glucose [Mass/volume] in Serum or Plasma 92 mg/dL 70-140 [facility] Alkaline phosphatase [Enzymatic activity/volume] in Serum or Plasma 347 U/L 40-129 [facility] Potassium [Moles/volume] in Serum or Plasma 5.0 mmol/L 3.4-5.1 [facility] Protein [Mass/volume] in Serum or Plasma 7.4 g/dL 6.4-8.3 [facility] Sodium [Moles/volume] in Serum or Plasma 132 mmol/L 136-145 L [facility] Aspartate aminotransferase [Enzymatic activity/volume] in Serum or Plasma 443 U/L <40 [facility] Urea nitrogen [Mass/volume] in Serum or Plasma 21 mg/dL 6-20 [facility] Osmolality of Serum or Plasma by calculation 276 mosm/kg 275-300 [facility] Creatinine/Urea nitrogen [Mass Ratio] in Serum or Plasma 19 [facility] Bicarbonate [Moles/volume] in Serum 26 mmol/L 22-29 [facility] Alanine aminotransferase [Enzymatic activity/volume] in Seru m or Plasma 93 U/L <41 [facility] Anion gap 3 in Serum or Plasma 10 mmol/L 8-15 [facility] Glomerular filtration rate/1.73 sq M pre dicted among non-blacks [Volume Rate/Area] in Serum or Plasma by Creatinine-based formula (MDRD) 70 mL/min/1.73m2 >60 [facility] Glomerular filtration rate/1.73 sq M pre dicted among blacks [Volume Rate/Area] in Serum or Plasma by Creatinine-based formula (MDRD) 81 mL/min/1.73m2 >60 [facility] ID Date Data Source [id number] 08/05/2020 03:57:22 PM EST [facility] Name Value Range Interpretation Code Description Data Maisha rce(s) Supporting Document(s) Vpwuv-5-[id number] [Mass/volume] in Serum or Plasma 18681 ng/mL <9 [facility] Confirmed ID Date Data Source [id number] 07/29/2020 12:00:00 AM EST [facility] ology Imaging Jeffy Koo Jr, MD Patient Name: KELLY SCOTT[age] [facility] Date of : 1960[place] [address] Date of Exam: 07/29/2020#: Fax: [phone] EXAM: CT THORAX WITHOUT&WITH CONTRASTCLINICAL INFORMATION: Followup lung base nodules seen prior abdominal andpelvic CT of 07/22/2020.Low dose [address] scanning of the chest was obtained using 3 mmincrements before and after the administration of intravenous contrast andreconstructed in both coronal and sagittal scan planes. 75 cc of [id number] was administered intravenously.The mediastinum and pulmonary harriet [...] order.Other findings as described above.Accredited by the [employer] in [place].ANA MARÍA Lino/Juanis you for referring KELLY SCOTT to our office. Electronically Signed - KAHLIL GARCIA DO 08/04/20 16:40 Name Value Range Interpretation Code Description Data Maisha rce(s) Supporting Document(s) ID Date Data Source [id number] 07/28/2020 08:23:00 AM EST [facility] ([facility]) Name Value Range Interpretation Code Description Data Maisha rce(s) Supporting Document(s) INR in Platelet poor plasma by Coagulation assay 1.3 [facility] ([facility]) ID Date Data Source [id number] 07/24/2020 11:21:00 AM EST [facility] ([facility]) Name Value Range Interpretation Code Description Data Maisha rce(s) Supporting Document(s) Flrja-6-Rpquqfitbet [Mass/volume] in Serum or Plasma 1000.0 ng/mL [facility] ([facility]) THE AFP ASSAY IS PERFORMED ON THE Six Month SmilesAUR BY CHEMILUMINESCENCE AND SHOULD NOT BE COMPARED INTERCHANGEABLY WITH OTHER METHODS. IT SHOULD NOT BE USED ALONE A SCREENING TEST OR DIAGNOSIS FOR THE PRESENCE OR ABSENCE OF MALIGNANT DISEASE. THESE RESULTS ARE NOT INTERPRETABLE IN FEMALES. PREDICTIONS OF DISEASE RECURRENCE SHOULD NOT BE BASED SOLELY ON VALUES OBTAINED FROM SERIAL PATIENT SERUM VALUES. Carcinoembryonic Ag [Mass/volume] in Serum or Plasma 0.6 ng/mL [facility] ([facility]) THE CEA ASSAY IS PERFORMED ON THE [employer] SL BY CHEMILUMINESCENCE AND SHOULD NOT BE COMPARED INTERCHANGEABLY WITH OTHER METHODS. IT SHOULD NOT BE USED ALONE A SCREENING TEST OR DIAGNOSIS FOR THE PRESENCE OR ABSENCE OF MALIGNANT DISEASE. PREDICTIONS OF DISEASE RECURRENCE SHOULD NOT BE BASED SOLELY ON VALUES OBTAINED FROM SERIAL PATIENT SERUM VALUES. ID Date Data Source [id number] 07/24/2020 11:15:00 AM EST [facility] ([facility]) Name Value Range Interpretation Code Description Data Maisha rce(s) Supporting Document(s) INR in Platelet poor plasma by Coagulation assay 3.3 [facility] ([facility]) ID Date Data Source [id number] 07/22/2020 12:00:00 AM [facility] Jeffy Koo Jr, MD Patient Name: KELLY SCOTT53-61 [facility] 1960[facility] [address] Date of Exam: 07/22/2020#: Fax: [phone] EXAM: [...] extensive tumor involvement with a length of [id number] cm. The spleen is mildly enlarged with [...] No adenopathy. Nodefinite bowel abnormality.Accredited by the [employer] in [place].Odin Beyer, AMY/Juanis you for referring KELLY SCOTT to our office. Electronically Signed - ODIN BEYER MD 07/22/20 16:07 Name Value Range Interpretation Code Description Data Maisha rce(s) Supporting Document(s) ID Date Data Source [id number] 07/18/2020 01:29:00 PM EST [facility]) Name Value Range Interpretation Code Description Data Maisha rce(s) Supporting Document(s) Hepatitis C Virus Winsome Index 0.1 [facility] ([facility]) Negative Not infected with HCV, unless recent infection is suspected or other evidence exists to indicate HCV infection. Hepatitis B Surface Antigen Laboratory test result [facility] Hepatitis B Core Antibody Igm Laboratory test result [facility]) Hepatitis A Antibody Igm Laboratory test result [facility] ([facility]) ID Date Data Source [id number] 07/18/2020 01:28:00 PM EST [facility] ([facility]) Name Value Range Interpretation Code Description Data Maisha rce(s) Supporting Document(s) Prostate specific Ag [Mass/volume] in Serum or Plasma 0.68 ng/mL [facility] ([facility]) This assay was performed on the Siemens Dimension EXL using the B- Galactosidase/CPRG methodology and should not be compared interchangeably with other methods. The PSA should not be used alone as a screening test for the presence or absence of malignant disease. ID Date Data Source [id number] 07/18/2020 01:28:00 PM EST [facility] ([facility]) Name Value Range Interpretation Code Description Data Maisha rce(s) Supporting Document(s) Alkaline phosphatase isoenzyme [Units/volume] in Serum or Pl asma 277 mg/dL 46-116 [facility] Total Bilirubin 0.8 mg/dL 0.2-1.0 [facility] ([facility] Alanine aminotransferase [Enzymatic activity/volume] in Seru m or Plasma 215 U/L 12-78 [facility] ([facility]) Aspartate aminotransferase [Enzymatic activity/volume] in Serum or Plasma 973 U/L 15-37 [facility] ([facility] ) NOTE: RESULT VERIFIED. Albumin [Mass/volume] in Serum or Plasma 3.8 g/dL 3.4-5.0 [facility] ([facility]) Proteinase 3 Ab [Units/volume] in Serum 7.6 g/dL 6.4-8.2 [facility] ([facility]) Direct Bilirubin 0.3 mg/dL 0.0-0.2 [facility] ([facility]) A/G Ratio 1.00 CALC 1.00-1.90 [facility] ([facility]) ID Date Data Source [id number] 07/10/2020 08:10:00 AM EST [facility] ([facility]) Name Value Range Interpretation Code Description Data Maisha rce(s) Supporting Document(s) Erythrocytes [#/volume] in Blood by Automated count 4.44 x10*6/UL 4.2 0-6.30 [facility] Leukocytes [#/volume] in Blood by Automated count 4.2 x10*3/UL 4.1-10 .9 [facility] Hematocrit [Volume Fraction] of Blood by Automated count 36.6 % 3 7.0-51.0 [facility] Hemoglobin [Mass/volume] in Blood 12.6 g/dL 12.0-18.0 [facility] ([facility]) MCV 82.4 fL 80.0-97.0 [facility] ([facility]) MCH 28.4 pg 26.0-32.0 [facility] ([facility]) Erythrocyte distribution width [Ratio] by Automated count 14.4 % 11.6-13.7 [facility] MCHC 34.5 g/dL 31.0-38.0 [facility] ([facility]) Platelets [#/volume] in Blood by Automated count 233 x10*3/UL 140-440 [facility] ([facility]) Lymph % 16.5 % 10.0-58.5 [facility] ([facility]) MPV 8.1 FL 7.8-11.0 [facility] ([facility]) Neut % 78.6 % 37.0-92.0 [facility] ([facility]) Lymph # 0.6 x10*3/UL 0.6-4.1 [facility] ([facility]) Mid % 4.9 % 1.7-9.3 [facility]) Neut # 3.3 x10*3/UL 2.0-7.8 [facility] ([facility]) Mid # 0.3 x10*3/UL 0.1-0.6 [facility] ([facility]) ID Date Data Source [id number] 07/10/2020 08:10:00 AM EST [facility] ([facility]) Name Value Range Interpretation Code Description Data Maisha rce(s) Supporting Document(s) Cholesterol [Mass/volume] in Serum or Plasma 114 mg/dL 131-200 [facility] ([facility]) Cholesterol in HDL [Mass/volume] in Serum or Plasma 21 mg/dL 35-60 [facility] ([facility]) Cholesterol in LDL [Mass/volume] in Serum or Plasma by calcu lation 63 CALC 50-159 [facility] ([facility]) Triglyceride [Mass/volume] in Serum or Plasma 149 mg/dL 30-150 [facility] ([facility]) ID Date Data Source [id number] 07/10/2020 08:10:00 AM EST [facility] ([facility]) Name Value Range Interpretation Code Description Data Maisha rce(s) Supporting Document(s) Urea nitrogen [Mass/volume] in Serum or Plasma 21 mg/dL 7-18 [facility] ([facility]) Glucose [Mass/volume] in Serum or Plasma 88 mg/dL 74-99 [facility] ([facility]) 100-125 mg/dL PRE-DIABETES/FASTING >126 mg/dL DIABETES/FASTING Creatinine 1.3 mg/dL 0.6-1.3 [facility] Sodium [Moles/volume] in Serum or Plasma 137 meq/L 136-145 [facility] ([facility]) Potassium [Moles/volume] in Serum or Plasma 4.8 meq/L 3.5-5.1 [facility] ([facility]) Carbon dioxide, total [Moles/volume] in Serum or Plasma 30 meq/L 21 -32 [facility] ([facility]) Chloride [Moles/volume] in Serum or Plasma 99 meq/L 98-107 [facility] ([facility]) Calcium [Mass/volume] in Serum or Plasma 9.0 mg/dL 8.5-10.1 [facility] ([facility]) Total Bilirubin 0.6 mg/dL 0.2-1.0 [facility] ([facility]) Alkaline phosphatase isoenzyme [Units/volume] in Serum or Pl asma 181 mg/dL 46-116 [facility] ([facility]) Aspartate aminotransferase [Enzymatic activity/volume] in Serum or Plasma 712 U/L 15-37 [facility] ([facility] ) NOTE: RESULT VERIFIED. Albumin [Mass/volume] in Serum or Plasma 3.7 g/dL 3.4-5.0 [facility] ([facility]) Alanine aminotransferase [Enzymatic activity/volume] in Seru m or Plasma 83 U/L 12-78 [facility] ([facility]) A/G Ratio 1.03 CALC 1.00-1.90 [facility]) Proteinase 3 Ab [Units/volume] in Serum 7.3 g/dL 6.4-8.2 [facility] ([facility]) Glomerular filtration rate/1.73 sq M pre dicted among blacks [Volume Rate/Area] in Serum or Plasma by Creatinine-based formula (MDRD) Laboratory test result [facility] <content>CHRONIC KIDNEY DISEASE STAGING PER NKF</content>
<content></content>
<content>STAGE I & II GFR >= 60 NORMAL TO MILDLY DECREASED</content>
<content>STAGE III GFR 30-59 MODERATELY DECREASED</content>
<content>STAGE IV GFR 15-29 SEVERELY DECREASED</content>
<content>STAGE V GFR <15 VERY LITTLE GFR LEFT</content>
<content>ESRD GFR <15 ON PSYCHIATRIC ATTENDANT</content>
<content></content> Glomerular filtration rate/1.73 sq M pre dicted among non-blacks [Volume Rate/Area] in Serum or Plasma by Creatinine-based formula (MDRD) 57 mL/min [facility] ([facility]) ID Date Data Source [id number] 07/10/2020 08:10:00 AM EST [facility] ([facility]) Name Value Range Interpretation Code Description Data Maisha rce(s) Supporting Document(s) Hemoglobin A1c/Hemoglobin.total in Blood 6.0 % [facility] Lab Result Notes: Pre-Diabetes 5.7 - 6.4 % Diabetes = or > 6.5% Glucose mean value [Mass/volume] in Blood Estimated fr om glycated hemoglobin 125 mg/dL 60-110 [facility] ID Date Data Source [id number] 07/10/2020 08:10:00 AM EST [facility] ([facility]) Name Value Range Interpretation Code Description Data Maisha rce(s) Supporting Document(s) Hemoglobin A1c/Hemoglobin.total in Blood Laboratory test result [facility] ID Date Data Source [id number] 06/10/2020 08:36:00 AM EST [facility] ([facility]) Name Value Range Interpretation Code Description Data Maisha rce(s) Supporting Document(s) INR in Platelet poor plasma by Coagulation assay 2.1 [facility] ([facility]) ID Date Data Source [id number] 06/03/2020 08:13:00 AM EDT [facility] ([facility]) Name Value Range Interpretation Code Description Data Maisha rce(s) Supporting Document(s) INR in Platelet poor plasma by Coagulation assay 1.6 [facility] ([facility]) ID Date Data Source [id number] 05/26/2020 08:21:00 AM EDT [facility] ([facility]) Name Value Range Interpretation Code Description Data Maisha rce(s) Supporting Document(s) INR in Platelet poor plasma by Coagulation assay 1.5 [facility] ([facility]) ID Date Data Source [id number] 04/24/2020 08:02:00 AM EDT [facility] ([facility]) Name Value Range Interpretation Code Description Data Maisha rce(s) Supporting Document(s) INR in Platelet poor plasma by Coagulation assay 3.0 [facility] ([facility]) ID Date Data Source [id number] 03/24/2020 08:04:00 AM EDT [facility] ([facility]) Name Value Range Interpretation Code Description Data Maisha rce(s) Supporting Document(s) INR in Platelet poor plasma by Coagulation assay 2.6 [facility] ([facility]) ID Date Data Source [id number] 03/17/2020 08:14:00 AM EDT [facility] ([facility]) Name Value Range Interpretation Code Description Data Maisha rce(s) Supporting Document(s) INR in Platelet poor plasma by Coagulation assay 3.1 [facility] ([facility]) ID Date Data Source [id number] 02/13/2020 08:22:00 AM EDT [facility] ([facility]) Name Value Range Interpretation Code Description Data Maisha rce(s) Supporting Document(s) INR in Platelet poor plasma by Coagulation assay 2.7 [facility] ([facility]) ID Date Data Source [id number] 01/14/2020 08:50:00 AM EDT [facility] ([facility]) Name Value Range Interpretation Code Description Data Maisha rce(s) Supporting Document(s) INR in Platelet poor plasma by Coagulation assay 2.7 [facility] ([facility]) ID Date Data Source [id number] 01/04/2020 08:06:00 AM EDT [facility] ([facility]) Name Value Range Interpretation Code Description Data Maisha rce(s) Supporting Document(s) Cholesterol [Mass/volume] in Serum or Plasma 104 mg/dL 131-200 [facility] ([facility]) Triglyceride [Mass/volume] in Serum or Plasma 298 mg/dL 30-150 [facility] ([facility]) Cholesterol in LDL [Mass/volume] in Serum or Plasma by calcu lation 20 CALC 50-159 [facility] ([facility]) Cholesterol in HDL [Mass/volume] in Serum or Plasma 24 mg/dL 35-60 [facility] ([facility]) ID Date Data Source [id number] 01/04/2020 08:06:00 AM EDT [facility] ([facility]) Name Value Range Interpretation Code Description Data Maisha rce(s) Supporting Document(s) Glucose [Mass/volume] in Serum or Plasma 120 mg/dL 74-99 [facility] ([facility]) 100-125 mg/dL PRE-DIABETES/FASTING >126 mg/dL DIABETES/FASTING Sodium [Moles/volume] in Serum or Plasma 140 meq/L 136-145 [facility] ([facility]) Urea nitrogen [Mass/volume] in Serum or Plasma 18 mg/dL 7-18 [facility] ([facility]) Creatinine 1.1 mg/dL 0.6-1.3 [facility] Potassium [Moles/volume] in Serum or Plasma 4.3 meq/L 3.5-5.1 [facility] ([facility]) Chloride [Moles/volume] in Serum or Plasma 104 meq/L 98-107 [facility] ([facility]) Carbon dioxide, total [Moles/volume] in Serum or Plasma 29 meq/L 21 -32 [facility] ([facility]) Calcium [Mass/volume] in Serum or Plasma 9.0 mg/dL 8.5-10.1 [facility] ([facility]) Alkaline phosphatase isoenzyme [Units/volume] in Serum or Pl asma 68 mg/dL 46-116 [facility] ([facility]) Total Bilirubin 0.4 mg/dL 0.2-1.0 [facility] ([facility]) Aspartate aminotransferase [Enzymatic activity/volume] in Serum or Plasma 32 U/L 15-37 [facility] ([facility] ) Alanine aminotransferase [Enzymatic activity/volume] in Seru m or Plasma 32 U/L 12-78 [facility] ([facility]) Albumin [Mass/volume] in Serum or Plasma 3.6 g/dL 3.4-5.0 [facility] ([facility]) A/G Ratio 1.06 CALC 1.00-1.90 [facility]) Proteinase 3 Ab [Units/volume] in Serum 7.0 g/dL 6.4-8.2 [facility] ([facility]) Glomerular filtration rate/1.73 sq M pre dicted among non-blacks [Volume Rate/Area] in Serum or Plasma by Creatinine-based formula (MDRD) Laboratory test result [facility] Glomerular filtration rate/1.73 sq M pre dicted among blacks [Volume Rate/Area] in Serum or Plasma by Creatinine-based formula (MDRD) Laboratory test result [facility]) <content>CHRONIC KIDNEY DISEASE STAGING PER NKF</content>
<content></content>
<content>STAGE I & II GFR >= 60 NORMAL TO MILDLY DECREASED</content>
<content>STAGE III GFR 30-59 MODERATELY DECREASED</content>
<content>STAGE IV GFR 15-29 SEVERELY DECREASED</content>
<content>STAGE V GFR <15 VERY LITTLE GFR LEFT</content>
<content>ESRD GFR <15 ON PSYCHIATRIC ATTENDANT</content>
<content></content> ID Date Data Source [id number] 01/04/2020 08:06:00 AM EDT [facility] ([facility]) Name Value Range Interpretation Code Description Data Maisha rce(s) Supporting Document(s) Hemoglobin A1c/Hemoglobin.total in Blood 6.5 g/dL 4.8-5.6 [facility] Lab Result Notes: Pre-Diabetes 5.7 - 6.4 % Diabetes = or > 6.5% Glucose mean value [Mass/volume] in Blood Estimated fr om glycated hemoglobin 140 mg/dL 60-110 [facility] ID Date Data Source [id number] 01/04/2020 08:06:00 AM EDT [facility] Name Value Range Interpretation Code Description Data Maisha rce(s) Supporting Document(s) Leukocytes [#/volume] in Blood by Automated count 6.2 x10*3/UL 4.1-10 .9 [facility] ([facility]) Hemoglobin [Mass/volume] in Blood 13.2 g/dL 12.0-18.0 [facility] ([facility]) Erythrocytes [#/volume] in Blood by Automated count 4.59 x10*6/UL 4.2 0-6.30 [facility] ([facility]) Hematocrit [Volume Fraction] of Blood by Automated count 38.3 % 3 7.0-51.0 [facility] ([facility]) MCH 28.7 pg 26.0-32.0 [facility] MCV 83.5 fL 80.0-97.0 [facility] MCHC 34.4 g/dL 31.0-38.0 [facility] ([facility]) Erythrocyte distribution width [Ratio] by Automated count 13.8 % 11.6-13.7 [facility] ([facility]) MPV 8.8 FL 7.8-11.0 [facility] ([facility]) Platelets [#/volume] in Blood by Automated count 187 x10*3/UL 140-440 [facility] ([facility]) Lymph % 16.8 % 10.0-58.5 [facility] Neut % 77.9 % 37.0-92.0 [facility] ([facility]) Mid % 5.3 % 1.7-9.3 [facility] ([facility]) Mid # 0.4 x10*3/UL 0.1-0.6 [facility] ([facility]) Lymph # 1.0 x10*3/UL 0.6-4.1 [facility] ([facility]) Neut # 4.8 x10*3/UL 2.0-7.8 [facility] ([facility]) ID Date Data Source [id number] 12/13/2019 08:42:00 AM EDT [facility] ([facility]) Name Value Range Interpretation Code Description Data Maisha rce(s) Supporting Document(s) INR in Platelet poor plasma by Coagulation assay 2.3 [facility] ID Date Data Source [id number] 11/13/2019 08:10:00 AM EDT [facility] ([facility]) Name Value Range Interpretation Code Description Data Maisha rce(s) Supporting Document(s) INR in Platelet poor plasma by Coagulation assay 2.4 [facility] ([facility]) ID Date Data Source [id number] 11/05/2019 08:12:00 AM EDT [facility] ([facility]) Name Value Range Interpretation Code Description Data Maisha rce(s) Supporting Document(s) INR in Platelet poor plasma by Coagulation assay 1.6 [facility] ID Date Data Source [id number] 10/29/2019 08:43:00 AM EDT [facility] ([facility]) Name Value Range Interpretation Code Description Data Maisha rce(s) Supporting Document(s) INR in Platelet poor plasma by Coagulation assay 1.8 [facility] ([facility]) ID Date Data Source [id number] 10/15/2019 08:25:00 AM EDT [facility] ([facility]) Name Value Range Interpretation Code Description Data Maisha rce(s) Supporting Document(s) INR in Platelet poor plasma by Coagulation assay 1.9 [facility] ([facility]) ID Date Data Source [id number] 11/13/2019 04:03:00 PM T [facility] Surgical Pathology Report* Amended *Name : KELLY SCOTT KMRN: [id number] Number: [id number] Date: 10/03/2019 00:00Received Date: 10/03/2019 09:12Physician(s): ODIN ANDERSON,MELINDA HANNAH,MDSpecimen(s) ReceivedA: SPECIMEN ACCESSIONED IN ERRORClinical HistoryDiagnosisSPECIMEN ACCESSIONED IN ERROR NO SPECIMEN RECEIVED FOR THIS PATIENT. Electronically Signed By Yvette Garcia, Attending Pathologist11/13/2019 16:03:45 Unless 'gross-only' is specified, the final diagnosis is based on amicroscopic examination of business development representative sections of tissue.AmendmentsAmended: 10/04/2019 by Angle Nunn: Accession Error Per [facility] incorrect patient demographics sent. Nospecimen was received for this patient.Previous Signout Date: 10/03/2019This report may include one or more immunohistochemical stain results thatuse analyte specific reagents. All positive and negative controls havebeen reviewed by the attending pathologist and are satisfactory. The testswere developed and their performance characteristics determined by [facility] Pathology department. They have not been cleared or approved by the USFood and Drug Administration. The FDA has determined that such clearanceor approval is not necessary. Name Value Range Interpretation Code Description Data Maisha rce(s) Supporting Document(s) ID Date Data Source [id number] 10/01/2019 09:07:00 AM EST [facility] ([facility]) Name Value Range Interpretation Code Description Data Maisha rce(s) Supporting Document(s) INR in Platelet poor plasma by Coagulation assay 1.9 [facility] ([facility]) ID Date Data Source [id number] 09/28/2019 10:47:00 AM EST [facility] ([facility]) Name Value Range Interpretation Code Description Data Maisha rce(s) Supporting Document(s) Digoxin [Mass/volume] in Serum or Plasma 0.6 ng/mL 0.5-2.0 [facility] ([facility]) ID Date Data Source [id number] 09/28/2019 10:46:00 AM EST [facility] ([facility]) Name Value Range Interpretation Code Description Data Maisha rce(s) Supporting Document(s) Microalbumin Urine 1877.8 mg/L 1.3-20.0 [facility] ([facility]) NOTE: RESULT VERIFIED. Microalb/Creat Ratio 847.4 ug/mg 0.0-30.0 [facility] ([facility]) Urine Creatinine 221.6 mg/dL 30.0-125.0 [facility] ([facility]) ID Date Data Source [id number] 09/28/2019 10:46:00 AM EST [facility] ([facility]) Name Value Range Interpretation Code Description Data Maisha rce(s) Supporting Document(s) Cholesterol in HDL [Mass/volume] in Serum or Plasma 26 mg/dL 35-60 [facility] ([facility]) Cholesterol [Mass/volume] in Serum or Plasma 131 mg/dL 131-200 [facility] ([facility]) Triglyceride [Mass/volume] in Serum or Plasma 365 mg/dL 30-150 [facility] ([facility]) Cholesterol in LDL [Mass/volume] in Serum or Plasma by calcu lation 32 CALC 50-159 [facility] ([facility]) ID Date Data Source [id number] 09/28/2019 10:46:00 AM EST [facility] ([facility]) Name Value Range Interpretation Code Description Data Maisha rce(s) Supporting Document(s) Glucose [Mass/volume] in Serum or Plasma 178 mg/dL 74-99 [facility] ([facility]) 100-125 mg/dL PRE-DIABETES/FASTING >126 mg/dL DIABETES/FASTING Sodium [Moles/volume] in Serum or Plasma 139 meq/L 136-145 [facility] ([facility]) Creatinine 1.0 mg/dL 0.6-1.3 [facility] ([facility]) Urea nitrogen [Mass/volume] in Serum or Plasma 19 mg/dL 7-18 [facility] ([facility]) Potassium [Moles/volume] in Serum or Plasma 4.5 meq/L 3.5-5.1 [facility] ([facility]) Carbon dioxide, total [Moles/volume] in Serum or Plasma 30 meq/L 21 -32 [facility] ([facility]) Chloride [Moles/volume] in Serum or Plasma 102 meq/L 98-107 [facility] ([facility]) Calcium [Mass/volume] in Serum or Plasma 9.0 mg/dL 8.5-10.1 [facility] ([facility]) Total Bilirubin 0.4 mg/dL 0.2-1.0 [facility] ([facility]) Aspartate aminotransferase [Enzymatic activity/volume] in Serum or Plasma 40 U/L 15-37 [facility] ([facility] ) Alanine aminotransferase [Enzymatic activity/volume] in Seru m or Plasma 44 U/L 12-78 [facility] ([facility]) Alkaline phosphatase isoenzyme [Units/volume] in Serum or Pl asma 66 mg/dL 46-116 [facility] ([facility]) A/G Ratio 1.09 CALC 1.00-1.90 [facility]) Proteinase 3 Ab [Units/volume] in Serum 7.3 g/dL 6.4-8.2 [facility] ([facility]) Albumin [Mass/volume] in Serum or Plasma 3.8 g/dL 3.4-5.0 [facility] ([facility]) Glomerular filtration rate/1.73 sq M pre dicted among blacks [Volume Rate/Area] in Serum or Plasma by Creatinine-based formula (MDRD) Laboratory test result [facility] ([facility]) <content>CHRONIC KIDNEY DISEASE STAGING PER NKF</content>
<content></content>
<content>STAGE I & II GFR >= 60 NORMAL TO MILDLY DECREASED</content>
<content>STAGE III GFR 30-59 MODERATELY DECREASED</content>
<content>STAGE IV GFR 15-29 SEVERELY DECREASED</content>
<content>STAGE V GFR <15 VERY LITTLE GFR LEFT</content>
<content>ESRD GFR <15 ON PSYCHIATRIC ATTENDANT</content>
<content></content> Glomerular filtration rate/1.73 sq M pre dicted among non-blacks [Volume Rate/Area] in Serum or Plasma by Creatinine-based formula (MDRD) Laboratory test result [facility] ID Date Data Source [id number] 09/28/2019 10:46:00 AM EST [facility] Name Value Range Interpretation Code Description Data Maisha rce(s) Supporting Document(s) Hemoglobin A1c/Hemoglobin.total in Blood 8.8 g/dL 4.8-5.6 [facility] Lab Result Notes: Pre-Diabetes 5.7 - 6.4 % Diabetes = or > 6.5% Glucose mean value [Mass/volume] in Blood Estimated fr om glycated hemoglobin 206 mg/dL 60-110 [facility] ID Date Data Source [id number] 09/28/2019 10:46:00 AM EST [facility] Name Value Range Interpretation Code Description Data Maisha rce(s) Supporting Document(s) Hemoglobin [Mass/volume] in Blood 14.3 g/dL 12.0-18.0 [facility] ([facility]) Leukocytes [#/volume] in Blood by Automated count 5.7 x10*3/UL 4.1-10 .9 [facility] ([facility]) Hematocrit [Volume Fraction] of Blood by Automated count 41.3 % 3 7.0-51.0 [facility] Erythrocytes [#/volume] in Blood by Automated count 4.92 x10*6/UL 4.2 0-6.30 [facility] ([facility]) MCV 83.8 fL 80.0-97.0 [facility] MCH 29.2 pg 26.0-32.0 [facility] MCHC 34.8 g/dL 31.0-38.0 [facility] Lymph % 18.6 % 10.0-58.5 [facility] ([facility]) Platelets [#/volume] in Blood by Automated count 199 x10*3/UL 140-440 [facility] ([facility]) MPV 8.6 FL 7.8-11.0 [facility] ([facility]) Erythrocyte distribution width [Ratio] by Automated count 13.6 % 11.6-13.7 [facility] ([facility]) Mid # 0.4 x10*3/UL 0.1-0.6 [facility] ([facility]) Mid % 5.8 % 1.7-9.3 [facility] Neut % 75.6 % 37.0-92.0 [facility] ([facility]) Lymph # 1.0 x10*3/UL 0.6-4.1 [facility] ([facility]) Neut # 4.3 x10*3/UL 2.0-7.8 [facility] ([facility]) ID Date Data Source [id number] 08/22/2019 08:21:00 AM EST [facility] ([facility]) Name Value Range Interpretation Code Description Data Maisha rce(s) Supporting Document(s) INR in Platelet poor plasma by Coagulation assay 2.3 [facility] Procedure Social History Code Duration Value Status Description Data Source(s ) Tobacco use and exposure 08/05/2020 12:00:00 AM EST Never used co mpleted Never used [facility] Smoking 08/05/2020 12:00:00 AM EST Never smoker completed Never s [facility] Vital Signs ID Date Data Source UNK Name Value Range Interpretation Code Description Data Source(s) Body height 75 [in_i] 75 [in_i] [facility] ([facility]) 6'3" Heart rate 70 /min 70 /min [facility] ([facility]) Diastolic blood pressure 68 mm[Hg] 68 mm[Hg] [facility] ([facility]) Systolic blood pressure 112 mm[Hg] 112 mm[Hg] [facility] ([facility]) Body mass index (BMI) [Ratio] 35.0 kg/m2 35.0 k g/m2 [facility] ([facility]) Body weight 280.00 [lb_av] 280.00 [lb_av] [facility] ([facility]) Body mass index (BMI) [Ratio] 40.6 kg/m2 40.6 k g/m2 [facility] ([facility]) Body weight 325.00 [lb_av] 325.00 [lb_av] [facility] ([facility]) Body height 75 [in_i] 75 [in_i] [facility] ([facility]) 6'3" Heart rate 120 /min 120 /min [facility] ([facility]) irregular Diastolic blood pressure 74 mm[Hg] 74 mm[Hg] [facility] ([facility]) Systolic blood pressure 110 mm[Hg] 110 mm[Hg] [facility] ([facility]) Body weight 349.00 [lb_av] 349.00 [lb_av] [facility] ([facility]) Body weight 351.00 [lb_av] 351.00 [lb_av] [facility] ([facility]) Body weight 352.00 [lb_av] 352.00 [lb_av] [facility] ([facility]) Body weight 358.00 [lb_av] 358.00 [lb_av] [facility] ([facility]) Body weight 358.00 [lb_av] 358.00 [lb_av] [facility] ([facility]) Body weight 353.00 [lb_av] 353.00 [lb_av] [facility] ([facility]) Body weight 355.00 [lb_av] 355.00 [lb_av] [facility] ([facility]) Body weight 357.00 [lb_av] 357.00 [lb_av] [facility] ([facility]) Body mass index (BMI) [Ratio] 45.7 kg/m2 45.7 k g/m2 [facility] ([facility]) Body weight 366.00 [lb_av] 366.00 [lb_av] [facility] ([facility]) Body height 75 [in_i] 75 [in_i] [facility] ([facility]) 6'3" Heart rate 76 /min 76 /min [facility] ([facility]) Diastolic blood pressure 82 mm[Hg] 82 mm[Hg] [facility] ([facility]) Systolic blood pressure 134 mm[Hg] 134 mm[Hg] [facility] ([facility]) Body mass index (BMI) [Ratio] 45.5 kg/m2 45.5 k g/m2 [facility] ([facility]) Body weight 364.00 [lb_av] 364.00 [lb_av] [facility] ([facility]) Body height 75 [in_i] 75 [in_i] [facility] ([facility]) 6'3" Heart rate 81 /min 81 /min [facility] ([facility]) Diastolic blood pressure 84 mm[Hg] 84 mm[Hg] [facility] ([facility]) Systolic blood pressure 140 mm[Hg] 140 mm[Hg] [facility] ([facility]) Body weight 364.00 [lb_av] 364.00 [lb_av] [facility] ([facility]) Body weight 357.00 [lb_av] 357.00 [lb_av] [facility] ([facility]) Body weight 357.00 [lb_av] 357.00 [lb_av] [facility] ([facility]) Body weight 364.00 [lb_av] 364.00 [lb_av] [facility] ([facility]) Heart rate 78 /min 78 /min [facility] ([facility]) Diastolic blood pressure 80 mm[Hg] 80 mm[Hg] [facility] ([facility]) Systolic blood pressure 132 mm[Hg] 132 mm[Hg] [facility] ([facility]) Body weight 369.00 [lb_av] 369.00 [lb_av] [facility] ([facility]) Body weight 268.00 [lb_av] 268.00 [lb_av] [facility] ([facility]) Body height 73 [in_us] 73 [in_us] [facility] ([facility] Body mass index (BMI) [Ratio] 47.49 kg/m2 47.49 kg/m2 [facility] ([facility]) Body weight Measured 360 [lb_av] 360 [lb_av] [facility]C W1 ([facility]) ID Date Data Source [id number] 08/14/2020 10:42:58 AM [facility] Name Value Range Interpretation Code Description Data Source(s) WEIGHT RECORDED 310.8 lb 310.8 lb [facility]
[2020-09-23] MEDS ORDERED: NS 1,000 ML IV SCH (11:37)
[2020-09-23 12:06] LABS: BASO % 0.5 % (0.0-1.0); EOS # 0.1 10^3/uL (0.0-0.5); EOS % 2.3 % (0.0-3.0); HEMATOCRIT 27.3 % (42.0-52.0); HEMOGLOBIN 8.3 g/dl (13.5-17.5); LYMPH # 0.6 10^3/uL (1.5-5.0); LYMPH % 12.4 % (24.0-44.0); MEAN CORPUSCULAR HEMOGLOBIN 26.7 pg (27.0-33.0); MEAN CORPUSCULAR HGB CONC 30.4 g/dl (32.0-36.5); MEAN CORPUSCULAR VOLUME 87.8 fl (80.0-96.0); MONO # 0.4 10^3/uL (0.0-0.8); NEUTROPHILS # 3.3 10^3/uL (1.5-8.5); NEUTROPHILS % 75.6 % (36.0-66.0); PLATELET COUNT, AUTOMATED 362 10^3/uL (150-450); RED BLOOD COUNT 3.11 10^6/uL (4.30-6.10); WHITE BLOOD COUNT 4.4 10^3/uL (4.0-10.0)
[2020-09-23] MEDS ORDERED: GLUCOSE 4GM CHEW TABLET PO PRN (15:15)
[2020-09-23] MEDS ORDERED: GLUCAGON INJ 1MG VIAL SC PRN (15:15)
[2020-09-23] MEDS ORDERED: DEXTROSE 50% 50 ML SYRINGE IV PRN (15:15)
[2020-09-23] MEDS: NS 1,000 ML IV SCH ×2 (15:17→18:57)
--- OUTSIDE RECORDS SUMMARY | 2020-09-23 15:22 | CCD ---
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 Crossing Guard Name Role Phone JENSEN BENAVIDES MD Unavailable [...] MD Unavailable Unavailable HananeBob MD Unavailable Unavailable [place] MD Unavailable Unavailable [place] MD Unavailable Unavailable HananeBob MD Unavailable Unavailable HananeBob MD Unavailable Unavailable HananeBob MD Unavailable Unavailable [place] MD Unavailable Unavailable [place] MD Unavailable Unavailable HananeBob MD Unavailable Unavailable [place] MD Unavailable Unavailable [place] MD Unavailable Unavailable [place] MD Unavailable Unavailable [place] MD Unavailable Unavailable [place] MD Unavailable Unavailable [place] MD Unavailable Unavailable [place] MD Unavailable Unavailable [place] MD Unavailable Unavailable [place] MD Unavailable Unavailable [place] MD Unavailable Unavailable HananeBob MD Unavailable Unavailable [place] MD Unavailable Unavailable [place] MD Unavailable Unavailable HananeBob MD Unavailable Unavailable HananeBob MD Unavailable Unavailable [place] MD Unavailable Unavailable [place] MD Unavailable Unavailable HananeBob MD Unavailable Unavailable [place] MD Unavailable Unavailable [place] MD Unavailable Unavailable HananeBob MD Unavailable Unavailable HananeBob MD Unavailable Unavailable HananeBob MD Unavailable Unavailable HananeBob MD Unavailable Unavailable HananeBob MD Unavailable Unavailable [place] MD Unavailable Unavailable HananeBob bateman MD Unavailable Unavailable [place] MD Unavailable Unavailable HananeBob MD Unavailable Unavailable HananeBob MD Unavailable Unavailable HananeBob MD Unavailable Unavailable [place] MD Unavailable Unavailable HananeBob MD Unavailable Unavailable HananeBob MD Unavailable Unavailable HananeBob MD Unavailable Unavailable [place] MD Unavailable Unavailable HananeBob MD Unavailable Unavailable [place] MD Unavailable Unavailable HananeBob MD Unavailable Unavailable HananeBob MD Unavailable Unavailable HananeBob MD Unavailable Unavailable HananeBob MD Unavailable Unavailable [place] MD Unavailable Unavailable HananeBob MD Unavailable Unavailable HananeBob MD Unavailable Unavailable HananeBob MD Unavailable Unavailable [place] MD Unavailable Unavailable [place] MD Unavailable Unavailable [place], Bob Bardales MD Unavailable Unavailable Hanane, Bob Bardales MD Unavailable Unavailable [place], Bob Bardales MD Unavailable Unavailable [place], Bob Bardales MD Unavailable Unavailable Hanane, Bob Bardales MD Unavailable Unavailable Jason GUEVARAEST Unavailable Unavailable Arcadio, B Robb MD Unavailable Unavailable Arcadio, B Robb MD Unavailable Unavailable Arcadio, B Robb MD Unavailable Unavailable Arcadio, B Robb MD Unavailable Unavailable Arcadio, B Robb MD Unavailable Unavailable Arcadio, B Rbob MD Unavailable Unavailable Arcadio, B Robb MD [...] B Robb MD Unavailable Unavailable BRYDEN, A CODY DO Unavailable Unavailable BRYDEN, A CODY DO Unavailable Unavailable BRYDEN, A CODY DO Unavailable Unavailable BRYDEN, A CODY DO Unavailable Unavailable BRYDEN, A CODY DO Unavailable Unavailable BRYDEN, A CODY DO Unavailable Unavailable BRYDEN, A CODY DO Unavailable Unavailable BRYDEN, A CODY DO Unavailable Unavailable BRYDEN, A CODY DO Unavailable Unavailable BRYDEN, A CODY DO Unavailable Unavailable BRYDEN, A CODY DO Unavailable Unavailable BRYDEN, A CODY DO Unavailable Unavailable BRYDEN, A CODY DO Unavailable Unavailable BRYDEN, A CODY DO Unavailable Unavailable BRYDEN, A CODY DO Unavailable Unavailable BRYDEN, A CODY DO Unavailable Unavailable BRYDEN, A CODY DO Unavailable Unavailable BRYDEN, A CODY DO Unavailable Unavailable BRYDEN, A CODY DO Unavailable Unavailable BRYDEN, A CODY DO Unavailable Unavailable BRYDEN, A CODY DO Unavailable Unavailable BRYDEN, A CODY DO Unavailable Unavailable BRYDEN, A CODY DO Unavailable Unavailable BRYDEN, A CODY DO Unavailable Unavailable BRYDEN, A CODY DO Unavailable Unavailable BRYDEN, A CODY DO Unavailable Unavailable BRYDEN, A CODY DO Unavailable Unavailable BRYDEN, A CODY DO Unavailable Unavailable Iglesia, Mady ENVIRONMENTAL SERVICES SUPERVISOR Unavailable Unavailable Iglesia, Mady ENVIRONMENTAL SERVICES SUPERVISOR Unavailable Unavailable Iglesia, Mady ENVIRONMENTAL SERVICES SUPERVISOR Unavailable Unavailable Iglesia, Mady ENVIRONMENTAL SERVICES SUPERVISOR Unavailable Unavailable Iglesia, Mady ENVIRONMENTAL SERVICES SUPERVISOR Unavailable Unavailable Iglesia, Mady ENVIRONMENTAL SERVICES SUPERVISOR Unavailable Unavailable Iglesia, Mady ENVIRONMENTAL SERVICES SUPERVISOR Unavailable Unavailable Iglesia, Mady ENVIRONMENTAL SERVICES SUPERVISOR Unavailable Unavailable Iglesia, Mady ENVIRONMENTAL SERVICES SUPERVISOR Unavailable Unavailable Iglesia, Mady ENVIRONMENTAL SERVICES SUPERVISOR Unavailable Unavailable Iglesia, Mady ENVIRONMENTAL SERVICES SUPERVISOR Unavailable Unavailable Iglesia, Mady ENVIRONMENTAL SERVICES SUPERVISOR Unavailable Unavailable Iglesia, Mady ENVIRONMENTAL SERVICES SUPERVISOR Unavailable Unavailable Iglesia, Mady ENVIRONMENTAL SERVICES SUPERVISOR Unavailable Unavailable Iglesia, Mady ENVIRONMENTAL SERVICES SUPERVISOR Unavailable Unavailable Iglesia, Mady ENVIRONMENTAL SERVICES SUPERVISOR Unavailable Unavailable Iglesia, Mady ENVIRONMENTAL SERVICES SUPERVISOR Unavailable Unavailable Iglesia, Mady ENVIRONMENTAL SERVICES SUPERVISOR Unavailable Unavailable Iglesia, Mady ENVIRONMENTAL SERVICES SUPERVISOR Unavailable Unavailable Iglesia, Mady ENVIRONMENTAL SERVICES SUPERVISOR Unavailable Unavailable Iglesia, Mady ENVIRONMENTAL SERVICES SUPERVISOR Unavailable Unavailable Iglesia, Mady ENVIRONMENTAL SERVICES SUPERVISOR Unavailable Unavailable Iglesia, Mady ENVIRONMENTAL SERVICES SUPERVISOR Unavailable Unavailable Iglesia, Mady ENVIRONMENTAL SERVICES SUPERVISOR Unavailable Unavailable Iglesia, Mady ENVIRONMENTAL SERVICES SUPERVISOR Unavailable Unavailable Iglesia, Mady ENVIRONMENTAL SERVICES SUPERVISOR Unavailable Unavailable Iglesia, Mady ENVIRONMENTAL SERVICES SUPERVISOR Unavailable Unavailable Iglesia, Mady ENVIRONMENTAL SERVICES SUPERVISOR Unavailable Unavailable Iglesia, Mady ENVIRONMENTAL SERVICES SUPERVISOR Unavailable Unavailable Iglesia, Mady ENVIRONMENTAL SERVICES SUPERVISOR Unavailable Unavailable Iglesia, Mady ENVIRONMENTAL SERVICES SUPERVISOR Unavailable Unavailable Iglesia, Mady ENVIRONMENTAL SERVICES SUPERVISOR Unavailable Unavailable Iglesia, Mady ENVIRONMENTAL SERVICES SUPERVISOR Unavailable Unavailable Iglesia, Mady ENVIRONMENTAL SERVICES SUPERVISOR Unavailable Unavailable Iglesia, Mady ENVIRONMENTAL SERVICES SUPERVISOR Unavailable Unavailable Iglesia, Mady ENVIRONMENTAL SERVICES SUPERVISOR Unavailable Unavailable Iglesia, Mady ENVIRONMENTAL SERVICES SUPERVISOR Unavailable Unavailable Iglesia, Mady ENVIRONMENTAL SERVICES SUPERVISOR Unavailable Unavailable Iglesia, Mady ENVIRONMENTAL SERVICES SUPERVISOR Unavailable Unavailable Iglesia, Mady ENVIRONMENTAL SERVICES SUPERVISOR Unavailable Unavailable Iglesia, Mady ENVIRONMENTAL SERVICES SUPERVISOR Unavailable Unavailable Iglesia, Mady ENVIRONMENTAL SERVICES SUPERVISOR Unavailable Unavailable Iglesia, Mady ENVIRONMENTAL SERVICES SUPERVISOR Unavailable Unavailable Iglesia, Mady ENVIRONMENTAL SERVICES SUPERVISOR Unavailable Unavailable Igleisa, Mady ENVIRONMENTAL SERVICES SUPERVISOR Unavailable Unavailable Iglesia, Mady ENVIRONMENTAL SERVICES SUPERVISOR Unavailable Unavailable Iglesia, Mady ENVIRONMENTAL SERVICES SUPERVISOR Unavailable Unavailable Iglesia, Mady ENVIRONMENTAL SERVICES SUPERVISOR Unavailable Unavailable Iglesia, Mady ENVIRONMENTAL SERVICES SUPERVISOR Unavailable Unavailable Iglesia, Mady ENVIRONMENTAL SERVICES SUPERVISOR Unavailable Unavailable Iglesia, Mady ENVIRONMENTAL SERVICES SUPERVISOR Unavailable Unavailable Iglesia, Mady ENVIRONMENTAL SERVICES SUPERVISOR Unavailable Unavailable Iglesia, Mady ENVIRONMENTAL SERVICES SUPERVISOR Unavailable Unavailable Re-disclosure Warning The records that [...] is protected by Article 27-F of the [facility] Public Health law. If you continue you may have access to information: Regarding HIV / AIDS; Provided by facilities licensed or operated by the [facility] Office of Mental Health; or Provided by the [facility] Office for People With Developmental Disabilities. If such information is present, then the following [facility] mandated warning applies: This information has [...] law may result in a fine or correction sentence or both. A general authorization for the release of medical or other information is NOT sufficient authorization for further disc losure. Allergies and Adverse Reactions Type Description Substance Reaction Status Data Source(s ) Drug Class NO KNOWN ALLERGIES NO KNOWN ALLERGIES [facility] Drug allergy No Known Drug Allergies No Known Drug Allergies [facility] Drug allergy No Known Allergies No Known Allergies [facility] Family History Family Member Name Family Member Gender Family Member Status Date o f Status Description Data Source(s) Unknown Male Problem [facility] ([facility]) Encounters Encounter Providers Location Date Indications Data Source(s ) Outpatient Attender: Robb Ervin MD 09/02/2020 12:00:0 0 AM [facility] Outpatient Attender: ADEEL Nievesferrer: Robb zepeda MD 08/26/2020 12:00:00 AM [facility] Outpatient 08/23/2020 12:00:00 AM [facility] Outpatient Attender: JENSEN BENAVIDES MDAttender: JENSEN CORRIGAN MD ER-ASUR 08/18/2020 09:00:00 AM [facility] Admission cancelled. Disregard status an d admitted date. Outpatient Attender: Robb Ervin MD 08/18/2020 12:00:0 0 AM [facility] Outpatient Referrer: Robb Ervin MD 08/15/2020 12:00:0 0 AM [facility] Outpatient Referrer: Robb Ervin MD 08/15/2020 12:00:0 0 AM [facility] Outpatient Attender: JENSEN BENAVIDES MDAttender: JENSEN CORRIGAN MD ER-LAB 08/12/2020 06:20:00 AM [facility] Outpatient Attender: Robb Ervin MD [id number] 12:00:00 AM EST - 08/05/2020 10:26:14 AM EST Hepatomegaly, not elsewhere classified [facility] Hepatomegaly, not elsewhere classified Office Visit Attender: Jeffy Eubanks 1 09/24/2019 09:00:00 AM EST [facility] ([facility] ) Office Visit Attender: Jeffy Eubanks 1 09/18/2019 12:00:00 PM EST [facility] ([facility] ) Outpatient Attender: Jeffy Eubanks 0 01/07/2020 01:30:00 PM EDT [facility] ([facility] ) Outpatient Attender: Mady Eubanks 0 12/18/2019 02:00:00 PM EDT [facility] ([facility] ) Outpatient Admitter: CODY Gómezerrer: CODY Valenzuela DO 10/03/2019 12:00:00 AM EST - 10/03/2019 11:59:00 PM EST Malignant neoplasm of retroperitoneum [facility] Malignant neoplasm of retroperitoneum Outpatient Attender: Jeffy Eubanks 0 10/01/2019 08:00:00 AM EST [facility] ([facility] ) [facility] 08/07/2019 12:00:00 AM EST eCW1 ([facility] ) Immunizations Vaccine Date Status Description Data Source(s) Influenza, injectable, MDCK, preservative free, nara valent 05/26/2020 08:23:00 AM EDT completed [facility]) Medications Medication Brand Name Start Date Product Form Dose Route Admi nistrative Instructions Pharmacy Instructions Status Indications Reaction Description Data Source(s) Oseltamivir 75 MG Oral Capsule Oseltamivir Phosphate 09/15/2020 12:00:00 AM EST ORAL completed [facility] ([facility]) rivaroxaban 20 MG Oral Tablet [Xarelto] Xarelto 08/12/2020 12:00:0 0 AM EST ORAL active [facility] ([facility]) Immunization Adminstration,1 Vaccine/Toxoid 05/26/2020 12:00 :00 AM EDT completed [facility] ([facility]) Medication administered onsite 0.5 ML dulaglutide 3 MG/ML Auto-Injector [Trulicity] Trulici ty 01/07/2020 12:00:00 AM EDT active M EDENT ([facility]) 0.5 ML dulaglutide 1.5 MG/ML Auto-Injector [Trulicity] [facility] 12/18/2019 12:00:00 AM EDT completed [facility] ([facility]) Insurance Providers Payer name Policy type / Coverage type Policy ID Covered alliance party ID Covered alliance party's relationship to juares Policy Juares Plan Information UMR [facility] [id number] WI2 [id number] UMR [id number] WIF [id number] UMR O [id number] P [id number] UMR U [id number] Spouse [id number] UMR F [id number] SPOUSE [id number] UMR F [id number] SPOUSE [id number] [employer] (Old) Medigap Part B [id number] Family Dependent [id number] Umr (New [place]) Medigap Part B [id number] Family Dependent [id number] [employer] Commercial [id number] Family Dependent [id number] [employer] (Old) Medigap Part B [id number] Family Dependent [id number] POM[employer] [id number] WI2 [id number] Umr Commercial [id number] Self [id number] [employer] (Old) Medigap Part B [id number] Family Dependent [id number] [place] Ppo Medigap Part B [id number] Family Dependent [id number] [place] Ppo Medigap Part B [id number] Family Dependent [id number] [place] Ppo Medigap Part B 335 Family Dependent 335 [employer] Commercial Ppo Family Dependent Ppo POMCO [id number] WIF [id number] I FEDERAL [id number] SP [id number] 0 [id number] Problems, Conditions, and Diagnoses Code Display Name Description Problem Type Effective Dates Data Source(s) L60.0 [id number] Ingrown toenail Problem 08/07/2019 12:00:00 AM EST eCW1 ([facility]) Z79.899 Other usp (current) drug therapy O THER COMMODITIES TRADER (CURRENT) DRUG THERAPY Diagnosis 08/15/2020 09:00:00 AM EST [facility] Z79.84 COMMODITIES TRADER (CURRENT) USE OF ORAL HYPOGLYC EMIC DRUGS CUSTODIAL (CURRENT) USE OF ORAL HYPOGLYCEMIC DRUGS Diagnosis 08/15/2020 09:00:00 AM EST [facility] Z79.01 oil heaterman (current) use of anticoagulant s COMMODITIES TRADER (CURRENT) USE OF ANTICOAGULANTS Diagnosis 08/15/2020 09:00:00 AM [facility] tisha G47.33 Obstructive sleep apnea (adult) (pediatr ic) OBSTRUCTIVE SLEEP APNEA (ADULT) (PEDIATRIC) Diagnosis 08/15/2020 09:00:00 AM [facility] tisha I48.20 CHRONIC ATRIAL FIBRILLATION, UNSPECIFIED CHRONIC ATRIAL FIBRILLATION, UNSPECIFIED Diagnosis 08/15/2020 09:00:00 AM EST [facility] tisha E78.00 PURE HYPERCHOLESTEROLEMIA, UNSPECIFIED P URE HYPERCHOLESTEROLEMIA, UNSPECIFIED Diagnosis 08/15/2020 09:00:00 AM [facility] tisha E11.9 Type 2 diabetes mellitus without complic ations TYPE 2 DIABETES MELLITUS WITHOUT COMPLICATIONS Diagnosis 08/15/2020 09:00:00 AM [facility] pital I10 Essential (primary) hypertension ESSENTIAL (PRIMARY) H YPERTENSION Diagnosis 08/15/2020 09:00:00 AM [facility] C22.0 Liver cell carcinoma LIVER CELL CARCINOMA Diagnosis 08/15/2020 09:00:00 AM [facility] Z20.822 CONTACT WITH AND SUSPECTED EXPOSURE TO C OVID-19 CONTACT WITH AND SUSPECTED EXPOSURE TO COVID-19 Diagnosis 08/12/2020 06:20:00 AM [facility] Z01.812 Encounter for preprocedural laboratory e xamination ENCOUNTER FOR PREPROCEDURAL LABORATORY EXAMINATION Diagnosis 08/12/2020 06:20:00 AM [facility] R16.0 Hepatomegaly, not elsewhere classified H epatomegaly, not elsewhere classified Diagnosis 08/05/2020 08:48:54 AM [facility] 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 Ma lignant neoplasm of retroperitoneum Diagnosis 10/03/2019 09:10:00 AM [facility] Surgeries/Procedures Procedure Description Date Indications Data Source(s) THROMBOPLASTIN TIME PARTIAL PLASMA/WHOLE BLOOD PARTIA L THROMBOPLASTIN TIME (PTT) STAT 08/05/2020 10:33 AM EST Liver mass 08/05/2020 10:33:00 AM EST Liver mass [facility] Liver mass IMMUNOASSAY TUMOR ANTIGEN QUANTITATIVE CA 19-9 CANCER ANTIGEN 1 9-9 Routine 08/05/2020 10:33 AM EST Liver mass 08/05/2020 10:33:00 AM EST Liver mass [facility] Liver mass ALPHA-FETOPROTEIN SERUM AFP TUMOR MARKER Routine 08/05/2020 10:33 A M EST 08/05/2020 10:33:00 AM EST [facility] PROTHROMBIN TIME PROTIME INR STAT 08/05/2020 10:33 AM EST Liver mass 08/05/2020 10:33:00 AM EST Liver mass [facility] Liver mass BLOOD COUNT COMPLETE AUTO&AUTO DIFRNTL WBC COUNT CBC AND DIFFER ENTIAL STAT 08/05/2020 10:33 AM EST Liver mass 08/05/2020 10:33:00 AM EST Liver mass [facility] Liver mass CARCINOEMBRYONIC ANTIGEN CEA CEA Routine 08/05/2020 10:33 AM EST Liver mass 08/05/2020 10:33:00 AM EST Liver mass [facility] Liver mass COMPREHENSIVE METABOLIC PANEL COMPREHENSIVE METABOLIC PANEL Rou lito 08/05/2020 10:33 AM EST Liver mass 08/05/2020 10:33:00 AM EST Liver mass [facility] Liver mass SURGICAL PATHOLOGY CONSULT SURGICAL PATHOLOGY CONSULT Routine 10/03/2019 12:00 AM EST 10/03/2019 05:00:00 AM EST [facility] AVULSION NAIL PLATE PARTIAL/COMPLETE SIMPLE 1 08/07/20 19 12:00:00 AM EST eCW1 ([facility]) Results ID Date Data Source [id number] 09/23/2020 11:53:00 AM EST [facility] ([facility]) Name Value Range Interpretation Code Description Data Maisha rce(s) Supporting Document(s) White Blood Count 4.4 10 4.0-10.0 [facility] ([facility]) Red Blood Count 3.11 10 4.30-6.10 [facility] ([facility]) Hemoglobin 8.3 g/dL 13.5-17.5 [facility]) Hematocrit 27.3 % 42.0-52.0 [facility]) Mean Corpuscular Hemoglobin 26.7 pg 27.0-33.0 ME DENT ([facility]) Mean Corpuscular HGB Conc 30.4 g/dL 32.0-36.5 MEDE NT ([facility]) Mean Corpuscular Volume 87.8 fl 80.0-96.0 [facility] ([facility]) Platelet Count, Automated 362 10 150-450 MEDE NT ([facility]) Red Cell Distribution Width 17.3 % 11.5-14.5 ME [facility] ([facility]) Lymph % 12.4 % 24.0-44.0 [facility] Neutrophils % 75.6 % 36.0-66.0 [facility] ([facility]) Clark % 9.0 % 2.0-8.0 [facility]) Baso % 0.5 % 0.0-1.0 [facility]) Eos % 2.3 % 0.0-3.0 [facility]) Nucleated Red Blood Cell % 0.0 % 0-0 MED ENT ([facility]) Immature Granulocyte % 0.2 % 0-3.0 [facility] ([facility]) Clark # 0.4 10 0.0-0.8 [facility]) Lymph # 0.6 10 1.5-5.0 [facility] Neutrophils # 3.3 10 1.5-8.5 [facility] ([facility]) Baso # 0.0 10 0.0-0.2 [facility]) Eos # 0.1 10 0.0-0.5 [facility]) ID Date Data Source [id number] 09/22/2020 02:02:00 PM EST [facility] ([facility]) Name Value Range Interpretation Code Description Data Maisha rce(s) Supporting Document(s) Digoxin [Mass/volume] in Serum or Plasma 2.1 ng/mL 0.5-2.0 [facility] ([facility]) ID Date Data Source [id number] 09/22/2020 02:01:00 PM EST [facility] ([facility]) Name Value Range Interpretation Code Description Data Maisha rce(s) Supporting Document(s) Glucose [Mass/volume] in Serum or Plasma 72 mg/dL 74-99 [facility] ([facility]) 100-125 mg/dL PRE-DIABETES/FASTING >126 mg/dL DIABETES/FASTING Creatinine 2.8 mg/dL 0.6-1.3 [facility] Sodium [Moles/volume] in Serum or Plasma 130 meq/L 136-145 [facility] ([facility]) Urea nitrogen [Mass/volume] in Serum or Plasma 71 mg/dL 7-18 [facility] ([facility]) Chloride [Moles/volume] in Serum or Plasma 95 meq/L 98-107 [facility] ([facility]) Potassium [Moles/volume] in Serum or Plasma 5.9 meq/L 3.5-5.1 [facility] ([facility]) NOTE: RESULT VERIFIED. NO VISIBLE HEMOLYSIS. Carbon dioxide, total [Moles/volume] in Serum or Plasma 26 meq/L 21 -32 [facility] ([facility]) Calcium [Mass/volume] in Serum or Plasma 8.5 mg/dL 8.5-10.1 [facility] ([facility]) Total Bilirubin 3.8 mg/dL 0.2-1.0 [facility] ([facility]) NOTE: RESULT VERIFIED. Alkaline phosphatase isoenzyme [Units/volume] in Serum or Pl asma 1249 mg/dL 46-116 [facility] ([facility]) Alanine aminotransferase [Enzymatic activity/volume] in Seru m or Plasma 749 U/L 12-78 [facility] ([facility]) NOTE: RESULT VERIFIED. Aspartate aminotransferase [Enzymatic activity/volume] in Serum or Plasma 4651 U/L 15-37 [facility] ([facility] ) NOTE: RESULT VERIFIED. Albumin [Mass/volume] in Serum or Plasma 2.5 g/dL 3.4-5.0 [facility] ([facility]) Proteinase 3 Ab [Units/volume] in Serum 6.5 g/dL 6.4-8.2 [facility] ([facility]) Glomerular filtration rate/1.73 sq M pre dicted among non-blacks [Volume Rate/Area] in Serum or Plasma by Creatinine-based formula (MDRD) 23 mL/min [facility] ([facility]) A/G Ratio 0.63 CALC 1.00-1.90 [facility] ([facility]) Glomerular filtration rate/1.73 sq M pre dicted among blacks [Volume Rate/Area] in Serum or Plasma by Creatinine-based formula (MDRD) 28 mL/[facility] <content>CHRONIC KIDNEY DISEASE STAGING PER NKF</content>
<content></content>
<content>STAGE I & II GFR >= 60 NORMAL TO MILDLY DECREASED</content>
<content>STAGE III GFR 30-59 MODERATELY DECREASED</content>
<content>STAGE IV GFR 15-29 SEVERELY DECREASED</content>
<content>STAGE V GFR <15 VERY LITTLE GFR LEFT</content>
<content>ESRD GFR <15 ON MAINTENANCE MECHANIC TELEPHONE</content>
<content></content> ID Date Data Source [id number] 09/22/2020 02:01:00 PM EST [facility] Name Value Range Interpretation Code Description Data Maisha rce(s) Supporting Document(s) Erythrocytes [#/volume] in Blood by Automated count 3.15 x10*6/UL 4.2 0-6.30 [facility] Leukocytes [#/volume] in Blood by Automated count 4.7 x10*3/UL 4.1-10 .9 [facility] Hemoglobin [Mass/volume] in Blood 8.8 g/dL 12.0-18.0 [facility] NOTE: RESULT VERIFIED. Hematocrit [Volume Fraction] of Blood by Automated count 25.8 % 3 7.0-51.0 [facility] MCV 81.9 fL 80.0-97.0 [facility] ([facility]) MCH 28.1 pg 26.0-32.0 [facility] ([facility]) MCHC 34.3 g/dL 31.0-38.0 [facility] ([facility]) Erythrocyte distribution width [Ratio] by Automated count 15.5 % 11.6-13.7 [facility] ([facility]) Platelets [#/volume] in Blood by Automated count 424 x10*3/UL 140-440 [facility] ([facility]) Lymph % 14.8 % 10.0-58.5 [facility] MPV 9.0 FL 7.8-11.0 [facility] Mid % 4.6 % 1.7-9.3 [facility] Neut % 80.6 % 37.0-92.0 [facility] Lymph # 0.7 x10*3/UL 0.6-4.1 [facility] ([facility]) Mid # 0.2 x10*3/UL 0.1-0.6 [facility] ([facility]) Neut # 3.8 x10*3/UL 2.0-7.8 [facility] ([facility]) ID Date Data Source [id number] 08/15/2020 12:27:00 PM EST [facility] Exam Number: [id number] OF EXAMINATIO N: 08/15/2020 9:49 ESTU/S GUIDED LIVER BIOPSYHISTORY: Liver massReal-time ultrasound imaging was performed utilizing B- mode/dean scaleand color Doppler imaging where applicable.Preliminary ultrasound [...] rce(s) Supporting Document(s) ID Date Data Source [id number] 08/15/2020 10:04:00 AM EST [facility] Name Value Range Interpretation Code Description Data Maisha rce(s) Supporting Document(s) Laboratory test finding (navigational concept) Laboratory test result [facility] ([facility]) Received in formalin, labeled with prope r patient identification and liver mass biopsy x2 Laboratory test finding (navigational concept) Laboratory test result [facility] ([facility]) cores are four becker-white tissue cores r anging in length from 0.3-1.4 cm and 0.1 cm in Laboratory test finding (navigational concept) Laboratory test result [facility] ([facility]) diameter. All processed in one cassette. Microscopic Examination Laboratory test result [facility]) Slides reviewed. Diagnosis supported by microscopic examination. Laboratory test finding (navigational concept) Laboratory test result [facility] ([facility]) Laboratory test finding (navigational concept) Laboratory test result [facility] ([facility]) ULTRASOUND GUIDED BIOPSY OF LIVER MASS: Laboratory test finding (navigational concept) Laboratory test result [facility] ([facility]) - FEATURES ARE STRONGLY SUGGESTIVE OF HE PATOCELLULAR CARCINOMA WITH FATTY Laboratory test finding (navigational concept) Laboratory test result [facility] ([facility]) METAMORPHOSIS, FIBROSIS AND AREAS OF NEC ROSIS Laboratory test finding (navigational concept) Laboratory test result [facility] ([facility]) Laboratory test finding (navigational concept) Laboratory test result [facility] ([facility]) ABNORMAL FINDINGS Laboratory test finding (navigational concept) Laboratory test result [facility] ([facility]) ABNORMAL FINDINGS Laboratory test finding (navigational concept) Laboratory test result [facility] ([facility]) ULTRASOUND GUIDED BIOPSY OF LIVER MASS: Laboratory test finding (navigational concept) Laboratory test result [facility] ([facility]) METAMORPHOSIS, FIBROSIS AND AREAS OF NEC ROSIS Laboratory test finding (navigational concept) Laboratory test result [facility] ([facility]) - FEATURES ARE STRONGLY SUGGESTIVE OF HE PATOCELLULAR CARCINOMA WITH FATTY Laboratory test finding (navigational concept) Laboratory test result [facility] ([facility]) Laboratory test finding (navigational concept) Laboratory test result [facility] ([facility]) ABNORMAL FINDINGS Laboratory test finding (navigational concept) Laboratory test result [facility] ([facility]) ABNORMAL FINDINGS Laboratory test finding (navigational concept) Laboratory test result [facility] ([facility]) COMMENT: This case is referred to the [facility], Department of Pathology for a Laboratory test finding (navigational concept) Laboratory test result [facility] ([facility]) Laboratory test finding (navigational concept) Laboratory test result [facility] ([facility]) REPORT SIGNED: Macy Foster DO 08/08 08/28 (preliminary) Laboratory test finding (navigational concept) Laboratory test result [facility] ([facility]) consultation by a GI pathologist to [facility] for hepatocellular carcinoma. Upon receipt of Laboratory test finding (navigational concept) Laboratory test result [facility] ([facility]) This case was sent to [facility] for consultation. The report for Laboratory test finding (navigational concept) Laboratory test result [facility] ([facility]) is as follows. Laboratory test finding (navigational concept) Laboratory test result [facility] ([facility]) LIVER, MASS, BIOPSY: Laboratory test finding (navigational concept) Laboratory test result [facility] ([facility]) - MODERATELY-DIFFERENTIATED HEPATOCELLUL AR CARCINOMA. SEE COMMENT. Laboratory test finding (navigational concept) Laboratory test result [facility] ([facility]) MALIGNANCY Laboratory test finding (navigational concept) [facility] MALIGNANCY Laboratory test finding (navigational concept) Laboratory test result [facility] cores are four becker-white tissue cores r anging in length from 0.3-1.4 cm and 0.1 cm in Laboratory test finding (navigational concept) Laboratory test result [facility] Received in formalin, labeled with prope r patient identification and liver mass biopsy x2 Laboratory test finding (navigational concept) Laboratory test result [facility] diameter. All processed in one cassette. Laboratory test finding (navigational concept) Laboratory test result [facility] Microscopic Examination Laboratory test result [facility] Slides reviewed. Diagnosis supported by microscopic examination. Laboratory test finding (navigational concept) Laboratory test result [facility] their report, the final diagnosis will b e posted. Laboratory test finding (navigational concept) Laboratory test result [facility] Report faxed to Dr. Jeffy Koo's of [facility] on 08/18/2020. Laboratory test finding (navigational concept) Laboratory test result [facility] ULTRASOUND GUIDED BIOPSY OF LIVER MASS: Laboratory test finding (navigational concept) Laboratory test result [facility] - FEATURES ARE STRONGLY SUGGESTIVE OF HE PATOCELLULAR CARCINOMA WITH FATTY Laboratory test finding (navigational concept) Laboratory test result [facility] ([facility]) METAMORPHOSIS, FIBROSIS AND AREAS OF NEC ROSIS Laboratory test finding (navigational concept) Laboratory test result [facility] Laboratory test finding (navigational concept) Laboratory test result [facility] ([facility]) REPORT SIGNED: Macy Foster DO 08/08 08/28 (preliminary) Laboratory test finding (navigational concept) Laboratory test result [facility] 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, Laboratory test finding (navigational concept) Laboratory test result [facility] endothelial wrapping, and intracytoplasm ic fat, compatible with hepatocellular Laboratory test finding (navigational concept) Laboratory test result [facility] ([facility]) endothelial wrapping, and intracytoplasm ic fat, compatible with hepatocellular Laboratory test finding (navigational concept) Laboratory test result [facility] ([facility]) 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, Laboratory test finding (navigational concept) Laboratory test result [facility] ([facility]) carcinoma. There is no background liver parenchyma present in the biopsy. HepPar1, Laboratory test finding (navigational concept) Laboratory test result [facility] ([facility]) Arginase-1 and GPC-3 immunohistochemical stains, as well as a reticulin stain, were Laboratory test finding (navigational concept) Laboratory test result [facility] ([facility]) attempted to further characterize the le bismark but there was insufficient tissue Laboratory test finding (navigational concept) Laboratory test result [facility] ([facility]) remaining for evaluation. Laboratory test finding (navigational concept) Laboratory test result [facility] ([facility]) [employer] slides of this case were reviewed at the gastrointestinal/liver Laboratory test finding (navigational concept) Laboratory test result [facility] ([facility]) intradepartmental consultation conferenc e. (RW, NF, ) Laboratory test finding (navigational concept) Laboratory test result [facility] ([facility]) [address] Laboratory test finding (navigational concept) Laboratory test result [facility] ([facility]) Patrick Damon MD Laboratory test finding (navigational concept) Laboratory test result [facility] ([facility]) Electronically Signed By: Laboratory test finding (navigational concept) Laboratory test result [facility] ([facility]) Patrick Damon MD Laboratory test finding (navigational concept) Laboratory test result [facility] ([facility]) Received in formalin, labeled with prope r patient identification and liver mass biopsy x2 Laboratory test finding (navigational concept) Laboratory test result [facility] ([facility]) [address] Laboratory test finding (navigational concept) Laboratory [facility] cores are four becker-white tissue cores r anging in length from 0.3-1.4 cm and 0.1 cm in Laboratory test finding (navigational concept) [facility] diameter. All processed in one cassette. Laboratory test finding (navigational concept) Laboratory test result [facility] ([facility]) Microscopic Examination Laboratory test result [facility] ([facility]) Slides reviewed. Diagnosis supported by microscopic examination. Laboratory test finding (navigational concept) Laboratory test result [facility] ([facility]) ABNORMAL FINDINGS Laboratory test finding (navigational concept) [facility]) ABNORMAL FINDINGS Laboratory test finding (navigational concept) Laboratory test result [facility] ([facility]) - FEATURES ARE STRONGLY SUGGESTIVE OF HE PATOCELLULAR CARCINOMA WITH FATTY Laboratory test finding (navigational concept) Laboratory test result [facility] ([facility]) ULTRASOUND GUIDED BIOPSY OF LIVER MASS: Laboratory test finding (navigational concept) Laboratory test result [facility] ([facility]) METAMORPHOSIS, FIBROSIS AND AREAS OF NEC ROSIS Laboratory test finding (navigational concept) Laboratory test result [facility] ([facility]) consultation by a GI pathologist to eval uate for hepatocellular carcinoma. Upon receipt of Laboratory test finding (navigational concept) Laboratory test result [facility] their report, the final diagnosis will b e posted. Laboratory test finding (navigational concept) Laboratory test result [facility] ([facility]) ABNORMAL FINDINGS Laboratory test finding (navigational concept) [facility] ([facility]) ABNORMAL FINDINGS Laboratory test finding (navigational concept) Laboratory test result [facility] ([facility]) Report faxed to Dr. Jeffy Koo's [facility] on 08/18/2020. Laboratory test finding (navigational concept) [facility] ([facility]) COMMENT: This case is referred to the [facility], Department of Pathology for a Laboratory test finding (navigational concept) Laboratory test result [facility] ([facility]) consultation by a GI pathologist to eval uate for hepatocellular carcinoma. Upon receipt of Laboratory test finding (navigational concept) Laboratory test result [facility] ([facility]) Laboratory test finding (navigational concept) Laboratory test result [facility] ([facility]) their report, the final diagnosis will b e posted. Laboratory test finding (navigational concept) Laboratory test result [facility] ([facility]) REPORT SIGNED: Macy Foster DO 08/08 08/28 (preliminary) Laboratory test finding (navigational concept) Laboratory test result [facility] ([facility] [place] [address] Laboratory test finding (navigational concept) Laboratory test result [facility] ([facility]) Laboratory test finding (navigational concept) [id number] [facility] ([facility]) Laboratory test finding (navigational concept) Laboratory test result [facility] ([facility]) Received in formalin, labeled with prope r patient identification and liver mass biopsy x2 Laboratory test finding (navigational concept) Laboratory test result [facility] ([facility]) Laboratory test finding (navigational concept) Laboratory test result [facility] ([facility]) cores are four becker-white tissue cores r anging in length from 0.3-1.4 cm and 0.1 cm in Laboratory test finding (navigational concept) Laboratory test result [facility] ([facility]) Laboratory test finding (navigational concept) Laboratory test result [facility] ([facility]) diameter. All processed in one cassette. Laboratory test finding (navigational concept) Laboratory test result [facility] ([facility]) Report faxed to Dr. Jeffy Koo's [facility] on 08/18/2020. Microscopic Examination Laboratory test result [facility] ([facility]) Slides reviewed. Diagnosis supported by microscopic examination. Laboratory test finding (navigational concept) Laboratory test result [facility] ([facility]) Laboratory test finding (navigational concept) Laboratory test result [facility] ([facility]) REPORT SIGNED: Macy Foster DO 08/08 08/28 (preliminary) Laboratory test finding (navigational concept) Laboratory test result [facility] ([facility]) Laboratory test finding (navigational concept) Laboratory test result [facility] ([facility]) Macy Foster DO 08/26/20 ID Date Data Source [id number] 08/26/2020 02:16:00 PM EST Hanna Cornejoi tisha No cc. written on requisition form. ( AB) This case was sent to [facility] for consultation. The report forAccession #[id number] [...] but there was insufficient tissueremaining for evaluation. Sharebroker slides of this case were reviewed at the gastrointestinal/liverintradepartmental consultation conference. (RW, NF, ) Electronically Signed By: Patrick Damon MD[address] [place] [address] CODE/[id number] Received in formalin, labeled with proper patient identification and "liver mass biopsy [id number]" are four becker-white tissue cores ranging in [...] COMMENT: [facility], Department of Pathology for aconsultation by a GI pathologist to evaluate for hepatocellular carcinoma. Upon receipt oftheir report, the final diagnosis will be posted. Report faxed to Dr. Jeffy Koo's office on 08/18/2020. . REPORT SIGNED: Macy Foster DO 08/18/20 (preliminary) Macy Foster DO 08/26/20 Name Value Range Interpretation Code Description Data Maisha rce(s) Supporting Document(s) ID Date Data Source [id number] 08/15/2020 08:58:00 AM EST [facility] ([facility]) Name Value Range Interpretation Code Description Data Maisha rce(s) Supporting Document(s) Erythrocytes [#/volume] in Blood by Automated count 3.59 x10E6/uL 4.7 0-6.00 [facility] ([facility]) Leukocytes [#/volume] in Blood by Automated count 5.23 x10E3/uL 4.0-1 0.5 [facility] ([facility]) Hemoglobin [Mass/volume] in Blood 9.7 g/dL 14.0-18.0 [facility] ([facility]) Hematocrit [Volume Fraction] of Blood by Automated count 30.3 % 4 2.0-52.0 [facility] ([facility]) MCV 84.4 fL 81.0-99.0 [facility]) MCHC 32.0 g/dL 32.7-35.6 [facility]) MCH 27.0 pg 27.0-31.0 [facility]) RDW 18.0 % 11.5-14.0 [facility]) MPV 9.9 fl 6.9-9.5 [facility]) Platelets [#/volume] in Blood by Automated count 257 x10E3/uL 150-450 [facility] ([facility]) Neutrophils 72.4 % 34-64 [facility] ([facility]) Lymphocytes 10.9 % 25-45 [facility] ([facility]) Eosinophils 2.3 % 0.4-7.0 [facility] ([facility]) Monocytes 13.2 % 1.7-10.6 [facility] Basophils 0.6 % 0.1-2.0 [facility] Abs. Lymph. 0.57 x10E3/uL 1.0-3.5 [facility] ([facility]) Imm. Gran. 0.6 % 0.1-2.0 [facility] Abs. Neutro. 3.79 x10E3/uL 1.2-7.6 [facility] ([facility]) Abs. Clark. 0.69 x10E3/uL 0.1-1.0 [facility] ([facility]) Abs. Eosin. 0.12 x10E3/uL 0.1-0.7 [facility] ([facility]) Abs. Baso. 0.03 x10E3/uL 0.0-0.1 [facility] ([facility]) Laboratory test finding (navigational concept) 0 % [facility] ([facility]) Abs. Imm. Gran. 0.03 x10E3/uL 0.0-0.1 [facility] ([facility]) DIFFERENTIAL CONFIRMED BY SLIDE REVIEW. RBC Morphology Laboratory test result [facility] ([facility]) RBC Morphology Laboratory test result [facility] ([facility]) RBC Morphology Laboratory test result [facility] ([facility]) OCC STOMATOCYTES RBC Morphology Laboratory test result [facility] ([facility]) OCC TARGET CELLS RBC MORPHOLOGY EXPECTED RESULTS: NORMAL = NORMOCHROMIC, NORMOCYTIC CELLS Any findings other than Normal will be reported and are considered Abnormal. The significance of Abnormal findings are to be clinically correlated by the provider. ID Date Data Source [id number] 08/15/2020 10:08:00 AM EST [facility] Name Value Range Interpretation Code Description Data Maisha rce(s) Supporting Document(s) WBC 5.23 x10E3/uL 4.0-10.5 N [facility] RBC 3.59 x10E6/uL 4.70-6.00 L [facility] Hemoglobin 9.7 g/dL 14.0-18.0 L [facility] Hematocrit 30.3 % 42.0-52.0 L [facility] MCV 84.4 fL 81.0-99.0 N [facility] MCH 27.0 pg 27.0-31.0 N [facility] MCHC 32.0 g/dL 32.7-35.6 L [facility] RDW 18.0 % 11.5-14.0 H [facility] Platelet count 257 x10E3/uL 150-450 N [facility] ital MPV 9.9 fl 6.9-9.5 H [facility] Neutrophils 72.4 % 34-64 H [facility] Lymphocytes 10.9 % 25-45 L [facility] Monocytes 13.2 % 1.7-10.6 H [facility] Eosinophils 2.3 % 0.4-7.0 N [facility] Basophils 0.6 % 0.1-2.0 N [facility] Imm. Gran. 0.6 % 0.1-2.0 N [facility] Abs. Neutro. 3.79 x10E3/uL 1.2-7.6 [facility] Abs. Lymph. 0.57 x10E3/uL 1.0-3.5 [facility] Abs. Clark. 0.69 x10E3/uL 0.1-1.0 [facility] Abs. Eosin. 0.12 x10E3/uL 0.1-0.7 [facility] Abs. Baso. 0.03 x10E3/uL 0.0-0.1 [facility] Abs. Imm. Gran. 0.03 x10E3/uL 0.0-0.1 N [facility] DIFFERENTIAL CONFIRMED BY SLIDE REVIEW. ANRBC% 0 % 0 N [facility] 2+ ANISOCYTOSIS1+ HYPOCHROMICOCC STOMATO CYTESOCC TARGET CELLSRBC MORPHOLOGY EXPECTED RESULTS: NORMAL = NORMOCHROMIC, NORMOCYTIC CELLSAny findings other than Normal will be reported and areconsidered Abnormal. The significance of Abnormalfindings are to be clinically correlated by the provider. ID Date Data Source [id number] 08/12/2020 07:00:00 AM EST [facility] ([facility]) Name Value Range Interpretation Code Description Data Maisha rce(s) Supporting Document(s) [id number] Laboratory test result [facility] ([facility]) This nucleic acid amplification test was developed and its performance characteristics determined by [facility]. Nucleic acid amplification tests include PCR and [...] Acid Amplification (BETTY) ID Date Data Source [id number] 08/12/2020 07:00:00 AM EST [facility] Name Value Range Interpretation Code Description Data Maisha rce(s) Supporting Document(s) SARS coronavirus 2 RNA Not Detected [facility] This lab was ordered by [place] [facility] and reported by [facility]. ID Date Data Source [id number] 08/13/2020 03:09:00 PM EST [facility] tisha Performed at: [employer] [facility] [place], [place] [id number] Director: Amaya Ray PhD, Phone: [phone] Name Value Range Interpretation Code Description Data Maisha rce(s) Supporting Document(s) SARS-CoV-2, BETTY Not Detected Not Detected [facility] This nucleic acid amplification test was developed [...] SARS-CoV-2 virusand/or diagnosis of COVID-19 infection under [id number](b)(1) of the Act, 21 U.S.C. 360bbb-3(b) (1), [...] Acid Amplification (BETTY) ID Date Data Source [id number] 08/09/2020 06:16:25 PM [facility] Name Value Range Interpretation Code Description Data Maisha rce(s) Supporting Document(s) Progress Note [facility] [id number] [facility] [file] [id number] ID Date Data Source [id number] 08/05/2020 10:58:54 AM [facility] Name Value Range Interpretation Code Description Data Maisha rce(s) Supporting Document(s) Leukocytes [#/volume] in Blood by Automated count 5.2 10*3/uL 4-10 [facility] Erythrocytes [#/volume] in Blood by Automated count 3.89 10*6/uL 4.6- 6.1 L [facility] Hemoglobin [Mass/volume] in Blood 10.6 g/dL 13.5-18 L [facility] Hematocrit [Volume Fraction] of Blood by Automated count 32.7 % 4 1-53 L [facility] Erythrocyte mean corpuscular volume [Entitic volume] by Auto mated count 84.1 fL 80-96 [facility] Erythrocyte mean corpuscular hemoglobin [Entitic mass] by Automated count 27.3 pg 27-33 [facility] Erythrocyte mean corpuscular hemoglobin concentration [Mass/volume] by Automated count 32.4 g/dL 32.0-36.0 [facility] distribution width [Ratio] by Automated count 17.3 % 11.5-14.5 H [facility] Platelets [#/volume] in Blood by Automated count 280 10*3/uL 150-400 [facility] Differential cell count method - Blood [facility] Neutrophils/100 leukocytes in Blood by Automated count 75 % [facility] Lymphocytes/100 leukocytes in Blood by Automated count 10 % [facility] Monocytes/100 leukocytes in Blood by Automated count 11 % [facility] Eosinophils/100 leukocytes in Blood by Automated count 3 % [facility] Basophils/100 leukocytes in Blood by Automated count 1 % [facility] Neutrophils [#/volume] in Blood by Automated count 3.90 10*3/uL 1.8-7 .0 [facility] Lymphocytes [#/volume] in Blood by Automated count 0.49 10*3/uL 1.2-4 .0 L [facility] Monocytes [#/volume] in Blood by Automated count 0.58 10*3/uL 0-0.8 [facility] Eosinophils [#/volume] in Blood by Automated count 0.16 10*3/uL 0-0.5 [facility] Basophils [#/volume] in Blood by Automated count 0.05 10*3/uL 0-0.2 [facility] Nucleated erythrocytes/100 leukocytes [Ratio] in Blood by Automated count 0 /100{WBCs} 0-0 [facility] ID Date Data Source [id number] 08/05/2020 11:28:32 AM [facility] Name Value Range Interpretation Code Description Data Maisha rce(s) Supporting Document(s) Prothrombin time (PT) 20.0 s 12.5-14.9 H [facility] INR in Platelet poor plasma by Coagulation assay 1.67 [facility] Routine intensity oral anticoagulation I NR is typically 2.0-3.0. Target INR must be clinically individualized. ID Date Data Source [id number] 08/05/2020 11:28:32 AM [facility] Value Range Interpretation Code Description Data Maisha rce(s) Supporting Document(s) aPTT in Platelet poor plasma by Coagulation assay 35.4 s 24.0-33. 0 H [facility] ID Date Data Source [id number] 08/05/2020 11:34:03 AM [facility] Value Range Interpretation Code Description Data Maisha rce(s) Supporting Document(s) Cancer Ag 19-9 [Units/volume] in Serum or Plasma <35 [facility] This test uses [employer] CA 19-9 electrochem iluminescent immunoassay. Results obtained with different test methods or kits cannot be used interchangeably. CA 19-9 is useful in monitoring pancreatic, hepatobiliary, gastric, hepatocelllular, and colorectal cancer. CA 19-9 value regardless of level, should not be interpreted as absolute evidence of the presence or absence of malignant disease. ID Date Data Source [id number] 08/05/2020 11:34:03 AM [facility] Value Range Interpretation Code Description Data Maisha rce(s) Supporting Document(s) Carcinoembryonic Ag [Mass/volume] in Serum or Plasma 1.7 ng/ml <3.4 [facility] Levels of CEA should not be interpreted as absoulute evidence of the presence or absence of disease. It should not be used as a screening test for Cancer. CEA values obtained using different methodologies cannot be used interchangeably. This method is manufactured by [employer] and is an electrochemiluminesence immunoassay. ID Date Data Source [id number] 08/05/2020 11:34:03 AM [facility] Name Value Range Interpretation Code Description Data Maisha rce(s) Supporting Document(s) Albumin [Mass/volume] in Serum or Plasma by Bromocresol green (BCG) dye binding method 3.8 g/dL 3.5-5.2 [facility] Bilirubin.total [Mass/volume] in Serum or Plasma 1.1 mg/dL <1.2 [facility] Calcium [Mass/volume] in Serum or Plasma 9.5 mg/dL 8.6-10.0 [facility] Chloride [Moles/volume] in Serum or Plasma 96 mmol/L 98-107 L [facility] Creatinine [Mass/volume] in Serum or Plasma 1.13 mg/dL 0.70-1.20 [facility] Glucose [Mass/volume] in Serum or Plasma 92 mg/dL 70-140 [facility] Alkaline phosphatase [Enzymatic activity/volume] in Serum or Plasma 347 U/L 40-129 H [facility] Potassium [Moles/volume] in Serum or Plasma 5.0 mmol/L 3.4-5.1 [facility] Protein [Mass/volume] in Serum or Plasma 7.4 g/dL 6.4-8.3 [facility] Sodium [Moles/volume] in Serum or Plasma 132 mmol/L 136-145 L [facility] Aspartate aminotransferase [Enzymatic activity/volume] in Serum or Plasma 443 U/L <40 H [facility] Urea nitrogen [Mass/volume] in Serum or Plasma 21 mg/dL 6-20 H [facility] Osmolality of Serum or Plasma by calculation 276 mosm/kg 275-300 [facility] Creatinine/Urea nitrogen [Mass Ratio] in Serum or Plasma 19 [facility] Bicarbonate [Moles/volume] in Serum 26 mmol/L 22-29 [facility] Alanine aminotransferase [Enzymatic activity/volume] in Seru m or Plasma 93 U/L <41 H [facility] Anion gap 3 in Serum or Plasma 10 mmol/L 8-15 [facility] Glomerular filtration rate/1.73 sq M pre dicted among non-blacks [Volume Rate/Area] in Serum or Plasma by Creatinine-based formula (MDRD) 70 mL/min/1.73m2 >60 [facility] Glomerular filtration rate/1.73 sq M pre dicted among blacks [Volume Rate/Area] in Serum or Plasma by Creatinine-based formula (MDRD) 81 mL/min/1.73m2 >60 [facility] ID Date Data Source [id number] 08/05/2020 03:57:22 PM [facility] Name Value Range Interpretation Code Description Data Maisha rce(s) Supporting Document(s) [id number]-0-Zznewruvhlh [Mass/volume] in Serum or Plasma 77743 ng/mL <9 H [facility] Confirmed ID Date Data Source [id number] 07/29/2020 12:00:00 AM EST [facility] Jeffy Koo Jr, MD Patient Name: KELLY [id number] [facility] 1960[facility] [address] Date of Exam: 07/29/2020#: Fax: [phone] EXAM: CT THORAX WITHOUT&WITH CONTRASTCLINICAL INFORMATION: Followup lung base nodules seen prior abdominal andpelvic CT of 07/22/2020.Low dose [address] scanning of the chest was obtained using 3 mmincrements before and after the administration of intravenous contrast andreconstructed in both coronal and sagittal scan planes. 75 cc of [id number] was administered intravenously.The mediastinum and pulmonary harriet [...] order.Other findings as described above.Accredited by the [employer] in [place].ANA MARÍA Lino/Juanis you for referring KELLY SCOTT to our office. Electronically Signed - KAHLIL GARCIA DO 08/04/20 16:40 Name Value Range Interpretation Code Description Data Maisha rce(s) Supporting Document(s) ID Date Data Source [id number] 07/28/2020 08:23:00 AM EST [facility] ([facility]) Name Value Range Interpretation Code Description Data Maisha rce(s) Supporting Document(s) INR in Platelet poor plasma by Coagulation assay 1.3 [facility] ID Date Data Source [id number] 07/24/2020 11:21:00 AM EST [facility] ([facility]) Name Value Range Interpretation Code Description Data Maisha rce(s) Supporting Document(s) Carcinoembryonic Ag [Mass/volume] in Serum or Plasma 0.6 ng/mL [facility] ([facility]) THE CEA ASSAY IS PERFORMED ON THE CELINE ApplauseAUR BY CHEMILUMINESCENCE AND SHOULD NOT BE COMPARED INTERCHANGEABLY WITH OTHER METHODS. IT SHOULD NOT BE USED ALONE A SCREENING TEST OR DIAGNOSIS FOR THE PRESENCE OR ABSENCE OF MALIGNANT DISEASE. PREDICTIONS OF DISEASE RECURRENCE SHOULD NOT BE BASED SOLELY ON VALUES OBTAINED FROM SERIAL PATIENT SERUM VALUES. Qdnul-8-Ipnhdlyvlhn [Mass/volume] in Serum or Plasma 1000.0 ng/mL [facility] ([facility]) THE AFP ASSAY IS PERFORMED ON THE RFI [employer] BY CHEMILUMINESCENCE AND SHOULD NOT BE COMPARED INTERCHANGEABLY WITH OTHER METHODS. IT SHOULD NOT BE USED ALONE A SCREENING TEST OR DIAGNOSIS FOR THE PRESENCE OR ABSENCE OF MALIGNANT DISEASE. THESE RESULTS ARE NOT INTERPRETABLE IN FEMALES. PREDICTIONS OF DISEASE RECURRENCE SHOULD NOT BE BASED SOLELY ON VALUES OBTAINED FROM SERIAL PATIENT SERUM VALUES. ID Date Data Source [id number] 07/24/2020 11:15:00 AM [facility] ([facility]) Name Value Range Interpretation Code Description Data Maisha rce(s) Supporting Document(s) INR in Platelet poor plasma by Coagulation assay 3.3 [facility] ([facility]) ID Date Data Source [id number] 07/22/2020 12:00:00 AM EST [facility] Jeffy Koo Jr, MD Patient Name: KELLY [id number] [facility] Date of : 1960[place] [address] Date of Exam: 07/22/2020#: Fax: [phone] EXAM: [...] extensive tumor involvement with a length of [id number] cm. The spleen is mildly enlarged with [...] No adenopathy. Nodefinite bowel abnormality.Accredited by the [employer] in [place].AMY Mccarty/Juanis dumont for referring KELLY SCOTT to our office. Electronically Signed - CODY DEAN MD 07/22/20 16:07 Name Value Range Interpretation Code Description Data Maisha rce(s) Supporting Document(s) ID Date Data Source [id number] 07/18/2020 01:29:00 PM EST [facility] ([facility]) Name Value Range Interpretation Code Description Data Maisha rce(s) Supporting Document(s) Hepatitis B Surface Antigen Laboratory test result [facility] ([facility]) Hepatitis C Virus Winsome Index 0.1 [facility] ([facility]) Negative Not infected with HCV, unless recent infection is suspected or other evidence exists to indicate HCV infection. Hepatitis B Core Antibody Igm Laboratory test result [facility] ([facility]) Hepatitis A Antibody Igm Laboratory test result [facility] ([facility]) ID Date Data Source [id number] 07/18/2020 01:28:00 PM EST [facility] ([facility]) Name Value Range Interpretation Code Description Data Maisha rce(s) Supporting Document(s) Prostate specific Ag [Mass/volume] in Serum or Plasma 0.68 ng/mL [facility] ([facility]) This assay was performed on the Siemens Dimension EXL using the B- Galactosidase/CPRG methodology and should not be compared interchangeably with other methods. The PSA should not be used alone as a screening test for the presence or absence of malignant disease. ID Date Data Source [id number] 07/18/2020 01:28:00 PM EST [facility] ([facility]) Name Value Range Interpretation Code Description Data Maisha rce(s) Supporting Document(s) Alkaline phosphatase isoenzyme [Units/volume] in Serum or Pl asma 277 mg/dL 46-116 [facility] ([facility]) Total Bilirubin 0.8 mg/dL 0.2-1.0 [facility] Aspartate aminotransferase [Enzymatic activity/volume] in Serum or Plasma 973 U/L 15-37 [facility] ([facility] ) NOTE: RESULT VERIFIED. Alanine aminotransferase [Enzymatic activity/volume] in Seru m or Plasma 215 U/L 12-78 [facility] ([facility]) Albumin [Mass/volume] in Serum or Plasma 3.8 g/dL 3.4-5.0 [facility] ([facility]) Direct Bilirubin 0.3 mg/dL 0.0-0.2 [facility] ([facility]) Proteinase 3 Ab [Units/volume] in Serum 7.6 g/dL 6.4-8.2 [facility] ([facility]) A/G Ratio 1.00 CALC 1.00-1.90 [facility] ([facility]) ID Date Data Source [id number] 07/10/2020 08:10:00 AM EST [facility] ([facility]) Name Value Range Interpretation Code Description Data Maisha rce(s) Supporting Document(s) Erythrocytes [#/volume] in Blood by Automated count 4.44 x10*6/UL 4.2 0-6.30 [facility] ([facility]) Leukocytes [#/volume] in Blood by Automated count 4.2 x10*3/UL 4.1-10 .9 [facility] Hematocrit [Volume Fraction] of Blood by Automated count 36.6 % 3 7.0-51.0 [facility] Hemoglobin [Mass/volume] in Blood 12.6 g/dL 12.0-18.0 [facility] ([facility]) MCV 82.4 fL 80.0-97.0 [facility] MCH 28.4 pg 26.0-32.0 [facility] Erythrocyte distribution width [Ratio] by Automated count 14.4 % 11.6-13.7 [facility] ([facility]) MCHC 34.5 g/dL 31.0-38.0 [facility] Platelets [#/volume] in Blood by Automated count 233 x10*3/UL 140-440 [facility] ([facility]) Lymph % 16.5 % 10.0-58.5 [facility]) MPV 8.1 FL 7.8-11.0 [facility]) Neut % 78.6 % 37.0-92.0 [facility]) Lymph # 0.6 x10*3/UL 0.6-4.1 [facility] ([facility]) Mid % 4.9 % 1.7-9.3 [facility]) Neut # 3.3 x10*3/UL 2.0-7.8 [facility] ([facility]) Mid # 0.3 x10*3/UL 0.1-0.6 [facility] ([facility]) ID Date Data Source [id number] 07/10/2020 08:10:00 AM EST [facility] ([facility]) Name Value Range Interpretation Code Description Data Maisha rce(s) Supporting Document(s) Cholesterol in HDL [Mass/volume] in Serum or Plasma 21 mg/dL 35-60 [facility] ([facility]) Triglyceride [Mass/volume] in Serum or Plasma 149 mg/dL 30-150 [facility] ([facility]) Cholesterol [Mass/volume] in Serum or Plasma 114 mg/dL 131-200 [facility] ([facility]) Cholesterol in LDL [Mass/volume] in Serum or Plasma by calcu lation 63 CALC 50-159 [facility] ([facility]) ID Date Data Source [id number] 07/10/2020 08:10:00 AM EST [facility] ([facility]) Name Value Range Interpretation Code Description Data Maisha rce(s) Supporting Document(s) Glucose [Mass/volume] in Serum or Plasma 88 mg/dL 74-99 [facility] ([facility]) 100-125 mg/dL PRE-DIABETES/FASTING >126 mg/dL DIABETES/FASTING Creatinine 1.3 mg/dL 0.6-1.3 [facility]) Urea nitrogen [Mass/volume] in Serum or Plasma 21 mg/dL 7-18 [facility] ([facility]) Sodium [Moles/volume] in Serum or Plasma 137 meq/L 136-145 [facility] ([facility]) Carbon dioxide, total [Moles/volume] in Serum or Plasma 30 meq/L 21 -32 [facility] ([facility]) Potassium [Moles/volume] in Serum or Plasma 4.8 meq/L 3.5-5.1 [facility] ([facility]) Chloride [Moles/volume] in Serum or Plasma 99 meq/L 98-107 [facility] ([facility]) Total Bilirubin 0.6 mg/dL 0.2-1.0 [facility] ([facility]) Alkaline phosphatase isoenzyme [Units/volume] in Serum or Pl asma 181 mg/dL 46-116 [facility] ([facility]) Calcium [Mass/volume] in Serum or Plasma 9.0 mg/dL 8.5-10.1 [facility] ([facility]) Aspartate aminotransferase [Enzymatic activity/volume] in Serum or Plasma 712 U/L 15-37 [facility] ([facility] ) NOTE: RESULT VERIFIED. Alanine aminotransferase [Enzymatic activity/volume] in Seru m or Plasma 83 U/L 12-78 [facility] ([facility]) Albumin [Mass/volume] in Serum or Plasma 3.7 g/dL 3.4-5.0 [facility] ([facility]) A/G Ratio 1.03 CALC 1.00-1.90 [facility]) Proteinase 3 Ab [Units/volume] in Serum 7.3 g/dL 6.4-8.2 [facility] ([facility]) Glomerular filtration rate/1.73 sq M pre dicted among blacks [Volume Rate/Area] in Serum or Plasma by Creatinine-based formula (MDRD) Laboratory test result [facility] <content>CHRONIC KIDNEY DISEASE STAGING PER NKF</content>
<content></content>
<content>STAGE I & II GFR >= 60 NORMAL TO MILDLY DECREASED</content>
<content>STAGE III GFR 30-59 MODERATELY DECREASED</content>
<content>STAGE IV GFR 15-29 SEVERELY DECREASED</content>
<content>STAGE V GFR <15 VERY LITTLE GFR LEFT</content>
<content>ESRD GFR <15 ON MAINTENANCE MECHANIC TELEPHONE</content>
<content></content> Glomerular filtration rate/1.73 sq M pre dicted among non-blacks [Volume Rate/Area] in Serum or Plasma by Creatinine-based formula (MDRD) 57 mL/min [facility] ID Date Data Source [id number] 07/10/2020 08:10:00 AM EST [facility] ([facility]) Name Value Range Interpretation Code Description Data Maisha rce(s) Supporting Document(s) Hemoglobin A1c/Hemoglobin.total in Blood 6.0 % [facility] ([facility]) Lab Result Notes: Pre-Diabetes 5.7 - 6.4 % Diabetes = or > 6.5% Glucose mean value [Mass/volume] in Blood Estimated fr om glycated hemoglobin 125 mg/dL 60-110 [facility] ID Date Data Source [id number] 07/10/2020 08:10:00 AM EST [facility] Name Value Range Interpretation Code Description Data Maisha rce(s) Supporting Document(s) Hemoglobin A1c/Hemoglobin.total in Blood Laboratory test result [facility] ID Date Data Source [id number] 06/10/2020 08:36:00 AM EST [facility] ([facility]) Name Value Range Interpretation Code Description Data Maisha rce(s) Supporting Document(s) INR in Platelet poor plasma by Coagulation assay 2.1 [facility] ID Date Data Source [id number] 06/03/2020 08:13:00 AM EDT [facility] Name Value Range Interpretation Code Description Data Maisha rce(s) Supporting Document(s) INR in Platelet poor plasma by Coagulation assay 1.6 [facility] ID Date Data Source [id number] 05/26/2020 08:21:00 AM EDT [facility] ([facility]) Name Value Range Interpretation Code Description Data Maisha rce(s) Supporting Document(s) INR in Platelet poor plasma by Coagulation assay 1.5 [facility] ID Date Data Source [id number] 04/24/2020 08:02:00 AM EDT [facility] ([facility]) Name Value Range Interpretation Code Description Data Maisha rce(s) Supporting Document(s) INR in Platelet poor plasma by Coagulation assay 3.0 [facility] ([facility]) ID Date Data Source [id number] 03/24/2020 08:04:00 AM EDT [facility] ([facility]) Name Value Range Interpretation Code Description Data Maisha rce(s) Supporting Document(s) INR in Platelet poor plasma by Coagulation assay 2.6 [facility] ([facility]) ID Date Data Source [id number] 03/17/2020 08:14:00 AM EDT [facility] ([facility]) Name Value Range Interpretation Code Description Data Maisha rce(s) Supporting Document(s) INR in Platelet poor plasma by Coagulation assay 3.1 [facility]) ID Date Data Source [id number] 02/13/2020 08:22:00 AM EDT [facility] ([facility]) Name Value Range Interpretation Code Description Data Maisha rce(s) Supporting Document(s) INR in Platelet poor plasma by Coagulation assay 2.7 [facility] ([facility]) ID Date Data Source [id number] 01/14/2020 08:50:00 AM EDT [facility] ([facility]) Name Value Range Interpretation Code Description Data Maisha rce(s) Supporting Document(s) INR in Platelet poor plasma by Coagulation assay 2.7 [facility]) ID Date Data Source [id number] 01/04/2020 08:06:00 AM EDT [facility] ([facility]) Name Value Range Interpretation Code Description Data Maisha rce(s) Supporting Document(s) Cholesterol [Mass/volume] in Serum or Plasma 104 mg/dL 131-200 [facility] ([facility]) Triglyceride [Mass/volume] in Serum or Plasma 298 mg/dL 30-150 [facility] ([facility]) Cholesterol in LDL [Mass/volume] in Serum or Plasma by calcu lation 20 CALC 50-159 [facility] ([facility]) Cholesterol in HDL [Mass/volume] in Serum or Plasma 24 mg/dL 35-60 [facility] ([facility]) ID Date Data Source [id number] 01/04/2020 08:06:00 AM EDT [facility] ([facility]) Name Value Range Interpretation Code Description Data Maisha rce(s) Supporting Document(s) Glucose [Mass/volume] in Serum or Plasma 120 mg/dL 74-99 [facility] ([facility]) 100-125 mg/dL PRE-DIABETES/FASTING >126 mg/dL DIABETES/FASTING Sodium [Moles/volume] in Serum or Plasma 140 meq/L 136-145 [facility] ([facility]) Urea nitrogen [Mass/volume] in Serum or Plasma 18 mg/dL 7-18 [facility] ([facility]) Creatinine 1.1 mg/dL 0.6-1.3 [facility] Potassium [Moles/volume] in Serum or Plasma 4.3 meq/L 3.5-5.1 [facility] ([facility]) Chloride [Moles/volume] in Serum or Plasma 104 meq/L 98-107 [facility] ([facility]) Carbon dioxide, total [Moles/volume] in Serum or Plasma 29 meq/L 21 -32 [facility] ([facility]) Calcium [Mass/volume] in Serum or Plasma 9.0 mg/dL 8.5-10.1 [facility] ([facility]) Alkaline phosphatase isoenzyme [Units/volume] in Serum or Pl asma 68 mg/dL 46-116 [facility] ([facility]) Total Bilirubin 0.4 mg/dL 0.2-1.0 [facility] ([facility]) Aspartate aminotransferase [Enzymatic activity/volume] in Serum or Plasma 32 U/L 15-37 [facility] ([facility] ) Alanine aminotransferase [Enzymatic activity/volume] in Seru m or Plasma 32 U/L 12-78 [facility] ([facility]) Albumin [Mass/volume] in Serum or Plasma 3.6 g/dL 3.4-5.0 [facility] ([facility]) A/G Ratio 1.06 CALC 1.00-1.90 [facility]) Proteinase 3 Ab [Units/volume] in Serum 7.0 g/dL 6.4-8.2 [facility] ([facility]) Glomerular filtration rate/1.73 sq M pre dicted among non-blacks [Volume Rate/Area] in Serum or Plasma by Creatinine-based formula (MDRD) Laboratory test result [facility] Glomerular filtration rate/1.73 sq M pre dicted among blacks [Volume Rate/Area] in Serum or Plasma by Creatinine-based formula (MDRD) Laboratory test [facility] <content>CHRONIC KIDNEY DISEASE STAGING PER NKF</content>
<content></content>
<content>STAGE I & II GFR >= 60 NORMAL TO MILDLY DECREASED</content>
<content>STAGE III GFR 30-59 MODERATELY DECREASED</content>
<content>STAGE IV GFR 15-29 SEVERELY DECREASED</content>
<content>STAGE V GFR <15 VERY LITTLE GFR LEFT</content>
<content>ESRD GFR <15 ON MAINTENANCE MECHANIC TELEPHONE</content>
<content></content> ID Date Data Source [id number] 01/04/2020 08:06:[facility] Name Value Range Interpretation Code Description Data Maisha rce(s) Supporting Document(s) Hemoglobin A1c/Hemoglobin.total in Blood 6.5 g/dL 4.8-5.6 [facility] ([facility]) Lab Result Notes: Pre-Diabetes 5.7 - 6.4 % Diabetes = or > 6.5% Glucose mean value [Mass/volume] in Blood Estimated fr om glycated hemoglobin 140 mg/dL 60-110 [facility] ([facility] ) ID Date Data Source [id number] 01/04/2020 08:06:00 AM EDT [facility]) Name Value Range Interpretation Code Description Data Maisha rce(s) Supporting Document(s) Leukocytes [#/volume] in Blood by Automated count 6.2 x10*3/UL 4.1-10 .9 [facility] Hemoglobin [Mass/volume] in Blood 13.2 g/dL 12.0-18.0 [facility] Erythrocytes [#/volume] in Blood by Automated count 4.59 x10*6/UL 4.2 0-6.30 [facility] Hematocrit [Volume Fraction] of Blood by Automated count 38.3 % 3 7.0-51.0 [facility] ([facility]) MCH 28.7 pg 26.0-32.0 [facility] ([facility]) MCV 83.5 fL 80.0-97.0 [facility] ([facility]) MCHC 34.4 g/dL 31.0-38.0 [facility] ([facility]) Erythrocyte distribution width [Ratio] by Automated count 13.8 % 11.6-13.7 [facility] MPV 8.8 FL 7.8-11.0 [facility] ([facility]) Platelets [#/volume] in Blood by Automated count 187 x10*3/UL 140-440 [facility] Lymph % 16.8 % 10.0-58.5 [facility] ([facility]) Neut % 77.9 % 37.0-92.0 [facility] ([facility]) Mid % 5.3 % 1.7-9.3 [facility] ([facility]) Mid # 0.4 x10*3/UL 0.1-0.6 [facility] ([facility]) Lymph # 1.0 x10*3/UL 0.6-4.1 [facility] ([facility]) Neut # 4.8 x10*3/UL 2.0-7.8 [facility] ([facility] ID Date Data Source [id number] 12/13/2019 08:42:00 AM EDT [facility] ([facility]) Name Value Range Interpretation Code Description Data Maisha rce(s) Supporting Document(s) INR in Platelet poor plasma by Coagulation assay 2.3 [facility] ([facility]) ID Date Data Source [id number] 11/13/2019 08:10:00 AM EDT [facility] ([facility]) Name Value Range Interpretation Code Description Data Maisha rce(s) Supporting Document(s) INR in Platelet poor plasma by Coagulation assay 2.4 [facility] ([facility]) ID Date Data Source [id number] 11/05/2019 08:12:00 AM EDT [facility] ([facility]) Name Value Range Interpretation Code Description Data Maisha rce(s) Supporting Document(s) INR in Platelet poor plasma by Coagulation assay 1.6 [facility] ([facility]) ID Date Data Source [id number] 10/29/2019 08:43:00 AM EDT [facility] ([facility]) Name Value Range Interpretation Code Description Data Maisha rce(s) Supporting Document(s) INR in Platelet poor plasma by Coagulation assay 1.8 [facility] ([facility]) ID Date Data Source [id number] 10/15/2019 08:25:00 AM EDT [facility] ([facility]) Name Value Range Interpretation Code Description Data Maisha rce(s) Supporting Document(s) INR in Platelet poor plasma by Coagulation assay 1.9 [facility] ([facility]) ID Date Data Source [id number] 11/13/2019 04:03:00 PM T [facility] Surgical Pathology Report* Amended *Name : KELLY SCOTT KMRN: [id number] Number: [id number] Date: 10/03/2019 00:00Received Date: 10/03/2019 09:12Physician(s): CODY ANDERSON,MELINDA HANNAH,MDSpecimen(s) ReceivedA: SPECIMEN ACCESSIONED IN ERRORClinical HistoryDiagnosisSPECIMEN ACCESSIONED IN ERROR NO SPECIMEN RECEIVED FOR THIS PATIENT. Electronically Signed By Yvette Garcia, Attending Pathologist11/13/2019 16:03:45 Unless 'gross-only' is specified, the final diagnosis is based on amicroscopic examination of underwriting sales representative sections of tissue.AmendmentsAmended: 10/04/2019 by Angle Nunn: Accession Error Per [facility] incorrect patient demographics sent. Nospecimen was received for this patient.Previous Signout Date: 10/03/2019This report may include one or more immunohistochemical stain results thatuse analyte specific reagents. All positive and negative controls havebeen reviewed by the attending pathologist and are satisfactory. The testswere developed and their performance characteristics determined by [facility] Pathology department. They have not been cleared or approved by the od and Drug Administration. The FDA has determined that such clearanceor approval is not necessary. Name Value Range Interpretation Code Description Data Maisha rce(s) Supporting Document(s) ID Date Data Source [id number] 10/01/2019 09:07:00 AM EST [facility] ([facility]) Name Value Range Interpretation Code Description Data Maisha rce(s) Supporting Document(s) INR in Platelet poor plasma by Coagulation assay 1.9 [facility] ([facility]) ID Date Data Source [id number] 09/28/2019 10:47:00 AM EST [facility] ([facility]) Name Value Range Interpretation Code Description Data Maisha rce(s) Supporting Document(s) Digoxin [Mass/volume] in Serum or Plasma 0.6 ng/mL 0.5-2.0 [facility] ([facility]) ID Date Data Source [id number] 09/28/2019 10:46:00 AM EST [facility] ([facility]) Name Value Range Interpretation Code Description Data Maisha rce(s) Supporting Document(s) Microalbumin Urine 1877.8 mg/L 1.3-20.0 [facility] ([facility]) NOTE: RESULT VERIFIED. Microalb/Creat Ratio 847.4 ug/mg 0.0-30.0 [facility] ([facility]) Urine Creatinine 221.6 mg/dL 30.0-125.0 [facility] ([facility]) ID Date Data Source [id number] 09/28/2019 10:46:00 AM EST [facility] ([facility]) Name Value Range Interpretation Code Description Data Maisha rce(s) Supporting Document(s) Cholesterol in HDL [Mass/volume] in Serum or Plasma 26 mg/dL 35-60 [facility] ([facility]) Cholesterol [Mass/volume] in Serum or Plasma 131 mg/dL 131-200 [facility] ([facility]) Triglyceride [Mass/volume] in Serum or Plasma 365 mg/dL 30-150 [facility] ([facility]) Cholesterol in LDL [Mass/volume] in Serum or Plasma by calcu lation 32 CALC 50-159 [facility] ([facility]) ID Date Data Source [id number] 09/28/2019 10:46:00 AM EST [facility] ([facility]) Name Value Range Interpretation Code Description Data Maisha rce(s) Supporting Document(s) Glucose [Mass/volume] in Serum or Plasma 178 mg/dL 74-99 [facility] ([facility]) 100-125 mg/dL PRE-DIABETES/FASTING >126 mg/dL DIABETES/FASTING Sodium [Moles/volume] in Serum or Plasma 139 meq/L 136-145 [facility] ([facility]) Creatinine 1.0 mg/dL 0.6-1.3 [email or web address] Urea nitrogen [Mass/volume] in Serum or Plasma 19 mg/dL 7-18 [facility] ([facility]) Potassium [Moles/volume] in Serum or Plasma 4.5 meq/L 3.5-5.1 [facility] ([facility]) Carbon dioxide, total [Moles/volume] in Serum or Plasma 30 meq/L 21 -32 [facility] ([facility]) Chloride [Moles/volume] in Serum or Plasma 102 meq/L 98-107 [facility] ([facility]) Calcium [Mass/volume] in Serum or Plasma 9.0 mg/dL 8.5-10.1 [facility] ([facility]) Total Bilirubin 0.4 mg/dL 0.2-1.0 [facility] ([facility]) Aspartate aminotransferase [Enzymatic activity/volume] in Serum or Plasma 40 U/L 15-37 [facility] ([facility] ) Alanine aminotransferase [Enzymatic activity/volume] in Seru m or Plasma 44 U/L 12-78 [facility] ([facility]) Alkaline phosphatase isoenzyme [Units/volume] in Serum or Pl asma 66 mg/dL 46-116 [facility] ([facility]) A/G Ratio 1.09 CALC 1.00-1.90 [facility] Proteinase 3 Ab [Units/volume] in Serum 7.3 g/dL 6.4-8.2 [facility] ([facility]) Albumin [Mass/volume] in Serum or Plasma 3.8 g/dL 3.4-5.0 [facility] ([facility]) Glomerular filtration rate/1.73 sq M pre dicted among blacks [Volume Rate/Area] in Serum or Plasma by Creatinine-based formula (MDRD) Laboratory test result [facility] <content>CHRONIC KIDNEY DISEASE STAGING PER NKF</content>
<content></content>
<content>STAGE I & II GFR >= 60 NORMAL TO MILDLY DECREASED</content>
<content>STAGE III GFR 30-59 MODERATELY DECREASED</content>
<content>STAGE IV GFR 15-29 SEVERELY DECREASED</content>
<content>STAGE V GFR <15 VERY LITTLE GFR LEFT</content>
<content>ESRD GFR <15 ON MAINTENANCE MECHANIC TELEPHONE</content>
<content></content> Glomerular filtration rate/1.73 sq M pre dicted among non-blacks [Volume Rate/Area] in Serum or Plasma by Creatinine-based formula (MDRD) Laboratory test result [facility] ([facility] ) ID Date Data Source [id number] 09/28/2019 10:46:00 AM EST [facility] Name Value Range Interpretation Code Description Data Maisha rce(s) Supporting Document(s) Hemoglobin A1c/Hemoglobin.total in Blood 8.8 g/dL 4.8-5.6 [facility] ([facility]) Lab Result Notes: Pre-Diabetes 5.7 - 6.4 % Diabetes = or > 6.5% Glucose mean value [Mass/volume] in Blood Estimated fr om glycated hemoglobin 206 mg/dL 60-110 [facility] ID Date Data Source [id number] 09/28/2019 10:46:00 AM EST [facility] Name Value Range Interpretation Code Description Data Maisha rce(s) Supporting Document(s) Hemoglobin [Mass/volume] in Blood 14.3 g/dL 12.0-18.0 [facility] Leukocytes [#/volume] in Blood by Automated count 5.7 x10*3/UL 4.1-10 .9 [facility] Hematocrit [Volume Fraction] of Blood by Automated count 41.3 % 3 7.0-51.0 [facility] ([facility]) Erythrocytes [#/volume] in Blood by Automated count 4.92 x10*6/UL 4.2 0-6.30 [facility] ([facility]) MCV 83.8 fL 80.0-97.0 [facility] MCH 29.2 pg 26.0-32.0 [facility] ([facility]) MCHC 34.8 g/dL 31.0-38.0 [facility] ([facility]) Lymph % 18.6 % 10.0-58.5 [facility] ([facility]) Platelets [#/volume] in Blood by Automated count 199 x10*3/UL 140-440 [facility] ([facility]) MPV 8.6 FL 7.8-11.0 [facility] ([facility]) Erythrocyte distribution width [Ratio] by Automated count 13.6 % 11.6-13.7 [facility] ([facility]) Mid # 0.4 x10*3/UL 0.1-0.6 [facility] ([facility]) Mid % 5.8 % 1.7-9.3 [facility] Neut % 75.6 % 37.0-92.0 [facility] ([facility]) Lymph # 1.0 x10*3/UL 0.6-4.1 [facility] ([facility]) Neut # 4.3 x10*3/UL 2.0-7.8 [facility] ([facility]) ID Date Data Source [id number] 08/22/2019 08:21:00 AM EST [facility] ([facility]) Name Value Range Interpretation Code Description Data Maisha rce(s) Supporting Document(s) INR in Platelet poor plasma by Coagulation assay 2.3 [facility] ([facility]) Procedure Social History Code Duration Value Status Description Data Source(s ) Tobacco use and exposure 08/05/2020 12:00:00 AM EST Never used co mpleted Never used [facility] Smoking 08/05/2020 12:00:00 AM EST Never smoker completed Never s [facility] Vital Signs ID Date Data Source UNK Name Value Range Interpretation Code Description Data Source(s) Body mass index (BMI) [Ratio] 35.0 kg/m2 35.0 k g/m2 [facility] ([facility]) Body weight 280.00 [lb_av] 280.00 [lb_av] [facility] T ([facility]) Body height 75 [in_i] 75 [in_i] [facility] 6'3" Heart rate 70 /min 70 /min [facility] ([facility]) Diastolic blood pressure 68 mm[Hg] 68 mm[Hg] [facility] ([facility]) Systolic blood pressure 112 mm[Hg] 112 mm[Hg] [facility] ([facility]) Body mass index (BMI) [Ratio] 40.6 kg/m2 40.6 k g/m2 [facility] ([facility]) Body weight 325.00 [lb_av] 325.00 [lb_av] [facility] T ([facility]) Body height 75 [in_i] 75 [in_i] [facility] ([facility]) 6'3" Heart rate 120 /min 120 /min [facility] ([facility]) irregular Diastolic blood pressure 74 mm[Hg] 74 mm[Hg] [facility] ([facility]) Systolic blood pressure 110 mm[Hg] 110 mm[Hg] [facility] ([facility]) Body weight 349.00 [lb_av] 349.00 [lb_av] [facility] T ([facility]) Body weight 351.00 [lb_av] 351.00 [lb_av] [facility] T ([facility]) Body weight 352.00 [lb_av] 352.00 [lb_av] [facility] T ([facility]) Body weight 358.00 [lb_av] 358.00 [lb_av] [facility] T ([facility]) Body weight 358.00 [lb_av] 358.00 [lb_av] [facility] T ([facility]) Body weight 353.00 [lb_av] 353.00 [lb_av] [facility] T ([facility]) Body weight 355.00 [lb_av] 355.00 [lb_av] [facility] T ([facility]) Body weight 357.00 [lb_av] 357.00 [lb_av] [facility] T ([facility]) Body mass index (BMI) [Ratio] 45.7 kg/m2 45.7 k g/m2 [facility] ([facility]) Body weight 366.00 [lb_av] 366.00 [lb_av] [facility] T ([facility]) Body height 75 [in_i] 75 [in_i] [facility] ([facility]) 6'3" Heart rate 76 /min 76 /min [facility] ([facility]) Diastolic blood pressure 82 mm[Hg] 82 mm[Hg] [facility] ([facility]) Systolic blood pressure 134 mm[Hg] 134 mm[Hg] M [facility] ([facility]) Body mass index (BMI) [Ratio] 45.5 kg/m2 45.5 k g/m2 [facility] ([facility]) Body weight 364.00 [lb_av] 364.00 [lb_av] [facility] T ([facility]) Body height 75 [in_i] 75 [in_i] [facility] ([facility]) 6'3" Heart rate 81 /min 81 /min [facility] ([facility]) Diastolic blood pressure 84 mm[Hg] 84 mm[Hg] [facility] ([facility]) Systolic blood pressure 140 mm[Hg] 140 mm[Hg] [facility] ([facility]) Body weight 364.00 [lb_av] 364.00 [lb_av] [facility] T ([facility]) Body weight 357.00 [lb_av] 357.00 [lb_av] [facility] T ([facility]) Body weight 357.00 [lb_av] 357.00 [lb_av] [facility] T ([facility]) Body weight 364.00 [lb_av] 364.00 [lb_av] [facility] T ([facility]) Heart rate 78 /min 78 /min [facility] ([facility]) Diastolic blood pressure 80 mm[Hg] 80 mm[Hg] [facility] ([facility]) Systolic blood pressure 132 mm[Hg] 132 mm[Hg] M [facility] ([facility]) Body weight 369.00 [lb_av] 369.00 [lb_av] [facility] T ([facility]) Body weight 268.00 [lb_av] 268.00 [lb_av] [facility] T ([facility]) Body height 73 [in_us] 73 [in_us] [facility]CW[facility] ([facility] Body mass index (BMI) [Ratio] 47.49 kg/m2 47.49 kg/m2 eCW1 ([facility]) Body weight Measured 360 [lb_av] 360 [lb_av] eC W1 ([facility]) ID Date Data Source [id number] 08/14/2020 10:42:58 AM [facility] Name Value Range Interpretation Code Description Data Source(s) WEIGHT RECORDED 310.8 lb 310.8 lb [facility]
[2020-09-23 15:43] LABS: RSV AMPLIFICATION NEGATIVE (NEGATIVE)
--- NOTE | 2020-09-23 15:53 | HPE ---
HISTORY AND PHYSICAL DATE OF ADMISSION: 09/23/2020 PRIMARY CARE PHYSICIAN: Dr. Jeffy Koo CHIEF COMPLAINT: Dehydration, intractable diarrhea, digoxin toxicity. HISTORY: Real Garcia is a 60-year-old with hepatocellular carcinoma metastatic to the lungs, receiving immunomodulator therapy at [facility]. He is admitted with intractable diarrhea. He has had diarrhea since starting his immunotherapy, but it has gotten worse in the last few days. No vomiting. Profuse water diarrhea. No rectal bleeding noted. He had lab work done through Dr. Koo's office. It showed acute kidney injury (baseline creatinine is reportedly normal, and creatinine was approximately 3 at that time) as well as significant anemia. He was referred to the emergency room, where he was proved to be in acute kidney injury, hyponatremic, hyperkalemic, and digoxin toxic. MEDICAL HISTORY: 1. Hepatocellular carcinoma metastatic to the lungs, diagnosed July 2020, being treated at the [facility] with immunomodulator therapy. 2. History of atrial fibrillation, on Xarelto for anticoagulation and atenolol for rate control. 3. Morbid obesity. 4. Type 2 diabetes. 5. Hyperlipidemia. SOCIAL HISTORY: Does not smoke or drink any alcohol. 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 MEDICATIONS: Home medicines are Crestor, metformin, Trulicity, digoxin (doses of these all unknown), atenolol 100 mg daily, Xarelto 20 mg daily. ALLERGIES: None known. REVIEW OF SYSTEMS: No epistaxis, rectal bleeding, urinary bleeding, vomiting. He admits to confusion and trouble processing his thoughts. PHYSICAL EXAMINATION: Blood pressure 114/54, pulse 74, respiratory rate 16, 96% oxygen saturation. Afebrile. GENERAL APPEARANCE: He is resting comfortably. He admits to trouble processing his thoughts and is slow to answer questions. Sclerae are icteric. Mucous membranes are dry. HEENT otherwise unremarkable. LUNGS: Clear. HEART: Regular rate and rhythm; A 1/6 systolic ejection murmur. ABDOMEN: Soft. Liver is enlarged 8-10 cm below the costal margins. Nontender. There is no palpable ascites. EXTREMITIES: Show trace peripheral edema. No clubbing or cyanosis. Venous stasis dermatitis and varicose veins noted. He had no asterixis present. There were no focal neurologic deficits with normal strength and reflexes in all extremities. LABORATORY DATA: Unfortunately the point of care testing done in the emergency room is not carrying over into [facility] and is unavailable. Per verbal report, sodium is 129, potassium 5.7, bicarbonate normal, bum 59, creatinine 3.1. White count is 4.4, hemoglobin 8.3, platelets 362. Digoxin level 2.4. Liver ultrasound showed hepatomegaly, innumerable hepatic masses. No ascites. IMPRESSION: 1. Acute kidney injury. I called Dr. Jeffy Koo. We discussed the case. He filled me in on background information. Patient's baseline renal function is normal. He is in acute kidney injury at this time. I have ordered normal saline for hydration, repeat labs, and oral feedings as tolerated. 2. Intractable diarrhea, probably related to his immunomodulator therapy. I ordered a gastrointestinal (GI) panel. He is at risk for Clostridium (C) difficile colitis from his frequent medical contact. 3. Digoxin toxicity. Could be accounting for his mental status changes. I will order telemetry, stop his digoxin, and repeat a level tomorrow. 4. Type 2 diabetes. Hold his oral agents. He already was taken off of Trulicity and metformin earlier today by Dr. Koo. Fingerstick blood sugars with coverage ordered. 5. Atrial fibrillation. Continue his Xarelto and atenolol. 6. Hyperkalemia. He is on intravenous (IV) normal saline. 7. No arrhythmias noted on telemetry, just atrial fibrillation. Recheck electrolytes in the morning. 8. Hepatocellular carcinoma metastatic to the lungs. Continue treatment plan through [facility]. He already has an appointment on Tuesday.
[2020-09-23 17:03] LABS: ALBUMIN 2.5 GM/DL (3.2-5.2); BILIRUBIN,TOTAL 4.2 MG/DL (0.2-1.0); CALCIUM LEVEL 8.6 MG/DL (8.5-10.1); CREATININE FOR GFR 2.8 MG/DL (0.70-1.30); GLOMERULAR FILTRATION RATE 24.9 (>56); POTASSIUM SERUM 5.9 MEQ/L (3.5-5.1); TOTAL PROTEIN 6.4 GM/DL (6.4-8.2)
[2020-09-23 17:24] VITALS: BP 101/59
[2020-09-23] MEDS: HumaLOG INSULIN (NovoLOG) PER UNIT SC SCH ×2 (17:30→21:00)
[2020-09-23] MEDS: RIVAROXABAN 20 MG TAB (XARELTO) PO SCH (18:17)
--- NOTE | 2020-09-23 19:45 | ECGEPIP ---
[facility] - ED Test Date: 2020-09-23 Pat Name: KELLY SCOTT Department: Room: - Gender: Male Manager Willow: octavia : 1960 Requested By: Mirella Gordon Order Number: [id number] Reading MD: Sathya Millan Measurements Intervals [place] Rate: 74 P: SD: QRS: -6 QRSD: 114 T: 130 QT: 358 QTc: 397 Interpretive Statements Atrial fibrillation Incomplete left bundle branch block ST & T wave abnormality, consider lateral ischemia NO PRIORS FOR COMPARISON Electronically Signed on 09-23-2020 19:44:53 EST by Sathya Millan
[2020-09-23 20:00] VITALS: BP 128/62
[2020-09-23] MEDS: atenoloL 50 MG TAB PO SCH (21:53)
[2020-09-24] VITALS (7 sets, daily range): BP systolic 114–137; BP diastolic 56–76
[2020-09-24] MEDS ORDERED: SUCRALFATE 1 GM TAB PO ONE (01:00)
[2020-09-24] MEDS ORDERED: CALCIUM CARBONATE 500 MG CHEW U/D PO ONE (01:00)
[2020-09-24] MEDS: NS 1,000 ML IV SCH ×3 (01:18→17:08)
[2020-09-24 05:37] LABS: HEMATOCRIT 26.3 % (42.0-52.0); HEMOGLOBIN 7.9 g/dl (13.5-17.5); MEAN CORPUSCULAR HEMOGLOBIN 26.6 pg (27.0-33.0); MEAN CORPUSCULAR VOLUME 88.6 fl (80.0-96.0); PLATELET COUNT, AUTOMATED 325 10^3/uL (150-450); RED BLOOD COUNT 2.97 10^6/uL (4.30-6.10); WHITE BLOOD COUNT 4.6 10^3/uL (4.0-10.0)
[2020-09-24 07:00] LABS: ALBUMIN 2.4 GM/DL (3.2-5.2); BILIRUBIN,DIRECT 3.9 MG/DL (0.0-0.2); BILIRUBIN,TOTAL 4.3 MG/DL (0.2-1.0); CALCIUM LEVEL 8.5 MG/DL (8.5-10.1); CREATININE FOR GFR 2.86 MG/DL (0.70-1.30); DIGOXIN LEVEL 2.3 NG/ML (0.5-2.0); GLOMERULAR FILTRATION RATE 24.3 (>56); POTASSIUM SERUM 5.7 MEQ/L (3.5-5.1); TOTAL PROTEIN 6.2 GM/DL (6.4-8.2)
[2020-09-24] MEDS: HumaLOG INSULIN (NovoLOG) PER UNIT SC SCH ×4 (07:30→20:41)
--- NOTE | 2020-09-24 09:19 | REP ---
INDICATION: ca COMPARISON: Comparison CT study July 22, 2020.. TECHNIQUE: Helical scanning is acquired in 4 mm axial images were reformatted. Coronal and sagittal MPR images were generated and reviewed. FINDINGS: Preliminary digital cable dispatcher radiograph demonstrates hepatomegaly. Bowel gas pattern is normal. Patient is rotated slightly to the right. Innumerable bilateral pulmonary nodules are seen throughout the lung bases as on recent CT abdomen and chest. Many of these are slightly larger than at the time of the July 22, 2020 study. This suggests interval progression. There is a thin sliver of ascitic fluid adjacent to the anterior aspect of the liver. No other evidence of ascites. No splenic lesion is seen. In the liver, there is a very large central heterogeneous hepatic mass. This appears to have enlarged in the short interval since the July 22, 2020 CT study. By my measurement, the oblique anterior to posterior dimension of the mass has increased from 14.5-17.6 cm. Its anteroposterior dimension is 20 cm, previously 16.7 cm. Its cranial borders are difficult to define but appears to extend to the anterior dome of the diaphragm superiorly and the inferior edge of the liver caudally. This is a 24.6 cm span. One large heterogeneous mass versus multiple confluent masses. No adrenal lesion is seen. Pancreas is displaced by the hepatomegaly but otherwise intact. No renal mass lesion is observed. No colonic mass is seen. No retroperitoneal or upper abdominal adenopathy is seen. Urinary bladder, prostate and seminal vesicles are unremarkable. Vascular calcification is observed in the aorta and iliac vessels. No bony destructive lesion is appreciated. There are degenerative spondylosis changes in the thoracolumbar spine and a grade 1 spondylolisthesis is seen at L5-S1 due to degenerative disc and osteoarthritic facet disease. IMPRESSION: Interval progression is seen in the size of the huge confluent hepatic mass and in the size of the innumerable pulmonary nodules in the lung bases. Primary hepatocellular carcinoma versus cholangiocarcinoma versus metastatic disease to the liver. <Electronically signed by Austin Meléndez > 09/24/20 [id number]
--- NOTE | 2020-09-24 09:40 | IPN ---
PROGRESS NOTE DATE: 09/24/2020 SUBJECTIVE: Real is seen in PCU. He feels better than yesterday. He is more alert too. His lab work is not significantly better. His renal function is not improved with hydration. His liver function is significantly elevated. I sent him down for a CT of the abdomen and pelvis today. Compared to a CT from 07/22/2020, the hepatic masses and pulmonary metastases have increased in size and number. Diarrhea persists. No fever and no chills. No vomiting. OBJECTIVE: VITAL SIGNS: Afebrile at 97.5 degrees. Blood pressure 114/57. Pulse 76. GENERAL APPEARANCE: Alert and conversant, in no distress. HEENT: His sclerae are icteric. HEENT: Unremarkable. LUNGS: Clear. HEART: Regular rate without murmur. ABDOMEN: Soft. He has a large liver on exam that is nontender EXTREMITIES: Trace peripheral edema. Venous stasis present. No asterixis. LABORATORY DATA: White count 4.6, hemoglobin 7.9, platelets 325,000. Sodium 130, potassium 5.7, BUN 69, creatinine 2.8, glucose 81. Bilirubin is 4.3, AST 4338, alkaline phosphatase 1100. Digoxin is just elevated at 2.3. IMPRESSION: 1. Acute kidney injury. Baseline creatinine is close to 1.0 so this is significantly elevated and has not responded to hydration. I will continue intravenous (IV) fluid. Concerning he might be developing hepatorenal syndrome. 2. Intractable diarrhea. Gastrointestinal (GI) panel is pending. 3. Digoxin toxicity. Digoxin is on hold. I will repeat his digoxin level tomorrow. Continue hydration. Hopefully this will improve if renal function improves. 4. Type 2 diabetes. He is off his oral agents. Fingerstick coverage ordered. 5. Atrial fibrillation. Continue Xarelto and Atenolol. 6. Hyperkalemia unresponsive to IV hydration. Kayexalate is ordered. Maintain telemetry until hyperkalemia is improved. 7. Hepatocellular carcinoma metastatic to the lungs. Prognosis is poor. CT shows progression of disease. I will give his a call this morning after care rounds. He is treated through [facility] with immunomodulator therapy.
[2020-09-24] MEDS ORDERED: SOD POLYSTYRENE SULFONATE SUSP 15 GM/60 ML UD PO ONE (10:00)
[2020-09-24] MEDS: RIVAROXABAN 20 MG TAB (XARELTO) PO SCH (17:00)
--- NOTE | 2020-09-24 17:30 | DSES ---
DISCHARGE SUMMARY DATE OF ADMISSION: 09/24/2020 DATE OF DISCHARGE: / / ADDENDUM: Accepting physician was Dr. Armstrong of the Solid Tumor Oncology service.
--- NOTE | 2020-09-24 20:04 | DSES ---
DISCHARGE/TRANSFER SUMMARY DATE OF ADMISSION: 09/23/2020 DATE OF DISCHARGE/TRANSFER: 09/24/2020 TRANSFER FACILITY: [facility]. PRINCIPAL DIAGNOSES: Hepatocellular carcinoma with acute kidney injury/suspected hepatorenal syndrome. SECONDARY DIAGNOSES: 1. Metastatic hepatocellular carcinoma. 2. Hyperkalemia. 3. Type 2 diabetes. 4. History of hyperlipidemia. 5. History of atrial fibrillation on anticoagulant therapy with Xarelto. 6. Morbid obesity. PRIMARY CARE PROVIDER: Jeffy Koo M.D. ACCEPTING FACILITY: [facility] (accepting physician pending addendum will be dictated). HISTORY OF PRESENT ILLNESS: Real Garcia is a 60-year-old with hepatocellular carcinoma metastatic to his lungs receiving immunomodular therapy through [facility] from Dr. Hernandez. He was admitted after lab work done in Dr. Koo's office showed acute kidney injury. The patient's baseline creatinine was reportedly normal and in Dr. Koo's office creatinine was approximately 3. It was 2.8 upon arrival to the emergency room. He was admitted for further treatment. He was found to be hyperkalemic and hyponametric. HOSPITAL COURSE: The patient was admitted to a telemetry bed. He was hydrated with normal saline. He had been having some diarrhea and I expected his renal function to improve with hydration. However, despite 24 hours of aggressive hydration, renal function has not improved. Creatinine remains stable at 2.86. Hyperkalemia did not improve it was 5.9 on admission and 5.7 this morning. I did a CT of the abdomen and pelvis that showed increased number and size of diffuse tumors in the liver and lungs. The patient had some mild digoxin toxicity. Digoxin level was 2.6 on admission and only down to 2.3 today. He was having mild symptoms of mental confusion and nausea, which was improved today. I spoke with Dr. Hernandez today with the patient and 's consent. We discussed the case. The patient and his were pursuing transfer to [facility] and Dr. Hernandez thought this was appropriate. I called [facility] and asked for a transfer to the solid tumor oncology service and that transfer is in process. SIGNIFICANT LABORATORY DATA: Today white count is 4.6, hemoglobin 7.9, platelets 325,000. Sodium 130, potassium 5.7, BUN 69, creatinine 2.86, glucose 81. AST 4338, ALT 4.5, bilirubin 4.3, direct bilirubin 3.9, alkaline phosphatase 1106. Blood sugars have all been around 70. COVID test was negative yesterday. Digoxin level today 2.3. IMAGING DATA: CT abdomen and pelvis as summarized above. DISPOSITION: We are anticipating transfer to [facility] by basic ambulance transport. He is currently on normal saline at 150 per hour. Receiving Atenolol 100 mg q. h.s., Xarelto 20 mg daily. He received Kayexalate [address] Hernandez stressed, and I made sure that the patient's understood, that the patient would not receive immunomodulatory therapy during the course of an acute hospitalization. They understand this and are still willing and eager to pursue transfer.
[2020-09-24] MEDS: atenoloL 50 MG TAB PO SCH (20:41)
[2020-09-25] VITALS: BP 150/75
[2020-09-25] MEDS: NS 1,000 ML IV SCH ×2 (01:17→09:00)
[2020-09-25 04:00] VITALS: BP 127/61
[2020-09-25 06:08] LABS: HEMATOCRIT 25.9 % (42.0-52.0); HEMOGLOBIN 7.8 g/dl (13.5-17.5); MEAN CORPUSCULAR HEMOGLOBIN 27.1 pg (27.0-33.0); MEAN CORPUSCULAR HGB CONC 30.1 g/dl (32.0-36.5); MEAN CORPUSCULAR VOLUME 89.9 fl (80.0-96.0); PLATELET COUNT, AUTOMATED 318 10^3/uL (150-450); RED BLOOD COUNT 2.88 10^6/uL (4.30-6.10); WHITE BLOOD COUNT 5.2 10^3/uL (4.0-10.0)
[2020-09-25 07:30] LABS: ALBUMIN 2.3 GM/DL (3.2-5.2); BILIRUBIN,TOTAL 4.6 MG/DL (0.2-1.0); CALCIUM LEVEL 8.1 MG/DL (8.5-10.1); CREATININE FOR GFR 2.77 MG/DL (0.70-1.30); DIGOXIN LEVEL 1.7 NG/ML (0.5-2.0); GLOMERULAR FILTRATION RATE 25.2 (>56); POTASSIUM SERUM 5.2 MEQ/L (3.5-5.1); TOTAL PROTEIN 6.1 GM/DL (6.4-8.2)
[2020-09-25] MEDS: HumaLOG INSULIN (NovoLOG) PER UNIT SC SCH (07:30)
[2020-09-25 07:53] VITALS: BP 120/56
--- NOTE | 2020-09-25 08:11 | IPN ---
PROGRESS NOTE DATE: 09/25/2020 SUBJECTIVE: Real did not end up getting transferred to [facility] yesterday. There is a bed available today. He is leaving in the next few minutes. He still feels weak, diarrhea persists. GI panel was negative for enteric pathogens or C. Diff colitis. PHYSICAL EXAMINATION: VITAL SIGNS: Afebrile, blood pressure 127/61, pulse is 60, respiratory rate 18, 100% saturation on room air. GENERAL APPEARANCE: Chronically ill-appearing, icteric sclera. LUNGS: Clear. HEART: Regular rate and rhythm. ABDOMEN: Soft. Liver is enlarged, is mildly tender. EXTREMITIES: There is 1+ peripheral edema. Venous stasis dermatitis present. No asterixis. LABORATORY DATA: White count is 5.2, hemoglobin is stable at 7.8, was 8.3 on admission, platelets 318,000. Sodium 129, potassium 5.2, BUN 66, creatinine 2.7. Bilirubin is 4.6 with a direct of 4.0. AST and ALT are marginally improved from yesterday, down to 3791/595 respectively. Digoxin is down to 1.7. IMPRESSION: Patient's renal function has not improved despite aggressive IV therapy, is receiving Normal Saline at 150/hr and his renal function is not improved. GI panel is negative for enteric pathogens or C. Diff colitis. I am concerned he has developed hepatorenal syndrome. I am reducing his IV rate to 75/hr. His potassium is improved, Digoxin level is no longer elevated but the rest of his lab work looked unchanged. I appreciate the assistance of the [facility] Care Team and accepting his transfer.
[2020-09-25 12:00] VITALS: BP 122/65
== END 2020-09-25 12:00 | disposition short-term general hospital (02) | DRG 682 ==
LOC: M ED 10:36 → M ED INP 14:18 → M PCU 17:10 → OBSVTOIN 09-24 09:52
PROVIDERS: ADMIT Family Medicine; ATTEND Family Medicine
DX: N17.9 Acute kidney failure, unspecified (principal); K76.7 Hepatorenal syndrome; K52.1 Toxic gastroenteritis and colitis; E87.1 Hypo-osmolality and hyponatremia; C22.0 Liver cell carcinoma; C78.01 Secondary malignant neoplasm of right lung; C78.02 Secondary malignant neoplasm of left lung; D64.9 Anemia, unspecified; E87.5 Hyperkalemia; T46.0X5A Adverse effect of cardiac-stimulant glycosides and drugs of similar action, initial encounter; R41.82 Altered mental status, unspecified; I48.91 Unspecified atrial fibrillation; E66.01 Morbid (severe) obesity due to excess calories; E11.9 Type 2 diabetes mellitus without complications; E78.5 Hyperlipidemia, unspecified; Z79.01 Long term (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 of anticoagulants; Z79.84 Long term (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 of oral hypoglycemic drugs; Z79.899 Other long term (current) drug therapy; T45.1X5A Adverse effect of antineoplastic and immunosuppressive drugs, initial encounter; Z68.35 Body mass index [BMI] 35.0-35.9, adult

== ENCOUNTER → 2020-09-23 | Outpatient (CLI) | payer OTHER ==
--- NOTE | 2020-09-23 07:57 | REP ---
INDICATION: LIVER CA ? ASCITES. COMPARISON: Comparison CT study 07/22/2020.. TECHNIQUE: Four quadrant transabdominal sonographic survey for ascites. FINDINGS: Four quadrant scanning shows no evidence of ascites fluid in any quadrant. Hepatomegaly with innumerable hepatic masses again seen. IMPRESSION: No ascites noted. <Electronically signed by Austin Meléndez > 09/23/20 075
== END ==
LOC: M RAD 06:35
PROVIDERS: ATTEND Internal Medicine
DX: C22.8 Malignant neoplasm of liver, primary, unspecified as to type (principal); R18.8 Other ascites

== ENCOUNTER → 2020-09-30 | Outpatient (REF) | payer OTHER ==
[~2020-09-30] MED LIST changes: +XARE20TA PO
[2020-09-30 18:56] LABS: INR 1.2; PROTHROMBIN TIME 15.5 SECONDS (12.5-14.3)
== END ==
LOC: M LAB REF 17:47
PROVIDERS: ATTEND Internal Medicine
DX: Z79.01 Long term (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 of anticoagulants (principal); I48.20 Chronic atrial fibrillation, unspecified

== ENCOUNTER → 2020-10-01 | Outpatient (REF) | payer OTHER ==
[2020-10-01 15:16] LABS: INR 1.22; PROTHROMBIN TIME 15.7 SECONDS (12.5-14.3)
[2020-10-01 15:32] LABS: CALCIUM LEVEL 8.4 MG/DL (8.5-10.1); CREATININE FOR GFR 3.77 MG/DL (0.70-1.30); GLOMERULAR FILTRATION RATE 17.7 (>56); POTASSIUM SERUM 5.6 MEQ/L (3.5-5.1)
== END ==
LOC: M LAB REF 14:32
PROVIDERS: ATTEND Internal Medicine
DX: C22.8 Malignant neoplasm of liver, primary, unspecified as to type (principal); I48.20 Chronic atrial fibrillation, unspecified; N17.9 Acute kidney failure, unspecified; Z79.01 Long term (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 of anticoagulants